=== PATIENT | female | born 1975 | race Caucasian/White ===

== ENCOUNTER → 2017-05-16 16:21 | Outpatient (CLI) | payer OTHER, SELFPAY ==
[2017-05-16 17:50] LABS: ALB/GLOB Ratio 1.2 RATIO (0.9-2.4); AST(SGOT) 11 U/L (15-37); Alanine Aminotransfer ALT/SGPT 25 U/L (13-56); Albumin, Serum 3.8 g/dL (3.2-5.0); Alkaline Phosphatase 54 U/L (45-117); Anion Gap 7 (5-15); BUN 13 mg/dL (7-18); BUN/Creat Ratio 18.7 RATIO (10-20); Calcium,Total 8.5 mg/dL (8.5-10.1); Chloride 104 mmol/L (98-107); EST Glomerular Filtration Rate 98 mL/min (>60); Est Glom Filt Rate - Afr Amer 118 mL/min (>60); Globulin 3.3 g/dL (2.2-4.2); Glucose 84 mg/dL (74-106); Potassium 3.8 mmol/L (3.5-5.1); Protein, Total 7.1 g/dL (6.4-8.2); Sodium Level 140 mmol/L (136-145)
== END ==
PROVIDERS: Family Provider Family Medicine; PCP Family Medicine; Visit Provider Family Medicine
DX: R32 Unspecified urinary incontinence (principal); R35.8 Other polyuria; R30.0 Dysuria
CPT/HCPCS: 36415; 80053; 87086; 87088

== ENCOUNTER → 2017-05-24 14:50 | Outpatient (CLI) | payer OTHER, SELFPAY ==
--- NOTE | 2017-05-24 14:52 | US_ITS ---
STUDY: ULTRASOUND OF THE FEMALE PELVIS REASON FOR EXAM: Female, 41 years old. Pelvic pain LMP: May 15, 2017 TECHNIQUE: Transverse and longitudinal imaging of the pelvis was obtained transvaginally using real-time ultrasound. COMPARISON: Pelvic ultrasound report dated October 20, 2008 FINDINGS: The uterus is retroverted and is in a midline position. The uterus measures 7.4 x 4.0 x 4.0 cm. There is minimal fluid in the cervical canal. The endometrium measures 7.0 mm in thickness, and is hyperechoic. There is no demonstrated endometrial mass. There is a hypoechoic mass in the fundus measuring 1.9 x 1.9 x 1.7 cm. I.U.D. - The patient does not have an I.U.D. The right ovary is visualized. The right ovary measures 3.2 x 1.8 x 2.0 cm. There are follicles in the right ovary without a dominant cyst. There is no visualized right adnexal mass or complex lesion. There is normal arterial and normal venous vascularity. The left ovary is visualized. The left ovary measures 3.3 x 1.8 x 1.5 cm. There are follicles in the left ovary without a dominant cyst. There is no visualized left adnexal mass or complex lesion. There is normal arterial and normal venous vascularity. There is no fluid in the cul-de-sac. No significant abnormalities are seen on limited visualization of the urinary bladder. US/Transvaginal Non- IMPRESSION: The uterus is retroverted. There is a small fibroid in the fundus measuring about 2 cm in size. The ovaries are normal in appearance with follicles. There is no free fluid. Electronically Signed: Celine Edge MD at 17:39 EST Tel Direct: [phone], Service support ,
--- NOTE | 2017-05-24 15:24 | RAD_ITS ---
STUDY: X-RAY - LUMBOSACRAL SPINE REASON FOR EXAM: Female, 41 years old. Back pain with radiculopathy TECHNIQUE: Six view(s) of the lumbosacral spine were obtained. COMPARISON: None FINDINGS: Normal lumbar lordosis. There is minimal levoscoliosis. There is slight anterior subluxation of L4 on L5 which does not significantly change with flexion and slightly improves with extension. There is very minimal spurring from L3 through L5. Vertebral body heights are maintained. There is no significant disc space narrowing. The sacrum and sacroiliac joints are unremarkable. Tubal ligation clips are present in the pelvis. RAD/L/S Spine Comp/w Bending Views IMPRESSION: There is trace spondylolisthesis of L4 on L5 which does not significantly change with flexion and slightly improves with extension. There are no significant disc abnormalities seen radiographically. Electronically Signed: Celine Edge MD at 17:49 EST Tel Direct: [phone], Service support ,
--- NOTE | 2017-05-24 15:24 | RAD_ITS ---
STUDY: X-RAY - PELVIS REASON FOR EXAM: Female, 41 years old. Low back pain and hip pain TECHNIQUE: One view of the pelvis was obtained. COMPARISON: None. FINDINGS: There is a non-specific bowel gas pattern. The soft tissues are unremarkable. Tubal ligation clips are present. The visualized iliac wings, sacroiliac joints and sacrum are unremarkable. No abnormalities are seen in the visualized superior and inferior pubic rami. Normal appearing pubic symphysis. The visualized ischial tuberosities are unremarkable. The proximal right femur shows no significant abnormalities. The right acetabulum shows no significant abnormalities. The right hip joint is normal in appearance. The proximal left femur shows no significant abnormalities. The left acetabulum shows no significant abnormalities. The left hip joint is normal in appearance. RAD/Pelvis 1 or 2 Views IMPRESSION: No significant abnormalities are seen radiographically in the pelvis. Electronically Signed: Celine Edge MD at 16:31 EST Tel Direct: [phone], Service support ,
== END ==
PROVIDERS: Family Provider Family Medicine; PCP Family Medicine; Visit Provider Family Medicine
DX: R10.2 Pelvic and perineal pain (principal); M54.5 Low back pain
CPT/HCPCS: 72114; 72170; 76830; 93976

== ENCOUNTER → 2018-06-15 10:05 | Outpatient (CLI) | payer OTHER, SELFPAY ==
[2016-05-03 12:15] VITALS: BMI 30.9
[2018-06-15 10:27] LABS: Absolute Lymphocyte Count 1.58 X10^3/ul (0.83-4.51); Absolute Neutrophil Count 2.3 X10^3/uL (2.0-7.7); Basophil# 0.02 X10^3/uL; Basophil% 0.5 % (0-1); Eosinophils% 2.3 % (0-5); Hematocrit 41.4 % (37-47); Hemoglobin 13.1 g/dl (12.0-15.0); Lymphocyte # 1.58 X10^3/ul (4.0); Lymphocyte % 37.1 % (19-41); Mean Corp Hgb Conc 31.6 g/gl (32-36); Mean Corpuscular Hgb 30.4 pg (27.0-32.0); Mean Corpuscular Volume 96.1 fL (81-99); Mean Platelet Vol. 10.9 fl (6.2-12.0); Neutrophil # 2.26 X10^3/uL (2.7-7.7); Neutrophil % 53.1 % (47-70); Platelet Count 238 K/mm3 (150-450); RBC Distribution Width SD 44.8 fl (35.1-43.9); Red Blood Count 4.31 M/mm3 (4.2-5.4); White Blood Count 4.3 K/mm3 (4.4-11.0)
[2018-06-15 10:28] LABS: POSITIVE COUNT NO; POSITIVE DIFFERENTIAL NO; POSITIVE MORPHOLOGY NO
[2018-06-15 10:46] LABS: Hemoglobin A1c 5.2 % (4.2-6.3)
[2018-06-15 10:56] LABS: Vitamin D,25 Hydroxy 20.2 ng/mL (29.95-100.01)
[2018-06-15 10:57] LABS: ALB/GLOB Ratio 1.2 RATIO (0.9-2.4); AST(SGOT) 12 U/L (15-37); Alanine Aminotransfer ALT/SGPT 15 U/L (13-56); Albumin, Serum 3.7 g/dL (3.2-5.0); Alkaline Phosphatase 55 U/L (45-117); Anion Gap 3 (5-15); BUN 15 mg/dL (7-18); BUN/Creat Ratio 20.9 RATIO (10-20); Calcium,Total 8.7 mg/dL (8.5-10.1); Chloride 108 mmol/L (98-107); Cholesterol 203 mg/dL (200); Creatinine, Serum 0.72 mg/dL (0.55-1.02); EST Glomerular Filtration Rate 94 mL/min (>60); Est Glom Filt Rate - Afr Amer 114 mL/min (>60); Globulin 3.2 g/dL (2.2-4.2); Glucose 92 mg/dL (74-106); High Density Lipoprotein 78 mg/dL; Potassium 4.2 mmol/L (3.5-5.1); Protein, Total 6.9 g/dL (6.4-8.2); Sodium Level 139 mmol/L (136-145); T4 Free Direct 0.92 ng/dL (0.76-1.46); Thyroid Stim Hormone (TSH) 1.28 uIU/mL (0.358-3.74); Triglycerides 49 mg/dL; Very Low Density Lipoprotein 10 mg/dL (5-40)
[2018-06-16 07:50] LABS: Free T3 2.4 pg/mL (2.18-3.98)
== END ==
PROVIDERS: Family Provider Family Medicine; PCP Family Medicine; Referring Provider Family Medicine; Visit Provider Family Medicine
DX: E55.9 Vitamin D deficiency, unspecified (principal); R53.83 Other fatigue; R73.01 Impaired fasting glucose; E78.5 Hyperlipidemia, unspecified; Z51.81 Encounter for therapeutic drug level monitoring
CPT/HCPCS: 36415; 80053; 80061; 82306; 83036; 84439; 84443; 84481; 85025

== ENCOUNTER → 2018-07-10 | Outpatient (CLI) | payer OTHER, SELFPAY ==
[2016-05-03 12:15] VITALS: BMI 30.9
[2018-07-15 12:10] LABS: HPV Reflexed? NOT INDICATED
== END | disposition home or self-care (01) ==
LOC: LABSPEC 16:38
PROVIDERS: Family Provider Family Medicine; PCP Family Medicine; Referring Provider Obstetrics & Gynecology; Visit Provider Obstetrics & Gynecology
DX: Z12.4 Encounter for screening for malignant neoplasm of cervix (principal)
CPT/HCPCS: 88175; G0145

== ENCOUNTER → 2018-07-25 | Outpatient (CLI) | payer OTHER, SELFPAY ==
[2016-05-03 12:15] VITALS: BMI 30.9
--- NOTE | 2018-07-25 12:36 | BI_ITS ---
MAMMOGRAPHY - BILATERAL SCREENING REASON FOR EXAM: Female, 43 years old. Routine annual screening examination. PERTINENT HISTORY: Non-contributory. TECHNIQUE: Digital bilateral breast leigh ann (3D mammographic acquisition) in the CC and MLO projections. 2-D mediolateral oblique (MLO) and craniocaudad (CC) views of both breasts were obtained. CAD: Full Field Digital Mammography with Computer Added Detection was performed. COMPARISON: Comparison is made with prior study dated October 17, 2016 and December 23, 2014. FINDINGS: Breast Composition: The breasts are heterogeneously dense, which may obscure small masses. There are no dominant masses or suspicious calcifications. Stable 7 mm well-defined nodular density in the upper outer aspect of the left breast. This most likely represents a small lymph node. No other significant abnormalities are identified. There has been no significant change since the prior study. BI/SCREENING MAMM (CAD), BILAT IMPRESSION: Stable bilateral screening mammogram. Yearly follow-up mammogram recommended. (A) ASSESSMENT CATEGORY: BIRADS Category 2: Benign. A letter regarding these results will be sent to the patient by the facility within 30 days. Approximately 10% of breast cancers are not detected by mammography. A normal mammogram should not delay biopsy of a clinically suspicious abnormality. [id number] Electronically Signed: Tray Mcconnell, at 14:10 EDT , Service support ,
== END | disposition home or self-care (01) ==
LOC: OPBI 12:36
PROVIDERS: Family Provider Family Medicine; PCP Family Medicine; Referring Provider Family Medicine; Visit Provider Family Medicine
DX: Z12.31 Encounter for screening mammogram for malignant neoplasm of breast (principal)
CPT/HCPCS: 77063; 77067

== ENCOUNTER → 2019-09-30 | Outpatient (CLI) | payer OTHER, SELFPAY ==
[2016-05-03 12:15] VITALS: BMI 30.9
[2019-09-30 17:17] LABS: Chlamydia Trachomatis by PCR Negative (Negative); Neisserai gonorrhoeae by PCR Negative (Negative); Probe Check PASS; Sample Adequacy Control PASS; Specimen Processing Control PASS
[2019-09-30 19:53] LABS: Probe Check PASS; Sample Adequacy Control PASS; Specimen Processing Control PASS; Trichomonas Vag DNA by PCR Negative (Negative)
== END | disposition home or self-care (01) ==
LOC: WOBLAB 13:34 → LABSPEC 13:35
PROVIDERS: PCP Family Medicine; Visit Provider Obstetrics & Gynecology
DX: Z11.3 Encounter for screening for infections with a predominantly sexual mode of transmission (principal)
CPT/HCPCS: 87491; 87591; 87661

== ENCOUNTER → 2021-10-04 | Outpatient (CLI) | payer OTHER, SELFPAY ==
--- NOTE | 2021-10-04 09:33 | RAD_ITS ---
STUDY: X-RAY - CERVICAL SPINE REASON FOR EXAM: Female, 46 years old. CERVICALGIA,NECK PAIN TECHNIQUE: 5 view(s) of the cervical spine were obtained. COMPARISON: None FINDINGS: Normal anterior atlantoaxial articulation. Normal odontoid process. There is straightening of the normal cervical lordosis. Normal vertebral bodies and endplates. Normal disc space heights. Normal visualized intervertebral neuroforamina. Minimal anterior listhesis of C4 on C5. The soft tissue structures are unremarkable. RAD/Cerv Spine 4 or 5 Views IMPRESSION: There is straightening of the normal cervical lordosis. Minimal anterior listhesis of C4 on C5. Electronically Signed: Tray Mcconnell MD at 10:05 EDT ,
[2021-10-04 12:16] LABS: Absolute Lymphocyte Count 1.87 X10^3/uL (0.83-4.51); Absolute Neutrophil Count 3.6 X10^3/uL (2.0-7.7); Basophil# 0.03 X10^3/uL; Basophil% 0.5 % (0-1); Eosinophil# 0.16 X10^3/uL; Eosinophils% 2.6 % (0-5); Hematocrit 39.3 % (37-47); Hemoglobin 12.3 g/dL (12.0-15.0); Lymphocyte # 1.87 X10^3/ul (0.83-4.51); Lymphocyte % 30.8 % (19-41); Mean Corp Hgb Conc 31.3 g/dL (32-36); Mean Corpuscular Hgb 29.5 pg (27.0-32.0); Mean Corpuscular Volume 94.2 fL (81-99); Mean Platelet Vol. 11.3 fl (6.2-12.0); Monocyte# 0.41 X10^3/uL; Monocyte% 6.8 % (0-10); NRBC Flagged by Analyzer 0 % (0-5); Neutrophil # 3.58 X10^3/uL (2.7-7.7); Platelet Count 327 K/mm3 (150-450); RBC Distribution Width CV 12.8 % (11.6-14.6); RBC Distribution Width SD 44.5 fl (35.1-43.9); Red Blood Count 4.17 M/mm3 (4.2-5.4); White Blood Count 6.1 K/mm3 (4.4-11.0)
[2021-10-04 13:09] LABS: ALB/GLOB Ratio 1.1 RATIO (0.9-2.4); AST(SGOT) 11 U/L (15-37); Alanine Aminotransfer ALT/SGPT 21 U/L (13-56); Albumin, Serum 3.6 g/dL (3.2-5.0); Alkaline Phosphatase 59 U/L (45-117); Anion Gap 6 (5-15); BUN 14 mg/dL (7-18); BUN/Creat Ratio 18.8 RATIO (10-20); Calcium,Total 8.9 mg/dL (8.5-10.1); Chloride 106 mmol/L (98-107); Cholesterol 225 mg/dL (200); Creatinine, Serum 0.74 mg/dL (0.55-1.02); EST Glomerular Filtration Rate 89 mL/min (>60); Est Glom Filt Rate - Afr Amer 108 mL/min (>60); Free T3 2.5 pg/mL (2.18-3.98); Globulin 3.2 g/dL (2.2-4.2); Glucose 96 mg/dL (74-106); High Density Lipoprotein 60 mg/dL; Potassium 4.1 mmol/L (3.5-5.1); Protein, Total 6.8 g/dL (6.4-8.2); Sodium Level 138 mmol/L (136-145); Thyroid Stim Hormone (TSH) 1.11 uIU/mL (0.358-3.74); Triglycerides 47 mg/dL; Very Low Density Lipoprotein 9 mg/dL (5-40)
== END | disposition home or self-care (01) ==
PROVIDERS: PCP Family Medicine; Referring Provider Family Medicine; Visit Provider Family Medicine
DX: E03.9 Hypothyroidism, unspecified (principal); E55.9 Vitamin D deficiency, unspecified; E78.5 Hyperlipidemia, unspecified; Z51.81 Encounter for therapeutic drug level monitoring; Z20.822 Contact with and (suspected) exposure to COVID-19; M54.2 Cervicalgia
CPT/HCPCS: 36415; 72050; 80053; 80061; 82306; 84439; 84443; 84481; 85025; 86376; 86769; 86800

== ENCOUNTER → 2022-02-27 | Outpatient (CLI) | payer OTHER, SELFPAY ==
--- NOTE | 2022-02-27 15:31 | BI_ITS ---
MAMMOGRAPHY - BILATERAL SCREENING REASON FOR EXAM: Female, 46 years old. Routine annual screening examination. PERTINENT HISTORY: Non-contributory. TECHNIQUE: Digital bilateral breast shari (3D mammographic acquisition) in the CC and MLO projections. 2-D mediolateral oblique (MLO) and craniocaudad (CC) views of both breasts were obtained. CAD: Full Field Digital Mammography with Computer Added Detection was performed. COMPARISON: Comparison is made with prior study dated 07/25/2018 and 04/19/2016. FINDINGS: Breast Composition: There are scattered areas of fibroglandular density. There are no dominant masses or suspicious calcifications. Stable 7 mm well-defined nodule with a central fatty hilum in the upper outer aspect of the left breast suggestive of a small lymph node. No other significant abnormalities are identified. There has been no significant change since the prior study. BI/SCRN MAMM (CAD)W/SHARI BILAT IMPRESSION: Stable bilateral screening mammogram. Yearly follow-up mammogram recommended. (A) ASSESSMENT CATEGORY: BIRADS Category 2: Benign. A letter regarding these results will be sent to the patient by the facility within 30 days. Approximately 10% of breast cancers are not detected by mammography. A normal mammogram should not delay biopsy of a clinically suspicious abnormality. [id number] Electronically Signed: Tray Mcconnell MD at 8:11 EST ,
== END | disposition home or self-care (01) ==
LOC: OPBI 15:30
PROVIDERS: PCP Family Medicine; Visit Provider Family Medicine
DX: Z12.31 Encounter for screening mammogram for malignant neoplasm of breast (principal); N63.21 Unspecified lump in the left breast, upper outer quadrant
CPT/HCPCS: 77063; 77067

== ENCOUNTER → 2022-05-25 | Outpatient (CLI) | payer OTHER, SELFPAY ==
[2022-05-25 17:50] LABS: Erythrocyte Sedimentation Rate 25 mm/hr (0-30)
[2022-05-25 17:52] LABS: Absolute Lymphocyte Count 2.31 X10^3/uL (0.83-4.51); Absolute Neutrophil Count 5.1 X10^3/uL (2.0-7.7); Basophil# 0.04 X10^3/uL; Basophil% 0.5 % (0-1); Eosinophil# 0.06 X10^3/uL; Eosinophils% 0.7 % (0-5); Hematocrit 39.1 % (37-47); Hemoglobin 12.5 g/dL (12.0-15.0); Lymphocyte # 2.31 X10^3/ul (0.83-4.51); Lymphocyte % 28.5 % (19-41); Mean Corpuscular Hgb 29.3 pg (27.0-32.0); Mean Corpuscular Volume 91.8 fL (81-99); Mean Platelet Vol. 11.3 fl (6.2-12.0); Monocyte# 0.55 X10^3/uL; Monocyte% 6.8 % (0-10); NRBC Flagged by Analyzer 0 % (0-5); Neutrophil # 5.12 X10^3/uL (2.7-7.7); Neutrophil % 63.3 % (47-70); Platelet Count 340 K/mm3 (150-450); RBC Distribution Width CV 13.1 % (11.6-14.6); Red Blood Count 4.26 M/mm3 (4.2-5.4); White Blood Count 8.1 K/mm3 (4.4-11.0)
[2022-05-25 18:04] LABS: Vitamin D,25 Hydroxy 62.4 ng/mL
[2022-05-25 18:38] LABS: ALB/GLOB Ratio 1.3 RATIO (0.9-2.4); AST(SGOT) 16 U/L (15-37); Alanine Aminotransfer ALT/SGPT 26 U/L (13-56); Albumin, Serum 4.2 g/dL (3.2-5.0); Alkaline Phosphatase 73 U/L (45-117); Anion Gap 8 (5-15); BUN 15 mg/dL (7-18); BUN/Creat Ratio 19.9 RATIO (10-20); CRP 7.07 mg/L (0.0-3.0); Calcium,Total 9.6 mg/dL (8.5-10.1); Chloride 105 mmol/L (98-107); Cholesterol 239 mg/dL (200); Creatinine, Serum 0.75 mg/dL (0.55-1.02); EST Glomerular Filtration Rate 87 mL/min (>60); Est Glom Filt Rate - Afr Amer 106 mL/min (>60); Free T3 2.5 pg/mL (2.18-3.98); Globulin 3.3 g/dL (2.2-4.2); Glucose 92 mg/dL (74-106); High Density Lipoprotein 59 mg/dL; Potassium 3.8 mmol/L (3.5-5.1); Protein, Total 7.5 g/dL (6.4-8.2); Rheumatoid Factor < 10.0 IU/mL (<15); Sodium Level 137 mmol/L (136-145); T4 Free Direct 1.12 ng/dL (0.76-1.46); Thyroid Stim Hormone (TSH) 1.29 uIU/mL (0.358-3.74); Triglycerides 58 mg/dL; Very Low Density Lipoprotein 12 mg/dL (5-40)
[2022-05-28 14:03] LABS: CCP IgG Antibodies 4 units (0-19)
[2022-05-29 18:47] LABS: ANTINUCLEAR ANTIBODIES DIRECT Negative (Negative)
== END | disposition home or self-care (01) ==
LOC: MTLAB 15:14
PROVIDERS: PCP Family Medicine; Referring Provider Family Medicine; Visit Provider Family Medicine
DX: E03.9 Hypothyroidism, unspecified (principal); R73.01 Impaired fasting glucose; E55.9 Vitamin D deficiency, unspecified; Z51.81 Encounter for therapeutic drug level monitoring; M25.50 Pain in unspecified joint; M79.10 Myalgia, unspecified site
CPT/HCPCS: 36415; 80053; 80061; 82306; 84439; 84443; 84481; 85025; 85652; 86038; 86140; 86200; 86225; 86235; 86431

== ENCOUNTER → 2022-05-26 | Outpatient (CLI) | payer OTHER, SELFPAY | END | disposition home or self-care (01) | LOC: LABSPEC 13:35 | PROVIDERS: PCP Family Medicine; Visit Provider Student in an Organized Health Care Education/Training Program | DX: N76.0 Acute vaginitis (principal); R35.0 Frequency of micturition | CPT/HCPCS: 87086 ==

== ENCOUNTER → 2022-06-14 | Outpatient (CLI) | payer OTHER, SELFPAY ==
[2022-06-14 16:56] LABS: Hematocrit 38.6 % (37-47); Hemoglobin 12.3 g/dL (12.0-15.0); Mean Corp Hgb Conc 31.9 g/dL (32-36); Mean Corpuscular Hgb 29.1 pg (27.0-32.0); Mean Corpuscular Volume 91.5 fL (81-99); Mean Platelet Vol. 10.8 fl (6.2-12.0); Platelet Count 327 K/mm3 (150-450); RBC Distribution Width CV 13.1 % (11.6-14.6); RBC Distribution Width SD 44.3 fl (35.1-43.9); Red Blood Count 4.22 M/mm3 (4.2-5.4); White Blood Count 7.7 K/mm3 (4.4-11.0)
[2022-06-14 18:22] LABS: ALB/GLOB Ratio 1.1 RATIO (0.9-2.4); AST(SGOT) 11 U/L (15-37); Alanine Aminotransfer ALT/SGPT 24 U/L (13-56); Albumin, Serum 3.8 g/dL (3.2-5.0); Alkaline Phosphatase 64 U/L (45-117); Anion Gap 7 (5-15); BUN 11 mg/dL (7-18); BUN/Creat Ratio 13.8 RATIO (10-20); Calcium,Total 9.1 mg/dL (8.5-10.1); Chloride 109 mmol/L (98-107); EST Glomerular Filtration Rate 82 mL/min (>60); Est Glom Filt Rate - Afr Amer 99 mL/min (>60); Globulin 3.4 g/dL (2.2-4.2); Glucose 125 mg/dL (74-106); Potassium 3.6 mmol/L (3.5-5.1); Protein, Total 7.2 g/dL (6.4-8.2); Sodium Level 141 mmol/L (136-145)
[2022-06-21 16:07] LABS: HPV APTIMA, High Risk Negative (Negative)
== END | disposition home or self-care (01) ==
LOC: WOBLAB 16:32
PROVIDERS: PCP Family Medicine; Visit Provider Student in an Organized Health Care Education/Training Program
DX: Z12.4 Encounter for screening for malignant neoplasm of cervix (principal); R14.0 Abdominal distension (gaseous)
CPT/HCPCS: 36415; 80053; 85027; 87624; 88175; G0145

== ENCOUNTER → 2022-06-20 | Outpatient (CLI) | payer OTHER, SELFPAY ==
--- NOTE | 2022-06-20 09:00 | RAD_ITS ---
STUDY: X-RAY - ABDOMEN/PELVIS REASON FOR EXAM: Female, 46 years old. Abd pain TECHNIQUE: Two AP supine views of the abdomen and pelvis. COMPARISON: May 24, 2017 pelvis x-ray FINDINGS: Normal visualized lung bases. There is mild to moderate stool in the colon. There is no demonstrated free abdominal air. The visualized liver, spleen and kidneys are grossly normal in size and morphology. Comparison study May 24, 2017 there are tubal ligation clips. The tubal ligation clip within the right side of the pelvis from prior, is now projected over the right iliac crest. The left side tubal ligation clip is now projected over the left psoas muscle proximally at the level L3-L4. Normal visualized osseous structures. RAD/Abdomen Single View IMPRESSION: Mild to moderate stool within the colon. There is a visualized low-lying appearance of the cecum. Interval migration of bilateral tubal ligation clips. Electronically Signed: Gifty Locke MD at 22:44 EDT ,
--- NOTE | 2022-06-20 11:18 | CT_ITS ---
STUDY: CT ABDOMEN AND PELVIS WITH CONTRAST REASON FOR EXAM: Female, 46 years old. PELVIC PAIN RADIATION DOSAGE (If Supplied By Facility): CTDIvol = ( 17.23 ) mGy, DLP = ( 1098.51 ) mGycm TECHNIQUE: Transaxial images were obtained from the dome of the diaphragm to the symphysis pubis without oral contrast. Oral and amp; IV Gastrografin and amp; 100mL Isovue-300 was administered. Sagittal and coronal images were reconstructed. Individualized dose optimization techniques were used for this CT. COMPARISON: Pelvis x-ray May 24, 2017 FINDINGS: There is minimal right side pleural thickening measuring approximately 0.6 x 0.6 cm. The visualized portions of the heart are within normal limits. There is a 3 mm low attenuating cystic structure in the right hepatic lobe too small to characterize. Otherwise the liver is homogeneous. Normal gallbladder and extrahepatic biliary system. Normal spleen. Normal pancreas. Normal bilateral adrenal glands. Normal right kidney. Normal left kidney. There is a small hiatal hernia. A normal contrasted appearance of the small bowel. There is a small visualized nonspecific filling defect within the third part of the duodenum with a fatty density which may represent a small fatty lipoma measuring 7.5 mm. There is a low-lying appearance of the cecum. The cecum is anterior to the uterus. The appendix is on the left of midline sign of the pelvis. The appendix is visualized and appears normal. There is trace calcification of the infrarenal aorta. Normal inferior vena cava. Normal retroperitoneum. Normal urinary bladder. There is a mildly lobulated appearance of the uterus with mild inhomogeneity. There is a posteriorly located lobulated mass measuring 1.8 x 1.8 cm. There is an anteriorly located mass measuring 1.4 cm. Incidental visualization interval migration of the tubal ligation clips. A tubal ligation clip was on the right is now in the fat anterior to the bowel in the right lower quadrant. The tubal ligation clip that was on the left is anterior to the bowel in the left lower quadrant. Normal abdominal wall. There are diffuse degenerative changes of the visualized lumbar spine. There is multilevel disc space narrowing spondylosis. At the level of L2-3 there is a left lateral mild disc bulge. There is facet arthropathy. At L3-L4 L4-L5 there is disc space narrowing and broad disc bulge minimal neural foramina narrowing no significant central stenosis. CT/Abdomen/Pelvis WITH Contrast IMPRESSION: Nonspecific benign-appearing small hepatic cysts. 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 Minimal pleural thickening in the right lower lobe could consider a follow-up CT scan of the chest without contrast in 6 months to ensure stability. No hydronephrosis. No appendicitis. Mild to moderate constipation. No appendicitis. Fibroid uterus. Could consider follow-up ultrasound when appropriate. Nonspecific migrated tubal ligation clips. Multilevel degenerative change in the thoracolumbar spine. Electronically Signed: Gifty Locke MD at 23:32 EDT ,
== END | disposition home or self-care (01) ==
PROVIDERS: PCP Family Medicine; Visit Provider Student in an Organized Health Care Education/Training Program
DX: R10.2 Pelvic and perineal pain (principal)
CPT/HCPCS: 74018; 74177; Q9967

== ENCOUNTER → 2022-06-26 | Outpatient (CLI) | payer OTHER, SELFPAY ==
--- NOTE | 2022-06-26 07:18 | US_ITS ---
STUDY: ABDOMINAL ULTRASOUND - RIGHT UPPER QUADRANT REASON FOR VISIT: Female, 46 years old RUQ Pain -- RUQ TECHNIQUE: Ultrasound evaluation of the right upper quadrant was performed with real-time and static esparza-scale imaging. TECHNICAL QUALITY: Adequate. COMPARISON: Comparison is made with prior CT scan of the abdomen and pelvis dated June 20, 2022. FINDINGS: Liver: The liver measures 15.9 cm. There is normal echogenicity of the liver. The bile ducts are within normal limits. There is hepatic color flow. The direction of portal flow is hepatopetal. There is no demonstrated mass lesion. Gallbladder: Normal distended gallbladder. The gallbladder wall measures 3.0 mm. There is a negative sonographic Siddiqui''s sign. There is no pericholecystic fluid. There are no gallstones. Common Bile Duct (C.B.D.): The common bile duct measures 4 mm. Pancreas: Normal size of the head, body and tail of the pancreas. There is normal echogenicity of the pancreas. There is no demonstrated pancreatic mass or cyst. Right Kidney: Normal size of the right kidney. The right kidney measures 10.7 cm x 5.1 cm x 4.5 cm. Normal renal cortex. The right cortex measures 1.4 cm. There is no demonstrated renal mass or cyst. There is no right hydronephrosis. US/Abdomen Limited IMPRESSION: Normal right upper quadrant ultrasound examination. Electronically Signed: Tray Mcconnell MD at 8:39 EDT ,
== END | disposition home or self-care (01) ==
LOC: US 07:14
PROVIDERS: PCP Family Medicine; Referring Provider Nurse Practitioner Adult Health; Visit Provider Nurse Practitioner Adult Health
DX: R10.11 Right upper quadrant pain (principal)
CPT/HCPCS: 76705

== ENCOUNTER 2022-06-28 05:43 | Day surgery (SDC) | payer OTHER, SELFPAY ==
--- NOTE | 2022-06-28 | ESO_PTH ---
PATIENT: SLIME GRIFFIN LOC: EN U#:[id number] AGE/SX: 46/F ROOM: RE06/28/[address]: Dr. Waldemar Villela DO : 1975 BED: DIS: 06/28/2022 SPEC #: [id number] RECD: 06/28/22 10:33 STATUS: ROB REAmanda #: [id number] JOSSELYN: 06/28/22 00:[address]: Waldemar Villela DEPT: SURGICAL PATHOLOGY RECD BY: Juan Pruitt ENTERED: 06/28/22 10:33 SP TYPE: PEARL MCLEAN DR: Dr. Sasha Jackson DO Tissues: A - Esophagus, NOS B - Duodenum, NOS Procedures: Special Stain Group II Surgery Specimen Level IV Alcian Blue/PAS (control) HEADER OPERATION: Colonoscopy, EGD (MAC), biopsy PRE-OP DIAGNOSIS: LLQ and RUQ abdominal pain TISSUE SUBMITTED: A ? Distal esophagus biopsy, B ? Duodenum biopsy MICROSCOPIC DIAGNOSIS A. Distal esophagus, biopsy: Gastroesophageal junctional mucosa with mild chronic inflammation. Focal changes of reflux. No evidence of goblet cell metaplasia. See comment. B. Duodenum, biopsy: No pathologic change. AM:earl 06/29/2022 COMMENT A. Alcian blue/PAS stain with matched control supports the above diagnosis. MICROSCOPIC DESCRIPTION Slides are reviewed. GROSS DESCRIPTION A - Received in fixative is one container labeled with the patient's name and designated distal esophagus. The specimen consists of multiple irregular fragments of light gray soft tissue that in aggregate measure 1.0 x 0.5 x 0.1 cm. The specimen is totally submitted in one cassette. B - Received in fixative is one container labeled with the patient's name and designated duodenum. The specimen consists of two irregular fragments of light gray soft tissue that in aggregate measure 0.6 x 0.5 x 0.1 cm. The specimen is totally submitted in one cassette. / AM:earl 06/28/2022 TC:3 CPT: 78435 x2, 47745
[2022-06-28 06:21] VITALS: BP 122/72; PULSE 80; RESP 16; TEMP 36.6; O2SAT 97; BMI 35.2
[2022-06-28] MEDS: Lactated Ringers 1,000 ML 15 ML IV (06:25)
--- NOTE | 2022-06-28 06:49 | HP.PCM_ITS ---
History and Physical Date of Admission: 06/28/22 46 F who presents to the office today to establish with GI for LLQ abdominal pain as well as newer RUQ abd pain. She is scheduled for CT today as ordered by her switch technician Dr Palma. She had presented to [facility] with pelvic pain and fullness, as well as urinary frequency/urgency and vaginal discharge. Had pelvic US at [facility] office on 06/14/22 which was unremarkable (2 small fibroids). Treated with flagyl for possible bacterial vaginal infection, the discharge and urinary complaints resolved. She continues to have fullness in pelvis, lower mid abdomen and LLQ, and a constant pain there, some pain radiates around left flank. May get a few seconds of relief of LLQ pain after BM. Had rectal pain yesterday. The pelvic/LLQ pain started in early April. Feels like there is something in the LLQ pain. RUQ pain started 06/14/22, worse with eating. Appetite is decreased. Some nausea. No vomiting. Has had indigestion and heartburn since 10/2021. Quit smoking but that didn't help the indigestion/heartburn. No change in the bowels--no diarrhea or constipation, no melena or hematochezia. No unintentional weight loss. No prior EGD or colonoscopy, would like to schedule her screening colonoscopy. 06/15/22 labs: cbc unremarkable, cmp unremarkable 05/25/22 labs: cbc unremarkable, cmp unremarkable, crp 7 H, esr 25 Hx kidney stones, melanoma, IBS, vit D deficiency, PVCs PSH , tubal ligation ROS Const Constitutional: No fatigue, fever(s), frequent falls, headache(s) or weight change ENT ENT: No headache(s) or difficulty swallowing Cardio Cardiology: No leg pain with exertion Gastro GI: Positive for abdominal pain, bloating, heartburn and nausea/dyspepsia; No change in bowel habits, constipation, diarrhea, difficulty swallowing, Vomiting blood/hematemesis, Blood in stool or vomiting Musc Musculoskeletal: Positive for joint pain and back pain; No abnormal gait, joint swelling, muscle cramps, muscle weakness, numbness, stiffness, tingling, Arthritis, sciatica, leg pain at night or leg pain with exertion Skin Skin: No dry skin, lesions, itchy eyes or rash Neuro Neurology: No abnormal gait, dizziness, frequent falls, headache(s), numbness, tingling, tremor(s), Increased tone in limbs, paralysis or seizures Psych Psychiatric: No anxiety, No depression, No paranoia, No Behavioral Problems, No Compulsive Behavior, No hyperactivity, No inattentiveness, No obsessions/compulsions, No Temper Tantrums and No suicidal ideation Endo Endocrine: No fatigue or weight change Aller/Imm Allergy/Immunologic: No itchy eyes Rogelio/Lymp Hematologic/Lymphatic: No easy bleeding or easy bruising Exam Const General: cooperative and uncomfortable (can't find a comfortable position) Nutritional Appearance: obese Orientation: alert, awake and oriented x3 HENMT Head: normal to inspection Eyes Sclera: sclerae normal Resp Effort & Inspection: normal respiratory effort GI Inspection: normal to inspection Palpation: soft, no hepatosplenomegaly, no masses and tender in the LLQ and in the RUQ General: bladder normal to palpation Bimanual Exam- Vagina & Uterus: bladder normal to palpation Skin General: no rashes or lesions noted and no jaundice Neuro Speech: speech normal Gait: normal gait Extrem General: normal to inspection Quality Reporting Tobacco Screening (CMS 138) Smoking Status: Former smoker Assessment and Plan Assessment and Plan (1) LLQ abdominal pain: ?Status:?Acute ?Plan: 46 yr old female with 6 weeks of LLQ pain and 1 week of RUQ pain. Will get KUB to eval for ureteral stone. She is scheduled for CT today as ordered by her switch technician. Nest step based on imaging results. Will schedule her for EGD to [facility] for Araujo's as well as colonoscopy. May need RUQ US. (2) RUQ abdominal pain: ?Status:?Acute\ I have examined the patient and the H&P has been reviewed. There are no clinical changes since date of exam.
[2022-06-28 07:30] VITALS: BP 104/64; BP 122/72; PULSE 84; RESP 16; TEMP 36.4; O2SAT 97
--- NOTE | 2022-06-28 07:32 | OP.EGD_ITS ---
Patient Name: Norma Arroyo Procedure Date: 06/28/2022 6:53 AM Date of : 1975 Age: 46 Procedure: Upper GI endoscopy Indications: Heartburn Providers: Waldemar Villela DO Referring MD: Waldemar Villela DO Medicines: Monitored Anesthesia Care Patient Profile: This is a 46 year old female. Refer to note in patient chart for documentation of history and physical. Patient has symptoms of acute abdominal cramping and acute right upper quadrant abdominal pain. Complications: No immediate complications. Procedure: Pre-Anesthesia Assessment: - Prior to the procedure, a History and Physical was performed, and patient medications and allergies were reviewed. The risks and benefits of the procedure and the sedation options and risks were discussed with the patient. All questions were answered and informed consent was obtained. Patient identification and proposed procedure were verified by the physician. Mental Status Examination: normal. Prophylactic Antibiotics: The patient does not require prophylactic antibiotics. Prior Anticoagulants: The patient has taken no previous anticoagulant or antiplatelet agents. ASA Grade Assessment: II - A patient with mild systemic disease. After reviewing the risks and benefits, the patient was deemed in satisfactory condition to undergo the procedure. The anesthesia plan was to use monitored anesthesia care (MAC). Immediately prior to administration of medications, the patient was re-assessed for adequacy to receive sedatives. The heart rate, respiratory rate, oxygen saturations, blood pressure, adequacy of pulmonary ventilation, and response to care were monitored throughout the procedure. The physical status of the patient was re-assessed after the procedure. After obtaining informed consent, the endoscope was passed under direct vision. Throughout the procedure, the patient's blood pressure, pulse, and oxygen saturations were monitored continuously. The colonoscope was introduced through the mouth, and advanced to the second part of duodenum. The upper GI endoscopy was accomplished without difficulty. The patient tolerated the procedure well. Scope In: 7:01:35 AM Scope Out: 7:07:28 AM Total Procedure Duration Time 0 hours 5 minutes 53 seconds Findings: LA Grade B (one or more mucosal breaks greater than 5 mm, not extending between the tops of two mucosal folds) esophagitis with no bleeding was found 35 to 37 cm from the incisors. Biopsies were taken with a cold forceps for histology. Verification of patient identification for the specimen was done. Estimated blood loss was minimal. The entire examined stomach was normal. The cardia and gastric fundus were normal on retroflexion. Patchy mildly erythematous mucosa without active bleeding and with no stigmata of bleeding was found in the duodenal bulb and in the first portion of the duodenum. Biopsies were taken with a cold forceps for histology. Verification of patient identification for the specimen was done. Estimated blood loss was minimal. Impression: - LA Grade B reflux esophagitis. Biopsied. - Normal stomach. - Erythematous duodenopathy. Biopsied. Recommendation: - Discharge patient to home. - Resume previous diet. - Continue present medications. - Await pathology results. Procedure Code(s): --- Professional --- 24112, Esophagogastroduodenoscopy, flexible, transoral; with biopsy, single or multiple CPT copyright 2017 [employer]. All rights reserved. The codes documented in this report are preliminary and upon health education aide review may be revised to meet current compliance requirements. Waldemar Villela DO 06/28/2022 7:31:40 AM This report has been signed electronically. Number of Addenda: 0 Note Initiated On: 06/28/2022 6:53 AM
--- NOTE | 2022-06-28 07:33 | OP.CCLET_ITS ---
06/28/2022 Sasha Jackson [address] [facility] [place] [address] Re : Upper GI endoscopy procedure for Norma Arroyo Dear Dr. Jackson This procedure was performed on Tuesday, June 28, 2022. My impressions and recommendations are as follows: Impressions : - LA Grade B reflux esophagitis. Biopsied. - Normal stomach. - Erythematous duodenopathy. Biopsied. Recommendations : - Discharge patient to home. - Resume previous diet. - Continue present medications. - Await pathology results. My findings are described in the full procedure note, which is enclosed. If I can be of further assistance, please feel free to contact me at . Sincerely, Waldemar Villela, 06/28/2022 7:31:40 AM This report has been signed electronically.
[2022-06-28 07:35] VITALS: BP 108/66; BP 122/72; PULSE 89; RESP 16; O2SAT 95
--- NOTE | 2022-06-28 07:36 | OP.COLON_ITS ---
Patient Name: Norma Arroyo Procedure Date: 06/28/2022 7:07 AM Date of : 1975 Age: 46 Procedure: Colonoscopy Indications: Screening for colorectal malignant neoplasm Providers: Waldemar Villela DO Referring MD: Waldemar Villela DO Medicines: Monitored Anesthesia Care Patient Profile: This is a 46 year old female. Refer to note in patient chart for documentation of history and physical. Patient has symptoms of acute abdominal cramping and acute right upper quadrant abdominal pain. Last Colonoscopy: none. The patient's first colonoscopy is today. Complications: No immediate complications. Procedure: Pre-Anesthesia Assessment: - Prior to the procedure, a History and Physical was performed, and patient medications and allergies were reviewed. The risks and benefits of the procedure and the sedation options and risks were discussed with the patient. All questions were answered and informed consent was obtained. Patient identification and proposed procedure were verified by the physician. Mental Status Examination: normal. Prophylactic Antibiotics: The patient does not require prophylactic antibiotics. Prior Anticoagulants: The patient has taken no previous anticoagulant or antiplatelet agents. ASA Grade Assessment: II - A patient with mild systemic disease. After reviewing the risks and benefits, the patient was deemed in satisfactory condition to undergo the procedure. The anesthesia plan was to use monitored anesthesia care (MAC). Immediately prior to administration of medications, the patient was re-assessed for adequacy to receive sedatives. The heart rate, respiratory rate, oxygen saturations, blood pressure, adequacy of pulmonary ventilation, and response to care were monitored throughout the procedure. The physical status of the patient was re-assessed after the procedure. After I obtained informed consent, the scope was passed under direct vision. Throughout the procedure, the patient's blood pressure, pulse, and oxygen saturations were monitored continuously. The colonoscope was introduced through the anus and advanced to the terminal ileum. The colonoscopy was performed without difficulty. The patient tolerated the procedure well. The quality of the bowel preparation was adequate. Scope In: 7:09:56 AM Scope Withdrawal Time 0 hours 9 minutes 30 seconds Scope Out: 7:24:22 AM Total Procedure Duration Time 0 hours 14 minutes 26 seconds Findings: The perianal and digital rectal examinations were normal. The colon (entire examined portion) appeared normal. The terminal ileum appeared normal. Impression: - The entire examined colon is normal. - The examined portion of the ileum was normal. - No specimens collected. Recommendation: - Discharge patient to home. - Resume previous diet. - Continue present medications. - Repeat colonoscopy in 10 years for screening purposes. Procedure Code(s): --- Professional --- G0121, Colorectal cancer screening; colonoscopy on individual not meeting criteria for high risk CPT copyright 2017 [employer]. All rights reserved. The codes documented in this report are preliminary and upon feed handler review may be revised to meet current compliance requirements. Waldemar Villela DO 06/28/2022 7:36:20 AM This report has been signed electronically. Number of Addenda: 0 Note Initiated On: 06/28/2022 7:07 AM
--- NOTE | 2022-06-28 07:37 | OP.CCLET_ITS ---
06/28/2022 Sasha Jackson [address] [place] [address] Re : Colonoscopy procedure for Norma Arroyo Dear Dr. Jackson This procedure was performed on Tuesday, June 28, 2022. My impressions and recommendations are as follows: Impressions : - The entire examined colon is normal. - The examined portion of the ileum was normal. - No specimens collected. Recommendations : - Discharge patient to home. - Resume previous diet. - Continue present medications. - Repeat colonoscopy in 10 years for screening purposes. My findings are described in the full procedure note, which is enclosed. If I can be of further assistance, please feel free to contact me at . Sincerely, Waldemar Villela, 06/28/2022 7:36:20 AM This report has been signed electronically.
[2022-06-28 07:40] VITALS: BP 110/64; BP 122/72; PULSE 82; RESP 16; O2SAT 96
[2022-06-28 07:47] VITALS: BP 106/65; BP 122/72; PULSE 79; RESP 16; TEMP 36.4; O2SAT 98
[2022-06-28 08:06] VITALS: BP 122/72
== END 2022-06-28 08:12 | disposition home or self-care (01) ==
LOC: EN 05:43 → AC 05:45
PROVIDERS: PCP Family Medicine; Referring Provider Family Medicine; Visit Provider Internal Medicine Gastroenterology
PROC: 0DJD8ZZ Inspection of Lower Intestinal Tract, Via Natural or Artificial Opening Endoscopic (ICD-10-PCS; CPT 45378; principal; 2022-06-28 06:55)
DX: Z12.11 Encounter for screening for malignant neoplasm of colon (principal); K21.00 Gastro-esophageal reflux disease with esophagitis, without bleeding; Z87.891 Personal history of nicotine dependence; Z87.19 Personal history of other diseases of the digestive system
CPT/HCPCS: 45378; 43239; 88305; 88313; J7120; J2405

== ENCOUNTER → 2022-07-03 | Outpatient (CLI) | payer OTHER, SELFPAY | END | disposition home or self-care (01) | LOC: LAB 15:33 | PROVIDERS: PCP Family Medicine; Referring Provider Nurse Practitioner Adult Health; Visit Provider Nurse Practitioner Adult Health | DX: R10.11 Right upper quadrant pain (principal) | CPT/HCPCS: 36415; 85379 ==

== ENCOUNTER → 2022-07-25 | Outpatient (CLI) | payer OTHER, SELFPAY ==
--- NOTE | 2022-07-25 10:13 | NM_ITS ---
CLINICAL: 47-year-old female with history of early satiety. SEMI-SOLID PHASE 99m Tc SULFUR COLLOID GASTRIC EMPTYING STUDY COMPARISON: Abdominal ultrasound report 06/26/2022, CT of the abdomen-pelvis report 06/20/2022 FINDINGS: The patient was administered 1.2 mCi of 99m Tc sulfur colloid mixed with oatmeal and consumed per os. Image acquisitions in the anterior-posterior projections were obtained for 60 minutes. There is prompt visualization of the stomach. There is no gastroesophageal reflux identified. The T ? linear fit was calculated to be 45.95 minutes, (Normal: 12-56 minutes). NM/Gastric Emptying Study IMPRESSION: 1. NORMAL 99m Tc sulfur colloid semi-solid phase (oatmeal) gastric emptying imaging examination. A. There is normal and preserved semi-solid phase gastric emptying compared to normal controls. (Ga et al, J Nucl Med Tech 38: 186, 2010). Electronically Signed: Chris Mei, at 22:10 EDT ,
== END | disposition home or self-care (01) ==
PROVIDERS: PCP Family Medicine; Referring Provider Nurse Practitioner Adult Health; Visit Provider Nurse Practitioner Adult Health
DX: R10.11 Right upper quadrant pain (principal); R68.81 Early satiety
CPT/HCPCS: 78264; A9541

== ENCOUNTER → 2022-08-04 | Outpatient (CLI) | payer OTHER, SELFPAY ==
--- NOTE | 2022-08-04 17:47 | CT_ITS ---
INDICATION: pleural thickening, everyday smoker EXAMINATION: CT CHEST WITHOUT CONTRAST - CT Chest W/O Contrast Injection TECHNIQUE: Helically acquired images were obtained of the chest. A radiation dose optimization technique was used for this scan. IV Contrast dosage and agent: None. RADIATION DOSAGE (If Supplied By Facility): CTDIvol = ( 13.29 ) mGy, DLP = ( 484.71 ) mGycm COMPARISON: FINDINGS: LUNGS, PLEURA AND LARGE AIRWAYS: No masses, consolidation, or edema. Left basilar atelectasis. No pleural effusion or thickening. No pneumothorax. THYROID: No thyroid lesions. HEART AND PERICARDIUM: Heart size is normal. No pericardial effusion. CORONARY ARTERIES: Coronary artery calcification VESSELS: Thoracic aorta is not dilated. MEDIASTINUM AND DARRIAN: No mediastinal or hilar adenopathy. Esophagus is unremarkable. No hiatal hernia. UPPER ABDOMEN: No acute pathology. BONES: Mild vertebral scoliosis. CT/Chest without Contrast IMPRESSION: Negative CT chest without contrast. Electronically Signed: Toney Monique DO at 21:01 EDT Reading Location ID and State: [facility] / [place] Tel [phone], Service support ,
== END | disposition home or self-care (01) ==
LOC: CT 17:45
PROVIDERS: PCP Family Medicine; Referring Provider Family Medicine; Visit Provider Family Medicine
DX: J92.9 Pleural plaque without asbestos (principal); F17.200 Nicotine dependence, unspecified, uncomplicated; R06.00 Dyspnea, unspecified
CPT/HCPCS: 71250

== ENCOUNTER 2023-04-04 15:30 | Outpatient (RCR) | payer OTHER, SELFPAY ==
--- NOTE | 2023-02-21 15:59 | HP.PTEVAL ---
Patient's Visit Information Visit Information Visit Information: SLIME GRIFFIN is a 47 year old F referred to Physical Therapy by Dr. Sasha Jackson DO with a diagnosis of cervical radiculopathy. Date of Evaluation: 02/21/23 Physical Therapist: Daniel Choi, DPT, OCS, CSCS Visit Plan Frequency: 3x /Week Duration: 4-6 Weeks Plan: 3x/week for 4-6 weeks for mariah retraction extension based ROM exercises adn manual traction PROM as needed strength neck and posture. L neck STM as needd adn mH Subjective Subjective: Chronic neck pain for 3-4 yrs . X ray shows some OA. October of this year it got worse for no reason. Pain is L sided neck base of skull and feels like a catch when moving. Has seen chiropractor and massage therapist without improvement. Has some L mid arm pain intermittent insidious. ifting hurts when she has that pain. Mikal is up to 7/10 and worse in am and then agian in evening. Hard to lfit head up off mattress at tiimes. Sleep is interrupted in that it is hard to get comfortable. 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 Does school job. Basic ADLs : Getting done but some movements can hurt like washing hair tilting head back. No regular exercises. Pain L neck pain: Pain Intensity (Out of 10): 5 Pain Intensity Range: 5 and 7 Objective Objective: Posture is forward head and 5/10 l neck at rest. UE AROM WNL and without pain reflexes 2/3 bi and tri Sensation UE WNL to gross light touch strength UE 4-/5 and no myotomal problems. cervical aROM ext 30 and deviates R with pain L. roation 25 L and 40 R SB 10 L and 24 R retraction limited L movements painful and hard to recover from. - c/s compression, hard to relax. repeated motion: 5/10 baseline flexion creates arm pain but no neck pain, Worse after retraction 12x, PDM and better ROM after 45 rotation and 50 extension. ret/ext : PDM better after wards. Balance/Special Test Scores Oswestry Neck Score: 18 Goals Goal 1:: Full aROM cervical spine without deviation or pain Goal Time Frame: 4-6 Weeks Goal 2:: Sleep without interruption at night Goal Time Frame: 4-6 Weeks Goal 3:: I appropr HEP to limit future problems Goal Time Frame: 4-6 Weeks Goal 4:: neck oswestry 5 or better Goal Time Frame: 4-6 Weeks Rehabilitation Potential Physical Therapy Diagnosis: limited cervical ROM and felxibility and positioning causing pain and poor function Rehabilitation Potential: Good Anticipated Interventions Patient/Client Instruction: Educate patient on: Condition and Plan of Care For the Purpose of:: To decrease pain, To increase ROM, To improve nutrient delivery to tissue, To improve muscle performance and motor function, To increase tolerance to activity/condition/position, To improve ability of physical actions for home/community/work/leisure and To improve gait and locomotor functions Therapeutic Exercise to Include: Strength training, Postural training, Flexibilty training, Passive ROM, Active ROM and Mariah Exercises For the Purpose of:: To decrease pain, To increase ROM, To improve nutrient delivery to tissue, To improve muscle performance and motor function, To increase tolerance to activity/condition/position and To improve ability of physical actions for home/community/work/leisure Manual Therapy Techniques to Include: Mobilization, Passive ROM and Soft tissue mobilization For the Purpose of:: To decrease pain, To increase ROM, To improve nutrient delivery to tissue, To improve muscle performance and motor function and To increase tolerance to activity/condition/position Thermo therapy (hot pack): Yes For the Purpose of:: To decrease pain and To improve nutrient delivery to tissue Text: Thank you for the opportunity to evaluate your patient. For Medicare and Medicare HMO plans, please review the plan of care and approve it. It will need to be FAXED BACK to us at [phone] for Medicare purposes. For Medicare only, by signing this I certify the plan of care. Please let me know if there are questions or concerns regarding this plan of care. Physician Signature: Date:
--- NOTE | 2023-04-04 15:55 | HP.PTDCSUM ---
Discharge Summary D/C summary: It has been my pleasure to treat SLIME GRIFFIN referred by Dr. Sasha Jackson DO, with the diagnosis of cervical radiculopathy for a total of 14 visit(s). Discharge Date: 04/04/23 Please see the following information for a summary of their discharge status. Subjective Subjective: I am not sleeping. tossed adn turned all night. No better with traction. Did not do any HEP. Still constant ache, with sharp pains with movements to 10/10 such as turning head in certain direction.L shoulder and arm still hurt. Back to doctor is next step adn likely MRI. Pain L neck pain: Pain Intensity (Out of 10): 5 L ELBOW: Pain Intensity (Out of 10): 3 Overall Improvement % Improvement: 0 Objective Objective/Function: 45 AROM B rotations but harder to L and slow to return to neutral. 50 extension with pain. UE AROM WFL and strength without myotomal abnormalities 4/5 in UE. Sensation UE WNL to gross light touch. No neural signs but pain is disc like in its presentation and instability. Goals Goal 1:: Full aROM cervical spine without deviation or pain Goal Progress: Not Progressing Goal 2:: Sleep without interruption at night Goal Progress: Not Progressing Goal 3:: I appropr HEP to limit future problems Goal Progress: Not Progressing Goal 4:: neck oswestry 5 or better Goal Progress: Not Progressing Plan Plan: d/c due to lack of progress, Recommend next medical step...MRI?. Pt to schedule back tiwth doctor on Sunday. Also recommended cervical soft collar to help relax and sleep. D/C Information Discharge Comments: Pt back to doctor for next medical step due to lack of improvement despite good effort. d/c sentence: If there are questions or concerns regarding this patient's physical therapy, please feel free to call me at [phone]. Thank you for the referral of this patient. Sincerely, Daniel Choi, DPT, OCS, CSCS Balance/Gait/Functional tests Balance/Special Test Scores Oswestry Neck Score: 18 Improvement % Improvement: 0
== END 2023-04-04 19:00 | disposition home or self-care (01) ==
LOC: PT 15:30
PROVIDERS: PCP Family Medicine; Referring Provider Family Medicine; Visit Provider Family Medicine
DX: M54.12 Radiculopathy, cervical region (principal)
CPT/HCPCS: 97012; 97110; 97140; 97161; 97164; 97530

== ENCOUNTER → 2023-04-19 | Outpatient (CLI) | payer OTHER, SELFPAY ==
--- NOTE | 2023-04-19 16:25 | BI_ITS ---
MAMMOGRAPHY - BILATERAL SCREENING REASON FOR EXAM: Female, 47 years old. Routine annual screening examination. PERTINENT HISTORY: Non-contributory. TECHNIQUE: Digital bilateral breast shari (3D mammographic acquisition) in the CC and MLO projections. 2-D mediolateral oblique (MLO) and craniocaudad (CC) views of both breasts were obtained. CAD: Full Field Digital Mammography with Computer Added Detection was performed. COMPARISON: Comparison is made with prior study dated November 28, 2021 and July 25, 2018. FINDINGS: Breast Composition: The breasts are heterogeneously dense, which may obscure small masses. There are no dominant masses or suspicious calcifications. Stable 7 mm well-defined nodule in the upper outer quadrant of the left breast suggestive of a small lymph node. No other significant abnormalities are identified. There has been no significant change since the prior study. BI/SCRN MAMM (CAD)W/SHARI BILAT IMPRESSION: Stable bilateral screening mammogram. Yearly follow-up mammogram recommended. (A) ASSESSMENT CATEGORY: BIRADS Category 2: Benign. A letter regarding these results will be sent to the patient by the facility within 30 days. Approximately 10% of breast cancers are not detected by mammography. A normal mammogram should not delay biopsy of a clinically suspicious abnormality. [id number] Electronically Signed: Tray Mcconnell MD at 9:47 EST ,
== END | disposition home or self-care (01) ==
LOC: OPBI 16:25
PROVIDERS: PCP Family Medicine; Referring Provider Advanced Practice Midwife; Visit Provider Advanced Practice Midwife
DX: Z12.31 Encounter for screening mammogram for malignant neoplasm of breast (principal)
CPT/HCPCS: 77063; 77067

== ENCOUNTER → 2023-04-26 | Outpatient (CLI) | payer OTHER, SELFPAY ==
--- NOTE | 2023-04-26 15:38 | MRI_ITS ---
STUDY: MRI CERVICAL SPINE WITHOUT CONTRAST REASON FOR EXAM: Female, 47 years old. RADICULOPATHY LT ARM TECHNIQUE: Standardized fat and water weighted pulse sequences were obtained in the sagittal and axial planes. COMPARISON: X-ray October 04, 2021 FINDINGS: Normal foramen magnum and brainstem-cervical cord junction. Normal craniovertebral junction. Normal anterior atlantoaxial articulation. Normal odontoid process. There is straightening of the normal cervical lordosis. Normal vertebral bodies and posterior osseous elements. C2-3: Normal endplates. Normal disc height, signal and morphology. Mild facet spurring. Normal central canal and intervertebral neural foramina. C3-4: Mild spurring to the left. No canal stenosis. Neural foramina are patent. C4-5: Normal endplates. Normal disc height, signal and morphology. Normal central canal and intervertebral neural foramina. C5-6: Disc bulge and mild spurring to the left. No canal stenosis. Neural foramina are patent. C6-7: Normal endplates. Normal disc height, signal and morphology. Normal central canal and intervertebral neural foramina. C7-T1: Normal endplates. Normal disc height, signal and morphology. Normal central canal and intervertebral neural foramina. Normal cervical cord. Normal visualized soft tissue structures. MRI/Spine Cervical (Routine) IMPRESSION: Mild degenerative change with spurring toward the left. No canal stenosis or foraminal narrowing. Electronically Signed: Clement Kim MD at 13:04 EST ,
--- OUTSIDE RECORDS SUMMARY | 2023-04-26 19:29 | XMS RPT_ITS | CCD ---
Author Name Unknown Address [address] [place] [address] Organization [facility] Results Test Name Value Interpretation Reference Range Facil ity Progress note 04-01-2021 Note Date & Type Note Facility 04-01-2021 Note HNO ID: [id number] Author: Derik Carballo APRN.[employer] Service: ? Author Type: Nurse Practitioner Type: Progress Notes Filed: 04/01/2021 8:36 AM Note Text: Subjective HPI Nontoxic-appearing female presents urgent care chiefly COVID-19 concerns. Duration of symptoms 1 day. Associated symptoms cough body aches chills sore throat low-grade fever headache and nasal congestion. Patient states daughter tested positive for COVID-19 6 days ago. She is not vaccinated. She denies history of COVID-19. Denies any significant pain. Did have a rapid home positive test. Denies any high fevers productive cough chest pain shortness of breath body aches chills nausea vomiting abdominal pain headaches dizziness or change in bowel or bladder habits. Past medical history prescription medication use allergies reviewed. .Patient presents with: Covid19 Concern: exposure, cough, MADS[place], ST, body aches, fatigue x1 day No past medical history on file. No past surgical history on file. ALLERGIES Patient has no known allergies. MEDICATIONS No prescriptions on file. No family history on file. Social History Tobacco Use - Smoking status: Never Smoker - Smokeless tobacco: Never Used Substance Use Topics - Alcohol use: Not on file - Drug use: Not on file BP 112/78 Pulse 95 Temp 36.3 ?C (97.3 ?F) Resp 16 Wt 89.5 kg (197 lb 6.4 oz) SpO2 98% Review of Systems Constitutional: Positive for chills, fever and malaise/fatigue. HENT: Positive for congestion and sore throat. Negative for ear discharge, ear pain and sinus pain. Eyes: Negative for blurred vision, pain, discharge and redness. Respiratory: Positive for cough. Negative for hemoptysis, sputum production, shortness of breath, wheezing and stridor. Cardiovascular: Negative for chest pain. Gastrointestinal: Negative for abdominal pain, diarrhea, nausea and vomiting. Musculoskeletal: Positive for myalgias. Skin: Negative for itching and rash. Neurological: Positive for headaches. Negative for dizziness. Objective Physical Exam Constitutional: General: She is not in acute distress. Appearance: She is not diaphoretic. HENT: Head: Normocephalic. Nose: Congestion present. Mouth/Throat: Mouth: Mucous membranes are moist. Pharynx: Oropharynx is clear. No oropharyngeal exudate or posterior oropharyngeal erythema. Eyes: Conjunctiva/sclera: Conjunctivae normal. Pupils: Pupils are equal, round, and reactive to light. Cardiovascular: Rate and Rhythm: Normal rate and regular rhythm. Heart sounds: Normal heart sounds. Pulmonary: Effort: Pulmonary effort is normal. No tachypnea, accessory muscle usage or respiratory distress. Breath sounds: Normal breath sounds. No stridor. Abdominal: Palpations: Abdomen is soft. Tenderness: There is no abdominal tenderness. Musculoskeletal: Cervical back: Normal range of motion and neck supple. No rigidity or tenderness. Lymphadenopathy: Cervical: No cervical adenopathy. Skin: General: Skin is warm and dry. Neurological: Mental Status: She is alert and oriented to person, place, and time. ASSESSMENT/PLAN: 1. Viral illness - ICD9: 079.99, ICD10: B34.9 - COVID WITH FLUA+B, ROUTINE COVID-19 test ordered results pending alternative diagnosis discussed home quarantine recommended. Patient was educated on supportive therapies. Patient will follow up with primary care provider as needed. Patient was instructed to immediately proceed to emergency room for any new, worsening, or symptoms lasting longer than anticipated. The patient's clinical presentation is otherwise unremarkable at this time. Based on exam and clinical finding, the patient is stable for discharge. Plan of care was discussed with patient. Patient verbalizes understanding and agrees to plan of care. This note was generated using Bee There software. It may contain errors in wording, punctuation, or spelling. Derik Carballo APRN.[facility] Summary Purpose Family History No Family History Records Found Advance Directives No Advanced Directives Records Found Additional Source Comments INFORMATION SOURCE (unrecogn ized section and content) FOR RECORDS PERTAINING TO PATIENTS WHO ARE OR HAVE BEEN ENROLLED IN A CHEMICAL DEPENDENCY/SUBSTANCEABUSE PROGRAM, SOME INFORMATION MAY BE OMITTED. This clinical summary was aggregated from multiple sources. Caution should be exercised in using it in the provision of clinical care. This summary normalizes information from multiple sources, and as a consequence, information in this document may materially change the coding, format and clinical context of patient data. In addition, data may be omitted in some cases. CLINICAL DECISIONS SHOULD BE BASED ON THE PRIMARY CLINICAL RECORDS. [facility] [facility]. provides no warranty or guarantee of the accuracy or completeness of information in this document.
== END | disposition home or self-care (01) ==
LOC: MRI 15:34
PROVIDERS: PCP Family Medicine; Referring Provider Family Medicine; Visit Provider Family Medicine
DX: M47.22 Other spondylosis with radiculopathy, cervical region (principal)
CPT/HCPCS: 72141

== ENCOUNTER → 2023-06-18 | Outpatient (CLI) | payer OTHER, SELFPAY ==
--- NOTE | 2023-06-18 10:39 | NEURO ---
NCS and/or EMG Patient Report Ordering Doctor: Sasha Jackson DATE OF SERVICE: 06/18/23 Clinical Summary: 47 year old female patient presenting with symptoms of left elbow pain, tingling in digits 2 and 3, and neck pain. This EMG/NCS was performed to evaluate for left cervical radiculopathy and carpal tunnel syndrome. Nerve Conduction Studies Summary: The left ulnar-D5 SNAP distal latency was prolonged. Otherwise, nerve conduction studies of the left upper extremity were within normal ranges. Needle Examination Summary: Needle examination of select muscles of the left upper extremity was normal. Impression: There is no electrodiagnostic evidence of a left cervical radiculopathy, carpal tunnel syndrome, or ulnar neuropathy. Multi Select Codes Neurology Neurology Interp Codes: 00886-04 Musc test done w/n test comp (interp) (1) and 81173-82 Nrv cndj test 7-8 studies (interp)
== END | disposition home or self-care (01) ==
PROVIDERS: PCP Family Medicine; Referring Provider Family Medicine; Visit Provider Family Medicine
DX: M47.22 Other spondylosis with radiculopathy, cervical region (principal); M79.602 Pain in left arm; R20.2 Paresthesia of skin
CPT/HCPCS: 95886; 95910

== ENCOUNTER → 2023-08-21 | Outpatient (CLI) | payer OTHER, SELFPAY ==
[2023-08-21 17:51] LABS: Absolute Lymphocyte Count 2.85 X10^3/uL (0.83-4.51); Absolute Neutrophil Count 5.1 X10^3/uL (2.0-7.7); Basophil# 0.06 X10^3/uL; Basophil% 0.7 % (0-1); Eosinophils% 2.3 % (0-5); Hematocrit 39.7 % (37-47); Hemoglobin 12.3 g/dL (12.0-15.0); Lymphocyte # 2.85 X10^3/ul (0.83-4.51); Lymphocyte % 32.7 % (19-41); Mean Corpuscular Hgb 28.3 pg (27.0-32.0); Mean Corpuscular Volume 91.5 fL (81-99); Mean Platelet Vol. 11.3 fl (6.2-12.0); Monocyte% 5.7 % (0-10); NRBC Flagged by Analyzer 0 % (0-5); Neutrophil # 5.08 X10^3/uL (2.7-7.7); Neutrophil % 58.3 % (47-70); Platelet Count 347 K/mm3 (150-450); RBC Distribution Width CV 13.7 % (11.6-14.6); RBC Distribution Width SD 46.5 fl (35.1-43.9); Red Blood Count 4.34 M/mm3 (4.2-5.4); White Blood Count 8.7 K/mm3 (4.4-11.0)
[2023-08-21 18:28] LABS: Vitamin D,25 Hydroxy 27.1 ng/mL
[2023-08-21 18:40] LABS: Hemoglobin A1c 5.5 % (3.8-5.6)
[2023-08-21 18:42] LABS: AST(SGOT) 17 U/L (15-37); Alanine Aminotransfer ALT/SGPT 29 U/L (13-56); Albumin, Serum 3.8 g/dL (3.2-5.0); Alkaline Phosphatase 76 U/L (45-117); Anion Gap 10 (5-15); BUN 20 mg/dL (7-18); BUN/Creat Ratio 25.2 RATIO (10-20); Calcium,Total 9.4 mg/dL (8.5-10.1); Chloride 104 mmol/L (98-107); Cholesterol 230 mg/dL (200); EST Glomerular Filtration Rate 82 mL/min (>60); Est Glom Filt Rate - Afr Amer 99 mL/min (>60); Globulin 3.8 g/dL (2.2-4.2); Glucose 100 mg/dL (74-106); High Density Lipoprotein 67 mg/dL; Magnesium 2.2 mg/dL (1.6-2.6); Potassium 3.9 mmol/L (3.5-5.1); Protein, Total 7.6 g/dL (6.4-8.2); Sodium Level 137 mmol/L (136-145); T4 Free Direct 0.95 ng/dL (0.76-1.46); Thyroid Stim Hormone (TSH) 1.27 uIU/mL (0.358-3.74); Triglycerides 89 mg/dL; Very Low Density Lipoprotein 18 mg/dL (5-40)
== END | disposition home or self-care (01) ==
LOC: BFHLAB 15:59
PROVIDERS: PCP Nurse Practitioner Family; Referring Provider Nurse Practitioner Family; Visit Provider Nurse Practitioner Family
DX: Z00.01 Encounter for general adult medical examination with abnormal findings (principal); E55.9 Vitamin D deficiency, unspecified; R73.01 Impaired fasting glucose; I10 Essential (primary) hypertension; E03.9 Hypothyroidism, unspecified; R00.2 Palpitations
CPT/HCPCS: 36415; 80053; 80061; 82306; 83036; 83735; 83880; 84439; 84443; 85025

== ENCOUNTER → 2024-02-08 | Outpatient (CLI) | payer OTHER, SELFPAY ==
--- NOTE | 2024-02-08 09:05 | RAD_ITS ---
INDICATION: DYSPNEA, WHEEZE ON R EXAMINATION/TECHNIQUE: X-RAY - XR Chest 2 Views COMPARISON: August 26, 2009 FINDINGS: LINES/DEVICES: None. LUNGS: No consolidation, edema or effusion. No pneumothorax. MEDIASTINUM AND CARDIOVASCULAR STRUCTURES: Cardiac silhouette not enlarged. Central airways and mediastinal contour are unremarkable. BONES AND SOFT TISSUES: Scoliosis. RAD/Chest PA and Lateral IMPRESSION: No radiographic evidence of acute cardiopulmonary disease. Electronically Signed: Toney Monique DO at 9:28 EST ,
[2024-02-08 09:15] LABS: Absolute Lymphocyte Count 1.62 X10^3/uL (0.83-4.51); Absolute Neutrophil Count 5.2 X10^3/uL (2.0-7.7); Basophil# 0.04 X10^3/uL; Basophil% 0.5 % (0-1); Eosinophils% 1.3 % (0-5); Hematocrit 38.6 % (37-47); Hemoglobin 11.9 g/dL (12.0-15.0); Lymphocyte # 1.62 X10^3/ul (0.83-4.51); Lymphocyte % 21.1 % (19-41); Mean Corp Hgb Conc 30.8 g/dL (32-36); Mean Corpuscular Hgb 28.4 pg (27.0-32.0); Mean Corpuscular Volume 92.1 fL (81-99); Mean Platelet Vol. 10.4 fl (6.2-12.0); Monocyte# 0.65 X10^3/uL; Monocyte% 8.5 % (0-10); NRBC Flagged by Analyzer 0 % (0-5); Neutrophil # 5.23 X10^3/uL (2.7-7.7); Neutrophil % 68.2 % (47-70); Platelet Count 326 K/mm3 (150-450); RBC Distribution Width CV 13.8 % (11.6-14.6); RBC Distribution Width SD 47.1 fl (35.1-43.9); Red Blood Count 4.19 M/mm3 (4.2-5.4); White Blood Count 7.7 K/mm3 (4.4-11.0)
[2024-02-08 09:26] LABS: D-Dimer Quantitative (DVT/PE) 0.34 FEU/ug/m (0.27-0.49)
== END | disposition home or self-care (01) ==
LOC: LAB 08:58
PROVIDERS: PCP Family Medicine; Referring Provider Family Medicine; Visit Provider Family Medicine
DX: R06.00 Dyspnea, unspecified (principal); J18.9 Pneumonia, unspecified organism
CPT/HCPCS: 36415; 71046; 85025; 85379

== ENCOUNTER → 2024-09-08 | Outpatient (CLI) | payer OTHER, SELFPAY ==
--- NOTE | 2024-09-08 09:40 | RAD_ITS ---
PROCEDURE: SHOULDER MIN 2 VIEWS 09/08/2024 REASON FOR EXAM: RT SHOULDER PAIN TECHNIQUE: SHOULDER MIN 2 VIEWS COMPARISON: None. FINDINGS: Four views of the right shoulder demonstrate no evidence of fracture or dislocation. There is mild arthritis of the acromioclavicular joint. The glenohumeral joint appears unremarkable. The periarticular soft tissues are normal. RAD/Shoulder min 2 Views IMPRESSION: Mild arthritis of the acromioclavicular joint. Reading Location: [id number]
--- OUTSIDE RECORDS SUMMARY | 2024-09-08 21:48 | XMS RPT_ITS | CCD ---
Author Organization [facility] Care Team Providers Care Instrument Operator Name Role Phone Dr. Sasha Jackson Primary Care Provider [phone] Renetta, Dr. Baez Referring Provider Sd MARTINEZ, HAKEEM Castro Attending Provider [phone] Friend, Dr. Medeiros Attending Provider [phone] Friend, Dr. Medeiros Other Provider Dr. Sasha Jackson Primary Care Provider Dr. Sasha Jackson Referring Provider VIKA Fine Attending Provider Dr. Sasha Jackson Primary Care Provider [phone] Dr. Sasha Jackson Referring Provider Dr. Sasha Jackson Other Provider Dr. Jeferson Ramos Attending Provider Sasha Jackson DO Primary Care Provider [phone] SASHA JACKSON A Primary Care Unavailable Miedel, Unique Referring Unavailable Miedel, Unique Attending Unavailable Malys, Sasha Primary Care Unavailable Danyn, Taylor Attending Unavailable Danny, Taylor Primary Care Unavailable Danny, Taylor Referring Unavailable Malys, Sasha Primary Care Unavailable Malys, Sasha Referring Unavailable Malys, Sasha Attending Unavailable Malys, Sasha Primary Care Unavailable Malys, Sasha Referring Unavailable Malys, Sasha Attending Unavailable Malys, Sasha Primary Care Unavailable Malys, Sasha Referring Unavailable Jeferson Ramos Attending Unavailable Malys, Sasha Consulting Unavailable Malys, Sasha Primary Care Unavailable Britney Fine Referring Unavailable Britney Fine Attending Unavailable Sasha Jackson Referring Unavailable Sasha Jackson Attending Unavailable Sasha Jackson Primary Care Unavailable Medications Current Medications Medication Drug Class(es) Dates Sig (Normalized) Sig (Original) albuterol 0.83 mg/ml inhalation solution (13 sources) beta2-Adrenergic Agonist Start: 02-23-2024 take 2.5 mg by inhalation every four hours as needed albuterol (PROVENTIL) 2.5 mg /3 mL (0.083 %) nebulizer solution Use 3 mL via nebulizer every 4 hours as needed for wheezing/shortnes s of breath. Use over 5-15minutes. 75 mL 02/23/2024 Active Start: 02-11-2024 take 2 puff(s) by mo uth every four hours for wheezing albuterol HFA (PROVENTIL HFA, VENTOLIN HFA) 90 mcg/actuation inhaler inhale 2 puffs by mouth and INTO THE LUNGS every 4 hours if needed for wheezing 02/11/2024 Active Start: 02-15-2018 End: 06-20-2022 albuterol sulfate concentrat e 2.5 mg/0.5 mL solution for nebulization Discontinued 2.5 MG INHALATION 3 to 4 times per day February 15, 2018 1:00am June 20, 2022 8:06am amoxicillin 500 mg oral capsule (12 sources) Penicillin-class Antibacterial Start: 02-19-2024 take 1 capsule by mouth three times daily amoxicillin (AMOXIL) 500 mg capsule Take 500 mg by mouth three times a day. 02/19/2024 Active Start: 05-03-2016 End: 02-15-2018 take 500 mg by mouth every eight hours Amoxicillin Discontinued 500 MG PO Q8H May 03, 2016 1:00am February 15, 2018 10:29am [place] (Nk) (1 source) Start: 06-23-2022 [place] (Nk) A ctive June 23, 2022 12:00am pantoprazole 20 mg delayed release oral tablet (6 sources) Proton Pump Inhibitor Start: 02-20-2024 take 1 tablet by mouth once pantoprazole DR (PROTONIX) 20 mg tablet Take 1 tablet by mouth every afternoon. 02/20/2024 Active Start: 07-03-2022 take 40 mg by mouth once daily Pantoprazole Active 40 MG PO DAILY July 03, 2022 12:00am predniSONE 10 mg oral tablet (1 source) Start: 02-23-2024 End: 03-03-2024 predniSONE (DELTASONE) 10 mg tablet Take 4 tabs daily for 3 days, then 2 tabs daily for 3 days, then 1 tab daily for 3 days with food. 21 tablet 02/23/2024 03/03/2024 Active Completed/Discontinued Medications Medication Drug Class(es) Dates Sig (Normalized) Sig (Original) acetaminophen 325 mg / oxyCODONE hydrochloride 5 mg oral tablet (11 sources) Opioid Agonist Start: 05-03-2016 End: 02-15-2018 take 1 tablet by mouth every four hours as needed Oxycodone-Acetamin ophen Discontinued 1 - 2 TABLET PO EVERY 4 HOURS NEEDED May 03, 2016 1:00am February 15, 2018 10:30am albuterol 0.833 mg/ml / ipratropium bromide 0.167 mg/ml inhalation solution (2 sources) Anticholinergic, beta2-Adrenergic Agonist Start: 02-23-2024 End: 02-23-2024 ipratropium-albute rol 3 mL nebulizer solution (DUONEB) Start: 02-23-2024 End: 02-23-2024 take 1 dose by inhalation once 3 mL, INHALATION, ONCE, 1 dose, On 02/23/24 at 1400, PROTECT FROM LIGHT. The unit-dose vial should remain stored in the protective foil pouch until time of use. amoxicillin 875 mg / clavulanate 125 mg oral tablet (11 sources) Penicillin-class Antibacterial Start: 02-15-2018 End: 02-25-2018 take 1 tablet by mouth every twelve hours Amoxicillin-Pot Clavulanate (Augmentin) 875-125 mg tablet Discontinued 1 TABLET PO Q12H 12 01February 15, 2018 1:00am February 25, 2018 1:11am benzonatate 100 mg oral capsule (11 sources) Non-narcotic Antitussive Start: 02-15-2018 End: 06-20-2022 take 200 mg by mouth three times daily Benzonatate Discontinued 200 MG PO THREE TIMES A DAY February 15, 2018 1:00am June 20, 2022 8:06am codeine phosphate 1.26 mg/ml / guaiFENesin 20 mg/ml oral solution (11 sources) Opioid Agonist Start: 02-15-2018 End: 06-20-2022 take 1 mL by mouth every six hours codeine 6.3 mg-guaifenesin 100 mg/5 mL oral liquid Discontinued 8 ML PO EVERY 6 HOURS February 15, 2018 1:00am June 20, 2022 8:06am ibuprofen 600 mg oral tablet (11 sources) Nonsteroidal Anti-inflammatory Drug Start: 04-20-2016 End: 06-20-2022 Ibuprofen Discontinued 600 MG PO NEEDED April 20, 2016 1:00am June 20, 2022 8:06am methylPREDNISolone 4 mg oral tablet (11 sources) Corticosteroid Start: 02-15-2018 End: 02-20-2018 take 1 tablet by mouth once Methylprednisolone (Medrol (Sahil)) 4 mg tablets,dose pack Discontinued 4 MG PO per package directions 13 08February 15, 2018 1:00am February 20, 2018 1:08am Multivitamin With Folic Acid (11 sources) Start: 04-20-2016 End: 02-15-2018 take 1 tablet by mouth once daily Multivitamin With Folic Acid Discontinued 1 TABLET PO DAILY April 20, 2016 12:00am February 15, 2018 9:29am Start: 04-20-2016 End: 02-15-2018 take 1 tablet by mouth once daily Multivitamin With Folic Acid Discontinued 1 TABLET PO DAILY April 20, 2016 1:00am February 15, 2018 10:29am Problems Active Problems Problem Classification Problem Date Documented Da te Episodic/Chronic Abdominal pain (20 sources) Right upper quadrant pain; Translations: [Right upper quadrant pain] 06-20-2022 Episodic Acute bronchitis (11 sources) Acute bronchitis; Translations: [Acute bronchitis, unspecified] 02-15-2018 Episodic Administrative/social admission (8 sources) Patient encounter status; Translations: [Persons encountering health services in other specified circumstances] 02-19-2023 Episodic Cardiac dysrhythmias (7 sources) Multiple premature ventricular complexes; Translations: [Ventricular premature depolarization] 06-20-2022 Chronic Genitourinary symptoms and ill-defined conditions (5 sources) Urinary incontinence; Translations: [Unspecified urinary incontinence] 02-19-2023 Chronic Nutritional deficiencies (7 sources) Vitamin D deficiency; Translations: [Vitamin D deficiency, unspecified] 06-20-2022 Chronic Other lower respiratory disease (1 source) Wheezing; Translations: [Wheezing] 02-23-2024 Episodic Other lower respiratory disease (1 source) Dyspnea, unspecified; Translations: [Dyspnea, unspecified] Onset: 03-04-2024 Episodic Residual codes; unclassified (5 sources) Early satiety; Translations: [Early satiety] 07-03-2022 Episodic Spondylosis; intervertebral disc disorders; other back problems (2 sources) Other spondylosis with radiculopathy, cervical region; Translations: [Other spondylosis with radiculopathy, cervical region] Onset: 06-25-2023 Chronic Past or Other Problems Problem Classification Problem Date Documented Da te Episodic/Chronic Other connective tissue disease (1 source) Pain in unspecified limb; Translations: [Pain in unspecified limb] Onset: 06-25-2023 Episodic Other nervous system disorders (1 source) Paresthesia of skin; Translations: [Paresthesia of skin] Onset: 06-25-2023 Episodic Other screening for suspected conditions (not mental disorders or infectious disease) (1 source) Encounter for screening mammogram for malignant neoplasm of breast; Translations: [Encounter for screening mammogram for malignant neoplasm of breast] Onset: 04-24-2023 Episodic Results Test Name Value Interpretation Reference Range Facility [facility] 02-23-2024 CNOV Office Visit (UCTR ) NORMA GRIFFIN ([id number]) 1975 F T Date Time Provider Department 02/23/24 1:30 PM LORENA ALVARADO [facility] During your visit today, we recorded the following information about you: Temperature Pulse Respiration Blood pressure 98.4 degrees 94/minute 19/minute 144/92 Weight 105.4 kg Lorena Alvarado PA-C 02/23/2024 2:17 PM Signed This note was created using NoteWriter. Subjective Norma Griffin is a 48 year old female. HPI Patient presents with wheezing, shortness of breath, cough over the past 3 weeks. She was seen initially after 3 days of symptoms and had a negative chest x-ray. She was still given azithromycin as well as a prednisone burst. She felt better on the prednisone but since being off of it wheezing has returned. She denies any body aches or chills. No fever. She denies history of asthma or COPD. Not a smoker. She states she has never really had wheezing before. Review of Systems Constitutional: Negative. HENT: Negative. Respiratory: Positive for cough, chest tightness, shortness of breath and wheezing. Cardiovascular: Negative. Gastrointestinal: Negative. Genitourinary: Negative. Musculoskeletal: Negative. All other systems reviewed and are negative. No past medical history on file. Current Outpatient Medications Medication Sig Dispense Refill amoxicillin (AMOXIL) 500 mg capsule Take 500 mg by mouth three times a day. pantoprazole DR (PROTONIX) 20 mg tablet Take 1 tablet by mouth every afternoon. albuterol HFA (PROVENTIL HFA, VENTOLIN HFA) 90 mcg/actuation inhaler inhale 2 puffs by mouth and INTO THE LUNGS every 4 hours if needed for wheezing predniSONE (DELTASONE) 10 mg tablet Take 4 tabs daily for 3 days, then 2 tabs daily for 3 days, then 1 tab daily for 3 days with food. 21 tablet 0 albuterol (PROVENTIL) 2.5 mg /3 mL (0.083 %) nebulizer solution Use 3 mL via nebulizer every 4 hours as needed for wheezing/shortness of breath. Use over 5-15minutes. 75 mL 0 Current Facility-Administered Medications Medication Dose Route Frequency Provider Last Rate Last Admin ipratropium-albuterol 3 mL nebulizer solution (DUONEB) 3 mL INHALATION ONCE Lorena Alvarado PA-C No past surgical history on file. No family history on file. Social History Tobacco Use Smoking status: Never Smokeless tobacco: Never Objective BP 144/92 Pulse 94 Temp 36.9 ?C (98.4 ?F) Resp 19 Wt 105.4 kg (232 lb 5.8 oz) SpO2 100% Physical Exam Vitals reviewed. Constitutional: Appearance: Normal appearance. HENT: Head: Normocephalic and atraumatic. Right Ear: Tympanic membrane, ear canal and external ear normal. Left Ear: Tympanic membrane, ear canal and external ear normal. Nose: Nose normal. Mouth/Throat: Mouth: Mucous membranes are moist. Cardiovascular: Rate and Rhythm: Normal rate and regular rhythm. Heart sounds: Normal heart sounds. Pulmonary: Effort: Pulmonary effort is normal. Breath sounds: Wheezing present. Neurological: Mental Status: She is alert. Assessment and Plan ASSESSMENT/PLAN: 1. Wheezing - ICD9: 786.07, ICD10: R06.2 Patient has been on azithromycin at the beginning of illness as well as currently on amoxicillin for dental infection in the past 3 weeks. I feel that this is likely a viral bronchitis. X-ray close for the weekend, she will return Sunday for x-ray. Duoneb tx here, patient improved.I will treat with prednisone taper and prescription for albuterol Nebules for her nebulizer she has at home. Red flags for ER care discussed. Patient agreeable. - IPRATROPIUM 0.5 MG-ALBUTEROL 3 MG (2.5 MG BASE)/3 ML NEBULIZATION SOLN - XR CHEST 2V FRONTAL/LAT ANU [place]-C Allergies As of Date: 02/23/2024 (No Known Allergies) Date Reviewed: 02/23/2024 Reviewed by: Betsy Montiel MA - Fully Assessed Reason for Visit: Cough [28] Cmt: Wheezing, sob x 3 weeks Primary Visit Diagnosis:Wheezing [R06.2] Order(s):[] ipratropium-albuterol 3 mL nebulizer solution (DUONEB)Disp: Rfl: XR CHEST 2V FRONTAL/LAT [[id number]] Order #: [id number] FUTURE predniSONE (DELTASONE) 10 mg tabletTake 4 tabs daily for 3 days, then 2 tabs daily for 3 days, then 1 tab daily for 3 days with food.Disp: 21 tabletRfl: 0 albuterol (PROVENTIL) 2.5 mg /3 mL (0.083 %) nebulizer solutionUse 3 mL via nebulizer every 4 hours as needed for wheezing/shortness of breath. Use over 5-15minutes.Disp: 75 mLRfl: 0 Prescriptions as of 02/23/2024 - amoxicillin (AMOXIL) 500 mg capsule Take 500 mg by mouth three times a day. - pantoprazole DR (PROTONIX) 20 mg tablet Take 1 tablet by mouth every afternoon. - albuterol HFA (PROVENTIL HFA, VENTOLIN HFA) 90 mcg/actuation inhaler inhale 2 puffs by mouth and INTO THE LUNGS every 4 hours if needed for wheezing - predniSONE (DELTASONE) 10 mg tablet Take 4 tabs daily for 3 days, then 2 tabs daily fo (more content not included)... Normal [facility] CBC W/Diff, Automatedon 01-24 Absolute Lymph 1.62 X10 3/uL Normal 0.83-4.51 [facility] Comment on above: Performed By: #### L 100.0100, L300.8000 ####[facility] [address] [place], [address] Absolute Neut 5.2 X10 3/uL Normal 2.0-7.7 [facility] Comment on above: Performed By: #### L 100.0100, L300.8000 ####[facility] [address] [place], [address] Basophils/100 WBC (Bld) 0.5 % Normal 0-[address] [facility] Comment on above: Performed By: #### L 100.0100, L300.8000 ####[facility] [address] [place], [address] Eosinophils/100 WBC (Bld) 1.3 % Normal 0-5 [facility] Comment on above: Performed By: #### L 100.0100, L300.8000 ####[facility] [address] [place], [address] Erythrocyte distribution width (RBC) [Ratio] 13.8 % Normal 11.6-14.6 [facility] Comment on above: Performed By: #### L 100.0100, L300.8000 ####[facility] [address] [place], [address] Hematocrit (Bld) [Volume fraction] 38.6 % Normal 37-47 [facility] Comment on above: Performed By: #### L 100.0100, L300.8000 ####[facility] [address] [place], [address] Hemoglobin (Bld) [Mass/Vol] 11.9 g/dL Low 12.0-15.0 [facility] Comment on above: Performed By: #### L 100.0100, L300.8000 ####[facility] [address] [place], [address] IG% 0.400 Normal 0.0-0.9 [facility] Comment on above: Result Comment: IG% - Immature Granulocytes (promyelocytes, myelocytes and metamyelocytes) > 1% indicates that a LEFT SHIFT is Present. Performed By: #### L 100.0100, L300.8000 ####[facility] [address] [place], [address] Lymphocytes/100 WBC (Bld) 21.1 % Normal 19-41 [facility] Comment on above: Performed By: #### L 100.0100, L300.8000 ####[facility] [address] [place], [address] MCH (RBC) [Entitic mass] 28.4 pg Normal 27.0-32.0 [facility] Comment on above: Performed By: #### L 100.0100, L300.8000 ####[facility] [address] [place], [address] MCHC (RBC) [Mass/Vol] 30.8 g/dL Low 32-36 [facility] Comment on above: Performed By: #### L 100.0100, L300.8000 ####[facility] [address] [place], [address] MCV (RBC) [Entitic vol] 92.1 fL Normal 81-[address] [facility] Comment on above: Performed By: #### L 100.0100, L300.8000 ####[facility] [address] [place], [address] Monocytes/100 WBC (Bld) 8.5 % Normal 0-[address] [facility] Comment on above: Performed By: #### L 100.0100, L300.8000 ####[facility] [address] [place], [address] Neutrophils/100 WBC (Bld) 68.2 % Normal 47-70 [facility] Comment on above: Performed By: #### L 100.0100, L300.8000 ####[facility] [address] [place], [address] Nucleated RBC (Bld) [#/Vol] 0 10*3/uL Normal 0-5 [facility] Comment on above: Performed By: #### L 100.0100, L300.8000 ####[facility] [address] [place], [address] Platelet mean volume (Bld) [Entitic vol] 10.4 fL Normal 6.2-12.0 [facility] Comment on above: Performed By: #### L 100.0100, L300.8000 ####[facility] [address] [place], [address] Platelets (Bld) [#/Vol] 326 10*3/uL Normal 150-450 [facility] Comment on above: Performed By: #### L 100.0100, L300.8000 ####[facility] [address] [place], [address] RBC (Bld) [#/Vol] 4.19 10*6/uL Low 4.2-5.4 [facility] Comment on above: Performed By: #### L 100.0100, L300.8000 ####[facility] [address], [address] RDW SD 47.1 fl High 35.1-43.9 [facility] Comment on above: Performed By: #### L 100.0100, L300.8000 ####[facility] [address] [place], [address] WBC (Bld) [#/Vol] 7.7 10*3/uL Normal 4.4-11.0 [facility] Comment on above: Performed By: #### L 100.0100, L300.8000 ####[facility] [address] [place], [address] Chest PA and Lateralon 02-07 Chest PA and Lateral [facility] [address] [place] [address] Chest PA and Lateral MR#: [id number] Acct: [id number] Name: NORMA GRIFFIN Rep #: [id number] : 1975 F 48 From: Toney Monique DO PCP: Dr. Sasha Jackson DO Status: [facility] Study: Chest PA and Lateral Date of Exam: 02/08/24 Exam# [id number] Ordering Dr: Unique Hayes MD [id number] INDICATION: DYSPNEA, WHEEZE ON R EXAMINATION/TECHNIQUE : X-RAY - XR Chest 2 Views COMPARISON: August 26, 2009 __ FINDINGS: LINES/DEVICES: None. LUNGS: No consolidation, edema or effusion. No pneumothorax. MEDIASTINUM AND CARDIOVASCULAR STRUCTURES: Cardiac silhouette not enlarged. Central airways and mediastinal contour are unremarkable. BONES AND SOFT TISSUES: Scoliosis. RAD/Chest PA and Lateral IMPRESSION: No radiographic evidence of acute cardiopulmonary disease. Electronically Signed: Toney Monique DO at 9:28 EST , CC: Dr. Unique Hayes MD; Dr. Sasha Jackson DO Customer Service Correspondence Clerk: Signed Normal [facility] D-Dimer Quantitative (DVT/PE )on 02-08-2024 D-DIMER QUANT 0.34 FEU/ug/m Normal 0.27-0.49 [facility] Comment on above: Result Comment: NORM AL D-Dimer level (<0.50) indicates no DVT or PE. Performed By: #### L 100.0100, L300.8000 ####[facility] [address] [place], [address] BNP,B-Type NATRIURETIC PEPTI Elliott 08-21-2023 Natriuretic peptide B (Bld) [Mass/Vol] 11.0 pg/mL Normal 0-100 [facility] Comment on above: Performed By: #### L 501.9520, L506.0400, L500.4100, L501.9985, L503.6620, L501.5200, L100.0100, L506.1000, L500.4050 #### [facility] [address] [place], [address] CBC W/Diff, Automatedon 07-25 Absolute Lymph 2.85 X10 3/uL Normal 0.83-4.51 [facility] Comment on above: Performed By: #### L 501.9520, L506.0400, L500.4100, L501.9985, L503.6620, L501.5200, L100.0100, L506.1000, L500.4050 #### [facility] [address] [place], [address] Absolute Neut 5.1 X10 3/uL Normal 2.0-7.7 [facility] Comment on above: Performed By: #### L 501.9520, L506.0400, L500.4100, L501.9985, L503.6620, L501.5200, L100.0100, L506.1000, L500.4050 #### [facility] [address] [place], [address] Basophils/100 WBC (Bld) 0.7 % Normal 0-[address] [facility] Comment on above: Performed By: #### L 501.9520, L506.0400, L500.4100, L501.9985, L503.6620, L501.5200, L100.0100, L506.1000, L500.4050 #### [facility] [address] [place], [address] Eosinophils/100 WBC (Bld) 2.3 % Normal 0-5 [facility] Comment on above: Performed By: #### L 501.9520, L506.0400, L500.4100, L501.9985, L503.6620, L501.5200, L100.0100, L506.1000, L500.4050 #### [facility] [address] [place], [address] Erythrocyte distribution width (RBC) [Ratio] 13.7 % Normal 11.6-14.6 [facility] Comment on above: Performed By: #### L 501.9520, L506.0400, L500.4100, L501.9985, L503.6620, L501.5200, L100.0100, L506.1000, L500.4050 #### [facility] [address] [place], [address] Hematocrit (Bld) [Volume fraction] 39.7 % Normal 37-47 [facility] Comment on above: Performed By: #### L 501.9520, L506.0400, L500.4100, L501.9985, L503.6620, L501.5200, L100.0100, L506.1000, L500.4050 #### [facility] [address] [place], [address] Hemoglobin (Bld) [Mass/Vol] 12.3 g/dL Normal 12.0-15.0 [facility] Comment on above: Performed By: #### L 501.9520, L506.0400, L500.4100, L501.9985, L503.6620, L501.5200, L100.0100, L506.1000, L500.4050 #### [facility] [address] [place], [address] IG% 0.300 Normal 0.0-0.9 [facility] Comment on above: Result Comment: IG% - Immature Granulocytes (promyelocytes, myelocytes and metamyelocytes) > 1% indicates that a LEFT SHIFT is Present. Performed By: #### L 501.9520, L506.0400, L500.4100, L501.9985, L503.6620, L501.5200, L100.0100, L506.1000, L500.4050 #### [facility] [address] [place], [address] Lymphocytes/100 WBC (Bld) 32.7 % Normal 19-41 [facility] Comment on above: Performed By: #### L 501.9520, L506.0400, L500.4100, L501.9985, L503.6620, L501.5200, L100.0100, L506.1000, L500.4050 #### [facility] [address] [place], [address] MCH (RBC) [Entitic mass] 28.3 pg Normal 27.0-32.0 [facility] Comment on above: Performed By: #### L 501.9520, L506.0400, L500.4100, L501.9985, L503.6620, L501.5200, L100.0100, L506.1000, L500.4050 #### [facility] [address] [place], [address] MCHC (RBC) [Mass/Vol] 31.0 g/dL Low 32-36 [facility] Comment on above: Performed By: #### L 501.9520, L506.0400, L500.4100, L501.9985, L503.6620, L501.5200, L100.0100, L506.1000, L500.4050 #### [facility] [address] [place], [address] MCV (RBC) [Entitic vol] 91.5 fL Normal 81-[address] [facility] Comment on above: Performed By: #### L 501.9520, L506.0400, L500.4100, L501.9985, L503.6620, L501.5200, L100.0100, L506.1000, L500.4050 #### [facility] [address] [place], [address] Monocytes/100 WBC (Bld) 5.7 % Normal 0-10 [facility] Comment on above: Performed By: #### L 501.9520, L506.0400, L500.4100, L501.9985, L503.6620, L501.5200, L100.0100, L506.1000, L500.4050 #### [facility] [address] [facility] [place], [address] Neutrophils/100 WBC (Bld) 58.3 % Normal 47-70 [facility] Comment on above: Performed By: #### L 501.9520, L506.0400, L500.4100, L501.9985, L503.6620, L501.5200, L100.0100, L506.1000, L500.4050 #### [facility] [address] [place], [address] Nucleated RBC (Bld) [#/Vol] 0 10*3/uL Normal 0-5 [facility] Comment on above: Performed By: #### L 501.9520, L506.0400, L500.4100, L501.9985, L503.6620, L501.5200, L100.0100, L506.1000, L500.4050 #### [facility] [address] [place], [address] ( Platelet mean volume (Bld) [Entitic vol] 11.3 fL Normal 6.2-12.0 [facility] Comment on above: Performed By: #### L 501.9520, L506.0400, L500.4100, L501.9985, L503.6620, L501.5200, L100.0100, L506.1000, L500.4050 #### [facility] [address] [place], [address] (110) Platelets (Bld) [#/Vol] 347 10*3/uL Normal 150-450 [facility] Comment on above: Performed By: #### L 501.9520, L506.0400, L500.4100, L501.9985, L503.6620, L501.5200, L100.0100, L506.1000, L500.4050 #### [facility] [address] [place], [address] (944) RBC (Bld) [#/Vol] 4.34 10*6/uL Normal 4.2-5.4 [facility] Comment on above: Performed By: #### L 501.9520, L506.0400, L500.4100, L501.9985, L503.6620, L501.5200, L100.0100, L506.1000, L500.4050 #### [facility] [address] [place], [address] RDW SD 46.5 fl High 35.1-43.9 [facility] [facility] Comment on above: Performed By: #### L 501.9520, L506.0400, L500.4100, L501.9985, L503.6620, L501.5200, L100.0100, L506.1000, L500.4050 #### [facility] [address] [place], [address] WBC (Bld) [#/Vol] 8.7 10*3/uL Normal 4.4-11.0 [facility] Comment on above: Performed By: #### L 501.9520, L506.0400, L500.4100, L501.9985, L503.6620, L501.5200, L100.0100, L506.1000, L500.4050 #### [facility] [address] [place], [place], [id number] Comprehensive Metabolic Prof [facility] 08-21-2023 Albumin [Mass/Vol] 3.8 g/dL Normal 3.2-5.0 [facility] Comment on above: Performed By: #### L 501.9520, L506.0400, L500.4100, L501.9985, L503.6620, L501.5200, L100.0100, L506.1000, L500.4050 #### [facility] [address] [place], [place], [address] Albumin/Globulin [Mass ratio] 1.0 {ratio} Normal 0.9-2.4 [facility] Comment on above: Performed By: #### L 501.9520, L506.0400, L500.4100, L501.9985, L503.6620, L501.5200, L100.0100, L506.1000, L500.4050 #### [facility] [address] [place], [place], [id number] ALK P 76 U/L Normal 45-117 [facility] Comment on above: Performed By: #### L 501.9520, L506.0400, L500.4100, L501.9985, L503.6620, L501.5200, L100.0100, L506.1000, L500.4050 #### [facility] [address] [place], [address] ALT [Catalytic activity/Vol] 29 U/L Normal 13-56 [facility] Comment on above: Performed By: #### L 501.9520, L506.0400, L500.4100, L501.9985, L503.6620, L501.5200, L100.0100, L506.1000, L500.4050 #### [facility] [address] [place], [address] AST [Catalytic activity/Vol] 17 U/L Normal 15-37 [facility] Comment on above: Performed By: #### L 501.9520, L506.0400, L500.4100, L501.9985, L503.6620, L501.5200, L100.0100, L506.1000, L500.4050 #### [facility] [address] [place], [address] Bilirubin [Mass/Vol] 0.20 mg/dL Normal 0.20-1.00 [facility] Comment on above: Result Comment: For patients on eltrombopag therapy, use of Dimension Golden TBIL is not recommended. Performed By: #### L 501.9520, L506.0400, L500.4100, L501.9985, L503.6620, L501.5200, L100.0100, L506.1000, L500.4050 #### [facility] [address] [place], [address] BUN/CRE 25.2 RATIO High 10-20 [facility] Comment on above: Performed By: #### L 501.9520, L506.0400, L500.4100, L501.9985, L503.6620, L501.5200, L100.0100, L506.1000, L500.4050 #### [facility] [address] [place], [address] CA,Total 9.4 mg/dL Normal 8.5-10.1 [facility] Comment on above: Performed By: #### L 501.9520, L506.0400, L500.4100, L501.9985, L503.6620, L501.5200, L100.0100, L506.1000, L500.4050 #### [facility] [address] [place], [address] Chloride [Moles/Vol] 104 mmol/L Normal 98-107 [facility] Comment on above: Performed By: #### L 501.9520, L506.0400, L500.4100, L501.9985, L503.6620, L501.5200, L100.0100, L506.1000, L500.4050 #### [facility] [address] [place], [address] CO2 [Moles/Vol] 23.0 mmol/L Normal 21.0-32.0 [facility] Comment on above: Performed By: #### L 501.9520, L506.0400, L500.4100, L501.9985, L503.6620, L501.5200, L100.0100, L506.1000, L500.4050 #### [facility] [address] [place], [address] Creatinine [Mass/Vol] 0.80 mg/dL Normal 0.55-1.02 [facility] Comment on above: Result Comment: The validity of the calculated GFR GFRAA in patients over 70 years has not been determined. Clinical correlation is essential. Performed By: #### L 501.9520, L506.0400, L500.4100, L501.9985, L503.6620, L501.5200, L100.0100, L506.1000, L500.4050 #### [facility] [address] [place], [address] EST GFR - AA 99 mL/min Normal >60 [facility] Comment on above: Result Comment: Afri can [place] GFR Calc Performed By: #### L 501.9520, L506.0400, L500.4100, L501.9985, L503.6620, L501.5200, L100.0100, L506.1000, L500.4050 #### [facility] [address] [place], [address] (081) GAP 10 Normal 5-15 [facility] Comment on above: Performed By: #### L 501.9520, L506.0400, L500.4100, L501.9985, L503.6620, L501.5200, L100.0100, L506.1000, L500.4050 #### [facility] [address] [place], [address] GFR/1.73 sq M.predicted among non-blacks MDRD (S/P/Bld) [Vol rate/Area] 82 mL/min/{1.73_m2} Normal >60 [facility] Comment on above: Result Comment: Non- GFR Calc Performed By: #### L 501.9520, L506.0400, L500.4100, L501.9985, L503.6620, L501.5200, L100.0100, L506.1000, L500.4050 #### [facility] [address] [place], [address] Globulin (S) [Mass/Vol] 3.8 g/dL Normal 2.2-4.[address] [facility] Comment on above: Performed By: #### L 501.9520, L506.0400, L500.4100, L501.9985, L503.6620, L501.5200, L100.0100, L506.1000, L500.4050 #### [facility] [address] [place], [address] Glucose [Mass/Vol] 100 mg/dL Normal 74-106 [facility] Comment on above: Result Comment: Fast ing Glucose result from 100 to 125 mg/dL suggests IMPAIRED HOMEOSTASIS per A.D.A. criteria. Performed By: #### L 501.9520, L506.0400, L500.4100, L501.9985, L503.6620, L501.5200, L100.0100, L506.1000, L500.4050 #### [facility] [address] [place], [address] Potassium [Moles/Vol] 3.9 mmol/L Normal 3.5-5.1 [facility] Comment on above: Performed By: #### L 501.9520, L506.0400, L500.4100, L501.9985, L503.6620, L501.5200, L100.0100, L506.1000, L500.4050 #### [facility] [address] [place], [address] Sodium [Moles/Vol] 137 mmol/L Normal 136-145 [facility] Comment on above: Performed By: #### L 501.9520, L506.0400, L500.4100, L501.9985, L503.6620, L501.5200, L100.0100, L506.1000, L500.4050 #### [facility] [address] [place], [address] T PROT 7.6 g/dL Normal 6.4-8.2 [facility] Comment on above: Performed By: #### L 501.9520, L506.0400, L500.4100, L501.9985, L503.6620, L501.5200, L100.0100, L506.1000, L500.4050 #### [facility] [address] [place], [address] Urea nitrogen [Mass/Vol] 20 mg/dL High 7-18 [facility] Comment on above: Performed By: #### L 501.9520, L506.0400, L500.4100, L501.9985, L503.6620, L501.5200, L100.0100, L506.1000, L500.4050 #### [facility] [address] [place], [address] Hemoglobin A1con 08-21-2023 HbA1c (Bld) [Mass fraction] 5.5 % Normal 3.8-5.6 [facility] Comment on above: Result Comment: Norm al < 5.7 % Prediabetic 5.7 - 6.4 % Diabetic >or= 6.5 % Please note range changes. Performed By: #### L 501.9520, L506.0400, L500.4100, L501.9985, L503.6620, L501.5200, L100.0100, L506.1000, L500.4050 #### [facility] [address] [place], [address] Lipid Profileon 08-21-2023 Cholesterol [Mass/Vol] 230 mg/dL High 200 [facility] Comment on above: Result Comment: <200 mg/dL Desirable 200-240 mg/dL Borderline >240 mg/dL High Risk Performed By: #### L 501.9520, L506.0400, L500.4100, L501.9985, L503.6620, L501.5200, L100.0100, L506.1000, L500.4050 #### [facility] [address] [place], [address] Cholesterol in HDL [Mass/Vol] 67 mg/dL Normal [facility] Comment on above: Result Comment: The drugs N-Acetylcysteine and Metamizole may falsely depress this assay. Reference Range HDL <40 mg/dL Low HDL Cholesterol HDL >or= 60 mg/dL High HDL Cholesterol Performed By: #### L 501.9520, L506.0400, L500.4100, L501.9985, L503.6620, L501.5200, L100.0100, L506.1000, L500.4050 #### [facility] [address] [place], [address] Cholesterol in LDL [Mass/Vol] 145 mg/dL High 0-130 [facility] Comment on above: Performed By: #### L 501.9520, L506.0400, L500.4100, L501.9985, L503.6620, L501.5200, L100.0100, L506.1000, L500.4050 #### [facility] [address] [place], [address] Cholesterol in VLDL [Mass/Vol] 18 mg/dL Normal 5-40 [facility] Comment on above: Performed By: #### L 501.9520, L506.0400, L500.4100, L501.9985, L503.6620, L501.5200, L100.0100, L506.1000, L500.4050 #### [facility] [address] [place], [address] Triglyceride [Mass/Vol] 89 mg/dL Normal [facility] Comment on above: Result Comment: The drugs N-Acetylcysteine and Metamizole may falsely depress this assay. Serum Triglycerides Reference Interval Normal <150 mg/dL Borderline high 150 - 199 mg/dL High 200 - 499 mg/dL Very High > or = 500 mg/dL Performed By: #### L 501.9520, L506.0400, L500.4100, L501.9985, L503.6620, L501.5200, L100.0100, L506.1000, L500.4050 #### [facility] [address] [place], [address] Magnesiumon 08-21-2023 Magnesium [Mass/Vol] 2.2 mg/dL Normal 1.6-2.6 [facility] Comment on above: Performed By: #### L 501.9520, L506.0400, L500.4100, L501.9985, L503.6620, L501.5200, L100.0100, L506.1000, L500.4050 #### [facility] [address] [place], [address] T4 Free Directon 08-21-2023 T4 FREE DIRECT 0.95 ng/dL Normal 0.76-1.46 [facility] Comment on above: Performed By: #### L 501.9520, L506.0400, L500.4100, L501.9985, L503.6620, L501.5200, L100.0100, L506.1000, L500.4050 ####[facility] [address] [place], [place], [address] Thyroid Stim Hormone (TSH)on 08-21-2023 TSH 1.27 uIU/mL Normal 0.358-3.74 [facility] Comment on above: Performed By: #### L 501.9520, L506.0400, L500.4100, L501.9985, L503.6620, L501.5200, L100.0100, L506.1000, L500.4050 #### [facility] [address] [place], [place], [address] Vitamin D,25 Hydroxyon 08-20 Vitamin D 25-OH 27.1 ng/mL Normal [facility] Comment on above: Result Comment: Alice min D 25(OH) Status Range Deficiency <20 ng/mL (50nmol/L) Insufficiency 20 - 30 ng/mL (50 - 75 nmol/L) Sufficiency 30 - 100 ng/mL (75 - 250 nmol/L) Toxicity >100 ng/mL (>250 nmol/L) Performed By: #### L 501.9520, L506.0400, L500.4100, L501.9985, L503.6620, L501.5200, L100.0100, L506.1000, L500.4050 #### [facility] [address] [place], [address] NCS and/or EMG Patienton NCS and/or EMG Patient [facility] Pulmonary Services/Neurology [address] [place] [address] MR#: [id number] Acct: [id number] Name: NORMA GRIFFIN Rep #: [id number] : 1975 47 From: Jeferson Ramos MD Referring Dr: Sasha Jackson DO Status: REG CLI Location: PSN Date: 06/18/23 Sex: F C NCS and/or EMG Patient Report Ordering Doctor: Sasha Jackson DATE OF SERVICE: 06/18/23 Clinical Summary: 47 year old female patient presenting with symptoms of left elbow pain, tingling in digits 2 and 3, and neck pain. This EMG/NCS was performed to evaluate for left cervical radiculopathy and carpal tu nnel syndrome. Nerve Conduction Studies Summary: The left ulnar-D5 SNAP distal latency was prolonged. Otherwise, nerve conduction studies of the left upper extremity were within normal ranges. Needle Examination Summary: Needle examination of select muscles of the left upper extremity was normal. Impression: There is no electrodiagnostic evidence of a left cervical radiculopathy, carpal tunnel syndrome, or ulnar neuropathy. Multi Select Codes Neurology Neurology Interp Codes: 45158-61 Musc test done w/n test comp (interp) (1) and 42740-68 Nrv cndj test 7-8 studies (interp) 06/18/23 1343 Date Jeferson Ramos MD CC: Dr. Jeferson Ramos MD; Dr. Sasha Jackson DO Date Dictated: 06/18/23 1039 Date Transcribed: 06/18/231038 Customer Service Correspondence Clerk: Signed Normal [facility] Spine Cervical (Routine)on 0 04-26-2023 Spine Cervical (Routine) [facility] Imaging Services [address] [place] [address] Spine Cervical (Routine) MR#: [id number] Acct: [id number] Name: NORMA GRIFFIN Rep #: [id number] : 1975 F 47 From: Clement Kim MD PCP: Dr. Sasha Jackson DO Status: REG CLI Study: Spine Cervical (Routine) Date of Exam: Exam# [id number] Ordering Dr: Sasha Jackson DO [id number] STUDY: MRI CERVICAL SPINE WITHOUT CONTRAST REASON FOR EXAM: Female, 47 years old. RADICULOPATHY LT ARM TECHNIQUE: Standardized fat and water weighted pulse sequences were obtained in the sagittal and axial planes. COMPARISON: X-ray October 04, 2021 FINDINGS: Normal foramen magnum and brainstem-cervical cord junction. Normal craniovertebral junction. Normal anterior atlantoaxial articulation. Normal odontoid process. There is straightening of the normal cervical lordosis. Normal vertebral bodies and posterior osseous elements. C2-3: Normal endplates. Normal disc height, signal and morphology. Mild facet spurring. Normal central canal and intervertebral neural foramina. C3-4: Mild spurring to the left. No canal stenosis. Neural foramina are patent. C4-5: Normal endplates. Normal disc height, signal and morphology. Normal central canal and intervertebral neural foramina. C5-6: Disc bulge and mild spurring to the left. No canal stenosis. Neural foramina are patent. C6-7: Normal endplates. Normal disc height, signal and morphology. Normal central canal and intervertebral neural foramina. C7-T1: Normal endplates. Normal disc height, signal and morphology. Normal central canal and intervertebral neural foramina. Normal cervical cord. Normal visualized soft tissue structures. MRI/Spine Cervical (Routine) IMPRESSION: Mild degenerative change with spurring toward the left. No canal stenosis or foraminal narrowing. Electronically Signed: Clement Kim MD at 13:04 EST , CC: Dr. Sasha Jackson DO Customer Service Correspondence Clerk: Signed Normal [facility] SCRN MAMM (CAD)W/SHARI BILATo n 04-19-2023 SCRN MAMM (CAD)W/SHARI BILAT [facility] Imaging Services [address] [place] [address] SCRN MAMM (CAD)W/SHARI BILAT MR#: [id number] Acct: [id number] Name: NORMA GRIFFIN Rep #: [id number] : 1975 F 47 From: Tray osuna MD PCP: Dr. Sasha Jackson DO Status: REG CLI Study: SCRN MAMM (CAD)W/SHARI BILAT Date of Exam: 03/27 08/16 Exam# [id number] Ordering Dr: Britney Fine [facility] [id number] MAMMOGRAPHY - BILATERAL SCREENING REASON FOR EXAM: Female, 47 years old. Routine annual screening examination. PERTINENT HISTORY: Non-contributory. TECHNIQUE: Digital bilateral breast shari (3D mammographic acquisition) in the CC and MLO projections. 2-D mediolateral oblique (MLO) and craniocaudad (CC) views of both breasts were obtained. CAD: Full Field Digital Mammography with Computer Added Detection was performed. COMPARISON: Comparison is made with prior study dated November 28, 2021 and July 25, 2018. FINDINGS: Breast Composition: The breasts are heterogeneously dense, which may obscure small masses. There are no dominant masses or suspicious calcifications. Stable 7 mm well-defined nodule in the upper outer quadrant of the left breast suggestive of a small lymph node. No other significant abnormalities are identified. There has been no significant change since the prior study. BI/SCRN MAMM (CAD)W/SHARI BILAT IMPRESSION: Stable bilateral screening mammogram. Yearly follow-up mammogram recommended. (A) ASSESSMENT CATEGORY: BIRADS Category 2: Benign. A letter regarding these results will be sent to the patient by the facility within 30 days. Approximately 10% of breast cancers are not detected by mammography. A normal mammogram should not delay biopsy of a clinically suspicious abnormality. [id number] Electronically Signed: Tray Mcconnell MD at 9:47 EST , CC: VIKA Fine; Dr. Sasha Jackson DO Customer Service Correspondence Clerk: Signed Normal [facility] PT D/C Summary (1)on 024 PT D/C Summary (1) [facility] [place] [address] [facility] [address] [place] [address] / REHABILITATION SERVICES DISCHARGE SUMMARY MR#: [id number] Acct: [id number] Name: NORMA GRIFFIN Rep #: [id number] : 1975 47 From: Daniel Choi DPT, OCS, CSCS Referring Dr.: Dr. Sasha Jackson DO Status: REG R CR Insurance: [facility] SELF PAY INSURANCE Discharge Summary D/C summary: It has been my pleasure to treat NORMA GRIFFIN referred by Dr. Sasha Jackson DO, with the diagnosis of cervical radiculopathy for a total of 14 visit(s). Discharge Date: 04/04/23 Please see the following information for a summary of their discharge status. Subjective Subjective: I am not sleeping. tossed adn turned all night. No better with traction. Did not do any HEP. Still constant ache, with sharp pains with movements to 10/10 such as turning head in certain direction.L shoulder and arm still hurt. Back to doctor is next step adn likely MRI. Pain L neck pain: Pain Intensity (Out of 10): 5 L ELBOW: Pain Intensity (Out of 10): 3 Overall Improvement % Improvement: 0 Objective Objective/Function: 45 AROM B rotations but harder to L and slow to return to neutral. 50 extension with pain. UE AROM WFL and strength without myotomal abnormalities 4/5 in UE. Sensation UE WNL to gross light touch. No neural signs but pain is disc like in its presentation and instability. Goals Goal 1:: Full aROM cervical spine without deviation or pain Goal Progress: Not Progressing Goal 2:: Sleep without interruption at night Goal Progress: Not Progressing Goal 3:: I appropr HEP to limit future problems Goal Progress: Not Progressing Goal 4:: neck oswestry 5 or better Goal Progress: Not Progressing Plan Plan: d/c due to lack of progress, Recommend next medical step...MRI?. Pt to schedule back tiwth doctor on Sunday. Also recommended cervical soft collar to help relax and sleep. D/C Information Discharge Comments: Pt back to doctor for next medical step due to lack of improvement despite good effort. d/c sentence: If there are questions or concerns regarding this patient's physical therapy, please feel free to call me at [phone]. Thank you for the referral of this patient. Sincerely, Daniel Choi, DPT, OCS, CSCS Balance/Gait/Function al tests Balance/Special Test Scores Oswestry Neck Score: 18 Improvement % Improvement: 0 04/04/23 1555 CC: Dr. Sasha Jackson DO EBG Signed Normal [facility] No Panel InformationOrdered By: Bouchra Beaver on 07-03-2022 D-Dimer Quantitative (PE/DVT) 0.40 FEU/ug/m 0.27-0.49 [facility] Comment on above: NORMAL D-Dimer level (<0.50) indicates no DVT or PE. Basophil percentageOrdered B y: Dr. Palma on 06-14-2022 Bilirubin [Mass/Vol] 0.20 mg/dL 0.20-1.00 [facility] Comment on above: For patients on eltr ombopag therapy, use of Dimension Golden TBIL is not recommended. Chloride [Moles/Vol] 109 mmol/L 98-107 [facility] Glucose [Mass/Vol] 125 mg/dL 74-106 [facility] Comment on above: Fasting Glucose resu lt from 100 to 125 mg/dL suggests IMPAIRED HOMEOSTASIS per A.D.A. criteria. Potassium [Moles/Vol] 3.6 mmol/L 3.5-5.1 [facility] Protein [Mass/Vol] 7.2 g/dL 6.4-8.2 [facility] Sodium [Moles/Vol] 141 mmol/L 136-145 [facility] WBC (Bld) [#/Vol] 7.7 10*3/uL 4.4-11.0 [facility] Blood erythrocytes count (nu mber/volume)Ordered By: Dr. Palma on 06-14-2022 RBC (Bld) [#/Vol] 4.22 10*6/uL 4.2-5.4 [facility] Blood hemoglobin measurement (mass/volume)Ordered By: Dr. Palma on 06-14-2022 Hemoglobin (Bld) [Mass/Vol] 12.3 g/dL 12.0-15.0 [facility] Blood platelet mean volumeOr dered By: Dr. Palma on 06-14-2022 Platelet mean volume (Bld) [Entitic vol] 10.8 fL 6.2-12.0 [facility] Cervical or vagninal specime n microscopic examination by cytology stain (reported asOrdered By: Dr. Palma on 06-14-2022 Cytology report Cyto stain Doc (Cvx/Vag) Comment . [facility] Comment on above: The Pap smear is a s creening test designed to aid in thedetection of premalignant and malignant conditions of theuterine cervix. It is not a diagnostic procedure andshould not be used as the sole means of detecting cervicalcancer. Both false-positive and false-negative reports dooccur. Detection in cervical specim en of any of human papilloma virus (HPV) 16, 18, 31, 33,Ordered By: Dr. Palma on 06-14-2022 HPV 16+18+31+33+35+39+45+51 +52+56+58+59+66+68 DNA Probe+sig amp Ql (Cvx) Negative Negative [facility] Comment on above: This nucleic acid am plification test detects fourteen high-risk HPV types (16,18,31,33,35,39,45,51,52,56,58,59,66,68)without differentiation. Determination of erythrocyte mean corpuscular volume (MCV)Ordered By: Dr. Palma on 06-14-2022 MCV (RBC) [Entitic vol] 91.5 fL 81-[address] [facility] Hematocrit Auto (Bld) [Volum e fraction]Ordered By: Dr. Palma on 06-14-2022 Hematocrit (Bld) [Volume fraction] 38.6 % 37-47 [facility] - Chemistry and C hemistry - challengeOrdered By: Dr. Palma on 06-14-2022 ALP [Catalytic activity/Vol] 64 U/L 45-117 [facility] ALT [Catalytic activity/Vol] 24 U/L 13-56 [facility] CO2 [Moles/Vol] 25.0 mmol/L 21.0-32.0 [facility] Globulin (S) [Mass/Vol] 3.4 g/dL 2.2-4.[address] [facility] Urea nitrogen/Creatinine [Mass ratio] 13.8 mg/mg 10-20 [facility] - CytologyOrdered By: Dr. Palma on 06-14-2022 Eligibility Worker Cyto stain Nom (Cvx/Vag) [ID] Comment . [facility] Comment on above: Deja Veronica totechnologist (ASCP) Laboratory - Hematology and Cell countsOrdered By: Dr. Palma on 06-14-2022 Erythrocyte distribution width (RBC) [Entitic vol] 44.3 fL 35.1-43.9 [facility] Erythrocyte distribution width (RBC) [Ratio] 13.1 % 11.6-14.6 [facility] MCH (RBC) [Entitic mass] 29.1 pg 27.0-32.0 [facility] - Miscellaneous t estsOrdered By: Dr. Palma on 06-14-2022 Service comment (Unsp spec) [Interp] Comment . [facility] Comment on above: This liquid based Th inPrep(R) pap test was screened withthe use of an image guided system. Service comment (Unsp spec) [Interp] . . [facility] Liquid-based cerv Pap + CT/G C by LEAH w reflex to high-risk HPV for ASCUSOrdered By: Dr. Palma on 06-14-2022 Cytology report Cyto stain.thin prep Doc (Cvx/Vag) Comment . [facility] Comment on above: Criteria not met, HP V Genotype not performed.Performed at: [facility] - [facility] [id number] Director: Chika Fagan MD, Phone: [phone] at: =G - [facility] [address] [id number] Director: Chika Fagan MD, Phone: [phone] MCHC Auto (RBC) [Mass/Vol]Or dered By: Dr. Palma on 06-14-2022 MCHC (RBC) [Mass/Vol] 31.9 g/dL 32-36 [facility] No Panel InformationOrdered By: Dr. Palma on 06-14-2022 Estimated GFR (MDRD) Amer 99 mL/min >60 [facility] Comment on above: GFR Calc Estimated GFR (MDRD) Non-Af Amer 82 mL/min >60 [facility] Comment on above: Non- GFR Calc Pathology report final diagnosis Narrative Comment . [facility] Comment on above: NEGATIVE FOR INTRAEP ITHELIAL LESION OR MALIGNANCY. Platelets bldOrdered By: Dr. Palma on 06-14-2022 Platelets (Bld) [#/Vol] 327 10*3/uL 150-450 [facility] Serum or plasma albumin david urement (mass/volume)Ordered By: Dr. Palma on 06-14-2022 Albumin [Mass/Vol] 3.8 g/dL 3.2-5.0 [facility] Serum or plasma albumin/glob ulin mass ratioOrdered By: Dr. Palma on 06-14-2022 Albumin/Globulin [Mass ratio] 1.1 {ratio} 0.9-2.4 [facility] Serum or plasma calcium david urement (mass/volume)Ordered By: Dr. Palma on 06-14-2022 Calcium [Mass/Vol] 9.1 mg/dL 8.5-10.1 [facility] Serum or plasma creatinine m easurement (mass/volume)Ordered By: Dr. Palma on 06-14-2022 Creatinine [Mass/Vol] 0.80 mg/dL 0.55-1.02 [facility] Comment on above: The validity of the calculated GFR & GFRAA in patients over 70 years has not been determined. Clinical correlation is essential. Serum or plasma urea nitroge n measurement (mass/volume)Ordered By: Dr. Palma on 06-14-2022 Urea nitrogen [Mass/Vol] 11 mg/dL 7-18 [facility] Thin prep Papanicolaou smear with manual screeningOrdered By: Dr. Palma on 06-14-2022 Thin prep Papanicolaou smear with manual screening 11 U/L 15-37 [facility] Thin prep Papanicolaou smear with manual screening 7 5-15 [facility] Culture, urineOrdered By: Dr Nereida Palma on 05-28-2022 Bacteria identified Cx Nom (U) Culture exhibits no growth. [facility] Absolute lymphocyte countOrd ered By: Dr. Jackson on 05-25-2022 Lymphocytes Auto (Unsp spec) [#/Vol] 2.31 10*3/uL 0.83-4.51 [facility] Basophil percentageOrdered B y: Dr. Jackson on 05-25-2022 Basophil percentage Not Reportable [facility] Basophils/100 WBC (Bld) 0.5 % 0-1 [facility] Bilirubin [Mass/Vol] 0.50 mg/dL 0.20-1.00 [facility] Comment on above: For patients on eltr ombopag therapy, use of Dimension Golden TBIL is not recommended. Chloride [Moles/Vol] 105 mmol/L 98-107 [facility] Cholesterol [Mass/Vol] 239 mg/dL <200 [facility] Comment on above: <200 mg/dL Desirable 200-240 mg/dL Borderline >240 mg/dL High Risk Eosinophils/100 WBC (Bld) 0.7 % 0-5 [facility] Glucose [Mass/Vol] 92 mg/dL 74-106 [facility] Neutrophils (Bld) [#/Vol] 5.1 10*3/uL 2.0-7.7 [facility] Neutrophils/100 WBC (Bld) 63.3 % 47-70 [facility] Potassium [Moles/Vol] 3.8 mmol/L 3.5-5.1 [facility] Protein [Mass/Vol] 7.5 g/dL 6.4-8.2 [facility] Sodium [Moles/Vol] 137 mmol/L 136-145 [facility] Triglyceride [Mass/Vol] 58 mg/dL <[address] [facility] [address] [facility] Comment on above: The drugs N-Acetylcy steine and Metamizole may falsely depress this assay.Serum Triglycerides Reference Interval Normal <150 mg/dL Borderline high 150 - 199 mg/dL High 200 - 499 mg/dL Very High > or = 500 mg/dL WBC (Bld) [#/Vol] 8.1 10*3/uL 4.4-11.0 [facility] Blood erythrocytes count (nu mber/volume)Ordered By: Dr. Jackson on 05-25-2022 RBC (Bld) [#/Vol] 4.26 10*6/uL 4.2-5.4 [facility] Blood hemoglobin measurement (mass/volume)Ordered By: Dr. Jackson on 05-25-2022 Hemoglobin (Bld) [Mass/Vol] 12.5 g/dL 12.0-15.0 [facility] Blood lymphocytes/100 leukoc ytesOrdered By: Dr. Jackson on 05-25-2022 Lymphocytes/100 WBC (Bld) 28.5 % 19-41 [facility] Blood monocytes/100 leukocyt esOrdered By: Dr. Jackson on 05-25-2022 Monocytes/100 WBC (Bld) 6.8 % 0-10 [facility] Blood platelet mean volumeOr dered By: Dr. Jackson on 05-25-2022 Platelet mean volume (Bld) [Entitic vol] 11.3 fL 6.2-12.0 [facility] Determination of erythrocyte mean corpuscular volume (MCV)Ordered By: Dr. Jackson on 05-25-2022 MCV (RBC) [Entitic vol] 91.8 fL 81-[address] [facility] Erythrocyte sedimentation ra teOrdered By: Dr. Jackson on 05-25-2022 ESR (Bld) [Velocity] 25 mm/h 0-30 [facility] Hematocrit Auto (Bld) [Volum e fraction]Ordered By: Dr. Jackson on 05-25-2022 Hematocrit (Bld) [Volume fraction] 39.1 % 37-47 [facility] Laboratory - Chemistry and C hemistry - challengeOrdered By: Dr. Jackson on 05-25-2022 ALP [Catalytic activity/Vol] 73 U/L 45-117 [facility] ALT [Catalytic activity/Vol] 26 U/L 13-56 [facility] CO2 [Moles/Vol] 24.0 mmol/L 21.0-32.0 [facility] Free T4 [Mass/Vol] 1.12 ng/dL 0.76-1.46 [facility] Globulin (S) [Mass/Vol] 3.3 g/dL 2.2-4.[address] [facility] Urea nitrogen/Creatinine [Mass ratio] 19.9 mg/mg 10-20 [facility] Laboratory - Hematology and Cell countsOrdered By: Dr. Jackson on 05-25-2022 Erythrocyte distribution width (RBC) [Entitic vol] 44.0 fL 35.1-43.9 [facility] Erythrocyte distribution width (RBC) [Ratio] 13.1 % 11.6-14.6 [facility] Immature granulocytes/100 WBC (Bld) 0.200 % 0.0-0.9 [facility] Comment on above: IG% - Immature Granu locytes (promyelocytes, myelocytes and metamyelocytes) > 1% indicates that a LEFT SHIFT is Present. MCH (RBC) [Entitic mass] 29.3 pg 27.0-32.0 [facility] Nucleated RBC/100 WBC (Bld) [Ratio] 0 % 0-5 [facility] MCHC Auto (RBC) [Mass/Vol]Or dered By: Dr. Jackson on 05-25-2022 MCHC (RBC) [Mass/Vol] 32.0 g/dL 32-36 [facility] No Panel InformationOrdered By: Dr. Jackson on 05-25-2022 Anti-Nuclear Antibody Screen Negative Negative [facility] Comment on above: Performed at: [address] [id number] Director: Leonard Goncalves PhD, Phone: [phone] [employer] Antibody Not Reportable [facility] Estimated GFR (MDRD) Amer 106 mL/min >60 [facility] Comment on above: GFR Calc Estimated GFR (MDRD) Non-Af Amer 87 mL/min >60 [facility] Comment on above: Non- GFR Calc Free Triiodothyronine (T3) pg/dL 2.5 pg/mL 2.18-3.98 [facility] FIELD REPRESENTATIVE Antibody Not Reportable [facility] Thyroid Stimulating Hormone (TSH) 1.29 uIU/mL 0.358-3.74 [facility] Vitamin D 25-Hydroxy 62.4 ng/mL [facility] Comment on above: Vitamin D 25(OH) Sta tus Range Deficiency <20 ng/mL (50nmol/L) Insufficiency 20 - 30 ng/mL (50 - 75 nmol/L) Sufficiency 30 - 100 ng/mL (75 - 250 nmol/L) Toxicity >100 ng/mL (>250 nmol/L) Platelets bldOrdered By: Dr. Jackson on 05-25-2022 Platelets (Bld) [#/Vol] 340 10*3/uL 150-450 [facility] Serum DNA double strand anti body assay (units/volume)Ordered By: Dr. Jackson on 05-25-2022 DNA double strand Ab Qn (S) Not Reportable [facility] Serum Mayela-1 antibody assay (u nits/volume)Ordered By: Dr. Jackson on 05-25-2022 Mayela-1 extractable nuclear Ab Qn (S) Not Reportable [facility] Serum Scl-70 extractable nuc lear antibody assay (units/volume)Ordered By: Dr. Jackson on 05-25-2022 SCL-70 extractable nuclear Ab Qn (S) Not Reportable [facility] Serum Fung extractable nucl ear antibody detectionOrdered By: Dr. Jackson on 05-25-2022 Fung extractable nuclear Ab Ql (S) Not Reportable [facility] Serum cyclic citrullinated p eptide IgG antibody assay (units/volume)Ordered By: Dr. Jackson on 05-25-2022 Cyclic citrullinated peptide IgG Qn 4 units 0-19 [facility] Comment on above: Negative <20 Weak po sitive 20 - 39 Moderate positive 40 - 59 Strong positive >59Performed at: [facility] [id number] [place], [place] [id number] Director: Leonard Goncalves PhD, Phone: [phone] Serum or plasma C reactive p rotein measurement (mass/volume)Ordered By: Dr. Jackson on 05-25-2022 CRP [Mass/Vol] 7.07 mg/L 0.0-3.0 [facility] Comment on above: C-Reactive Protein ( CRP) provides useful information for thediagnosis, therapy and monitoring of inflammatory processesand associated diseases. For the evaluation of Relative Riskfor Cardiovascular Disease, a High Sensitivity CRP (HSCRP)should be ordered. Serum or plasma albumin david urement (mass/volume)Ordered By: Dr. Jackson on 05-25-2022 Albumin [Mass/Vol] 4.2 g/dL 3.2-5.0 [facility] Serum or plasma albumin/glob ulin mass ratioOrdered By: Dr. Jackson on 05-25-2022 Albumin/Globulin [Mass ratio] 1.3 {ratio} 0.9-2.4 [facility] Serum or plasma calcium david urement (mass/volume)Ordered By: Dr. Jackson on 05-25-2022 Calcium [Mass/Vol] 9.6 mg/dL 8.5-10.1 [facility] Serum or plasma cholesterol in HDL measurement (mass/volume)Ordered By: Dr. Jackson on 05-25-2022 Cholesterol in HDL [Mass/Vol] 59 mg/dL >40 [facility] Comment on above: The drugs N-Acetylcy steine and Metamizole may falsely depress this assay. Reference Range HDL <40 mg/dL Low HDL Cholesterol HDL >or= 60 mg/dL High HDL Cholesterol Serum or plasma cholesterol in VLDL measurement (mass/volume)Ordered By: Dr. Jackson on 05-25-2022 Cholesterol in VLDL [Mass/Vol] 12 mg/dL 5-40 [facility] Serum or plasma creatinine m easurement (mass/volume)Ordered By: Dr. Jackson on 05-25-2022 Creatinine [Mass/Vol] 0.75 mg/dL 0.55-1.02 [facility] Comment on above: The validity of the calculated GFR & GFRAA in patients over 70 years has not been determined. Clinical correlation is essential. Serum or plasma low density lipoprotein (LDL) cholesterol measurement (mass/volume)Ordered By: Dr. Jackson on 05-25-2022 Cholesterol in LDL [Mass/Vol] 168 mg/dL 0-130 [facility] Serum or plasma urea nitroge n measurement (mass/volume)Ordered By: Dr. Jackson on 05-25-2022 Urea nitrogen [Mass/Vol] 15 mg/dL 7-18 [facility] Serum rheumatoid factor dete ctionOrdered By: Dr. Jackson on 05-25-2022 Rheumatoid factor Ql (S) < 10.0 IU/mL <15 [facility] Thin prep Papanicolaou smear with manual screeningOrdered By: Dr. Jackson on 05-25-2022 Thin prep Papanicolaou smear with manual screening 16 U/L 15-37 [facility] Thin prep Papanicolaou smear with manual screening 8 5-15 [facility] Absolute lymphocyte counton 10-04-2021 Lymphocytes Auto (Unsp spec) [#/Vol] 1.87 10*3/uL 0.83-4.51 [facility] Work Phone: Basophil percentageon 2021 Basophils/100 WBC (Bld) 0.5 % 0-1 [facility] Work Phone: Bilirubin [Mass/Vol] 0.50 mg/dL 0.20-1.00 [facility] Work Phone: Comment on above: For patients on eltr ombopag therapy, use of Dimension Golden TBIL is not recommended. Chloride [Moles/Vol] 106 mmol/L 98-107 [facility] Work Phone: Cholesterol [Mass/Vol] 225 mg/dL <200 [facility] Work Phone: Comment on above: <200 mg/dL Desirable 200-240 mg/dL Borderline >240 mg/dL High Risk Eosinophils/100 WBC (Bld) 2.6 % 0-5 [facility] Work Phone: Glucose [Mass/Vol] 96 mg/dL 74-106 [facility] Work Phone: Neutrophils (Bld) [#/Vol] 3.6 10*3/uL 2.0-7.7 [facility] Work Phone: Neutrophils/100 WBC (Bld) 59.0 % 47-70 [facility] Work Phone: Potassium [Moles/Vol] 4.1 mmol/L 3.5-5.1 [facility] Work Phone: Protein [Mass/Vol] 6.8 g/dL 6.4-8.2 [facility] Work Phone: Sodium [Moles/Vol] 138 mmol/L 136-145 [facility] Work Phone: Triglyceride [Mass/Vol] 47 mg/dL <[address] [facility] Work Phone: Comment on above: The drugs N-Acetylcy steine and Metamizole may falsely depress this assay.Serum Triglycerides Reference Interval Normal <150 mg/dL Borderline high 150 - 199 mg/dL High 200 - 499 mg/dL Very High > or = 500 mg/dL WBC (Bld) [#/Vol] 6.1 10*3/uL 4.4-11.0 [facility] Work Phone: Blood erythrocytes count (nu mber/volume)on 10-04-2021 RBC (Bld) [#/Vol] 4.17 10*6/uL 4.2-5.4 [facility] Work Phone: Blood hemoglobin measurement (mass/volume)on 10-04-2021 Hemoglobin (Bld) [Mass/Vol] 12.3 g/dL 12.0-15.0 [facility] Work Phone: Blood lymphocytes/100 leukoc yteson 10-04-2021 Lymphocytes/100 WBC (Bld) 30.8 % 19-41 [facility] Work Phone: Blood monocytes/100 leukocyt eson 10-04-2021 Monocytes/100 WBC (Bld) 6.8 % 0-[address] [facility] Work Phone: Blood platelet mean volumeon 10-04-2021 Platelet mean volume (Bld) [Entitic vol] 11.3 fL 6.2-12.0 [facility] Work Phone: Determination of erythrocyte mean corpuscular volume (MCV)on 10-04-2021 MCV (RBC) [Entitic vol] 94.2 fL 81-[address] [facility] Work Phone: Hematocrit Auto (Bld) [Volum e fraction]on 10-04-2021 Hematocrit (Bld) [Volume fraction] 39.3 % 37-47 [facility] Work Phone: Laboratory - Chemistry and C hemistry - challengeon 10-04-2021 ALP [Catalytic activity/Vol] 59 U/L 45-117 [facility] Work Phone: ALT [Catalytic activity/Vol] 21 U/L 13-56 [facility] Work Phone: CO2 [Moles/Vol] 26.0 mmol/L 21.0-32.0 [facility] Work Phone: Free T4 [Mass/Vol] 1.00 ng/dL 0.76-1.46 [facility] Work Phone: Globulin (S) [Mass/Vol] 3.2 g/dL 2.2-4.[address] [facility] Work Phone: Urea nitrogen/Creatinine [Mass ratio] 18.8 mg/mg 10-20 [facility] Work Phone: Laboratory - Hematology and Cell countson 10-04-2021 Erythrocyte distribution width (RBC) [Entitic vol] 44.5 fL 35.1-43.9 [facility] Work Phone: Erythrocyte distribution width (RBC) [Ratio] 12.8 % 11.6-14.6 [facility] Work Phone: Immature granulocytes/100 WBC (Bld) 0.300 % 0.0-0.9 [facility] Work Phone: Comment on above: IG% - Immature Granu locytes (promyelocytes, myelocytes and metamyelocytes) > 1% indicates that a LEFT SHIFT is Present. MCH (RBC) [Entitic mass] 29.5 pg 27.0-32.0 [facility] Work Phone: Nucleated RBC/100 WBC (Bld) [Ratio] 0 % 0-5 [facility] Work Phone: MCHC Auto (RBC) [Mass/Vol]on 10-04-2021 MCHC (RBC) [Mass/Vol] 31.3 g/dL 32-36 [facility] Work Phone: No Panel Informationon 10-04 Estimated GFR (MDRD) Amer 108 mL/min >60 [facility] Work Phone: Comment on above: GFR Calc Estimated GFR (MDRD) Non-Af Amer 89 mL/min >60 [facility] Work Phone: Comment on above: Non- GFR Calc Free Triiodothyronine (T3) pg/dL 2.5 pg/mL 2.18-3.98 [facility] Work Phone: Thyroid Stimulating Hormone (TSH) 1.11 uIU/mL 0.358-3.74 [facility] Work Phone: Vitamin D 25-Hydroxy 29.0 ng/mL [facility] Work Phone: Comment on above: Vitamin D 25(OH) Sta tus Range Deficiency <20 ng/mL (50nmol/L) Insufficiency 20 - 30 ng/mL (50 - 75 nmol/L) Sufficiency 30 - 100 ng/mL (75 - 250 nmol/L) Toxicity >100 ng/mL (>250 nmol/L) Platelets bldon 10-04-2021 Platelets (Bld) [#/Vol] 327 10*3/uL 150-450 [facility] Work Phone: Serum or plasma albumin david urement (mass/volume)on 10-04-2021 Albumin [Mass/Vol] 3.6 g/dL 3.2-5.0 [facility] Work Phone: Serum or plasma albumin/glob ulin mass ratioon 10-04-2021 Albumin/Globulin [Mass ratio] 1.1 {ratio} 0.9-2.4 [facility] Work Phone: Serum or plasma calcium david urement (mass/volume)on 10-04-2021 Calcium [Mass/Vol] 8.9 mg/dL 8.5-10.1 [facility] Work Phone: Serum or plasma cholesterol in HDL measurement (mass/volume)on 10-04-2021 Cholesterol in HDL [Mass/Vol] 60 mg/dL >40 [facility] Work Phone: Comment on above: The drugs N-Acetylcy steine and Metamizole may falsely depress this assay. Reference Range HDL <40 mg/dL Low HDL Cholesterol HDL >or= 60 mg/dL High HDL Cholesterol Serum or plasma cholesterol in VLDL measurement (mass/volume)on 10-04-2021 Cholesterol in VLDL [Mass/Vol] 9 mg/dL 5-40 [facility] Work Phone: Serum or plasma creatinine m easurement (mass/volume)on 10-04-2021 Creatinine [Mass/Vol] 0.74 mg/dL 0.55-1.02 [facility] Work Phone: Comment on above: The validity of the calculated GFR & GFRAA in patients over 70 years has not been determined. Clinical correlation is essential. Serum or plasma low density lipoprotein (LDL) cholesterol measurement (mass/volume)on 10-04-2021 Cholesterol in LDL [Mass/Vol] 156 mg/dL 0-130 [facility] Work Phone: Serum or plasma urea nitroge n measurement (mass/volume)on 10-04-2021 Urea nitrogen [Mass/Vol] 14 mg/dL 7-18 [facility] Work Phone: Thin prep Papanicolaou smear with manual screeningon 10-04-2021 Thin prep Papanicolaou smear with manual screening 11 U/L 15-37 [facility] Work Phone: Thin prep Papanicolaou smear with manual screening 6 5-15 [facility] Work Phone: Vital Signs Date Time Vital Sign Value Performing Clinician Divya ohlbrook 02-23-2024 13:29-0500 Body temperature 98.4 [degF] Lorena Athy PA-C Work Phone: [facility] 02-23-2024 13:29-0500 Body weight 105.4 kg Lorena Athy PA-C Work Phone: [facility] 02-23-2024 13:29-0500 Diastolic blood pressure 92 mm[Hg] Lorena Athy PA-C Work Phone: [facility] 02-23-2024 13:29-0500 Heart rate 94 /min Lorena Athy PA-C Work Phone: [facility] 02-23-2024 13:29-0500 Respiratory rate 19 /min Lorena Athy PA-C Work Phone: [facility] 02-23-2024 13:29-0500 SaO2% (BldA) [Mass fraction] 100 % Lorena Athy PA-C Work Phone: [facility] 02-23-2024 13:29-0500 Systolic blood pressure 144 mm[Hg] Lorena Athy PA-C Work Phone: [facility] 02-19-2023 10:15-0500 Body height 165.[address] Sasha Jackson Work Phone: [facility] 02-19-2023 10:15-0500 Body mass index (BMI) [Ratio] 35.9 kg/m2 Dr. Sasha Jackson Work Phone: [facility] 02-19-2023 10:15-0500 Body weight 98.[address] Sasha Jackson Work Phone: [facility] 02-19-2023 10:15-0500 Diastolic blood pressure 79 mm[Hg] Dr. Sasha Jackson Work Phone: [facility] 02-19-2023 10:15-0500 Systolic blood pressure 125 mm[Hg] Dr. Sasha Jackson Work Phone: [facility] 06-28-2022 07:47-0400 Body temperature 97.6 [degF] Dr. Sasha Jackson Work Phone: [facility] 06-28-2022 07:47-0400 Diastolic blood pressure 65 mm[Hg] Dr. Sasha Jackson Work Phone: [facility] 06-28-2022 07:47-0400 Heart rate 79 /min Dr. Sasha Jackson Work Phone: [facility] 06-28-2022 07:47-0400 Respiratory rate 16 /min Dr. Sasha Jackson Work Phone: [facility] 06-28-2022 07:47-0400 SaO2% (BldA) [Mass fraction] 98 % Dr. Sasha Jackson Work Phone: [facility] 06-28-2022 07:47-0400 Systolic blood pressure 106 mm[Hg] Dr. Sasha Jackson Work Phone: [facility] 06-28-2022 06:21-0400 Body height 165.[address] Sasha Jackson Work Phone: [facility] 06-28-2022 06:21-0400 Body mass index (BMI) [Ratio] 35.2 kg/m2 Dr. Sasha Jackson Work Phone: [facility] 06-28-2022 06:21-0400 Body weight [address] Sasha Jackson Work Phone: [facility] 06-20-2022 08:01-0400 Body height 167.[address] Sasha Jackson Work Phone: [facility] 06-20-2022 08:01-0400 Body mass index (BMI) [Ratio] 35.2 kg/m2 Dr. Sasha Jackson Work Phone: [facility] 06-20-2022 08:01-0400 Body temperature 98.2 [degF] Dr. Sasha Jackson Work Phone: [facility] 06-20-2022 08:01-0400 Body weight 98.[address] Sasha Jackson Work Phone: [facility] 06-20-2022 08:01-0400 Diastolic blood pressure 70 mm[Hg] Dr. Sasha Jackson Work Phone: [facility] 06-20-2022 08:01-0400 Heart rate 90 /min Dr. Sasha Jackson Work Phone: [facility] 06-20-2022 08:01-0400 Respiratory rate 14 /min Dr. Sasha Jackson Work Phone: [facility] 06-20-2022 08:01-0400 SaO2% (BldA) [Mass fraction] 96 % Dr. Sasha Jackson Work Phone: [facility] 06-20-2022 08:01-0400 Systolic blood pressure 115 mm[Hg] Dr. Sasha Jackson Work Phone: [facility] Encounters Encounter Date Encounter Type Care Provider Facility Start: 02-23-2024 End: 02-23-2024 ambulatory SASHA JACKSON Facility:[facility] Start: 02-23-2024 End: 02-23-2024 Patient encounter procedure Lorena Alvarado PA-C Work Phone: [facility] Comment on above: Wheezing (Primary Dx ) Start: 02-08-2024 End: 02-08-2024 ambulatory Unique Hayes Facility:[facility] Start: 08-27-2023 Encounter for genera l adult medical examination with abnormal findings Taylor Delgado [facility] Start: 08-21-2023 End: 08-21-2023 ambulatory Taylor Delgado Facility:[facility] Start: 06-18-2023 Non-patient / Non-visit Dr. Sasha Jackson Work Phone: [facility] Start: 06-18-2023 End: 06-18-[address] Sasha Jackson Work Phone: [facility] Work Phone: Start: 06-18-2023 End: 06-18-[address] Sasha Jackson Work Phone: [facility] Services/Neurology Work Phone: Start: 06-18-2023 End: 06-18-2023 ambulatory Sasha Jackson Facility:[facility] Start: 04-26-2023 End: 04-26-[address] Sasha Jackson Work Phone: [facility] Work Phone: Start: 04-26-2023 End: 04-26-[address] Sasha Jackson Work Phone: [facility] - [facility] Work Phone: Start: 04-26-2023 End: 04-26-2023 ambulatory Sasha Jackson Facility:[facility] Start: 04-19-2023 End: 04-19-[address] Sasha Jackson Work Phone: [facility]Out[facility] Work Phone: Start: 04-19-2023 End: 04-19-2023 ambulatory Sasha Jackson Facility:[facility] Start: 04-04-2023 End: 04-04-[address] Sasah Jackson Work Phone: [facility] Work Phone: Start: 04-04-2023 End: 04-04-[address] Sasha Jackson Work Phone: [facility]-Physical Therapy Work Phone: Start: 02-19-2023 End: 02-19-[address] Sasha Jackson Work Phone: [facility] Work Phone: Start: 07-25-2022 End: 07-25-[address] Sasha Jackson Work Phone: [facility] Work Phone: Start: 07-25-2022 End: 07-25-[address] Sasha Jackson Work Phone: [facility]-Nuclear Medicine, [facility] Start: 07-03-2022 End: 07-03-[address] Sasha Jackson Work Phone: [facility] Work Phone: Start: 07-03-2022 End: 07-03-[address] Sasha Jackson Work Phone: [facility]Laboratory Start: 06-28-2022 Non-patient / Non-visit Dr. Sasha Jackson Work Phone: [facility] Start: 06-28-2022 End: 06-28-2022 Admission to same day surgery center Dr. Sasha Jackson Work Phone: [facility]-Endoscopy Start: 06-28-2022 End: 06-28-[address] Sasha Jackson Work Phone: [facility] Work Phone: Start: 06-26-2022 End: 06-26-[address] Sasha Jackson Work Phone: [facility]-Ultrasound, [facility] Start: 06-20-2022 End: 06-20-[address] Sasha Jackson Work Phone: [facility]-Cat Scan, [facility] Start: 06-20-2022 End: 06-20-[address] Sasha Jackson Work Phone: [facility] Gastro[facility] Start: 06-14-2022 End: 06-14-[address] Sasha Jackson Work Phone: [facility] Work Phone: Start: 06-14-2022 End: 06-14-[address] [facility] [place] [facility] Start: 05-26-2022 End: 05-26-2022 ambulatory [facility] Work Phone: Start: 05-26-2022 End: 05-26-2022 [facility] Start: 05-25-2022 End: 05-25-2022 ambulatory [facility] Work Phone: Start: 05-25-2022 End: 05-25-2022 Patient encounter procedure [facility] Start: 02-27-2022 End: 02-27-2022 ambulatory [facility] Work Phone: Start: 02-27-2022 End: 02-27-2022 Patient encounter procedure [facility] Start: 10-04-2021 End: 10-04-2021 Patient encounter procedure [facility] Procedures Date Procedure Procedure Detail Performing Clinician Start: 04-26-2023 MRI of cervical spine Gabriela Jackson Work Phone: Start: 04-19-2023 Screening mammography Gabriela Jackson Work Phone: Start: 07-25-2022 Radionuclide gastric emptying study Dr. Sasha Jackson Work Phone: Start: 06-28-[address] Sasha cabrera Work Phone: Start: 06-26-[address] Sasha Jackson Work Phone: Start: 06-20-2022 Computed tomography of abdomen and pelvis with contrast Dr. Sasha Jackson Work Phone: Start: 06-20-2022 Diagnostic radiograp hy of abdomen Dr. Sasha Jackson Work Phone: Start: 02-27-2022 Screening mammography Start: 10-04-2021 X-ray of cervical spine Urine culture Plan of Treatment Date Care Activity Detail Author Start: 11-25-2023 Covid-19 Vaccine () Covid-19 Vaccine () [facility] Start: 11-25-2023 Influenza vaccination Influenz a Vaccine (#1) [facility] Start: 06-28-2022 Colonoscopy flx dx w /collj spec when pfrmd DIAGNOSTIC COLONOSCOPY [facility] Start: 06-28-2022 Egd transoral biopsy single/multiple EGD BIOPSY SINGLE/MULTIPLE [facility] Start: 06-28-2022 Patient discharge [facility] Start: 06-20-2022 Computed tomography of abdomen and pelvis with contrast Abdomen/Pelvis WITH Contrast [facility] Start: 06-20-2022 CT Abdomen and Pelvi s W contrast IV [facility] Start: 06-20-2022 Diagnostic radiograp hy of abdomen Abdomen Single View [facility] Start: 06-20-2022 XR Abdomen Single view [facility] Start: 10-04-2021 [facility] Work Phone: Start: 07-16-2019 Diabetes Screening Diabetes Screenin g [facility] Start: 07-16-2019 Lipid panel Lipid Screening [facility] Start: 07-16-2019 Screening for malign ant neoplasm of colon [facility] Start: 2014 Screening for malign ant neoplasm of breast Mammogram Screening [facility] Start: 07-16-1995 Screening for malign ant neoplasm of cervix Cervical Cancer Screening [facility] Start: 1993 Hepatitis B Vaccine (1 of 3 - 19+ 3-dose series) Hepatitis B Vaccine (1 of 3 - 19+ 3-dose series) [facility] Start: 1993 Urine microalbumin profile DTa P,Tdap,Td Vaccine (1 - Tdap) [facility] Start: 1992 Anxiety Screening Anxiety Screening [facility] Start: 1992 Depression Screening Depression Scre cindy [facility] Start: 1992 Hepatitis C screening Hepatitis C Sc mike [facility] Start: 1992 HIV screening HIV Screening [facility] Colonoscopy [facility] MG Breast - bilatera l Screening [facility] Path report.final Dx Spec [facility] Patient referral [facility] Work Phone: Thyroglobulin antibo dy measurement [facility] Work Phone: Thyroperoxidase Ab [Units/volume] in Serum or Plasma [facility] Work Phone: End: 03-24-2025 XR Chest PA and Lateral XR CHEST 2V FRONTAL/LAT Radiology STAT Wheezing 1 Occurrences starting 02/23/2024 until 03/24/2025 [facility] Work Phone: Comment on above: 1 Occurrences starti ng 02/23/2024 until 03/24/2025 [facility] Payers Date Payer Category Payer Self-pay [id number] 2015 Unknown MMO [employer] PPO [id number] 2015-Present [phone] [address] [place] [address] PPO [id number] 2015 Unknown [id number] Unknown [id number] Unknown [id number] Unknown [id number] Unknown [id number] Unknown [id number] Unknown [id number] Unknown [id number] Unknown [id number] Social History Date Type Detail Facility Start: 02-15-2018 End: 02-19-2023 Tobacco smoking status MTIS Unknown if ever smoked [facility] Start: 1975 Sex Assigned At Female [facility] Start: 02-23-2024 Tobacco smoking status MTIS Never smoked tobacco [facility] Start: 02-23-2024 Tobacco use and exposure Smokeless tobacco non-user [facility] Start: 05-13-2020 End: 02-23-2024 History of Social function [facility] Start: 05-13-2020 End: 02-23-2024 Tobacco use panel [facility] National Score (1-100), lower number is lower risk Not on file [facility] Start: 1975 Sex assigned at Not on file [facility] NEGATED: Highlighted row [facility] Goals Date Patient Goal Desired Activity /State Mental Status Date Assessment Result Facility 06-28-2022 Cognitive function Voice/Name [facility] Work Phone: Clinical Notes 06-14-2022 to 02-23-2024 Lorena Alvarado PA-C - 02/23/2024 2:15 PM EST Note Date & Type Note Facility 02-23-2024 Note HNO ID: [id number] Author: LORENA ALVARADO PA-C Service: ? Author Type: Physician Professor Of Biblical Studies Type: Progress Notes Filed: 02/23/2024 14:17 Note Text: This note was created using NoteWriter. Subjective Norma Griffin is a 48 year old female. HPI Patient presents with wheezing, shortness of breath, cough over the past 3 weeks. She was seen initially after 3 days of symptoms and had a negative chest x-ray. She was still given azithromycin as well as a prednisone burst. She felt better on the prednisone but since being off of it wheezing has returned. She denies any body aches or chills. No fever. She denies history of asthma or COPD. Not a smoker. She states she has never really had wheezing before. Review of Systems Constitutional: Negative. HENT: Negative. Respiratory: Positive for cough, chest tightness, shortness of breath and wheezing. Cardiovascular: Negative. Gastrointestinal: Negative. Genitourinary: Negative. Musculoskeletal: Negative. All other systems reviewed and are negative. No past medical history on file. Current Outpatient Medications Medication Sig Dispense Refill amoxicillin (AMOXIL) 500 mg capsule Take 500 mg by mouth three times a day. pantoprazole DR (PROTONIX) 20 mg tablet Take 1 tablet by mouth every afternoon. albuterol HFA (PROVENTIL HFA, VENTOLIN HFA) 90 mcg/actuation inhaler inhale 2 puffs by mouth and INTO THE LUNGS every 4 hours if needed for wheezing predniSONE (DELTASONE) 10 mg tablet Take 4 tabs daily for 3 days, then 2 tabs daily for 3 days, then 1 tab daily for 3 days with food. 21 tablet 0 albuterol (PROVENTIL) 2.5 mg /3 mL (0.083 %) nebulizer solution Use 3 mL via nebulizer every 4 hours as needed for wheezing/shortness of breath. Use over 5-15minutes. 75 mL 0 Current Facility-Administered Medications Medication Dose Route Frequency Provider Last Rate Last Admin ipratropium-albuterol 3 mL nebulizer solution (DUONEB) 3 mL INHALATION ONCE Lorena Alvarado, NICOL No past surgical history on file. No family history on file. Social History Tobacco Use Smoking status: Never Smokeless tobacco: Never Objective BP 144/92 Pulse 94 Temp 36.9 ?C (98.4 ?F) Resp 19 Wt 105.4 kg (232 lb 5.8 oz) SpO2 100% Physical Exam Vitals reviewed. Constitutional: Appearance: Normal appearance. HENT: Head: Normocephalic and atraumatic. Right Ear: Tympanic membrane, ear canal and external ear normal. Left Ear: Tympanic membrane, ear canal and external ear normal. Nose: Nose normal. Mouth/Throat: Mouth: Mucous membranes are moist. Cardiovascular: Rate and Rhythm: Normal rate and regular rhythm. Heart sounds: Normal heart sounds. Pulmonary: Effort: Pulmonary effort is normal. Breath sounds: Wheezing present. Neurological: Mental Status: She is alert. Assessment and Plan ASSESSMENT/PLAN: 1. Wheezing - ICD9: 786.07, ICD10: R06.2 Patient has been on azithromycin at the beginning of illness as well as currently on amoxicillin for dental infection in the past 3 weeks. I feel that this is likely a viral bronchitis. X-ray close for the , she will return Sunday for x-ray. Bebeto tx here, patient improved.I will treat with prednisone taper and prescription for albuterol Nebules for her nebulizer she has at home. Red flags for ER care discussed. Patient agreeable. - IPRATROPIUM 0.5 MG-ALBUTEROL 3 MG (2.5 MG BASE)/3 ML NEBULIZATION SOLN - XR CHEST 2V FRONTAL/LAT Lorena Alvarado PA-C [facility] 02-23-2024 History of Present illness Narrative This note was created using StrongSteam. Subjective Norma Griffin is a 48 year old female. HPI Patient presents with wheezing, shortness of breath, cough over the past 3 weeks. She was seen initially after 3 days of symptoms and had a negative chest x-ray. She was still given azithromycin as well as a prednisone burst. She felt better on the prednisone but since being off of it wheezing has returned. She denies any body aches or chills. No fever. She denies history of asthma or COPD. Not a smoker. She states she has never really had wheezing before. Review of Systems Constitutional: Negative. HENT: Negative. Respiratory: Positive for cough, chest tightness, shortness of breath and wheezing. Cardiovascular: Negative. Gastrointestinal: Negative. Genitourinary: Negative. Musculoskeletal: Negative. All other systems reviewed and are negative. No past medical history on file. Current Outpatient Medications Medication Sig Dispense Refill amoxicillin (AMOXIL) 500 mg capsule Take 500 mg by mouth three times a day. pantoprazole DR (PROTONIX) 20 mg tablet Take 1 tablet by mouth every afternoon. albuterol HFA (PROVENTIL HFA, VENTOLIN HFA) 90 mcg/actuation inhaler inhale 2 puffs by mouth and INTO THE LUNGS every 4 hours if needed for wheezing predniSONE (DELTASONE) 10 mg tablet Take 4 tabs daily for 3 days, then 2 tabs daily for 3 days, then 1 tab daily for 3 days with food. 21 tablet 0 albuterol (PROVENTIL) 2.5 mg /3 mL (0.083 %) nebulizer solution Use 3 mL via nebulizer every 4 hours as needed for wheezing/shortness of breath. Use over 5-15minutes. 75 mL 0 Current Facility-Administered Medications Medication Dose Route Frequency Provider Last Rate Last Admin ipratropium-albuterol 3 mL nebulizer solution (DUONEB) 3 mL INHALATION ONCE Lorena Alvarado, PAYuriC No past surgical history on file. No family history on file. Social History Tobacco Use Smoking status: Never Smokeless tobacco: Never Objective BP 144/92 Pulse 94 Temp 36.9 C (98.4 F) Resp 19 Wt 105.4 kg (232 lb 5.8 oz) SpO2 100% Physical Exam Vitals reviewed. Constitutional: Appearance: Normal appearance. HENT: Head: Normocephalic and atraumatic. Right Ear: Tympanic membrane, ear canal and external ear normal. Left Ear: Tympanic membrane, ear canal and external ear normal. Nose: Nose normal. Mouth/Throat: Mouth: Mucous membranes are moist. Cardiovascular: Rate and Rhythm: Normal rate and regular rhythm. Heart sounds: Normal heart sounds. Pulmonary: Effort: Pulmonary effort is normal. Breath sounds: Wheezing present. Neurological: Mental Status: She is alert. Assessment and Plan ASSESSMENT/PLAN: 1. Wheezing - ICD9: 786.07, ICD10: R06.2 Patient has been on azithromycin at the beginning of illness as well as currently on amoxicillin for dental infection in the past 3 weeks. I feel that this is likely a viral bronchitis. X-ray close for the weekend, she will return Sunday for x-ray. Bebeto tx here, patient improved.I will treat with prednisone taper and prescription for albuterol Nebules for her nebulizer she has at home. Red flags for ER care discussed. Patient agreeable. - IPRATROPIUM 0.5 MG-ALBUTEROL 3 MG (2.5 MG BASE)/3 ML NEBULIZATION SOLN - XR CHEST 2V FRONTAL/LAT Lorena Alvarado PA-C documented in this encounter [facility] 06-18-2023 Procedure note [facility] 04-04-2023 Discharge summary Note Date/Time April 04, 2023 3:55pm [facility] [address] [place] [address] / REHABILITATION SERVICES DISCHARGE SUMMARY MR#: [id number] Acct: [id number] Name: NORMA GRIFFIN Rep #: [id number] : 1975 47 From: Daniel Choi DPT, OCS, CSCS Referring Dr.: Dr. Ssaha Jackson DO Status: REG RCR Insurance: [facility] SELF PAY INSURANCE Discharge Summary D/C summary: It has been my pleasure to treat NORMA GRIFFIN referred by Dr. Sasha Jackson DO, with the diagnosis of cervical radiculopathy for a total of 14 visit(s). Discharge Date: 04/04/23 Please see the following information for a summary of their discharge status. Subjective Subjective: I am not sleeping. tossed adn turned all night. No better with traction. Did not do any HEP. Still constant ache, with sharp pains with movements to 10/10 such as turning head in certain direction.L shoulder and arm still hurt. Back to doctor is next step adn likely MRI. Pain L neck pain: Pain Intensity (Out of 10): 5 L ELBOW: Pain Intensity (Out of 10): 3 Overall Improvement % Improvement: 0 Objective Objective/Function: 45 AROM B rotations but harder to L and slow to return to neutral. 50 extension with pain. UE AROM WFL and strength without myotomal abnormalities 4/5 in UE. Sensation UE WNL to gross light touch. No neural signs but pain is disc like in its presentation and instability. Goals Goal 1:: Full aROM cervical spine without deviation or pain Goal Progress: Not Progressing Goal 2:: Sleep without interruption at night Goal Progress: Not Progressing Goal 3:: I appropr HEP to limit future problems Goal Progress: Not Progressing Goal 4:: neck oswestry 5 or better Goal Progress: Not Progressing Plan Plan: d/c due to lack of progress, Recommend next medical step...MRI?. Pt to schedule back tiwth doctor on Sunday. Also recommended cervical soft collar to help relax and sleep. D/C Information Discharge Comments: Pt back to doctor for next medical step due to lack of improvement despite good effort. d/c sentence: If there are questions or concerns regarding this patient's physical therapy, please feel free to call me at [phone]. Thank you for the referral of thispatient. Sincerely, Daniel Choi, DPT, OCS, CSCS Balance/Gait/Functional tests Balance/Special Test Scores Oswestry Neck Score: 18 Improvement % Improvement: 0 <Electronically signed by Daniel Choi DPT, OCS, CSCS> 04/04/23 1555 CC: Dr. Sasha Jackson, DO ~ EBG Signed [facility] Work Phone: [phone] Procedure [facility] 06-28-2022 Procedure [facility]04-05-2023 Procedure note [facility]04-05-2023 Procedure [facility] 06-14-2022 NotePap Smear Specimen AdequacyMarch 2022 4:06pmComment. Satisfactory for evaluation. Endocervical and/or squamous metaplasticcells (endocervical component)are present.[facility] INTER[facility]ACED A#[id number] HospitalComment on above:Satisfactory for evaluation. Endocervical and/or squamous metaplasticcells (endocervical component)are present.06-14-2022 NotePap Smear Specimen AdequacyMarch 2022 4:06pmComment.Satisfactory for evaluation. Endocervical and/or squamous metaplasticcells (endocervical component)are present.[facility] A#[id number] Hospital Comment on above:Satisfactory for evaluation. Endocervical and/or squamous metaplasticcells (endocervical component)are present.06-14-2022 NotePap Smear Specimen AdequacyMarch 2022 4:06pmComment.Satisfactory for evaluation. Endocervical and/or squamous metaplasticcells (endocervical component)are present.[facility] INTERFACED A#[id number] Street HospitalComment on above: Satisfactory for evaluation. Endocervical and/or squamous metaplasticcells (endocervical component)are present.Evaluation noteNo assessment information availableWWilson Street Hospital Work Phone: Evaluation note* Diagnosis Onset Date Resolution Status LLQ abdominal pain acute RUQ abdominal pain acute [facility] Work Phone: Evaluation note* Diagnosis Onset Date Resolution Status Encounter to establish care acute Urinary incontinence in female acute [facility] Work Phone: Evaluation note* Diagnosis Wheezing- Primary documented [facility] this [facility] Author Waldemar Villela [facility] June 28, 2022 6:50am Note Date/Time June 28, 2022 6:50 am [facility] Medical Records Department [address] [place] [address] History & Physical Exam 06/28/22 0649 MR#: [id number] Acct: [id number] Name: NORMA GRIFFIN Rep #:[id number] : 1975 46 From: Waldemar Villela DO PCP: Dr. Sasha Jackson DO Status[facility] Location: [place] [address] History and Physical Date of Admission: 06/28/22 46 F who presents to the office today to establish with GI for LLQ abdominal pain as well as newer RUQ abd pain. She is scheduled for CT today as ordered by her environment friendly landscape designer Dr Palma. She had presented to [facility] with pelvic pain and fullness, as well as urinary frequency/urgency and vaginal discharge. Had pelvicUS at [facility] office on 06/14/22 which was unremarkable (2 small fibroids). Treated with flagyl for possible bacterial vaginal infection, the discharge and urinary complaints resolved. She continues to have fullness in pelvis, lower mid abdomenand LLQ, and a constant pain there, some pain radiates around left flank. May get a few seconds of relief of LLQ pain after BM. Had rectal pain yesterday. Thepelvic/LLQ pain started in early April. Feels like there is something in the LLQ pain. RUQ pain started 06/14/22, worse with eating. Appetite is decreased. Some nausea. No vomiting. Has had indigestion and heartburn since 10/2021. Quit smoking but that didn't help the indigestion/heartburn. No change in the bowels--no diarrhea or constipation, no melena or hematochezia. No unintentionalweight loss. No prior EGD or colonoscopy, would like to schedule her screening colonoscopy. 06/15/22 labs: cbc unremarkable, cmp unremarkable 05/25/22 labs: cbc unremarkable, cmp unremarkable, crp 7 H, esr 25 Hx kidney stones, melanoma, IBS, vit D deficiency, PVCs PSH , tubal ligation ROS Const Constitutional: No fatigue, fever(s), frequent falls, headache(s) or weight change ENT ENT: No headache(s) or difficulty swallowing Cardio Cardiology: No leg pain with exertion Gastro GI: Positive for abdominal pain, bloating, heartburn and nausea/dyspepsia; No change in bowel habits, constipation, diarrhea, difficulty swallowing, Vomiting blood/hematemesis, Blood in stool or vomiting Musc Musculoskeletal: Positive for joint pain and back pain; No abnormal gait, joint swelling, muscle cramps, muscle weakness, numbness, stiffness, tingling, Arthritis, sciatica, leg pain at night or leg pain with exertion Skin Skin: No dry skin, lesions, itchy eyes or rash Neuro Neurology: No abnormal gait, dizziness, frequent falls, headache(s), numbness, tingling, tremor(s), Increased tone in limbs, paralysis or seizures Psych Psychiatric: No anxiety, No depression, No paranoia, No Behavioral Problems, No Compulsive Behavior, No hyperactivity, No inattentiveness, No obsessions/compulsions, No Temper Tantrums and No suicidal ideation Endo Endocrine: No fatigue or weight change Aller/Imm Allergy/Immunologic: No itchy eyes Rogelio/Lymp Hematologic/Lymphatic: No easy bleeding or easy bruising Exam Const General: cooperative and uncomfortable (can't find a comfortable position) Nutritional Appearance: obese Orientation: alert, awake and oriented x3 HENMT Head: normal to inspection Eyes Sclera: sclerae normal Resp Effort & Inspection: normal respiratory effort GI Inspection: normal to inspection Palpation: soft, no hepatosplenomegaly, no masses and tender in the LLQ and in the RUQ General: bladder normal to palpation Bimanual Exam- Vagina & Uterus: bladder normal to palpation Skin General: no rashes or lesions noted and no jaundice Neuro Speech: speech normal Gait: normal gait Extrem General: normal to inspection Quality Reporting Tobacco Screening ([facility] 138) Smoking Status: Former smoker Assessment and Plan Assessment and Plan (1) LLQ abdominal pain: ?Status:?Acute ?Plan: 46 yr old female with 6 weeks of LLQ pain and 1 week of RUQ pain. Will get KUB to eval for ureteral stone. She is scheduled for CT today as ordered by her environment friendly landscape designer. Nest step based on imaging results. Will schedule her for EGD to eval for Araujo's as well as colonoscopy. May need RUQ US. (2) RUQ abdominal pain: ?Status:?Acute\ I have examined the patient and the H&P has been reviewed. There are no clinicalchanges since date of exam. 06/28/22 0650 <Electronically signed by Waldemar Villela DO> Cosigner Signature (if applicable): CC: Dr. Sasha Jackson DO; Waldemar Villela DO~ Signed [facility] Work Phone: Chief Complaint and Reason for Visit Chief Complaint NECK PAIN Chief Complaint SCREENING Chief Complaint SCREENING Consult PELVIC PAIN Reason for Visit LLQ abdominal pain RUQ abdominal pain Chief Complaint Consult PELVIC PAIN RUQ PAIN Reason for Visit LLQ abdominal pain RUQ abdominal pain Chief Complaint Consult PELVIC PAIN RUQ PAIN EORDER Reason for Visit LLQ abdominal pain RUQ abdominal pain Chief Complaint Consult PELVIC PAIN RUQ PAIN EORDER RIGHT UPPER QUADRANT PAIN Reason for Visit LLQ abdominal pain RUQ abdominal pain Chief Complaint Establish care, disc uss BV concerns, [facility] pt CERVICAL RADICULOPATHY/RX HERE Reason for Visit Encounter to [facility] Urinary incontinence in female Chief Complaint Establish care, disc uss BV concerns, [facility] pt CERVICAL RADICULOPATHY/RX HERE SCREENING CERVICALGIA, RADICULOPATHY LT ARM Reason for Visit Encounter to [facility] Urinary incontinence in female Chief Complaint CERVICAL RADICULOPAT HY/RX HERE SCREENING CERVICALGIA, RADICULOPATHY LT ARM LEFT ARM PAIN LEFT ARM PAIN Family History No Family History Records Found Relationship Condition Age at Onset Recorded Date/T drew Not Specified Diabetes mellitus Unknown Cardiac disease Unknown Disorder of thyroid Unknown Relationship Condition Age at Onset Recorded Date/T drew father Myocardial infarction 51 Hypertension Unknown Cardiac disease Unknown Hyperlipidemia Unknown Alcoholism in family member Unknown mother Hypertension Unknown Disorder of thyroid Unknown Diabetes mellitus Unknown Advance Directives No Advanced Directives Records Found Advance Directive Response Recorded Date/ Time Advance Directives No April 20, 2016 4:14pm Living Will No April 20 4:14pm Power of [place] Hat Blocker No April 20, 2016 4:14pm Advance Directive Response Recorded Date/ Time Advance Directives No April 20, 2016 3:14pm Living Will No April 20 3:14pm Power of [place] Blocker No April 20, 2016 3:14pm Advance Directive Response Recorded Date/ Time Advance Directives No April 20, 2016 4:14pm Living Will No June 23, 2022 11:34am Power of [place] [employer] Blocker No June 23 11:34am Advance Directive Response Recorded Date/ Time Advance Directives No April 20, 2016 3:14pm Living Will No June 23, 2022 10:34am Power of [place] Blocker No June 23 10:34am Summary Purpose Additional Source Comments Goals (unrecognized section and content) Goals may be documented in a n alternate sectionGoals may be documented in an alternate sectionGoals may be documented in an alternate sectionGoals may be documented in an alternate sectionGoals may be documented in an alternate sectionGoals may be documented in an alternate sectionGoals may be documented in an alternate sectionGoals may be documented in an alternate section Care Teams (unrecognized sec tion and content) Team Status: Active Member Role Status Dates Dr. Sasha Jackson DO Family Provider Active Dr. Sasha Jackson DO Primary Care Provider Active Team Status: Inactive Member Role Status Dates Dr. Sasha Jackson DO Primary Care Provider, Attending Zoe morrison Active Team Status: Inactive Member Role Status Dates Dr. Sasha Jackson DO Primary Care Provide r, Attending Provider, Referring Provider Active Team Status: Active Member Role Status Dates Dr. Sasha Jackson DO Primary Care Provider Active Dr. Mayra Palma , DO Attending Provider Active Team Status: Inactive Member Role Status Dates Dr. Sasha Jackson DO Primary Care Provider Active Dr. Mayra Palma , DO Attending Provider Active Team Status: Inactive Member Role Status Dates Dr. Sasha Jackson DO Primary Care Provider, Referring P rovider Active Bouchra Beaver TURF MANAGER, TURF MANAGER-C Attending Provider Active Team Status: Active Member Role Status Dates Dr. Sasha Jackson DO Primary Care Provider, Referring P rovider Active Dr. Waldemar Villela , DO Attending Provider, Other Prov ider Active Team Status: Inactive Member Role Status Dates Dr. Sasha Jackson DO Primary Care Provider, Referring P rovider Active Dr. Waldemar Villela , DO Attending Provider Active Team Status: Active Member Role Status Dates Dr. Sasha Jackson DO Primary Care Provider Active Bouchra Beaver TURF MANAGER, TURF MANAGER-C Attending Provider, Referrin g Provider Active Team Status: Inactive Member Role Status Dates Dr. Sasha Jackson DO Primary Care Provider Active Bouchra Beaver TURF MANAGER, TURF MANAGER-C Attending Provider, Referrin g Provider Active Team Status: Inactive Member Role Status Dates Dr. Sasha Jackson DO Primary Care Provider, Referring P rovider Active Britney Fine CNM Attending Provider Active Team Status: Inactive Member Role Status Dates Dr. Sasha Jackson DO Primary Care Provider Active Britney Fine CNM Attending Provider, Referring Pro vider Active Team Status: Active Member Role Status Dates Dr. Sasha Jackson DO Primary Care Provide r, Referring Provider, Other Provider Active Dr. Jeferson Ramos MD Attending Provider Active Instrument Operator Relationship Specialty Start Date End Date Sasha Jackson DO [address] [place] [address] PCP - General Family Medicine 02/23/24 Source Comments (unrecognize d section and content) In the event this informatio n is protected by the Federal Confidentiality of Alcohol and Drug Abuse Patient Records regulations: The Federal rules restrict any use of the information to criminally investigate or prosecute any alcohol or drug abuse patient.[facility] Reason for Visit (unrecogniz ed section and content) Reason Comments Cough Wheezing, sob x 3 we eks INFORMATION SOURCE (unrecogn ized section and content) DATE CREATED AUTHOR 02/24/2024 [facility] DATE CREATED AUTHOR AUTHOR'S DAVID CHAMBERLAIN 03/08/[address] [facility] FOR RECORDS PERTAINING TO PATIENTS WHO ARE [...] BE BASED ON THE PRIMARY CLINICAL RECORDS. [employer] provides no warranty or guarantee of the accuracy or completeness of information in this document.
== END | disposition home or self-care (01) ==
LOC: RAD 09:35
PROVIDERS: PCP Family Medicine; Referring Provider Anesthesiology; Visit Provider Anesthesiology
DX: M25.511 Pain in right shoulder (principal)
CPT/HCPCS: 73030

== ENCOUNTER 2024-10-02 10:00 | Outpatient (RCR) | payer OTHER, SELFPAY ==
--- NOTE | 2024-09-10 09:54 | HP.PTEVAL_ITS ---
Patient's Visit Information Visit Information Visit Information: SLIME GRIFFIN is a 49 year old F referred to Physical Therapy by Dr. Dannie Storm MD with a diagnosis of R shoulder pain. Date of Evaluation: 09/10/24 Physical Therapist: Tate Zhang, PT, ATC Visit Plan Frequency: 2x /Week Duration: 4-6 Weeks Plan: R shoulder rotator strengthening, scap stab ex's, UBE, Overhead pulleys, and HEP Subjective Subjective: Pt reports she has had R shoulder pain for 6-8 months. Pt reports her pain had an insidious onset in nature. Pt reports she has had pain in her shoulder secondary to frozen shoulder in the past, but cant remember which shoulder it was. Pt reports her pain is located on the posterior aspect. Pt denies any tingling or numbness in R shoulder Pt is R hand dominant. Pt reports overhead reaching and reaching behind her back increases her pain. Pt reports she has had x-rays a day ago but has not received any results. 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 Pt reports she is able to perform most of her IADL's and ADL's, but has to adapt secondary to not being able to reach overhead. Pt reports sleep difficulty at this time secondary to pain. 2/10 pain while sitting at rest, 10/10 pain when at worst. Pain R shoulder: Pain Intensity (Out of 10): 2 Pain Intensity Range: 10 Objective Objective: Neuro: B LE sensation is WNL to light touch. Palpation: Pt is very sore along the distribution of the supraspinatus. No obvious deformity. No crepitus with AROM ROM: L shoulder flex= 170, abd= 175, ER= 60, IR= WNL; R shoulder flex= 110, abd= 100, ER= 30, IR= moderately limited to the belt line MMT: L shoulder flex= 22, abd= 30, ER= 21, IR= 25 #F; R shoulder flex= 7, abd= 10, ER= 22, IR= 19 #F Special tests: Pos HK, Balance/Special Test Scores Quick DASH Score: 34.0900 Goals Goal 1:: Decrease R shoulder pain x 50% to aid with sleep Goal Time Frame: 4-6 Weeks Goal 2:: Increase R shoulder flex and abd ROM x 30 degrees to aid with overhead lifting Goal Time Frame: 4-6 Weeks Goal 3:: Increase R shoulder strength x 5 #F to aid with IADL's Goal Time Frame: 4-6 Weeks Goal 4:: I with HEP Goal Time Frame: 4-6 Weeks Rehabilitation Potential Physical Therapy Diagnosis: Pt has R shoulder pain, weakness, and limited ROM secondary to R shoulder impingement Rehabilitation Potential: Good Anticipated Interventions Patient/Client Instruction: Educate patient on: Condition and Plan of Care For the Purpose of:: To improve self management Therapeutic Exercise to Include: Strength training, Endurance training, Flexibilty training, Active ROM and Scapular Strength/Stabilization For the Purpose of:: To decrease pain, To increase ROM and To improve muscle performance and motor function Cryotherapy (ice pack, ice massage): Yes For the Purpose of:: To decrease pain Text: Thank you for the opportunity to evaluate your patient. For Medicare and Medicare HMO plans, please review the plan of care and approve it. It will need to be FAXED BACK to us at [phone] for Medicare purposes. For Medicare only, by signing this I certify the plan of care. Please let me know if there are questions or concerns regarding this plan of care. Physician Signature: Date:
--- NOTE | 2024-10-02 10:32 | HP.PTDCSUM ---
Discharge Summary D/C summary: It has been my pleasure to treat SLIME GRIFFIN referred by Dr. Dannie Storm MD, with the diagnosis of R shoulder pain for a total of 8 visit(s). Discharge Date: Please see the following information for a summary of their discharge status. Subjective Subjective: No pain at rest. Pain R shoulder: Pain Intensity (Out of 10): 0 Overall Improvement % Improvement: 80 Objective Objective/Function: R shoulder pain ranges from 0-8/10 R shoulder ROM: flex= 145, abd= 125 degrees R shoulder MMT: flex= 17, abd= 27, IR= 21, ER= 23 Pt is I with HEP Goals Goal 1:: Decrease R shoulder pain x 50% to aid with sleep Goal Progress: Goal Met Goal 2:: Increase R shoulder flex and abd ROM x 30 degrees to aid with overhead lifting Goal Progress: Progressing Goal 3:: Increase R shoulder strength x 5 #F to aid with IADL's Goal Progress: Progressing Goal 4:: I with HEP Goal Progress: Goal Met Plan Plan: Discharge to HEP D/C Information d/c sentence: If there are questions or concerns regarding this patient's physical therapy, please feel free to call me at [phone]. Thank you for the referral of this patient. Sincerely, Tate Zhang, PT, ATC Balance/Gait/Functional tests Balance/Special Test Scores Quick DASH Score: 15.9075 Improvement % Improvement: 80
== END 2024-10-02 10:55 | disposition home or self-care (01) ==
LOC: PT 10:00
PROVIDERS: PCP Family Medicine; Referring Provider Anesthesiology; Visit Provider Anesthesiology
DX: M25.519 Pain in unspecified shoulder (principal)
CPT/HCPCS: 97110; 97161; 97530

== ENCOUNTER → 2024-10-21 | Outpatient (CLI) | payer OTHER, SELFPAY ==
[2024-10-21 09:48] LABS: Hematocrit 40.6 % (37-47); Hemoglobin 13.0 g/dL (12.0-15.0); Immature Granulocytes Count 0.020 X10^3/uL (0.0-0.0); Mean Corp Hgb Conc 32.0 g/dL (32-36); Mean Corpuscular Volume 89.6 fL (81-99); Mean Platelet Vol. 11.2 fl (6.2-12.0); NRBC Flagged by Analyzer 0 % (0-5); Platelet Count 289 K/mm3 (150-450); RBC Distribution Width CV 14.1 % (11.6-14.6); RBC Distribution Width SD 46.0 fl (35.1-43.9); Red Blood Count 4.53 M/mm3 (4.2-5.4); White Blood Count 6.5 K/mm3 (4.4-11.0)
[2024-10-21 10:51] LABS: AST(SGOT) 14 U/L (<=31); Alanine Aminotransfer ALT/SGPT 16 U/L (<=34); Albumin, Serum 4.1 g/dL (3.5-5.0); Alkaline Phosphatase 73 U/L (35-104); Anion Gap 11 (5-15); BUN 17 mg/dL (4-19); BUN/Creat Ratio 21.1 RATIO (10-20); Calcium,Total 9.2 mg/dL (7.6-11.0); Carbon Dioxide 23.5 mmol/L (21.0-32.0); Chloride 104 mmol/L (98-108); Cholesterol 210 mg/dL (<=200); Globulin 2.5 g/dL (2.2-4.2); Glucose 105 mg/dL (70-99); Low Density Lipoprotein Calc. 135 mg/dL; Potassium 4.3 mmol/L (3.3-5.1); Triglycerides 38 mg/dL; Very Low Density Lipoprotein 8 mg/dL (5-40); cholesterol:hdl ratio screen 3.13
[2024-10-21 10:52] LABS: Follicle Stimulating Hormone 7.4 mIU/mL; Vitamin B12 572 pg/mL (180-914); Vitamin D,25 Hydroxy 29.3 ng/mL (30-100)
== END | disposition home or self-care (01) ==
LOC: LAB 09:04
PROVIDERS: PCP Family Medicine; Referring Provider Nurse Practitioner Family; Visit Provider Nurse Practitioner Family
DX: Z13.29 Encounter for screening for other suspected endocrine disorder (principal); R53.83 Other fatigue; Z13.220 Encounter for screening for lipoid disorders; R73.09 Other abnormal glucose
CPT/HCPCS: 36415; 80053; 80061; 82306; 82607; 82670; 83001; 83036; 84402; 84403; 84439; 84443; 85025

== ENCOUNTER → 2024-11-04 | Outpatient (CLI) | payer OTHER, SELFPAY ==
--- NOTE | 2024-11-04 15:45 | BI_ITS ---
EXAM: SCRN MAMM (CAD)W/SHARI BILAT DATE: 11/04/2024 CLINICAL HISTORY: F, Age 49 y/o , SCREEN FOR BREAST CANCER TECHNIQUE: SCRN MAMM (CAD)W/SHARI BILAT COMPARISON: Prior exam(s) were compared FINDINGS: TISSUE DENSITY: The breasts are heterogeneously dense, which may obscure small masses. Bilateral Breast Mammographic Findings: No suspicious masses, calcifications or other abnormalities are identified. BI/SCRN MAMM (CAD)W/SHARI BILAT IMPRESSION: No mammographic evidence of malignancy in either breast OVERALL FINAL ASSESSMENT BI-RADS 1: NEGATIVE. RECOMMENDATION: Routine annual follow-up in 1 Year A letter with findings and recommendations will be mailed to the patient. Reading Location: [id number]
== END | disposition home or self-care (01) ==
LOC: OPBI 15:30
PROVIDERS: PCP Family Medicine; Referring Provider Nurse Practitioner Family; Visit Provider Nurse Practitioner Family
DX: Z12.31 Encounter for screening mammogram for malignant neoplasm of breast (principal)
CPT/HCPCS: 77063; 77067

== ENCOUNTER → 2024-12-01 | Outpatient (CLI) | payer OTHER, SELFPAY ==
--- NOTE | 2024-12-01 06:53 | MRI_ITS ---
PROCEDURE: UPPER EXT JOINT ONLY(ROUTINE) 12/01/2024 REASON FOR EXAM: RT SHOULDER PAIN TECHNIQUE: Procedure Code: [id number] Modality: MR Procedure: UPPER EXT JOINT ONLY(ROUTINE) Multiplanar and multisequence images were obtained without IV contrast administration. COMPARISON: COMPARISON: None FINDINGS: The bone marrow signal is unremarkable. There is no contusion or bone marrow replacing process. No acute fracture seen. The supraspinatus is within normal limits. Minimal tendinosis seen at the insertion of the infraspinatus tendons. Normal subscapularis. Biceps tendon is within the bicipital groove. The biceps labral complex has a normal appearance. There is no labral tear. Minimal loss of cartilage seen in the glenohumeral joint. No loose body. No effusion. Mild AC joint arthropathy. No significant mass effect on the myotendinous junction. Minimal amount of fluid in the subacromial subdeltoid bursa noted. The adjacent musculature and soft tissues of the shoulder are otherwise normal. MRI/Upper Ext Joint Only(Routine) IMPRESSION: Mild tendinosis of the infraspinatus tendon. No rotator cuff tear. No labral tear. Mild degenerative changes of the acromioclavicular and glenohumeral joint. Reading Location: [id number]
--- OUTSIDE RECORDS SUMMARY | 2024-12-01 07:21 | XMS RPT_ITS | CCD ---
Author Organization [facility] CliniSynm Care Team Providers Care Data Warehouse Analyst Name Role Phone Dr. Sasha Jackson Primary Care Provider Dr. Sasha Jackson Referring Provider [phone] [address] MARTINEZ, LAND APPRAISER-C Bouchra Castro Attending Provider Friend, Dr. Medeiros Attending Provider [phone] Friend, Dr. Medeiros Other Provider [phone] Dr. Sasha Jackson Primary Care Provider Dr. Sasha Jackosn Referring Provider VIKA Fine Attending Provider [phone] Sasha Jackson Primary Care Provider Dr. Sasha Jackson Referring Provider Dr. Sasha Jackson Other Provider Dr. Jeferson Ramos Attending Provider [phone] Sasha Jackson DO Primary Care Provider SASHA JACKSON Primary Care Unavailable Dr. Sasha Jackson DO Primary Care Provider Dr. Dannie Storm MD Attending Provider Dr. Dannie Storm MD Referring Provider Dr. Sasha Jackson DO Referring Provider Kayla MARTINEZ-Crissy Adams Attending Provider Kayla MARTINEZ-CCrissy Referring Provider Unique Hayes Attending Unavailable Unique Hayes Referring Unavailable Malys, Sasha Primary Care Unavailable Crissy Garza Attending Unavailable Crissy Garza Referring Unavailable Malys, Sasha Primary Care Unavailable Malys, Sasha Primary Care Unavailable Agustina Storms Attending Unavailable Emeterio, Dannie Referring Unavailable Crissy Garza Attending Unavailable Crissy Garza Referring Unavailable Malys, Sasha Primary Care Unavailable Malys, Sasha Referring Unavailable Crissy Garza Attending Unavailable Malys, Sasha Primary Care Unavailable Malys, Sasha Primary Care Unavailable Jf Stormolas Attending Unavailable Prayson, Dannie Referring Unavailable Malys, Sasha Primary Care Unavailable Prayson Dannie Attending Unavailable Prayson Dannie Referring Unavailable Medications Current Medications Medication Drug Class(es) Dates Sig (Normalized) Sig (Original) albuterol 0.83 mg/ml inhalation solution (18 sources) beta2-Adrenergic Agonist Start: 02-23-2024 take 2.5 [...] wheezing 02/11/2024 Active Start: 02-15-2018 End: 06-20-2022 take 2.5 mg by inhalation three to four times daily as needed Albuterol Sulfate 2.5 mg/0.5 mL solution for nebulization Discontinued 2.5 mg INHALATION 3 to 4 times per day as needed February 15, 2018 1:00am June 20, 2022 8:06am amoxicillin 500 mg oral capsule (17 sources) Penicillin-class Antibacterial Start: 02-19-2024 take 1 capsule by mouth three times daily amoxicillin (AMOXIL) 500 mg capsule Take 500 mg by mouth three times a day. 02/19/2024 Active Start: 05-03-2016 End: 02-15-2018 take 1 capsule by mouth every eight hours Amoxicillin 500 MG capsule Discontinued 500 mg PO Q8H May 03, 2016 1:00am February 15, 2018 10:29am calcium citrate 1040 mg oral tablet (3 sources) Start: 10-15-2024 take 1 tablet by mouth once daily Calcium Citrate 250 mg calcium tablet Active 250 mg PO daily October 15, 2024 12:00am cholecalciferol 0.025 mg oral capsule (3 sources) Vitamin D Start: 10-15-2024 take 1 capsule by mouth once daily Cholecalciferol (Vitamin D3) 25 mcg (1,000 unit) capsule Active 25 ug PO daily October 15, 2024 12:00am Creatine Monohydrate 5,000 mg powder in packet (3 sources) Start: 10-15-2024 Creatine Monohydrate 5,000 mg powder in packet Active mg PO October 15, 2024 12:00am Mag Trisilicate-Alum Hydroxide 20-80 mg tablet,chewable (3 sources) Start: 10-15-2024 Mag Trisilicate-Alum Hydroxide 20-80 mg tablet,chewable Active {tbl} PO October 15, 2024 12:00am [place] (Nk) (1 source) Start: 06-23-2022 [place] (Nk) Active June 23, 2022 12:00am pantoprazole 20 mg delayed release oral tablet (11 sources) Proton Pump Inhibitor Start: 02-20-2024 take 1 tablet by mouth once pantoprazole DR (PROTONIX) 20 mg tablet Take 1 tablet by mouth every afternoon. 02/20/2024 Active Start: 07-03-2022 End: 10-15-2024 take 1 tablet by mouth once daily Pantoprazole 40 mg tablet,delayed release (DR/EC) Discontinued 40 mg PO DAILY 30 2 July 03, 2022 12:00am October 15, 2024 3:32pm predniSONE 10 mg oral tablet (1 source) Start: 02-23-2024 End: 03-03-2024 predniSONE (DELTASONE) 10 mg tablet Take 4 tabs daily for 3 days, then 2 tabs daily for 3 days, then 1 tab daily for 3 days with food. 21 tablet 02/23/2024 03/03/2024 Active Turmeric extract (3 sources) Start: 10-15-2024 Turmeric 400 m g capsule Active mg PO October 15, 2024 12:00am Vitamin B Complex tablet (3 sources) Start: 10-15-2024 Vitamin B Comp irineo tablet Active 1 {tbl} PO daily October 15, 2024 12:00am Completed/Discontinued Medications Medication Drug Class(es) Dates Sig (Normalized) Sig (Original) acetaminophen 325 mg / oxyCODONE hydrochloride 5 mg oral tablet (16 sources) Opioid Agonist Start: 05-03-2016 End: 02-15-2018 Oxycodone-Acetamino phen 1 TABLET tablet Discontinued 1 - 2 {tbl} PO EVERY 4 HOURS NEEDED as needed for Pain May 03, 2016 1:00am February 15, 2018 10:30am Start: 05-03-2016 End: 02-15-2018 take 1 tablet by mouth every four hours as needed Oxycodone-Acetaminophen Discontinued 1 - 2 TABLET PO EVERY 4 HOURS NEEDED May 03, 2016 1:00am February 15, 2018 10:30am albuterol 0.833 mg/ml / ipratropium bromide 0.167 mg/ml inhalation solution (2 sources) Anticholinergic, beta2-Adrenergic Agonist Start: 02-23-2024 End: 02-23-2024 ipratropium-albuterol 3 mL nebulizer solution (DUONEB) Start: 02-23-2024 End: 02-23-2024 take 1 dose by inhalation once 3 mL, INHALATION, ONCE, 1 dose, On 02/23/24 at 1400, PROTECT FROM LIGHT. The unit-dose vial should remain stored in the protective foil pouch until time of use. amoxicillin 875 mg / clavulanate 125 mg oral tablet (16 sources) Penicillin-class Antibacterial Start: 02-15-2018 End: 02-25-2018 Amoxicillin-Pot Clavulanate (Augmentin) 875-125 mg tablet Discontinued 1 {tbl} PO Q12H 10 0 February 15, 2018 1:00am February 24, 2018 1:00am February 25, 2018 1:11am Acute sinusitis, unspecified benzonatate 100 mg oral capsule (16 sources) Non-narcotic Antitussive Start: 02-15-2018 End: 06-20-2022 take 2 capsules by mouth three times daily as needed for cough Benzonatate 100 mg capsule Discontinued 200 mg PO THREE TIMES A DAY as needed for cough 30 0 February 15, 2018 1:00am June 20, 2022 8:06am Start: 02-15-2018 End: 06-20-2022 take 200 mg by mouth three times daily Benzonatate Discontinued 200 MG PO THREE TIMES A DAY 30 February 15, 2018 1:00am June 20, 2022 8:06am codeine phosphate 1.26 mg/ml / guaiFENesin 20 mg/ml oral solution (16 sources) Opioid Agonist Start: 02-15-2018 End: 06-20-2022 take 1 mL by mouth every six hours as needed Codeine-Guaifenesin 6.3-100 mg/5 mL liquid Discontinued 8 mL PO EVERY 6 HOURS as needed February 15, 2018 1:00am June 20, 2022 8:06am Start: 02-15-2018 End: 06-20-2022 take 1 mL by mouth every six hours codeine 6.3 mg-guaifenesin 100 mg/5 mL oral liquid Discontinued 8 ML PO EVERY 6 HOURS February 15, 2018 1:00am June 20, 2022 8:06am ibuprofen 600 mg oral tablet (16 sources) Nonsteroidal Anti-inflammatory Drug Start: 04-20-2016 End: 06-20-2022 Ibuprofen 600 MG tablet Discontinued 600 mg PO NEEDED as needed for Pain April 20, 2016 1:00am June 20, 2022 8:06am methylPREDNISolone 4 mg oral tablet (16 sources) Corticosteroid Start: 02-15-2018 End: 02-20-2018 take 1 tablet by mouth once Methylprednisolone (Medrol (Sahil)) 4 mg tablets,dose pack Discontinued 4 mg PO per package directions 21 5 0 February 15, 2018 1:00am February 19, 2018 1:00am February 20, 2018 1:08am Multivitamin [...] 20, 2016 1:00am February 15, 2018 10:29am Multivitamin With Folic Acid 1 TABLET tablet (5 sources) Start: 04-20-2016 End: 02-15-2018 take 1 tablet by mouth once daily Multivitamin With Folic Acid 1 TABLET tablet Discontinued 1 {tbl} PO DAILY April 20, 2016 1:00am February 15, 2018 10:29am Problems Active Problems Problem Classification Problem Date Documented Da te Episodic/Chronic Abdominal pain (20 sources) Right upper quadrant pain; Translations: [Right upper quadrant pain] 06-20-2022 Episodic Acute bronchitis (16 sources) Acute bronchitis; Translations: [Acute bronchitis, unspecified] 02-15-2018 Episodic Administrative/social admission (18 sources) Patient encounter status; Translations: [Persons encountering health services in other specified circumstances] 02-19-2023 Episodic Cardiac dysrhythmias (12 sources) Multiple premature ventricular complexes; Translations: [Ventricular premature depolarization] 06-20-2022 Chronic Genitourinary symptoms and ill-defined conditions (14 sources) Urinary incontinence; Translations: [Unspecified urinary incontinence] 02-19-2023 Chronic Menopausal disorders (4 sources) Menopausal syndrome; Translations: [Menopausal and female climacteric states] 10-15-2024 Chronic Nutritional deficiencies (12 sources) Vitamin D deficiency; Translations: [Vitamin D deficiency, unspecified] 06-20-2022 Chronic Other circulatory disease (4 sources) Elevated blood-pressure reading without diagnosis of hypertension; Translations: [Elevated blood-pressure reading, without diagnosis of hypertension] 10-15-2024 Episodic Other lower respiratory disease (1 source) Wheezing; Translations: [Wheezing] 02-23-2024 Episodic Other non-traumatic joint disorders (1 source) Pain in right shoulder; Translations: [Pain in right shoulder] Onset: 09-11-2024 Episodic Other screening for suspected conditions (not mental disorders or infectious disease) (2 sources) Encounter for screening mammogram for malignant neoplasm of breast; Translations: [Encounter for screening for other suspected endocrine disorder] Onset: 11-07-2024 Episodic Residual codes; unclassified (10 sources) Early satiety; Translations: [Early satiety] 07-03-2022 Episodic Unclassified (4 sources) R32 - Unspecified urinary incontinence Past or Other Problems Problem Classification Problem Date Documented Da te Episodic/Chronic Other lower respiratory disease (1 source) Dyspnea, unspecified; Translations: [Dyspnea, unspecified] Onset: 03-04-2024 Episodic Results Test Name Value Interpretation Reference Range Facility Breast imaging reportOrdered By: Cassidy Monreal on 11-04-2024 Study report [facility] Imaging Services [address] [place] [address] SCRN MAMM (CAD)W/SHARI BILAT MR#: [id number] Acct: [id number] Name: NORMA GRIFFIN Rep #: [id number] : 1975 F 49 From: Dain Correa MD PCP: Dr. Sasha Jackson DO Status: REG CLI Study:SCRN MAMM (CAD)W/SHARI BILAT Date of Exa m: 11/04/24 Exam# [id number] Ordering Dr: Crissy Garza LAND APPRAISER-C EXAM: SCRN MAMM (CAD)W/SHARI BILAT DATE: 11/04/2024 CLINICAL HISTORY: F, Age 49 y/o , SCREEN FOR BREAST CANCER TECHNIQUE: SCRN MAMM (CAD)W/SHARI BILAT COMPARISON: Prior exam(s) were compared FINDINGS: TISSUE DENSITY: The breasts are heterogeneously dense, which may obscure small masses. Bilateral Breast Mammographic Findings: No suspicious masses, calcifications or other abnormalities are identified. BI/SCRN MAMM (CAD)W/SHARI BILAT IMPRESSION: No mammographic evidence of malignancy in either breast OVERALL FINAL ASSESSMENT BI-RADS 1: NEGATIVE. RECOMMENDATION: Routine annual follow-up in 1 Year A letter with findings and recommendations will be mailed to the patient. Reading Location: [id number] CC: HAKEEM Garza; Dr. Sasha Jackson DO ~ Pipeline Maintenance Supervisor: Signed [facility] SCRN MAMM (CAD)W/SHARI BILATo n 11-04-2024 SCRN MAMM (CAD)W/SHARI BILAT [facility] Imaging Services [address] [place] [id number] SCRN MAMM (CAD)W/SHARI BILAT MR#: [id number] Acct: [id number] Name: NORMA GRIFFIN Rep #: [id number] : 1975 F 49 From: Cassidy Mckeon i, MD PCP: Dr. Sasha Jackson DO Status: REG CLI Study: SCRN MAMM (CAD)W/SHARI BILAT Date of Exam: 10/24 05/20 Exam# [id number] Ordering Dr: Crissy Garza LAND APPRAISER-C EXAM: SCRN MAMM (CAD)W/SHARI BILAT DATE: 11/04/2024 CLINICAL HISTORY: F, Age 49 y/o , SCREEN FOR BREAST CANCER TECHNIQUE: SCRN MAMM (CAD)W/SHARI BILAT COMPARISON: Prior exam(s) were compared FINDINGS: TISSUE DENSITY: The breasts are heterogeneously dense, which may obscure small masses. Bilateral Breast Mammographic Findings: No suspicious masses, calcifications or other abnormalities are identified. BI/SCRN MAMM (CAD)W/SHARI BILAT IMPRESSION: No mammographic evidence of malignancy in either breast OVERALL FINAL ASSESSMENT BI-RADS 1: NEGATIVE. RECOMMENDATION: Routine annual follow-up in 1 Year A letter with findings and recommendations will be mailed to the patient. Reading Location: [id number] CC: HAKEEM Garza; Dr. Sasha Jackson DO Pipeline Maintenance Supervisor: Signed Normal [facility] Testosterone Freeon 10-25-19 25 TESTOSTER FREE 0.3 pg/mL Normal 0.0-4.2 [facility] Comment on above: Result Comment: Perf ormed at: - [facility] [id number] [employer] Handler: Anjel Aguayo MD, Phone: [phone] Performed By: #### L 501.9520, L509.3001, L100.0100, L500.4050, L503.0106, L506.1001, L506.0400, L3100.5125, L3300.1750, L500.4100, L3400.4800 ####[facility] [address] [place], [place], [id number] Hemoglobin A1con 10-23-2024 HbA1c (Bld) [Mass fraction] 5.8 % High <=5.6 [facility] Comment on above: Order Comment: Comme nts: Please add to labs recently drawn Result Comment: Norm al < 5.7 % Prediabetic 5.7 - 6.4 % Diabetic >or= 6.5 % Please note range changes. Performed By: #### L 501.9923 #### [facility] [place], [address] Absolute lymphocyte countOrd ered By: Crissy Garza on 10-21-2024 Lymphocytes Auto (Unsp spec) [#/Vol] 1.93 10*3/uL 0.83-4.51 [facility] Absolute neutrophil countOrd ered By: Crissy Garza on 10-21-2024 Neutrophils (Bld) [#/Vol] 4.0 10*3/uL 2.0-7.7 [facility] Anion gap in Serum or Plasma Ordered By: Crissy Garza on 10-21-2024 Anion gap [Moles/Vol] 11 mmol/L 5-15 [facility] Automated lymphocyte count a s percentage of total leukocytesOrdered By: Crissy Garza on 10-21-2024 Lymphocytes/100 WBC Auto (Unsp spec) 29.5 % -41 [facility] BUN/creatinine ratioOrdered By: Crissy Garza on 10-21-2024 Urea nitrogen/Creatinine [Mass ratio] 21.1 mg/mg High 10-20 [facility] Basophil percentageOrdered B y: Crissy Garza on 10-21-2024 Basophils/100 WBC (Bld) 0.3 % 0-1 [facility] Bilirubin, totalOrdered By: Crissy Garza on 10-21-2024 Bilirubin [Mass/Vol] 0.42 mg/dL 0.00-1.30 [facility] CBC W/Diff, Automatedon 09-24 Absolute Lymph 1.93 X10 3/uL Normal 0.83-4.51 [facility] Comment on above: Performed By: #### L 501.9520, L509.3001, L100.0100, L500.4050, L503.0106, L506.1001, L506.0400, L3100.5125, L3300.1750, L500.4100, L3400.4800 #### [facility] [address] [place], [address] Absolute Neut 4.0 X10 3/uL Normal 2.0-7.7 [facility] Comment on above: Performed By: #### L 501.9520, L509.3001, L100.0100, L500.4050, L503.0106, L506.1001, L506.0400, L3100.5125, L3300.1750, L500.4100, L3400.4800 #### [facility] [address] [place], [place], [id number] (258 Basophils/100 WBC (Bld) 0.3 % Normal 0-1 [facility] Comment on above: Performed By: #### L 501.9520, L509.3001, L100.0100, L500.4050, L503.0106, L506.1001, L506.0400, L3100.5125, L3300.1750, L500.4100, L3400.4800 #### [facility] [address] [place], [address] Eosinophils/100 WBC (Bld) 0.9 % Normal 0-5 [facility] Comment on above: Performed By: #### L 501.9520, L509.3001, L100.0100, L500.4050, L503.0106, L506.1001, L506.0400, L3100.5125, L3300.1750, L500.4100, L3400.4800 #### [facility] [address] [place], [address] Erythrocyte distribution width (RBC) [Ratio] 14.1 % Normal 11.6-14.6 [facility] Comment on above: Performed By: #### L 501.9520, L509.3001, L100.0100, L500.4050, L503.0106, L506.1001, L506.0400, L3100.5125, L3300.1750, L500.4100, L3400.4800 #### [facility] [address] [place], [address] Hematocrit (Bld) [Volume fraction] 40.6 % Normal 37-47 [facility] Comment on above: Performed By: #### L 501.9520, L509.3001, L100.0100, L500.4050, L503.0106, L506.1001, L506.0400, L3100.5125, L3300.1750, L500.4100, L3400.4800 #### [facility] [address] [place], [address] Hemoglobin (Bld) [Mass/Vol] 13.0 g/dL Normal 12.0-15.0 [facility] Comment on above: Performed By: #### L 501.9520, L509.3001, L100.0100, L500.4050, L503.0106, L506.1001, L506.0400, L3100.5125, L3300.1750, L500.4100, L3400.4800 #### [facility] [address] [place], [address] IG% 0.300 Normal 0.0-0.9 [facility] Comment on above: Result Comment: IG% - Immature Granulocytes (promyelocytes, myelocytes and metamyelocytes) > 1% indicates that a LEFT SHIFT is Present. Performed By: #### L 501.9520, L509.3001, L100.0100, L500.4050, L503.0106, L506.1001, L506.0400, L3100.5125, L3300.1750, L500.4100, L3400.4800 #### [facility] [address] [place], [address] Lymphocytes/100 WBC (Bld) 29.5 % Normal 19-41 [facility] Comment on above: Performed By: #### L 501.9520, L509.3001, L100.0100, L500.4050, L503.0106, L506.1001, L506.0400, L3100.5125, L3300.1750, L500.4100, L3400.4800 #### [facility] [address] [place], [address] MCH (RBC) [Entitic mass] 28.7 pg Normal 27.0-32.0 [facility] Comment on above: Performed By: #### L 501.9520, L509.3001, L100.0100, L500.4050, L503.0106, L506.1001, L506.0400, L3100.5125, L3300.1750, L500.4100, L3400.4800 #### [facility] [address] [place], [place], [id number] (073) MCHC (RBC) [Mass/Vol] 32.0 g/dL Normal 32-36 [facility] Comment on above: Performed By: #### L 501.9520, L509.3001, L100.0100, L500.4050, L503.0106, L506.1001, L506.0400, L3100.5125, L3300.1750, L500.4100, L3400.4800 #### [facility] [address] [place], [place], [id number] (438) MCV (RBC) [Entitic vol] 89.6 fL Normal 81-99 [facility] Comment on above: Performed By: #### L 501.9520, L509.3001, L100.0100, L500.4050, L503.0106, L506.1001, L506.0400, L3100.5125, L3300.1750, L500.4100, L3400.4800 #### [facility] [address] [place], [address] Monocytes/100 WBC (Bld) 7.2 % Normal 0-10 [facility] Comment on above: Performed By: #### L 501.9520, L509.3001, L100.0100, L500.4050, L503.0106, L506.1001, L506.0400, L3100.5125, L3300.1750, L500.4100, L3400.4800 #### [facility] [address] [place], [address] Neutrophils/100 WBC (Bld) 61.8 % Normal 47-70 [facility] Comment on above: Performed By: #### L 501.9520, L509.3001, L100.0100, L500.4050, L503.0106, L506.1001, L506.0400, L3100.5125, L3300.1750, L500.4100, L3400.4800 #### [facility] [address] [place], [address] Nucleated RBC (Bld) [#/Vol] 0 10*3/uL Normal 0-5 [facility] Comment on above: Performed By: #### L 501.9520, L509.3001, L100.0100, L500.4050, L503.0106, L506.1001, L506.0400, L3100.5125, L3300.1750, L500.4100, L3400.4800 #### [facility] [address] [place], [address] Platelet mean volume (Bld) [Entitic vol] 11.2 fL Normal 6.2-12.0 [facility] Comment on above: Performed By: #### L 501.9520, L509.3001, L100.0100, L500.4050, L503.0106, L506.1001, L506.0400, L3100.5125, L3300.1750, L500.4100, L3400.4800 #### [facility] [address] [place], [address] Platelets (Bld) [#/Vol] 289 10*3/uL Normal 150-450 [facility] Comment on above: Performed By: #### L 501.9520, L509.3001, L100.0100, L500.4050, L503.0106, L506.1001, L506.0400, L3100.5125, L3300.1750, L500.4100, L3400.4800 #### [facility] [address] [place], [address] RBC (Bld) [#/Vol] 4.53 10*6/uL Normal 4.2-5.4 [facility] Comment on above: Performed By: #### L 501.9520, L509.3001, L100.0100, L500.4050, L503.0106, L506.1001, L506.0400, L3100.5125, L3300.1750, L500.4100, L3400.4800 #### [facility] [address] [place], [address] RDW SD 46.0 fl High 35.1-43.9 [facility] Comment on above: Performed By: #### L 501.9520, L509.3001, L100.0100, L500.4050, L503.0106, L506.1001, L506.0400, L3100.5125, L3300.1750, L500.4100, L3400.4800 #### [facility] [address] [place], [address] WBC (Bld) [#/Vol] 6.5 10*3/uL Normal 4.4-11.0 [facility] Comment on above: Performed By: #### L 501.9520, L509.3001, L100.0100, L500.4050, L503.0106, L506.1001, L506.0400, L3100.5125, L3300.1750, L500.4100, L3400.4800 #### [facility] [address] [place], [place], [id number] Calculated very low density lipoprotein (VLDL) cholesterol measurementOrdered By: Crissy Garza on 10-21-2024 Calculated very low density lipoprotein (VLDL) cholesterol measurement 8 mg/dL 5-40 [facility] Carbon dioxide, total [Moles /volume] in Central venous bloodOrdered By: Crissy Garza on 10-21-2024 CO2 [Moles/Vol] 23.5 mmol/L 21.0-32.0 [facility] Chloride assayOrdered By: Kayley Garza on 10-21-2024 Chloride [Moles/Vol] 104 mmol/L 98-108 [facility] Comprehensive Metabolic Prof ilon 10-21-2024 Albumin [Mass/Vol] 4.1 g/dL Normal 3.5-5.0 [facility] Comment on above: Performed By: #### L 501.9520, L509.3001, L100.0100, L500.4050, L503.0106, L506.1001, L506.0400, L3100.5125, L3300.1750, L500.4100, L3400.4800 #### [facility] [address] [place], [address] Albumin/Globulin [Mass ratio] 1.6 {ratio} Normal 0.9-2.4 [facility] Comment on above: Performed By: #### L 501.9520, L509.3001, L100.0100, L500.4050, L503.0106, L506.1001, L506.0400, L3100.5125, L3300.1750, L500.4100, L3400.4800 #### [facility] [address] [place], [place], [id number] ALK PHOS 73 U/L Normal 35-104 [facility] Comment on above: Performed By: #### L 501.9520, L509.3001, L100.0100, L500.4050, L503.0106, L506.1001, L506.0400, L3100.5125, L3300.1750, L500.4100, L3400.4800 #### [facility] [address] [place], [place], [id number] ALT [Catalytic activity/Vol] 16 U/L Normal <=34 [facility] Comment on above: Performed By: #### L 501.9520, L509.3001, L100.0100, L500.4050, L503.0106, L506.1001, L506.0400, L3100.5125, L3300.1750, L500.4100, L3400.4800 #### [facility] [address] [place], [address] AST [Catalytic activity/Vol] 14 U/L Normal <=31 [facility] Comment on above: Performed By: #### L 501.9520, L509.3001, L100.0100, L500.4050, L503.0106, L506.1001, L506.0400, L3100.5125, L3300.1750, L500.4100, L3400.4800 #### [facility] [address] [place], [address] Bilirubin [Mass/Vol] 0.42 mg/dL Normal 0.00-1.30 [facility] Comment on above: Performed By: #### L 501.9520, L509.3001, L100.0100, L500.4050, L503.0106, L506.1001, L506.0400, L3100.5125, L3300.1750, L500.4100, L3400.4800 #### [facility] [address] [place], [address] BUN/CRE 21.1 RATIO High 10-20 [facility] Comment on above: Performed By: #### L 501.9520, L509.3001, L100.0100, L500.4050, L503.0106, L506.1001, L506.0400, L3100.5125, L3300.1750, L500.4100, L3400.4800 #### [facility] [address] [place], [address] Calcium [Mass/Vol] 9.2 mg/dL Normal 7.6-11.0 [facility] Comment on above: Performed By: #### L 501.9520, L509.3001, L100.0100, L500.4050, L503.0106, L506.1001, L506.0400, L3100.5125, L3300.1750, L500.4100, L3400.4800 #### [facility] [address] [address] [place], [place], [phone] (959) Chloride [Moles/Vol] 104 mmol/L Normal 98-108 [facility] Comment on above: Performed By: #### L 501.9520, L509.3001, L100.0100, L500.4050, L503.0106, L506.1001, L506.0400, L3100.5125, L3300.1750, L500.4100, L3400.4800 #### [facility] [address] [place], [place], [phone] (619) CO2 [Moles/Vol] 23.5 mmol/L Normal 21.0-32.0 [facility] Comment on above: Performed By: #### L 501.9520, L509.3001, L100.0100, L500.4050, L503.0106, L506.1001, L506.0400, L3100.5125, L3300.1750, L500.4100, L3400.4800 #### [facility] [address] [place], [place], [phone] (439) Creatinine [Mass/Vol] 0.82 mg/dL Normal 0.70-1.20 [facility] Comment on above: Performed By: #### L 501.9520, L509.3001, L100.0100, L500.4050, L503.0106, L506.1001, L506.0400, L3100.5125, L3300.1750, L500.4100, L3400.4800 #### [facility] [address] [place], [place], [phone] (916) GAP 11 Normal 5-15 [facility] Comment on above: Performed By: #### L 501.9520, L509.3001, L100.0100, L500.4050, L503.0106, L506.1001, L506.0400, L3100.5125, L3300.1750, L500.4100, L3400.4800 #### [facility] [address] [place], [address] GFR/1.73 sq M.predicted among non-blacks MDRD (S/P/Bld) [Vol rate/Area] 87 mL/min/{1.73_m2} Normal >60 [facility] Comment on above: Result Comment: mL/m in/1.73m2 CKD-EPI Creatinine Equation (2020) Performed By: #### L 501.9520, L509.3001, L100.0100, L500.4050, L503.0106, L506.1001, L506.0400, L3100.5125, L3300.1750, L500.4100, L3400.4800 #### [facility] [address] [place], [place], [phone] (645) Globulin (S) [Mass/Vol] 2.5 g/dL Normal 2.2-4.2 [facility] Comment on above: Performed By: #### L 501.9520, L509.3001, L100.0100, L500.4050, L503.0106, L506.1001, L506.0400, L3100.5125, L3300.1750, L500.4100, L3400.4800 #### [facility] [address] [place], [address] Glucose [Mass/Vol] 105 mg/dL High 70-99 [facility] Comment on above: Performed By: #### L 501.9520, L509.3001, L100.0100, L500.4050, L503.0106, L506.1001, L506.0400, L3100.5125, L3300.1750, L500.4100, L3400.4800 #### [facility] [address] [place], [address] Potassium [Moles/Vol] 4.3 mmol/L Normal 3.3-5.1 [facility] Comment on above: Performed By: #### L 501.9520, L509.3001, L100.0100, L500.4050, L503.0106, L506.1001, L506.0400, L3100.5125, L3300.1750, L500.4100, L3400.4800 #### [facility] [address] [place], [address] Sodium [Moles/Vol] 139 mmol/L Normal 133-145 [facility] Comment on above: Performed By: #### L 501.9520, L509.3001, L100.0100, L500.4050, L503.0106, L506.1001, L506.0400, L3100.5125, L3300.1750, L500.4100, L3400.4800 #### [facility] [address] [place], [address] T PROT 6.6 g/dL Normal 5.9-8.4 [facility] Comment on above: Performed By: #### L 501.9520, L509.3001, L100.0100, L500.4050, L503.0106, L506.1001, L506.0400, L3100.5125, L3300.1750, L500.4100, L3400.4800 #### [facility] [address] [place], [address] Urea nitrogen [Mass/Vol] 17 mg/dL Normal 4-19 [facility] Comment on above: Performed By: #### L 501.9520, L509.3001, L100.0100, L500.4050, L503.0106, L506.1001, L506.0400, L3100.5125, L3300.1750, L500.4100, L3400.4800 #### [facility] [address] [place], [place], [phone] Eosinophil percentageOrdered By: Crissy Garza on 10-21-2024 Eosinophils/100 WBC (Bld) 0.9 % 0-5 [facility] Erythrocyte distribution wid th ratioOrdered By: Crissy Garza on 10-21-2024 Erythrocyte distribution width (RBC) [Ratio] 14.1 % 11.6-14.6 [facility] Erythrocyte distribution wid th standard deviationOrdered By: Crissy Garza on 10-21-2024 Erythrocyte distribution width (RBC) [Ratio] 46.0 fl High 35.1-43.9 [facility] Estradiolon 10-21-2024 ESTRADIOL 30.0 pg/mL Normal [facility] Comment on above: Result Comment: FEMA LES ADULT FEMALE: Premenopausal: 15-350 pg/mL(E2 levels vary widely through the menstrual cycle) Postmenopausal: <10 pg/mL CHILANGO STAGES MEAN AGE REFERENCE RANGES Stage I(>14 days and prepubertal) 7.1 years Undetectable-20 pg/mLL Stage II 10.5 years Undetectable-24 pg/mL Stage III 11.6 years Undetectable-60 pg/mL Stage IV 12.3 years 15-85 pg/mL Stage V 14.5 years 15-350 pg/mL Puberty onset (transition from Chilango stage I to Chilango stage II) occurs for girls at a median age of 10.5 (/- 2) years. There is evidence that it may occur up to 1 year earlier in obese girls and in girls. Progression through Chilango stages is variable. Chilango stage V (adult) should be reached by age 18. Performed By: #### L 501.9520, L509.3001, L100.0100, L500.4050, L503.0106, L506.1001, L506.0400, L3100.5125, L3300.1750, L500.4100, L3400.4800 ####[facility] [address] [place], [place], [phone] Follicle Stimulating Hormone on 10-21-2024 FSH 7.4 mIU/mL Normal [facility] Comment on above: Result Comment: FEMA LE: Follicular: 1.4 - 18.1 mIU/mL Midcycle: 3.4 - 33.4 mIU/mL Luteal: 1.5 - 9.1 mIU/mL Post Menopause: 23.0 - 116.3 mIU/mL MALE: 1.4 - 18.1 mIU/mL Performed By: #### L 501.9520, L509.3001, L100.0100, L500.4050, L503.0106, L506.1001, L506.0400, L3100.5125, L3300.1750, L500.4100, L3400.4800 ####[facility] [address] [place], [place], [phone] Glomerular filtration rate ( GFR) estimation/1.73 sq m using serum, plasma, or whole bOrdered By: Crissy Garza on 10-21-2024 GFR/1.73 sq M.predicted among non-blacks MDRD (S/P/Bld) [Vol rate/Area] 87 mL/min/{1.73_m2} >60 [facility] Comment on above: mL/min/1.73m2 CKD-EP I Creatinine Equation (2020) Hematocrit Auto (Bld) [Volum e fraction]Ordered By: Crissy Garza on 10-21-2024 Hematocrit (Bld) [Volume fraction] 40.6 % 37-47 [facility] Hemoglobin A1c percentageOrd ered By: Crissy Garza on 10-21-2024 HbA1c (Bld) [Mass fraction] 5.8 % High <5.7 [facility] Comment on above: Normal < 5.7 % Predi abetic 5.7 - 6.4 % Diabetic >or= 6.5 % Please note range changes. Hemoglobin measurementOrdere d By: Crissy Garza on 10-21-2024 Hemoglobin (Bld) [Mass/Vol] 13.0 g/dL 12.0-15.0 [facility] Immature granulocytes/100 WB C Auto (Bld)Ordered By: Crissy Garza on 10-21-2024 Immature granulocytes/100 WBC (Bld) 0.300 % 0.0-0.9 [facility] Comment on above: IG% - Immature Granu locytes (promyelocytes, myelocytes and metamyelocytes) > 1% indicates that a LEFT SHIFT is Present. L509.3001on 10-21-2024 Testosterone [Mass/Vol] ng/dL Low 9-55 [facility] Comment on above: Performed By: #### L 501.9520, L509.3001, L100.0100, L500.4050, L503.0106, L506.1001, L506.0400, L3100.5125, L3300.1750, L500.4100, L3400.4800 ####[facility] [address] [place], [address] LDL calc ser/plasOrdered By: Crissy Garza on 10-21-2024 Cholesterol in LDL [Mass/Vol] 135 mg/dL [facility] Comment on above: Jkmgdrxysy=268-134 m g/dL & Higher Utzo=321 mg/dL or greaterFriedwald Equation for LDL-C Laboratory - Chemistry and C hemistry - challengeOrdered By: Crissy Garza on 10-21-2024 AST [Catalytic activity/Vol] 14 U/L <32 [facility] Testosterone [Mass/Vol] ng/dL Low 9-55 [facility] Lipid Profileon 10-21-2024 CHOL:HDL 3.[address] [facility] Comment on above: Performed By: #### L 501.9520, L509.3001, L100.0100, L500.4050, L503.0106, L506.1001, L506.0400, L3100.5125, L3300.1750, L500.4100, L3400.4800 #### [facility] [address] [place], [place], [phone] (332) Cholesterol [Mass/Vol] 210 mg/dL High <=200 [facility] Comment on above: Result Comment: Chol esterol level, Desirable <200 mg/dL Borderline high cholesterol 200-239 mg/dL High cholesterol >=240 mg/dL Recommendations of the NCEP Adult Treatment Panel for the following risk-cutoff thresholds for the [place] population. Performed By: #### L 501.9520, L509.3001, L100.0100, L500.4050, L503.0106, L506.1001, L506.0400, L3100.5125, L3300.1750, L500.4100, L3400.4800 #### [facility] [address] [place], [place], [phone] (023) Cholesterol in HDL [Mass/Vol] 67 mg/dL Normal [facility] Comment on above: Result Comment: Karmen onal Cholesterol Education Program (NCEP) guidelines: <40 mg/dL: Low HDL-cholesterol (major risk factor for CHD) >= 60 mg/dL: High HDL-cholesterol (negative risk factor for CHD) HDL-cholesterol is affected by a number of factors, e.g. smoking, exercise, hormones, sex and age. Performed By: #### L 501.9520, L509.3001, L100.0100, L500.4050, L503.0106, L506.1001, L506.0400, L3100.5125, L3300.1750, L500.4100, L3400.4800 #### [facility] [address] [place], [place], [phone] (943) Cholesterol in LDL [Mass/Vol] 135 mg/dL Normal [facility] Comment on above: Result Comment: Bord ykbbin=626-335 mg/dL Higher Zktb=620 mg/dL or greater Friedwald Equation for LDL-C Performed By: #### L 501.9520, L509.3001, L100.0100, L500.4050, L503.0106, L506.1001, L506.0400, L3100.5125, L3300.1750, L500.4100, L3400.4800 #### [facility] [address] [place], [address] Cholesterol in VLDL [Mass/Vol] 8 mg/dL Normal 5-40 [facility] Comment on above: Performed By: #### L 501.9520, L509.3001, L100.0100, L500.4050, L503.0106, L506.1001, L506.0400, L3100.5125, L3300.1750, L500.4100, L3400.4800 #### [facility] [address] [place], [address] Triglyceride [Mass/Vol] 38 mg/dL Normal [facility] Comment on above: Result Comment: The drugs N-Acetylcysteine and Metamizole may falsely depress this assay. Normal range: <150 mg/dL Borderline High: 150-199 mg/dL High: 200-499 mg/dL Very High: >500 mg/dL Performed By: #### L 501.9520, L509.3001, L100.0100, L500.4050, L503.0106, L506.1001, L506.0400, L3100.5125, L3300.1750, L500.4100, L3400.4800 #### [facility] [address] [place], [address] MCV (mean corpuscular volume ) determinationOrdered By: Crissy Garza on 10-21-2024 MCV (RBC) [Entitic vol] 89.6 fL 81-99 [facility] Mean corpuscular hemoglobin (MCH) determinationOrdered By: Crissy Garza on 10-21-2024 MCH (RBC) [Entitic mass] 28.7 pg 27.0-32.0 [facility] Mean corpuscular hemoglobin concentration (MCHC) determinationOrdered By: Crissy Garza on 10-21-2024 MCHC (RBC) [Mass/Vol] 32.0 g/dL 32-36 [facility] Mean platelet volume determi nationOrdered By: Crissy Garza on 10-21-2024 Platelet mean volume (Bld) [Entitic vol] 11.2 fL 6.2-12.0 [facility] Monocyte percentageOrdered B y: Crissy Garza on 10-21-2024 Monocytes/100 WBC (Bld) 7.2 % 0-10 [facility] Neutrophil percentageOrdered By: Crissy Garza on 10-21-2024 Neutrophils/100 WBC (Bld) 61.8 % 47-70 [facility] Nucleated red blood cell per centageOrdered By: Crissy Garza on 10-21-2024 Nucleated RBC/100 WBC (Bld) [Ratio] 0 % 0-5 [facility] Platelet countOrdered By: Kayley Garza on 10-21-2024 Platelets (Bld) [#/Vol] 289 10*3/uL 150-450 [facility] Potassium measurement (mass/ volume)Ordered By: Crissy Garza on 10-21-2024 Potassium (Unsp spec) [Mass/Vol] 4.3 mmol/L 3.3-5.1 [facility] RBC Auto (Bld) [#/Vol]Ordere d By: Crissy Garza on 10-21-2024 RBC (Bld) [#/Vol] 4.53 10*6/uL 4.2-5.4 [facility] Screening total cholesterol/ high density lipoprotein (HDL) cholesterol ratioOrdered By: Crissy Garza on 10-21-2024 Cholesterol.total/Choles terol in HDL [Mass ratio] 3.13 {ratio} [facility] Serum creatinine measurement (mass/volume)Ordered By: Crissy Garza on 10-21-2024 Creatinine [Mass/Vol] 0.82 mg/dL 0.70-1.20 [facility] Serum globulin measurementOr dered By: Crissy Garza on 10-21-2024 Globulin (S) [Mass/Vol] 2.5 g/dL 2.2-4.2 [facility] Serum glucose measurement (m ass/volume)Ordered By: Crissy Garza on 10-21-2024 Glucose [Mass/Vol] 105 mg/dL High 70-99 [facility] Serum or plasma alanine ramirez otransferase (ALT) measurementOrdered By: Crissy Garza on 10-21-2024 ALT [Catalytic activity/Vol] 16 U/L <35 [facility] Serum or plasma albumin david urement (mass/volume)Ordered By: Crissy Garza on 10-21-2024 Albumin [Mass/Vol] 4.1 g/dL 3.5-5.0 [facility] Serum or plasma albumin/glob ulin mass ratioOrdered By: Crissy Garza on 10-21-2024 Albumin/Globulin [Mass ratio] 1.6 {ratio} 0.9-2.4 [facility] Serum or plasma alkaline abby sphatase measurementOrdered By: Crissy Garza on 10-21-2024 ALP [Catalytic activity/Vol] 73 U/L 35-104 [facility] Serum or plasma calcium david urement (mass/volume)Ordered By: Crissy Garza on 10-21-2024 Calcium [Mass/Vol] 9.2 mg/dL 7.6-11.0 [facility] Serum or plasma cholesterol in HDL measurement (mass/volume)Ordered By: Crissy Garza on 10-21-2024 Cholesterol in HDL [Mass/Vol] 67 mg/dL >40 [facility] Comment on above: National Cholesterol Education Program (NCEP) guidelines:<40 mg/dL: Low HDL-cholesterol (major risk factor for CHD)>= 60 mg/dL: High HDL-cholesterol (negative risk factor for CHD)HDL-cholesterol is affected by a number of factors, e.g. smoking, exercise, hormones, sex and age. Serum or plasma cholesterol measurement (mass/volume)Ordered By: Crissy Garza on 10-21-2024 Cholesterol [Mass/Vol] 210 mg/dL High <201 [facility] Comment on above: Cholesterol level, D esirable <200 mg/dLBorderline high cholesterol 200-239 mg/dLHigh cholesterol >=240 mg/dLRecommendations of the NCEP Adult Treatment Panel for the following risk-cutoff thresholds for the [place] population. Serum or plasma estradiol me asurement after follitropin dose (mass/volume)Ordered By: Crissy Garza on 10-21-2024 E2 post dose follitropin [Mass/Vol] 30.0 pg/mL [facility] Comment on above: FEMALES ADULT FEMALE : Premenopausal: 15-350 pg/mL(E2 levels vary widely through the menstrual cycle) Postmenopausal: <10 pg/mL CHILANGO STAGES MEAN AGE REFERENCE RANGES Stage I(>14 days and prepubertal) 7.1 years Undetectable-20 pg/mLL Stage II 10.5 years Undetectable-24 pg/mL Stage III 11.6 years Undetectable-60 pg/mL Stage IV 12.3 years 15-85 pg/mL Stage V 14.5 years 15-350 pg/mL Puberty onset (transition from Chilango stage I to Chilango stage II) occurs for girls at a median age of 10.5 (/- 2) years. There is evidence that it may occur up to 1 year earlier in obese girls and in girls.Progression through Chilango stages is variable. Chilango stage V (adult) should be reached by age 18. Serum or plasma free testost erone measurement (mass/volume)Ordered By: Crissy Garza on 10-21-2024 Testosterone Free [Mass/Vol] 0.3 pg/mL 0.0-4.2 [facility] Comment on above: Performed at: [address] [id number] Director: Anjel Aguayo MD, Phone: [phone] Serum or plasma urea nitroge n measurement (mass/volume)Ordered By: Crissy Garza on 10-21-2024 Urea nitrogen [Mass/Vol] 17 mg/dL 4-19 [facility] Sodium levelOrdered By: Diane Garza on 10-21-2024 Sodium [Moles/Vol] 139 mmol/L 133-145 [facility] T4 Free Directon 10-21-2024 T4 FREE DIRECT 1.20 ng/dL Normal 0.76-1.46 [facility] Comment on above: Performed By: #### L 501.6316, L509.3001, L100.0100, L500.4050, L503.0106, L506.1001, L506.0400, L3100.5125, L3300.1750, L500.4100, L3400.4800 ####[facility] [address] [place], [address] T4 freeOrdered By: Crissy barrera on 10-21-2024 Free T4 [Mass/Vol] 1.20 ng/dL 0.76-1.46 [facility] TSH DL <= 0.005 mIU/L QnOrde red By: Crissy Garza on 10-21-2024 TSH Qn 2.240 uIU/mL 0.300-4.200 [facility] Thyroid Stim Hormone (TSH)on 10-21-2024 TSH 2.240 uIU/mL Normal 0.300-4.200 [facility] Comment on above: Performed By: #### L 501.9520, L509.3001, L100.0100, L500.4050, L503.0106, L506.1001, L506.0400, L3100.5125, L3300.1750, L500.4100, L3400.4800 #### [facility] [address] [place], [address] Total proteinOrdered By: Lucas Garza on 10-21-2024 Protein [Mass/Vol] 6.6 g/dL 5.9-8.4 [facility] Triglycerides measurementOrd ered By: Crissy Garza on 10-21-2024 Triglyceride [Mass/Vol] 38 mg/dL <199 [facility] Comment on above: The drugs N-Acetylcy steine and Metamizole may falsely depress this assay. Normal range: <150 mg/dLBorderline High: 150-199 mg/dLHigh: 200-499 mg/dLVery High: >500 mg/dL Vitamin B12on 10-21-2024 Cobalamin (Vitamin B12) [Mass/Vol] 572 pg/mL Normal 180-914 [facility] Comment on above: Performed By: #### L 501.9520, L509.3001, L100.0100, L500.4050, L503.0106, L506.1001, L506.0400, L3100.5125, L3300.1750, L500.4100, L3400.4800 ####[facility] [address] [place], [place], [id number] Vitamin B12 ser/plasOrdered By: Crissy Garza on 10-21-2024 Cobalamin (Vitamin B12) [Mass/Vol] 572 pg/mL 180-914 [facility] Vitamin D,25 Hydroxyon 10-21 Vitamin D 25-OH 29.3 ng/mL Low 30-100 [facility] Comment on above: Result Comment: Alice min D Status Deficiency: <20 ng/mL (50nmol/L) Insufficiency: 20-30 ng/mL (50-75 nmol/L) Sufficiency: 30-100 ng/mL (75-250 nmol/L) Toxicity: >100 ng/mL (>250 nmol/L) Performed By: #### L 501.9520, L509.3001, L100.0100, L500.4050, L503.0106, L506.1001, L506.0400, L3100.5125, L3300.1750, L500.4100, L3400.4800 ####[facility] [address] [facility] [address] [place], [place], [id number] White blood cell (WBC) count Ordered By: Crissy Garza on 10-21-2024 WBC (Bld) [#/Vol] 6.5 10*3/uL 4.4-11.0 [facility] Play Back Operator Office Visit Reporton 10-15-2024 Play Back Operator Office Visit Report [facility], [address] [place] [address] OFFICE VISIT Date of Service: 10/15/24 MR#: [id number] Acct: [id number] Name: NORMA GRIFFIN Rep #: [id number] : 1975 Provider: HAKEEM Georges Age/Sex: 49/F 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 Is patient in pain?: No Allergies No Known Allergies Allergy (Verified 10/15/24 15:32) Medications ???Medication ???Instructions ???Recorded ???Confirmed ???Type calcium citrate 250 mg PO QDAY 10/15/24 10/15/24 H istory cholecalciferol (vitamin D3) 25 25 mcg PO QDAY 10/15/24 10/15/24 H istory mcg (1,000 unit) capsule creatine monohydrate 5,000 mg oral mg PO 10/15/24 10/15/24 History powder packet magnesium trisilicate 20 tab PO 10/15/24 10/15/24 History mg-aluminum hydroxide 80 mg chewable tablet turmeric 400 mg capsule mg PO 10/15/24 10/15/24 History vitamin B complex 1 tab PO QDAY 10/15/24 10/15/24 Hi story Is last menstrual period known: Yes Last Menstrual Period: 09/26/24 Post menopausal: No Patient : No : No PFSH Medical History Wears glasses Cancer History of hiatal hernia Former smoker History of Holter monitoring History of echocardiogram History of stress test RUQ abdominal pain Vitamin D deficiency IBS (irritable bowel syndrome) Premature ventricular contraction History of melanoma Surgical History History of D C History of tubal ligation History of tonsillectomy History of Family History Father Myocardial infarction, Onset Age: 51 Hypertension Heart disease Hyperlipidemia Alcoholism in family member Mother Hypertension Hyperlipidemia Thyroid disorder Diabetes Social History adopted: No household members: family housing: house number of children: 2 current occupational status: employed 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 pets and animals: Yes history of recent travel: No sexually active: Yes Smoking Status: Former smoker second hand exposure: No alcohol intake: never substance use type: does not use caffeine: Yes Type: carbonated beverages Number of servings: 1 and coffee Number of servings: 4 what type of physical activity do you participate in: walking and weight training frequency: 1-2 times per week seatbelt use: always do you feel safe at home: Yes additional social history: spouse - Juan History 2 Elective abortions Hx Para Spontaneous abortions Hx # Term Pregnancies Ectopic pregnancies Hx # Pregnancies Multiple births # of living children 2 HPI Encounter for routine gynecological examination Details: NORMA GRIFFIN is a 49 year old who presents for annual exam. She reports urinary incontinence; did not do pelvic floor therapy as recommended in the past. She reports this is hindering her life and lifestyle. She would like to pursue treatment--has both stress incontinence as well as urge incontinence. There are times where she just starts leaking. Denies symptoms of UTI's. Reports this as chronic and not getting better. Reports fatigue, resistant weight loss, hot flashes, night sweats. Still have regular menses thus far. Does have history of ablation but has always had menses after this. Last PAP: 2022; normal. HPV neg. History of abnormal PAP: no Last mammogram: 2023; normal. History of abnormal mammogram: no Colon cancer screenin; normal Other preventative health care screenings: Sasha Jackson; PCP. Female Reproductive History Last Menstrual Period: 09/26/24 Cycle Length: 21-35 Bleeding Duration: 7 Questions: metorrhagia: No, sexually active: Yes, dyspareunia: No and PCB: No Menopausal Symptoms: Yes hot flashes, Yes night sweats, Yes weight change, Yes mood changes, Yes sleep problems and Yes change in libido Menopausal Treatment: No HRT, No Vaginal Estrogen, No Osphena, No OTC treatments and No prescription non-hormonal treatment ROS Const Constitutional: Reports difficulty sleeping and night sweats; Denies chills, fatigue, fever(s), headache(s) or weight loss Eyes Eyes: Denies change in vision ENT ENT: Denies dizziness Cardio Card: Denies chest pain at rest or palpitations Resp Resp: Denies cough or dyspnea GI GI: Denies abdominal pain, constipation or nausea : Reports as per HPI, hot flashes, sexual dysfunction (low libido), urinary incontinence and urinary urgenc (more content not included)... Normal [facility] PT D/C Summary (1)on 025 PT D/C Summary (1) [facility] Physical Therapy [facility] [address] [place] [address] / REHABILITATION SERVICES DISCHARGE SUMMARY MR#: [id number] Acct: [id number] Name: NORMA GRIFFIN Rep #: [id number] : 1975 49 From: Tate Zhang PT, ATC Referring Dr.: Dr. Dannie Storm MD Status: REG RCR Insurance: [facility] SELF PAY INSURANCE Discharge Summary D/C summary: It has been my pleasure to treat NORMA GRIFFIN referred by Dr. Dannie Storm MD, with the diagnosis of R shoulder pain for a total of 8 visit(s). Discharge Date: Please see the following information for a summary of their discharge status. Subjective Subjective: No pain at rest. Pain R shoulder: Pain Intensity (Out of 10): 0 Overall Improvement % Improvement: 80 Objective Objective/Function: R shoulder pain ranges from 0-8/10 R shoulder ROM: flex= 145, abd= 125 degrees R shoulder MMT: flex= 17, abd= 27, IR= 21, ER= 23 Pt is I with HEP Goals Goal 1:: Decrease R shoulder pain x 50% to aid with sleep Goal Progress: Goal Met Goal 2:: Increase R shoulder flex and abd ROM x 30 degrees to aid with overhead lifting Goal Progress: Progressing Goal 3:: Increase R shoulder strength x 5 #F to aid with IADL's Goal Progress: Progressing Goal 4:: I with HEP Goal Progress: Goal Met Plan Plan: Discharge to HEP D/C Information d/c sentence: If there are questions or concerns regarding this patient's physical therapy, please feel free to call me at [phone]. Thank you for the referral of this patient. Sincerely, Tate Zhang, PT, ATC Balance/Gait/Function al tests Balance/Special Test Scores Quick DASH Score: 15.9075 Improvement % Improvement: 80 10/02/24 1032 CC: Dr. Sasha Jackson DO; Dr. Dannie Storm MD [facility] Signed Normal [facility] Inital Evaluation (1) - PTon 09-10-2024 Inital Evaluation (1) - PT [facility] Physical Therapy [facility] [address] [place] [address] / REHABILITATION SERVICES INITIAL EVALUATION MR#: [id number] Acct: [id number] Name: NORMA GRIFFIN Rep #: [id number] : 1975 49 From: Tate Zhang PT, ATC Referring Dr.: Dr. Dannie Storm MD Status: REG RCR Insurance: [facility] SELF PAY INSURANCE Patient's Visit Information Visit Information Visit Information: NORMA GRIFFIN is a 49 year old F referred to Physical Therapy by Dr. Dannie Storm MD with a diagnosis of R shoulder pain. Date of Evaluation: 09/10/24 Physical Therapist: Tate Zhang, PT, ATC Visit Plan Frequency: 2x /Week Duration: 4-6 Weeks Plan: R shoulder rotator strengthening, scap stab ex's, UBE, Overhead pulleys, and HEP Subjective Subjective: Pt reports she has had R shoulder pain for 6-8 months. Pt reports her pain had an insidious onset in nature. Pt reports she has had pain in her shoulder secondary to frozen shoulder in the past, but cant remember which shoulder it was. Pt reports her pain is located on the posterior aspect. Pt denies any tingling or numbness in R shoulder Pt is R hand dominant. Pt reports overhead reaching and reaching behind her back increases her pain. Pt reports she has had x-rays a day ago but has not received any results. 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 Pt reports she is able to perform most of her IADL's and ADL's, but has to adapt secondary to not being able to reach overhead. Pt reports sleep difficulty at this time secondary to pain. 2/10 pain while sitting at rest, 10/10 pain when at worst. Pain R shoulder: Pain Intensity (Out of 10): 2 Pain Intensity Range: 10 Objective Objective: Neuro: B LE sensation is WNL to light touch. Palpation: Pt is very sore along the distribution of the supraspinatus. No obvious deformity. No crepitus with AROM ROM: L shoulder flex= 170, abd= 175, ER= 60, IR= WNL; R shoulder flex= 110, abd= 100, ER= 30, IR= moderately limited to the belt line MMT: L shoulder flex= 22, abd= 30, ER= 21, IR= 25 #F; R shoulder flex= 7, abd= 10, ER= 22, IR= 19 #F Special tests: Pos HK, Balance/Special Test Scores Quick DASH Score: 34.0900 Goals Goal 1:: Decrease R shoulder pain x 50% to aid with sleep Goal Time Frame: 4-6 Weeks Goal 2:: Increase R shoulder flex and abd ROM x 30 degrees to aid with overhead lifting Goal Time Frame: 4-6 Weeks Goal 3:: Increase R shoulder strength x 5 #F to aid with IADL's Goal Time Frame: 4-6 Weeks Goal 4:: I with HEP Goal Time Frame: 4-6 Weeks Rehabilitation Potential Physical Therapy Diagnosis: Pt has R shoulder pain, weakness, and limited ROM secondary to R shoulder impingement Rehabilitation Potential: Good Anticipated Interventions Patient/Client Instruction: Educate patient on: Condition and Plan of Care For the Purpose of:: To improve self management Therapeutic Exercise to Include: Strength training, Endurance training, Flexibilty training, Active ROM and Scapular Strength/Stabilizatio n For the Purpose of:: To decrease pain, To increase ROM and To improve muscle performance and motor function Cryotherapy (ice pack, ice massage): Yes For the Purpose of:: To decrease pain Text: Thank you for the opportunity to evaluate your patient. For Medicare and Medicare HMO plans, please review the plan of care and approve it. It will need to be FAXED BACK to us at [phone] for Medicare purposes. For Medicare only, by signing this I certify the plan of care. Please let me know if there are questions or concerns regarding this plan of care. Physician Signature: Date : 09/10/24 0954 CC: Dr. Sasha Jackson DO; Dr. Dannie Storm MD [facility] Signed Normal [facility] Shoulder min 2 Viewson 09-08 Shoulder min 2 Views [facility] Imaging Services [address] [place], [place] [address] Shoulder min 2 Views MR#: [id number] Acct: [id number] Name: NORMA GRIFFIN Rep #: [id number] : 1975 F 49 From: Poncho Ashley MD PCP: Dr. Sasha Jackson DO Status: REG CLI Study: Shoulder min 2 Views Date of Exam: 09/08/24 Exam# [id number] Ordering Dr: Dannie Storm MD PROCEDURE: SHOULDER MIN 2 VIEWS 09/08/2024 REASON FOR EXAM: RT SHOULDER PAIN TECHNIQUE: SHOULDER MIN 2 VIEWS COMPARISON: None. FINDINGS: Four views of the right shoulder demonstrate no evidence of fracture or dislocation. There is mild arthritis of the acromioclavicular joint. The glenohumeral joint appears unremarkable. The periarticular soft tissues are normal. RAD/Shoulder min 2 Views IMPRESSION: Mild arthritis of the acromioclavicular joint. Reading Location: [id number] CC: Dr. Sasha Jackson DO; Dr. 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 CNOVon 02-23-2024 CNOV Office Visit ([facility] ) GRIFFINNORMA OCHOA ([id number]) 1975 F CHT Date Time Provider Department 02/23/24 1:30 PM LORENA ALVARADO [facility] During your visit today, we recorded the following information about you: Temperature Pulse Respiration Blood pressure 98.4 degrees 94/minute 19/minute 144/92 Weight 105.4 kg Lorena Alvarado PA-C 02/23/2024 2:17 PM Signed This note was created using [email or web address]. Subjective Norma Griffin is a 48 year [...] solution (DUONEB)Disp: Rfl: XR CHEST 2V FRONTAL/LAT [[id number]] Order #: [id number] FUTURE predniSONE (DELTASONE) 10 mg tabletTake 4 [...] daily fo (more content not included)... Normal [facility] CBC W/Diff, Automatedon 01-24 Absolute Lymph 1.62 X10 3/uL Normal 0.83-4.51 [facility] Comment on above: Performed By: #### L 100.0100, L300.8000 #### [facility] [address] [place], [address] Absolute Neut 5.2 X10 3/uL Normal 2.0-7.7 [facility] Comment on above: Performed By: #### L 100.0100, L300.8000 #### [facility] [address] [place], [address] Basophils/100 WBC (Bld) 0.5 % Normal 0-1 [facility] Comment on above: Performed By: #### L 100.0100, L300.8000 #### [facility] [address] [place], [address] Eosinophils/100 WBC (Bld) 1.3 % Normal 0-5 [facility] Comment on above: Performed By: #### L 100.0100, L300.8000 #### [facility] [address] [place], [address] Erythrocyte distribution width (RBC) [Ratio] 13.8 % Normal 11.6-14.6 [facility] Comment on above: Performed By: #### L 100.0100, L300.8000 #### [facility] [address] [place], [address] Hematocrit (Bld) [Volume fraction] 38.6 % Normal 37-47 [facility] Comment on above: Performed By: #### L 100.0100, L300.8000 #### [facility] [address] [place], [address] Hemoglobin (Bld) [Mass/Vol] 11.9 g/dL Low 12.0-15.0 [facility] Comment on above: Performed By: #### L 100.0100, L300.8000 #### [facility] [address] [place], [address] IG% 0.400 Normal 0.0-0.9 [facility] Comment on above: Result Comment: IG% - Immature Granulocytes (promyelocytes, myelocytes and metamyelocytes) > 1% indicates that a LEFT SHIFT is Present. Performed By: #### L 100.0100, L300.8000 #### [facility] [address] [place], [address] Lymphocytes/100 WBC (Bld) 21.1 % Normal 19-41 [facility] Comment on above: Performed By: #### L 100.0100, L300.8000 #### [facility] [address] [place], [address] MCH (RBC) [Entitic mass] 28.4 pg Normal 27.0-32.0 [facility] Comment on above: Performed By: #### L 100.0100, L300.8000 #### [facility] [address] [place], [address] MCHC (RBC) [Mass/Vol] 30.8 g/dL Low 32-36 [facility] Comment on above: Performed By: #### L 100.0100, L300.8000 #### [facility] [address] [place], [address] MCV (RBC) [Entitic vol] 92.1 fL Normal 81-99 [facility] Comment on above: Performed By: #### L 100.0100, L300.8000 #### [facility] [address] [place], [address] Monocytes/100 WBC (Bld) 8.5 % Normal 0-10 [facility] Comment on above: Performed By: #### L 100.0100, L300.8000 #### [facility] [address] [place], [address] Neutrophils/100 WBC (Bld) 68.2 % Normal 47-70 [facility] Comment on above: Performed By: #### L 100.0100, L300.8000 #### [facility] [address] [place], [address] Nucleated RBC (Bld) [#/Vol] 0 10*3/uL Normal 0-5 [facility] Comment on above: Performed By: #### L 100.0100, L300.8000 #### [facility] [address] [place], [address] Platelet mean volume (Bld) [Entitic vol] 10.4 fL Normal 6.2-12.0 [facility] Comment on above: Performed By: #### L 100.0100, L300.8000 #### [facility] [address] [place], [address] Platelets (Bld) [#/Vol] 326 10*3/uL Normal 150-450 [facility] Comment on above: Performed By: #### L 100.0100, L300.8000 #### [facility] [address] [place], [address] RBC (Bld) [#/Vol] 4.19 10*6/uL Low 4.2-5.4 [facility] Comment on above: Performed By: #### L 100.0100, L300.8000 #### [facility] [address] [place], [address] RDW SD 47.1 fl High 35.1-43.9 [facility] Comment on above: Performed By: #### L 100.0100, L300.8000 #### [facility] [address] [place], [address] WBC (Bld) [#/Vol] 7.7 10*3/uL Normal 4.4-11.0 [facility] Comment on above: Performed By: #### L 100.0100, L300.8000 #### [facility] [address] [place], [address] Chest PA and Lateralon 02-07 Chest PA and Lateral [facility] Imaging Services [address] [place] [address] Chest PA and Lateral MR#: [id number] Acct: [id number] Name: NORMA GRIFFIN Rep #: [id number] : 1975 F 48 From: Toney Monique DO PCP: Dr. Sasha Jackson DO Status: REG CLI Study: Chest PA and Lateral Date of Exam: 02/08/24 Exam# [id number] Ordering Dr: Unique Hayes MD [id number] INDICATION: DYSPNEA, WHEEZE ON R EXAMINATION/TECHNIQUE : [...] Unique Hayes MD; Dr. Sasha Jackson DO Pipeline Maintenance Supervisor: Signed Normal [facility] D-Dimer Quantitative (DVT/PE )on 02-08-2024 D-DIMER QUANT 0.34 FEU/ug/m Normal 0.27-0.49 [facility] Comment on above: Result Comment: NORM AL D-Dimer level (<0.50) indicates no DVT or PE. Performed By: #### L 100.0100, L300.8000 #### [facility] [address] [place], [place], [address] No Panel InformationOrdered By: Bouchra Beaver on 07-03-2022 D-Dimer Quantitative (PE/DVT) 0.40 FEU/ug/m 0.27-0.49 [facility] Comment on above: NORMAL D-Dimer level (<0.50) indicates no DVT or PE. Basophil percentageOrdered B y: Dr. Palma on 06-14-2022 Bilirubin [Mass/Vol] 0.20 mg/dL 0.20-1.00 [facility] Comment on above: For patients on eltr ombopag therapy, use of Dimension [place] TBIL is not recommended. Chloride [Moles/Vol] 109 mmol/L 98-107 [facility] Glucose [Mass/Vol] 125 mg/dL 74-106 [facility] Comment on above: Fasting Glucose resu lt from 100 to 125 mg/dL suggests IMPAIRED HOMEOSTASIS per A.D.A. criteria. Potassium [Moles/Vol] 3.6 mmol/L 3.5-5.1 [facility] Protein [Mass/Vol] 7.2 g/dL 6.4-8.2 [facility] Sodium [Moles/Vol] 141 mmol/L 136-145 [facility] WBC (Bld) [#/Vol] 7.7 10*3/uL 4.4-11.0 [facility] Blood erythrocytes count (nu mber/volume)Ordered By: Dr. Palma on 06-14-2022 RBC (Bld) [#/Vol] 4.22 10*6/uL 4.2-5.4 [facility] Blood hemoglobin measurement (mass/volume)Ordered By: Dr. Palma on 06-14-2022 Hemoglobin (Bld) [Mass/Vol] 12.3 g/dL 12.0-15.0 [facility] Blood platelet mean volumeOr dered By: Dr. Palma on 06-14-2022 Platelet mean volume (Bld) [Entitic vol] 10.8 fL 6.2-12.0 [facility] Cervical or vagninal specime n microscopic examination by cytology stain (reported asOrdered By: Dr. Palma on 06-14-2022 Cytology report Cyto stain Doc (Cvx/Vag) Comment . [facility] Comment on above: The Pap smear [...] 33,Ordered By: Dr. Palma on 06-14-2022 HPV 16+18+31+33+35+39+45+51+ 52+56+58+59+66+68 DNA Probe+sig amp Ql (Cvx) Negative Negative [facility] Comment on above: This nucleic acid am plification test detects fourteen high-risk HPV types (16,18,31,33,35,39,45,51,52,56,58,59,66,68)without differentiation. Determination of erythrocyte mean corpuscular volume (MCV)Ordered By: Dr. Palma on 06-14-2022 MCV (RBC) [Entitic vol] 91.5 fL 81-99 [facility] Hematocrit Auto (Bld) [Volum e fraction]Ordered By: Dr. Palma on 06-14-2022 Hematocrit (Bld) [Volume fraction] 38.6 % 37-47 [facility] - Chemistry and C hemistry - challengeOrdered By: Dr. Palma on 06-14-2022 ALP [Catalytic activity/Vol] 64 U/L 45-117 [facility] ALT [Catalytic activity/Vol] 24 U/L 13-56 [facility] CO2 [Moles/Vol] 25.0 mmol/L 21.0-32.0 [facility] Globulin (S) [Mass/Vol] 3.4 g/dL 2.2-4.2 [facility] Urea nitrogen/Creatinine [Mass ratio] 13.8 mg/mg 10-20 [facility] Laboratory - CytologyOrdered By: Dr. Palma on 06-14-2022 Supervisor Dog License Officer Cyto stain Nom (Cvx/Vag) [ID] Comment . [facility] Comment on above: Inocencio Solis totechnologist (ASCP) Laboratory - Hematology and Cell countsOrdered By: Dr. Palma on 06-14-2022 Erythrocyte distribution width (RBC) [Entitic vol] 44.3 fL 35.1-43.9 [facility] Erythrocyte distribution width (RBC) [Ratio] 13.1 % 11.6-14.6 [facility] MCH (RBC) [Entitic mass] 29.1 pg 27.0-32.0 [facility] - Miscellaneous t estsOrdered By: Dr. Palma on 06-14-2022 Service comment (Unsp spec) [Interp] Comment . [facility] Comment on above: This liquid based Th inPrep(R) pap test was screened withthe use of an image guided system. Service comment (Unsp spec) [Interp] . . [facility] Liquid-based cerv Pap + CT/G C by LEAH w reflex to high-risk HPV for ASCUSOrdered By: Dr. Palma on 06-14-2022 Cytology report Cyto stain.thin prep Doc (Cvx/Vag) Comment . [facility] Comment on above: Criteria not met, HP V Genotype not performed.Performed at: - [facility], [place] [id number] Director: Chika Fagan MD, Phone: [phone] at: =G - [facility] [address] [place] [id number] Director: Chika Fagan MD, Phone: [phone] [facility] Auto (RBC) [Mass/Vol]Or dered By: Dr. Palma on 06-14-2022 MCHC (RBC) [Mass/Vol] 31.9 g/dL 32-36 [facility] No Panel InformationOrdered By: Dr. Palma on 06-14-2022 Estimated GFR (MDRD) Amer 99 mL/min >60 [facility] Comment on above: GFR Calc Estimated GFR (MDRD) Non-Af Amer 82 mL/min >60 [facility] Comment on above: Non- GFR Calc Pathology report final diagnosis Narrative Comment . [facility] Comment on above: NEGATIVE FOR INTRAEP ITHELIAL LESION OR MALIGNANCY. Platelets bldOrdered By: Dr. Palma on 06-14-2022 Platelets (Bld) [#/Vol] 327 10*3/uL 150-450 [facility] Serum or plasma albumin david urement (mass/volume)Ordered By: Dr. Palma on 06-14-2022 Albumin [Mass/Vol] 3.8 g/dL 3.2-5.0 [facility] Serum or plasma albumin/glob ulin mass ratioOrdered By: Dr. Palma on 06-14-2022 Albumin/Globulin [Mass ratio] 1.1 {ratio} 0.9-2.4 [facility] Serum or plasma calcium david urement (mass/volume)Ordered By: Dr. Palma on 06-14-2022 Calcium [Mass/Vol] 9.1 mg/dL 8.5-10.1 [facility] Serum or plasma creatinine m easurement (mass/volume)Ordered By: Dr. Palma on 06-14-2022 Creatinine [Mass/Vol] 0.80 mg/dL 0.55-1.02 [facility] Comment on above: The validity of the calculated GFR & GFRAA in patients over 70 years has not been determined. Clinical correlation is essential. Serum or plasma urea nitroge n measurement (mass/volume)Ordered By: Dr. Palma on 06-14-2022 Urea nitrogen [Mass/Vol] 11 mg/dL 7-18 [facility] Thin prep Papanicolaou smear with manual screeningOrdered By: Dr. Palma on 06-14-2022 Thin prep Papanicolaou smear with manual screening 11 U/L 15-37 [facility] Thin prep Papanicolaou smear with manual screening 7 5-15 [facility] Culture, urineOrdered By: Dr Nereida Palma on 05-28-2022 Bacteria identified Cx Nom (U) Culture exhibits no growth. [facility] Absolute lymphocyte countOrd ered By: Dr. Jackson on 05-25-2022 Lymphocytes Auto (Unsp spec) [#/Vol] 2.31 10*3/uL 0.83-4.51 [facility] Basophil percentageOrdered B y: Dr. Jackson on 05-25-2022 Basophil percentage Not Reportable [facility] Basophils/100 WBC (Bld) 0.5 % 0-1 [facility] Bilirubin [Mass/Vol] 0.50 mg/dL 0.20-1.00 [facility] Comment on above: For patients on eltr ombopag therapy, use of Dimension [place] TBIL is not recommended. Chloride [Moles/Vol] 105 mmol/L 98-107 [facility] Cholesterol [Mass/Vol] 239 mg/dL <200 [facility] Comment on above: <200 mg/dL Desirable 200-240 mg/dL Borderline >240 mg/dL High Risk Eosinophils/100 WBC (Bld) 0.7 % 0-5 [facility] Glucose [Mass/Vol] 92 mg/dL 74-106 [facility] Neutrophils (Bld) [#/Vol] 5.1 10*3/uL 2.0-7.7 [facility] Neutrophils/100 WBC (Bld) 63.3 % 47-70 [facility] Potassium [Moles/Vol] 3.8 mmol/L 3.5-5.1 [facility] Protein [Mass/Vol] 7.5 g/dL 6.4-8.2 [facility] Sodium [Moles/Vol] 137 mmol/L 136-145 [facility] Triglyceride [Mass/Vol] 58 mg/dL <199 [facility] Comment on above: The drugs N-Acetylcy steine and Metamizole may falsely depress this assay.Serum Triglycerides Reference Interval Normal <150 mg/dL Borderline high 150 - 199 mg/dL High 200 - 499 mg/dL Very High > or = 500 mg/dL WBC (Bld) [#/Vol] 8.1 10*3/uL 4.4-11.0 [facility] Blood erythrocytes count (nu mber/volume)Ordered By: Dr. Jackson on 05-25-2022 RBC (Bld) [#/Vol] 4.26 10*6/uL 4.2-5.4 [facility] Blood hemoglobin measurement (mass/volume)Ordered By: Dr. Jackson on 05-25-2022 Hemoglobin (Bld) [Mass/Vol] 12.5 g/dL 12.0-15.0 [facility] Blood lymphocytes/100 leukoc ytesOrdered By: Dr. Jackson on 05-25-2022 Lymphocytes/100 WBC (Bld) 28.5 % 19-41 [facility] Blood monocytes/100 leukocyt esOrdered By: Dr. Jackson on 05-25-2022 Monocytes/100 WBC (Bld) 6.8 % 0-10 [facility] Blood platelet mean volumeOr dered By: Dr. Jackson on 05-25-2022 Platelet mean volume (Bld) [Entitic vol] 11.3 fL 6.2-12.0 [facility] Determination of erythrocyte mean corpuscular volume (MCV)Ordered By: Dr. Jackson on 05-25-2022 MCV (RBC) [Entitic vol] 91.8 fL 81-99 [facility] Erythrocyte sedimentation ra teOrdered By: Dr. Jackson on 05-25-2022 ESR (Bld) [Velocity] 25 mm/h 0-30 [facility] Hematocrit Auto (Bld) [Volum e fraction]Ordered By: Dr. Jackson on 05-25-2022 Hematocrit (Bld) [Volume fraction] 39.1 % 37-47 [facility] - Chemistry and C hemistry - challengeOrdered By: Dr. Jackson on 05-25-2022 ALP [Catalytic activity/Vol] 73 U/L 45-117 [facility] ALT [Catalytic activity/Vol] 26 U/L 13-56 [facility] CO2 [Moles/Vol] 24.0 mmol/L 21.0-32.0 [facility] Free T4 [Mass/Vol] 1.12 ng/dL 0.76-1.46 [facility] Globulin (S) [Mass/Vol] 3.3 g/dL 2.2-4.2 [facility] Urea nitrogen/Creatinine [Mass ratio] 19.9 mg/mg 10-20 [facility] - Hematology and Cell countsOrdered By: Dr. Jackson on 05-25-2022 Erythrocyte distribution width (RBC) [Entitic vol] 44.0 fL 35.1-43.9 [facility] Erythrocyte distribution width (RBC) [Ratio] 13.1 % 11.6-14.6 [facility] Immature granulocytes/100 WBC (Bld) 0.200 % 0.0-0.9 [facility] Comment on above: IG% - Immature Granu locytes (promyelocytes, myelocytes and metamyelocytes) > 1% indicates that a LEFT SHIFT is Present. MCH (RBC) [Entitic mass] 29.3 pg 27.0-32.0 [facility] Nucleated RBC/100 WBC (Bld) [Ratio] 0 % 0-5 [facility] MCHC Auto (RBC) [Mass/Vol]Or dered By: Dr. Jackson on 05-25-2022 MCHC (RBC) [Mass/Vol] 32.0 g/dL 32-36 [facility] No Panel InformationOrdered By: Dr. Jackson on 05-25-2022 Anti-Nuclear Antibody Screen Negative Negative [facility] Comment on above: Performed at: [address] [id number] Director: Leonard Goncalves PhD, Phone: [phone] Centromere B Antibody Not Reportable [facility] Estimated GFR (MDRD) Amer 106 mL/min >60 [facility] Comment on above: GFR Calc Estimated GFR (MDRD) Non-Af Amer 87 mL/min >60 [facility] Comment on above: Non- GFR Calc Free Triiodothyronine (T3) pg/dL 2.5 pg/mL 2.18-3.98 [facility] PASTE MIXER Antibody Not Reportable [facility] Thyroid Stimulating Hormone (TSH) 1.29 uIU/mL 0.358-3.74 [facility] Vitamin D 25-Hydroxy 62.4 ng/mL [facility] Comment on above: Vitamin D 25(OH) Sta tus Range Deficiency <20 ng/mL (50nmol/L) Insufficiency 20 - 30 ng/mL (50 - 75 nmol/L) Sufficiency 30 - 100 ng/mL (75 - 250 nmol/L) Toxicity >100 ng/mL (>250 nmol/L) Platelets bldOrdered By: Dr. Jackson on 05-25-2022 Platelets (Bld) [#/Vol] 340 10*3/uL 150-450 [facility] Serum DNA double strand anti body assay (units/volume)Ordered By: Dr. Jackson on 05-25-2022 DNA double strand Ab Qn (S) Not Reportable [facility] Serum Mayela-1 antibody assay (u nits/volume)Ordered By: Dr. Jackson on 05-25-2022 Mayela-1 extractable nuclear Ab Qn (S) Not Reportable [facility] Serum Scl-70 extractable nuc lear antibody assay (units/volume)Ordered By: Dr. Jackson on 05-25-2022 SCL-70 extractable nuclear Ab Qn (S) Not Reportable [facility] Serum Fung extractable nucl ear antibody detectionOrdered By: Dr. Jackson on 05-25-2022 Fung extractable nuclear Ab Ql (S) Not Reportable [facility] Serum cyclic citrullinated p eptide IgG antibody assay (units/volume)Ordered By: Dr. Jackson on 05-25-2022 Cyclic citrullinated peptide IgG Qn 4 units 0-19 [facility] Comment on above: Negative <20 Weak po sitive 20 - 39 Moderate positive 40 - 59 Strong positive >59Performed at: - [facility] [id number] Director: Leonard Goncalves PhD, Phone: [phone] Serum or plasma C reactive p rotein measurement (mass/volume)Ordered By: Dr. Jackson on 05-25-2022 CRP [Mass/Vol] 7.07 mg/L 0.0-3.0 [facility] Comment on above: C-Reactive Protein ( CRP) provides useful information for thediagnosis, therapy and monitoring of inflammatory processesand associated diseases. For the evaluation of Relative Riskfor Cardiovascular Disease, a High Sensitivity CRP (HSCRP)should be ordered. Serum or plasma albumin david urement (mass/volume)Ordered By: Dr. Jackson on 05-25-2022 Albumin [Mass/Vol] 4.2 g/dL 3.2-5.0 [facility] Serum or plasma albumin/glob ulin mass ratioOrdered By: Dr. Jackson on 05-25-2022 Albumin/Globulin [Mass ratio] 1.3 {ratio} 0.9-2.4 [facility] Serum or plasma calcium david urement (mass/volume)Ordered By: Dr. Jackson on 05-25-2022 Calcium [Mass/Vol] 9.6 mg/dL 8.5-10.1 [facility] Serum or plasma cholesterol in HDL measurement (mass/volume)Ordered By: Dr. Jackson on 05-25-2022 Cholesterol in HDL [Mass/Vol] 59 mg/dL >40 [facility] Comment on above: The drugs N-Acetylcy steine and Metamizole may falsely depress this assay. Reference Range HDL <40 mg/dL Low HDL Cholesterol HDL >or= 60 mg/dL High HDL Cholesterol Serum or plasma cholesterol in VLDL measurement (mass/volume)Ordered By: Dr. Jackson on 05-25-2022 Cholesterol in VLDL [Mass/Vol] 12 mg/dL 5-40 [facility] Serum or plasma creatinine m easurement (mass/volume)Ordered By: Dr. Jackson on 05-25-2022 Creatinine [Mass/Vol] 0.75 mg/dL 0.55-1.02 [facility] Comment on above: The validity of the calculated GFR & GFRAA in patients over 70 years has not been determined. Clinical correlation is essential. Serum or plasma low density lipoprotein (LDL) cholesterol measurement (mass/volume)Ordered By: Dr. Jackson on 05-25-2022 Cholesterol in LDL [Mass/Vol] 168 mg/dL 0-130 [facility] Serum or plasma urea nitroge n measurement (mass/volume)Ordered By: Dr. Jackson on 05-25-2022 Urea nitrogen [Mass/Vol] 15 mg/dL 7-18 [facility] Serum rheumatoid factor dete ctionOrdered By: Dr. Jackson on 05-25-2022 Rheumatoid factor Ql (S) < 10.0 IU/mL <15 [facility] Thin prep Papanicolaou smear with manual screeningOrdered By: Dr. Jackson on 05-25-2022 Thin prep Papanicolaou smear with manual screening 16 U/L 15-37 [facility] Thin prep Papanicolaou smear with manual screening 8 5-15 [facility] Absolute lymphocyte counton 10-04-2021 Lymphocytes Auto (Unsp spec) [#/Vol] 1.87 10*3/uL 0.83-4.51 [facility] Work Phone: Basophil percentageon 2021 Basophils/100 WBC (Bld) 0.5 % 0-1 [facility] Work Phone: Bilirubin [Mass/Vol] 0.50 mg/dL 0.20-1.00 [facility] Work Phone: Comment on above: For patients on eltr ombopag therapy, use of Dimension [place] TBIL is not recommended. Chloride [Moles/Vol] 106 mmol/L 98-107 [facility] Work Phone: Cholesterol [Mass/Vol] 225 mg/dL <200 [facility] Work Phone: Comment on above: <200 mg/dL Desirable 200-240 mg/dL Borderline >240 mg/dL High Risk Eosinophils/100 WBC (Bld) 2.6 % 0-5 [facility] Work Phone: Glucose [Mass/Vol] 96 mg/dL 74-106 [facility] Work Phone: Neutrophils (Bld) [#/Vol] 3.6 10*3/uL 2.0-7.7 [facility] Work Phone: Neutrophils/100 WBC (Bld) 59.0 % 47-70 [facility] Work Phone: Potassium [Moles/Vol] 4.1 mmol/L 3.5-5.1 [facility] Work Phone: Protein [Mass/Vol] 6.8 g/dL 6.4-8.2 [facility] Work Phone: Sodium [Moles/Vol] 138 mmol/L 136-145 [facility] Work Phone: [phone] Triglyceride [Mass/Vol] 47 mg/dL <199 [facility] Work Phone: Comment on above: The drugs N-Acetylcy steine and Metamizole may falsely depress this assay.Serum Triglycerides Reference Interval Normal <150 mg/dL Borderline high 150 - 199 mg/dL High 200 - 499 mg/dL Very High > or = 500 mg/dL WBC (Bld) [#/Vol] 6.1 10*3/uL 4.4-11.0 [facility] Work Phone: Blood erythrocytes count (nu mber/volume)on 10-04-2021 RBC (Bld) [#/Vol] 4.17 10*6/uL 4.2-5.4 [facility] Work Phone: Blood hemoglobin measurement (mass/volume)on 10-04-2021 Hemoglobin (Bld) [Mass/Vol] 12.3 g/dL 12.0-15.0 [facility] Work Phone: Blood lymphocytes/100 leukoc yteson 10-04-2021 Lymphocytes/100 WBC (Bld) 30.8 % 19-41 [facility] Work Phone: [phone] Blood monocytes/100 leukocyt eson 10-04-2021 Monocytes/100 WBC (Bld) 6.8 % 0-10 [facility] Work Phone: [phone] Blood platelet mean volumeon 10-04-2021 Platelet mean volume (Bld) [Entitic vol] 11.3 fL 6.2-12.0 [facility] Work Phone: [phone] Determination of erythrocyte mean corpuscular volume (MCV)on 10-04-2021 MCV (RBC) [Entitic vol] 94.2 fL 81-99 [facility] Work Phone: [phone] Hematocrit Auto (Bld) [Volum e fraction]on 10-04-2021 Hematocrit (Bld) [Volume fraction] 39.3 % 37-47 [facility] Work Phone: Laboratory - Chemistry and C hemistry - challengeon 10-04-2021 ALP [Catalytic activity/Vol] 59 U/L 45-117 [facility] Work Phone: [phone] ALT [Catalytic activity/Vol] 21 U/L 13-56 [facility] Work Phone: [phone] CO2 [Moles/Vol] 26.0 mmol/L 21.0-32.0 [facility] Work Phone: [phone] Free T4 [Mass/Vol] 1.00 ng/dL 0.76-1.46 [facility] Work Phone: [phone] Globulin (S) [Mass/Vol] 3.2 g/dL 2.2-4.2 [facility] Work Phone: [phone] Urea nitrogen/Creatinine [Mass ratio] 18.8 mg/mg 10-20 [facility] Work Phone: [phone] Laboratory - Hematology and Cell countson 10-04-2021 Erythrocyte distribution width (RBC) [Entitic vol] 44.5 fL 35.1-43.9 [facility] Work Phone: [phone] Erythrocyte distribution width (RBC) [Ratio] 12.8 % 11.6-14.6 [facility] Work Phone: [phone] Immature granulocytes/100 WBC (Bld) 0.300 % 0.0-0.9 [facility] Work Phone: [phone] Comment on above: IG% - Immature Granu locytes (promyelocytes, myelocytes and metamyelocytes) > 1% indicates that a LEFT SHIFT is Present. MCH (RBC) [Entitic mass] 29.5 pg 27.0-32.0 [facility] Work Phone: Nucleated RBC/100 WBC (Bld) [Ratio] 0 % 0-5 [facility] Work Phone: [phone] MCHC Auto (RBC) [Mass/Vol]on 10-04-2021 MCHC (RBC) [Mass/Vol] 31.3 g/dL 32-36 [facility] Work Phone: No Panel Informationon 10-04 Estimated GFR (MDRD) Amer 108 mL/min >60 [facility] Work Phone: Comment on above: GFR Calc Estimated GFR (MDRD) Non-Af Amer 89 mL/min >60 [facility] Work Phone: Comment on above: Non- GFR Calc Free Triiodothyronine (T3) pg/dL 2.5 pg/mL 2.18-3.98 [facility] Work Phone: Thyroid Stimulating Hormone (TSH) 1.11 uIU/mL 0.358-3.74 [facility] Work Phone: Vitamin D 25-Hydroxy 29.0 ng/mL [facility] Work Phone: Comment on above: Vitamin D 25(OH) Sta tus Range Deficiency <20 ng/mL (50nmol/L) Insufficiency 20 - 30 ng/mL (50 - 75 nmol/L) Sufficiency 30 - 100 ng/mL (75 - 250 nmol/L) Toxicity >100 ng/mL (>250 nmol/L) Platelets bldon 10-04-2021 Platelets (Bld) [#/Vol] 327 10*3/uL 150-450 [facility] Work Phone: [phone] Serum or plasma albumin david urement (mass/volume)on 10-04-2021 Albumin [Mass/Vol] 3.6 g/dL 3.2-5.0 [facility] Work Phone: [phone] Serum or plasma albumin/glob ulin mass ratioon 10-04-2021 Albumin/Globulin [Mass ratio] 1.1 {ratio} 0.9-2.4 [facility] Work Phone: [phone] Serum or plasma calcium david urement (mass/volume)on 10-04-2021 Calcium [Mass/Vol] 8.9 mg/dL 8.5-10.1 [facility] Work Phone: [phone] Serum or plasma cholesterol in HDL measurement (mass/volume)on 10-04-2021 Cholesterol in HDL [Mass/Vol] 60 mg/dL >40 [facility] Work Phone: Comment on above: The drugs N-Acetylcy steine and Metamizole may falsely depress this assay. Reference Range HDL <40 mg/dL Low HDL Cholesterol HDL >or= 60 mg/dL High HDL Cholesterol Serum or plasma cholesterol in VLDL measurement (mass/volume)on 10-04-2021 Cholesterol in VLDL [Mass/Vol] 9 mg/dL 5-40 [facility] Work Phone: Serum or plasma creatinine m easurement (mass/volume)on 10-04-2021 Creatinine [Mass/Vol] 0.74 mg/dL 0.55-1.02 [facility] Work Phone: Comment on above: The validity of the calculated GFR & GFRAA in patients over 70 years has not been determined. Clinical correlation is essential. Serum or plasma low density lipoprotein (LDL) cholesterol measurement (mass/volume)on 10-04-2021 Cholesterol in LDL [Mass/Vol] 156 mg/dL 0-130 [facility] Work Phone: Serum or plasma urea nitroge n measurement (mass/volume)on 10-04-2021 Urea nitrogen [Mass/Vol] 14 mg/dL 7-18 [facility] Work Phone: Thin prep Papanicolaou smear with manual screeningon 10-04-2021 Thin prep Papanicolaou smear with manual screening 11 U/L 15-37 [facility] Work Phone: Thin prep Papanicolaou smear with manual screening 6 5-15 [facility] Work Phone: Vital Signs Date Time Vital Sign Value Performing Clinician Petronai yusef 10-15-2024 15:28-0400 Body height 165.[address] Sasha Jackson DO Work Phone: [facility] 10-15-2024 15:28-0400 Body mass index (BMI) [Ratio] 35.5 kg/m2 Dr. Sasha Jackson DO Work Phone: [facility] 10-15-2024 15:28-0400 Body weight 96.[address] Sasha Jackson DO Work Phone: [facility] 10-15-2024 15:28-0400 Diastolic blood pressure 88 mm[Hg] Dr. Sasha Jackson DO Work Phone: [facility] 10-15-2024 15:28-0400 Systolic blood pressure 163 mm[Hg] Dr. Sasha Jackson DO Work Phone: [facility] 02-23-2024 13:29-0500 Body temperature 98.4 [degF] Lorena Athy PA-C Work Phone: [facility] 02-23-2024 13:29-0500 Body weight 105.4 kg Lorena Athy PA-C Work Phone: [facility] 02-23-2024 13:29-0500 Diastolic blood pressure 92 mm[Hg] Lorena Athy PA-C Work Phone: [facility] 02-23-2024 13:29-0500 Heart rate 94 /min Lorena Athy PA-C Work Phone: [facility] 02-23-2024 13:29-0500 Respiratory rate 19 /min Lorena Athy PA-C Work Phone: [facility] 02-23-2024 13:29-0500 SaO2% (BldA) [Mass fraction] 100 % Lorena Athy PA-C Work Phone: [facility] 02-23-2024 13:29-0500 Systolic blood pressure 144 mm[Hg] Lorena Athy PA-C Work Phone: [facility] 02-19-2023 10:15-0500 Body height 165.[address] Sasha Jackson Work Phone: [facility] 02-19-2023 10:15-0500 Body mass index (BMI) [Ratio] 35.9 kg/m2 Dr. Sasha Jackson Work Phone: [facility] 02-19-2023 10:15-0500 Body weight 98.[address] Sasha Jackson Work Phone: [facility] 02-19-2023 10:15-0500 Diastolic blood pressure 79 mm[Hg] Dr. Sasha Jackson Work Phone: [facility] 02-19-2023 10:15-0500 Systolic blood pressure 125 mm[Hg] Dr. Sasha Jackson Work Phone: [facility] 06-28-2022 07:47-0400 Body temperature 97.6 [degF] Dr. Sasha Jackson Work Phone: [facility] 06-28-2022 07:47-0400 Diastolic blood pressure 65 mm[Hg] Dr. Sasha Jackson Work Phone: [facility] 06-28-2022 07:47-0400 Heart rate 79 /min Dr. Sasha Jackson Work Phone: [facility] 06-28-2022 07:47-0400 Respiratory rate 16 /min Dr. Sasha Jackson Work Phone: [facility] 06-28-2022 07:47-0400 SaO2% (BldA) [Mass fraction] 98 % Dr. Sasha Jackson Work Phone: [facility] 06-28-2022 07:47-0400 Systolic blood pressure 106 mm[Hg] Dr. Sasha Jackson Work Phone: [facility] 06-28-2022 06:21-0400 Body height 165.[address] Sasha Jackson Work Phone: [facility] 06-28-2022 06:21-0400 Body mass index (BMI) [Ratio] 35.2 kg/m2 Dr. Sasha Jackson Work Phone: [facility] 06-28-2022 06:21-0400 Body weight [address] Sasha Jackson Work Phone: [facility] 06-20-2022 08:01-0400 Body height 167.[address] Sasha Jackson Work Phone: [facility] 06-20-2022 08:01-0400 Body mass index (BMI) [Ratio] 35.2 kg/m2 Dr. Sasha Jackosn Work Phone: [facility] 06-20-2022 08:01-0400 Body temperature 98.2 [degF] Dr. Sasha Jackson Work Phone: [facility] 06-20-2022 08:01-0400 Body weight 98.[address] Sasha Jackson Work Phone: [facility] 06-20-2022 08:01-0400 Diastolic blood pressure 70 mm[Hg] Dr. Sasha Jackson Work Phone: [facility] 06-20-2022 08:01-0400 Heart rate 90 /min Dr. Sasha Jackson Work Phone: [facility] 06-20-2022 08:01-0400 Respiratory rate 14 /min Dr. Sasha Jackson Work Phone: [facility] 06-20-2022 08:01-0400 SaO2% (BldA) [Mass fraction] 96 % Dr. Sasha Jackson Work Phone: [facility] 06-20-2022 08:01-0400 Systolic blood pressure 115 mm[Hg] Dr. Sasha Jackson Work Phone: [facility] Encounters Encounter Date Encounter Type Care Provider Facility Start: 12-01-2024 ambulatory Sasha Jackson Facility:[facility] Start: 11-04-2024 End: 11-04-[address] Sasha Jackson DO Work Phone: -Outpatient Breast Imaging Start: 11-04-2024 End: 11-04-2024 Patient encounter procedure Crissy PALACIO -Outpatient Breast Imaging Work Phone: Start: 11-04-2024 End: 11-04-2024 ambulatory Crissy Garza Facility:[facility] Start: 10-21-2024 End: 10-21-[address] Sasha Jackson DO Work Phone: -Laboratory Start: 10-21-2024 End: 10-21-2024 Patient encounter procedure Crissy Garza [facility]PR[employer]ISER-C -Laboratory Work Phone: Start: 10-21-2024 End: 10-21-2024 ambulatory Crissy Garza Facility:[facility] Start: 10-15-2024 End: 10-15-2024 Patient encounter procedure Crissy Garza [facility]-C -[facility] Work Phone: Start: 10-15-2024 End: 10-15-2024 Patient encounter status Crissy Garza [facility] Start: 10-15-2024 End: 10-15-[address] Sasha Jackson DO Work Phone: -[facility] Start: 10-02-2024 End: 10-02-[address] Sasha Jackson DO Work Phone: -Physical Therapy Start: 10-02-2024 End: 10-02-[address] Dannie Storm MD -Physical Therapy Work Phone: Start: 09-10-[address] Eddie Storm MD -Physical Therapy Work Phone: Start: 09-08-2024 End: 09-08-[address] Sasha Jackson DO Work Phone: [facility] Work Phone: Start: 09-08-2024 End: 09-08-[address] Dannie Storm MD -Radiology [facility] Work Phone: Start: 09-08-2024 End: 09-08-2024 ambulatory Sasha Jackson Facility:[facility] Start: 02-23-2024 End: 02-23-2024 ambulatory SASHA JACKSON Facility:[facility] Start: 02-23-2024 End: 02-23-2024 Patient encounter procedure Lorena Alvarado PA-C Work Phone: [facility] Comment on above: Wheezing (Primary Dx ) Start: 02-08-2024 End: 02-08-2024 ambulatory Unique Hayes Facility:[facility] Start: 06-18-2023 Non-patient / Non-visit Dr. Sasha Jackson Work Phone: [facility] Start: 06-18-2023 End: 06-18-[address] Sasha Jackson Work Phone: [facility] Work Phone: Start: 06-18-2023 End: 06-18-[address] Sasha Jackson Work Phone: [facility]-Pulmonary Services/Neurology Work Phone: Start: 04-26-2023 End: 04-26-[address] Sasha Jackson Work Phone: [facility] Work Phone: Start: 04-26-2023 End: 04-26-[address] Sasha Jackson Work Phone: [facility]-MRI - [facility] Work Phone: Start: 04-19-2023 End: 04-19-[address] Sasha Jackson Work Phone: [facility]-Outpatient Breast Imaging Work Phone: Start: 04-04-2023 End: 04-04-[address] Sasha Jackson Work Phone: [facility] Work Phone: Start: 04-04-2023 End: 04-04-[address] Sasha Jackson Work Phone: [facility]-Physical Therapy Work Phone: Start: 02-19-2023 End: 02-19-[address] Sasha Jackson Work Phone: [facility] Work Phone: Start: 07-25-2022 End: 07-25-[address] Sasha Jackson Work Phone: [facility] Work Phone: Start: 07-25-2022 End: 07-25-[address] Sasha Jackson Work Phone: [facility]-Nuclear Medicine, [facility] Start: 07-03-2022 End: 07-03-[address] Sasha Jackson Work Phone: [facility] Work Phone: Start: 07-03-2022 End: 07-03-[address] Sasha Jackson Work Phone: [facility]-Laboratory Start: 06-28-2022 Non-patient / Non-visit Dr. Sasha Jackson Work Phone: [facility] Start: 06-28-2022 End: 06-28-2022 Admission to same day surgery center Dr. Sasha Jackson Work Phone: [facility]-Endoscopy Start: 06-28-2022 End: 06-28-[address] Sasha Jackson Work Phone: [facility] Work Phone: Start: 06-26-2022 End: 06-26-[address] Sasha Jackson Work Phone: [facility]-Ultrasound, [facility] Start: 06-20-2022 End: 06-20-[address] Sasha Jackson Work Phone: [facility]-Cat Scan, [facility] Start: 06-20-2022 End: 06-20-[address] Sasha Jackson Work Phone: [facility] Gastroenterology Start: 06-14-2022 End: 06-14-[address] Sasha Jackson Work Phone: [facility] Work Phone: Start: 06-14-2022 End: 06-14-[address] 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-Outpatient Breast Imaging Start: 10-04-2021 End: 10-04-2021 Patient encounter procedure [facility] Procedures Date Procedure Procedure Detail Performing Clinician Start: 11-04-2024 Screening mammography Gabriela Jackson DO Work Phone: Start: 10-21-2024 Follicle stimulating hormone measurement Dr. Sasha Jackson DO Work Phone: Comment on above: FEMALE:Follicular: 1 .4 - 18.1 mIU/mLMidcycle: 3.4 - 33.4 mIU/mLLuteal: 1.5 - 9.1 mIU/mLPost Menopause: 23.0 - 116.3 mIU/mLMALE: 1.4 - 18.1 mIU/mL Start: 10-21-2024 Vitamin D, 25-hydrox y measurement Dr. Sasha Jackson DO Work Phone: Comment on above: Vitamin D StatusDefi ciency: <20 ng/mL (50nmol/L)Insufficiency: 20-30 ng/mL (50-75 nmol/L)Sufficiency: 30-100 ng/mL (75-250 nmol/L)Toxicity: >100 ng/mL (>250 nmol/L) Start: 09-08-2024 Plain X-ray of shoulder Dr. Sasha Jackson DO Work Phone: Start: 04-26-2023 MRI of cervical spine Gabriela [...] Activity Detail Author Start: 11-25-2023 Covid-19 Vaccine ( season) Covid-19 Vaccine () [facility] Start: 11-25-2023 Influenza vaccination Influenz a Vaccine (#1) [facility] Start: 06-28-2022 Colonoscopy flx dx w /collj spec when pfrmd DIAGNOSTIC COLONOSCOPY [facility] Start: 06-28-2022 Egd transoral biopsy single/multiple EGD BIOPSY SINGLE/MULTIPLE [facility] Start: 06-28-2022 Patient discharge [facility] Start: 06-20-2022 Computed tomography of abdomen and pelvis with contrast Abdomen/Pelvis WITH Contrast [facility] Start: 06-20-2022 CT Abdomen and Pelvi s W contrast IV [facility] Start: 06-20-2022 Diagnostic radiograp hy of abdomen Abdomen Single View [facility] Start: 06-20-2022 XR Abdomen Single view [facility] Start: 10-04-2021 [facility] Work Phone: Start: 07-16-2019 Diabetes Screening Diabetes Screenin g [facility] Start: 07-16-2019 Lipid panel Lipid Screening [facility] Start: 07-16-2019 Screening for malign ant neoplasm of colon [facility] Start: 2014 Screening for malign ant neoplasm of breast Mammogram Screening [facility] Start: 07-16-1995 Screening for malign ant neoplasm of cervix Cervical Cancer Screening [facility] Start: 1993 Hepatitis B Vaccine (1 of 3 - 19+ 3-dose series) Hepatitis B Vaccine (1 of 3 - 19+ 3-dose series) [facility] Start: 1993 Urine microalbumin profile DTa P,Tdap,Td Vaccine (1 - Tdap) [facility] Start: 1992 Anxiety Screening Anxiety Screening [facility] Start: 1992 Depression Screening Depression Scre ing [facility] Start: 1992 Hepatitis C screening Hepatitis C Sc reening [facility] Start: 1992 HIV screening HIV Screening [facility] Colonoscopy [facility] MG Breast - bilatera l Screening [facility] MG Breast - bilatera l Screening [facility] Path report.final Dx Spec [facility] Patient referral [facility] Work Phone: Thyroglobulin antibo dy measurement [facility] Work Phone: Thyroperoxidase Ab [Units/volume] in Serum or Plasma [facility] Work Phone: End: 03-24-2025 XR Chest PA and Lateral XR CHEST 2V FRONTAL/LAT Radiology STAT Wheezing 1 Occurrences starting 02/23/2024 until 03/24/2025 [facility] Work Phone: Comment on above: 1 Occurrences starti ng 02/23/2024 until 03/24/2025 [facility] Payers Date Payer Category Payer Self-pay [id number] 2015 Unknown MMO [employer] PPO [id number] 2015-Present [phone] [address] [place] [address] PPO [id number] 2015 Unknown [id number] Unknown [id number] Unknown [id number] Unknown [id number] Unknown [id number] Unknown [id number] Unknown [id number] Unknown [id number] Unknown [id number] Social History Date Type Detail Facility Start: 02-15-2018 End: 02-19-2023 Tobacco smoking status NHIS Unknown if ever smoked [facility] Start: 1975 Sex Assigned At Female [facility] Start: 02-23-2024 Tobacco smoking status NHIS Never smoked tobacco [facility] Start: 02-23-2024 Tobacco use and exposure Smokeless tobacco non-user [facility] Start: 05-13-2020 End: 02-23-2024 History of Social function [facility] Start: 05-13-2020 End: 02-23-2024 Tobacco use panel [facility] National Score (1-100), lower number is lower risk Not on file [facility] Start: 1975 Sex assigned at Not on file [facility] Start: 02-19-2023 Tobacco smoking status NHIS Ex-smoker (finding) [facility] NEGATED: Highlighted row [facility] Goals Date Patient Goal Desired Activity /State Mental Status Date Assessment Result Facility 06-28-2022 Cognitive function Voice/Name [facility] Work Phone: Clinical Notes 06-14-2022 to 10-15-2024 Note Date & Type Note Facility 10-15-2024 Evaluation note Diagnosis Onset Date Resolution Climacteric acute October 15 3:16pm Elevated BP without diagnosis of hypertension acute October 15, 2024 3:16pm Urinary incontinence in female acute October 15, 2024 3:16pm Encounter for routine gynecological examination noneactive October 15, 2024 3:16pm [facility] Work Phone: 1(246) 451-234007-10-[address] [facility] Physical Therapy [facility] [address] [place] [address] [address] [place] [address] / REHABILITATION SERVICES DISCHARGE SUMMARY MR#: [id number] Acct: [id number] Name: NORMA GRIFFIN Rep #: [id number] : 1975 49 From: Tate Zhang PT, ATC Referring Dr.: Dr. Dannie Storm MD Status : REG RCR Insurance: [facility] SELF PAY INSURANCE Discharge Summary D/C summary: It has been my pleasure to treat NORMA GRIFFIN referred by Dr. Dannie Storm MD, with the diagnosis of R shoulder pain for a total of 8 visit(s). Discharge Date: Please see the following information for a summary of their discharge status. Subjective Subjective: No pain at rest. Pain R shoulder: Pain Intensity (Out of 10): 0 Overall Improvement % Improvement: 80 Objective Objective/Function: R shoulder pain ranges from 0-8/10 R shoulder ROM: flex= 145, abd= 125 degrees R shoulder MMT: flex= 17, abd= 27, IR= 21, ER= 23 Pt is I with HEP Goals Goal 1:: Decrease R shoulder pain x 50% to aid with sleep Goal Progress: Goal Met Goal 2:: Increase R shoulder flex and abd ROM x 30 degrees to aid with overhead lifting Goal Progress: Progressing Goal 3:: Increase R shoulder strength x 5 #F to aid with IADL's Goal Progress: Progressing Goal 4:: I with HEP Goal Progress: Goal Met Plan Plan: Discharge to [facility] D/C Information d/c sentence: If there are questions or concerns regarding this patient's physical therapy, please feel free to call me at [phone]. Thank you for the referral of thispatient. Sincerely, Tate Zhang, PT, ATC Balance/Gait/Functional tests Balance/Special Test Scores Quick DASH Score: 15.9075 Improvement % Improvement: 80 10/02/24 1032 CC: Dr. Sasha Jackson DO; Dr. Dannie Storm MD ~ [facility] Signed [facility]07-10-2025 Discharge summary Author Tate Zhang [facility] Note Date/Time October 02, 2024 10:[address] [facility] Physical Therapy [facility] [address] [place] [address] [address] [place] [address] / REHABILITATION SERVICES DISCHARGE SUMMARY MR#: [id number] Acct: [id number] Name: NORMA GRIFFIN Rep #: [id number] : 1975 49 From: Tate Zhang PT, ATC Referring Dr.: Dr. Dannie Storm MD Status : REG RCR Insurance: [facility] SELF PAY INSURANCE Discharge Summary D/C summary: It has been my pleasure to treat NORMA GRIFFIN referred by Dr. Dannie Storm MD, with the diagnosis of R shoulder pain for a total of 8 visit(s). Discharge Date: Please see the following information for a summary of their discharge status. Subjective Subjective: No pain at rest. Pain R shoulder: Pain Intensity (Out of 10): 0 Overall Improvement % Improvement: 80 Objective Objective/Function: R shoulder pain ranges from 0-8/10 R shoulder ROM: flex= 145, abd= 125 degrees R shoulder MMT: flex= 17, abd= 27, IR= 21, ER= 23 Pt is I with HEP Goals Goal 1:: Decrease R shoulder pain x 50% to aid with sleep Goal Progress: Goal Met Goal 2:: Increase R shoulder flex and abd ROM x 30 degrees to aid with overhead lifting Goal Progress: Progressing Goal 3:: Increase R shoulder strength x 5 #F to aid with IADL's Goal Progress: Progressing Goal 4:: I with HEP Goal Progress: Goal Met Plan Plan: Discharge to [facility] D/C Information d/c sentence: If there are questions or concerns regarding this patient's physical therapy, please feel free to call me at [phone]. Thank you for the referral of thispatient. Sincerely, Tate Zhang, PT, ATC Balance/Gait/Functional tests Balance/Special Test Scores Quick DASH Score: 15.9075 Improvement % Improvement: 80 <Electronically signed by Tate Zhang PT, ATC> 10/02/24 1032 CC: Dr. Sasha Jackson DO; Dr. Dannie Storm MD ~ [facility] Signed [facility] Work Phone: 1(274) 597-560706-16-2025 Radiology Diagnostic study note [facility] Imaging Services [address] [place] [address] [id number] Shoulder min 2 Views MR#: [id number] Acct: [id number] Name: NORMA GRIFFIN Rep #: [id number] : 1975 F 49 From: Dima Ashley MD PCP: Dr. Sasha Jackson DO Status: REG CLI Study:Shoulder min 2 Views Date of Exam: 09/08/24 Exam# [id number] Ordering Dr: Dannie Storm MD PROCEDURE: SHOULDER MIN 2 VIEWS 09/08/2024 REASON FOR EXAM: RT SHOULDER PAIN TECHNIQUE: SHOULDER MIN 2 VIEWS COMPARISON: None. FINDINGS: Four views of the right shoulder demonstrate no evidence of fracture or dislocation. There is mild arthritis of the acromioclavicular joint. The glenohumeral joint appears unremarkable. The periarticular soft tissues are normal. RAD/Shoulder min 2 Views IMPRESSION: Mild arthritis of the acromioclavicular joint. Reading Location: [id number] CC: Dr. Sasha Jackson DO; Dr. Dannie Storm MD ~ Pipeline Maintenance Supervisor: Signed [facility] Work Phone: 1(192) 307-814211-30-2024 NoteHNO ID: [id number] Author: LORENA ALVARADO PA-C Service: ? Author Type: Physician Enrollment Management Vice President Type: Progress Notes Filed: 02/23/2024 14:17 Note Text: This note was created using [email or web address]. Subjective Norma Griffin is a 48 year [...] , she will return Sunday for x-ray. Tanmayb tx here, patient improved.I will treat with prednisone taper and prescription for albuterol Nebules for her nebulizer she has at home. Red flags for ER care discussed. Patient agreeable. - IPRATROPIUM 0.5 MG-ALBUTEROL 3 MG (2.5 MG BASE)/3 ML NEBULIZATION SOLN - XR CHEST 2V FRONTAL/LAT ANU [facility]11-30-2024 History of Present illness Narrative* Lorena Alvarado PA-C - 02/23/2024 2:15 PM EST This note was created using [employer]. Subjective Norma Griffin is a 48 year [...] denies history of asthma or COPD. Not asmoker. She states she has never really had [...] needed for wheezing/shortness of breath. Use over 5- 15minutes. 75 mL 0 Current Facility-Administered Medications Medication [...] Bebeto tx here, patient improved.I will treat withprednisone taper and prescription for albuterol Nebules for her nebulizer she has at home. Red flags for ER care discussed. Patient agreeable. - IPRATROPIUM 0.5 MG-ALBUTEROL 3 MG (2.5 MG BASE)/3 ML NEBULIZATION SOLN - XR CHEST 2V FRONTAL/LAT Lorena Alvarado PA-C documented in this encounterV[facility]03-25-2024 Procedure [facility]01-10-2024 Discharge summary Author Daniel Choi [facility] April 04, 2023 3:55pm Note Date/Time April 04, 2023 3 :55pm [facility] Physical [facility] [address] [place] [address]. [address] [place] [address] / REHABILITATION SERVICES DISCHARGE SUMMARY MR#: [id number] Acct: [id number] Name: NORMA GRIFFIN Rep #: [id number] : 1975 47 From: Daniel Choi DPT, OCS, CSCS Referring DrNereida: Dr. Sasha Jackson, DO Status: REG RCR Insurance: [facility] SELF PAY INSURANCE Discharge Summary D/C summary: [...] please feel free to call me at [phone]. Thank you for the referral of thispatient. Sincerely, Daniel Choi DPT, STACY, CSCS Balance/Gait/Functional tests Balance/Special Test Scores Oswestry Neck Score: 18 Improvement % Improvement: 0 <Electronically signed by Daniel Choi DPT, STACY, CSCS> 04/04/23 1665 CC: Dr. Sasha Jackson DO ~ [facility] Signed [facility] Work Phone: 1(604) 189-182804-05-2023 [facility]WHol[facility] Procedure [facility]04-05-[address] [facility]04-05-2023 Procedure [facility] 06-14-2022 NotePap Smear Specimen AdequacyMarch 2022 4:06pmComment. Satisfactory for evaluation. Endocervical and/or squamous metaplasticcells (endocervical component)are present.[facility] INTERFACED A#[id number]. John Of God HospitalComment on above:Satisfactory for evaluation. Endocervical and/or squamous metaplasticcells (endocervical component)are present.06-14-2022 NotePap Smear Specimen AdequacyMarch 2022 4:06pmComment.Satisfactory for evaluation. Endocervical and/or squamous metaplasticcells (endocervical component)are present.[facility] INTERFACED A#[id number]. [facility] Of God Hospital Comment on above:Satisfactory for evaluation. Endocervical and/or squamous metaplasticcells (endocervical component)are present.06-14-2022 NotePap Smear Specimen AdequacyMarch 2022 4:06pmComment.Satisfactory for evaluation. Endocervical and/or squamous metaplasticcells (endocervical component)are present.[facility] INTERFACED A#[id number]. John Of God HospitalComment on above: Satisfactory for evaluation. Endocervical and/or squamous metaplasticcells (endocervical component)are present.Evaluation noteNo assessment information availableSt. John Of God Hospital Work Phone: Evaluation note* Diagnosis Onset Date Resolution Status LLQ abdominal pain acute RUQ abdominal pain [facility] Work Phone: Evaluation note* Diagnosis Onset Date Resolution Status Encounter to establish care acute Urinary incontinence in female [facility] Work Phone: Evaluation note* Diagnosis Wheezing- Primary documented in this encounter [facility] Diagnosis Onset Date Resolution Status Admit Date Encounter for routine gynecological examination noneactive September 242024 3:16pm [facility] Work Phone: History and physical note Author Waldemar Villela [facility] June 28, 2022 6:50am Note Date/Time June 28, 2022 6:50 am [facility] Medical Records Department [address] [place] [address] History & Physical Exam 06/28/22 0649 MR#: [id number] Acct: [id number] Name: NORMA GRIFFIN Rep #:[id number] : 1975 46 From: Waldemar Villela DO PCP: Dr. Sasha Jackson, DO Status:REG [facility] Location: [place] [address] History and Physical Date of Admission: 06/28/22 46 F who presents to the office today to establish with GI for LLQ abdominal pain as well as newer RUQ abd pain. She is scheduled for CT today as ordered by her pipe finisher Dr Palma. She had presented to [facility] with pelvic pain and fullness, as well as urinary frequency/urgency and vaginal discharge. Had pelvicUS at [facility] office on 06/14/22 which was unremarkable (2 [...] normal to inspection Quality Reporting Tobacco Screening ([facility] 138) Smoking Status: Former smoker Assessment and Plan Assessment and Plan (1) LLQ abdominal pain: ?Status:?Acute ?Plan: 46 yr old female with 6 weeks of LLQ pain and 1 week of RUQ pain. Will get KUB to eval for ureteral stone. She is scheduled for CT today as ordered by her pipe finisher. Nest step based on imaging results. Will schedule her for EGD to eval for Araujo's as well as colonoscopy. May need RUQ US. (2) RUQ abdominal pain: ?Status:?Acute\ I have examined the patient and the H&P has been reviewed. There are no clinicalchanges since date of exam. 06/28/22 0650 <Electronically signed by Waldemar Villela DO> Cosigner Signature (if applicable): CC: Dr. Sasha Jackson, DO; Waldemar Villela, ~ Signed [facility] Work Phone: Reason for referral (narrative)No reason for referral information availableWHolmes County [facility] Work Phone: Chief Complaint and Reason [...] Complaint Establish care, disc uss BV concerns, [place] pt CERVICAL RADICULOPATHY/RX HERE Reason for Visit Encounter to [facility] Urinary incontinence in female Chief Complaint Establish care, disc uss BV concerns, [place] pt CERVICAL RADICULOPATHY/RX HERE SCREENING CERVICALGIA, RADICULOPATHY LT ARM Reason for Visit Encounter to [facility] Urinary incontinence in female Chief Complaint CERVICAL RADICULOPAT HY/RX HERE SCREENING CERVICALGIA, RADICULOPATHY LT ARM LEFT ARM PAIN LEFT ARM PAIN Chief Complaint Admit Date RT SHOULDER PAIN September 08, 2024 9:34 am SHOULDER PAIN. RX HERE September 10, 2024 7 :20am Chief Complaint Admit Date RT SHOULDER PAIN September 08, 2024 9:34 am SHOULDER PAIN. RX HERE October 02, 2024 1 0:00am Chief Complaint Admit Date RT SHOULDER PAIN September 08, 2024 9:34 am SHOULDER PAIN. RX HERE October 02, 2024 1 0:00am Annual ([facility]) October 15, 2024 3:16 pm Reason for Visit Admit Date Encounter for routine gynecological exam ination October 15, 2024 3:16pm Chief Complaint Admit Date RT SHOULDER PAIN September 08, 2024 9:34 am SHOULDER PAIN. RX HERE October 02, 2024 1 0:00am Annual ([facility]) October 15, 2024 3:16 pm E ORDER October 21, 2024 9:03 am screen for breast cancer November 04 3:30pm Reason for Visit Admit Date Climacteric October 15, 2024 3:16 pm Elevated BP without diagnosis of hyperte nsion October 15, 2024 3:16pm Urinary incontinence in female September 3:16pm Encounter for routine gynecological exam ination October 15, 2024 3:16pm Family History No Family History Records Found [...] Will No April 20 4:14pm Power of Traffic Line Painter No April 20, 2016 4:14pm Advance Directive Response Recorded Date/ Time Advance Directives No April 20, 2016 3:14pm Living Will No April 20 3:14pm Power of Traffic Line Painter No April 20, 2016 3:14pm Advance Directive Response Recorded Date/ Time Advance Directives No April 20, 2016 4:14pm Living Will No June 23, 2022 11:34am Power of Traffic Line Painter No June 23 11:34am Advance Directive Response Recorded Date/ Time Advance Directives No April 20, 2016 3:14pm Living Will No June 23, 2022 10:34am Power of Traffic Line Painter No June 23 10:34am Advance Directive Response Recorded Date/ Time Advance Directives No April 20, 2016 4:14pm Summary Purpose Additional Source Comments Goals (unrecognized [...] Sasha Jackson DO Primary Care Provider, Attending P rovider Active Team Status: Inactive Member Role Status Dates Dr. Sasha Jackson DO Primary Care Provide r, Attending Provider, Referring Provider Active Team Status: Active Member Role Status Dates Dr. Sasha Jackson DO Primary Care Provider Active Dr. Mayra Palma DO Attending Provider Active Team Status: Inactive Member Role Status Dates Dr. Sasha Jackson DO Primary Care Provider Active Dr. Mayra Palma DO Attending Provider Active Team Status: Inactive Member Role Status Dates Dr. Sasha Jackson DO Primary Care Provider, Referring P rovider Active Bouchra Beaver LAND APPRAISER, LAND APPRAISER-C Attending Provider Active Team Status: Active Member Role Status Dates Dr. Sasha Jackson DO Primary Care Provider, Referring P rovider Active Dr. Waldemar Villeal , DO Attending Provider, Other Prov ider Active Team Status: Inactive Member Role Status Dates Dr. Sasha Jackson DO Primary Care Provider, Referring P rovider Active Dr. Waldemar Villela , DO Attending Provider Active Team Status: Active Member Role Status Dates Dr. Sasha Jackson DO Primary Care Provider Active Bouchra Beaver LAND APPRAISER, LAND APPRAISER-C Attending Provider, Referrin g Provider Active Team Status: Inactive Member Role Status Dates Dr. Sasha Jackson DO Primary Care Provider Active Bouchra Beaver LAND APPRAISER, LAND APPRAISER-C Attending Provider, Referrin g Provider Active Team [...] Dr. 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 Sasha Jackson DO Primary Care Provider Active Team Status: Inactive Member Role Status Dates Dr. Sasha Jackson DO Primary Care Provider Active Start: September 08, 2024 End: September 08, 2024 Dr. Dannie Storm MD Attending Provider Active Start: September 08, 2024 End: September 08, 2024 Dr. Dannie Storm MD Referring Provider Active Start: September 08, 2024 End: September 08, 2024 Team Status: Active Member Role Status Dates Dr. Sasha Jackson DO Primary Care Provider Active Start: September 10, 2024 Dr. Dannie Storm MD Attending Provider Active Start: September 10, 2024 Dr. Dannie Storm MD Referring Provider Active Start: September 10, 2024 Team Status: Active Member Role/Relationship Status Dates Dr. Sasha Jackson DO Primary Care Provider Active Team Status: Inactive Member Role/Relationship Status Dates Dr. Sasha Jackson DO Primary Care Provider Active Start: September 08, 2024 End: September 08, 2024 Dr. Dannie Storm MD Attending Provider Active Start: September 08, 2024 End: September 08, 2024 Dr. Dannie Storm MD Referring Provider Active Start: September 08, 2024 End: September 08, 2024 Team Status: Inactive Member Role/Relationship Status Dates Dr. Sasha Jackson DO Primary Care Provider Active Start: October 02, 2024 End: October 02, 2024 Dr. Dannie Storm MD Attending Provider Active Start: October 02, 2024 End: October 02, 2024 Dr. Dannie Storm MD Referring Provider Active Start: October 02, 2024 End: October 02, 2024 Team Status: Inactive Member Role/Relationship Status Dates Dr. Sasha Jackson DO Primary Care Provider Active Start: October 15, 2024 End: October 15, 2024 Dr. Sasha Jackson DO Referring Provider Active St art: October 15, 2024 End: October 15, 2024 Crissy Garza LAND APPRAISER-C Attending Provider Active Start: October 15, 2024 End: October 15, 2024 Team Status: Inactive Member Role/Relationship Status Dates Dr. Sasha Jackson DO Primary Care Provider Active Start: October 21, 2024 End: October 21, 2024 Crissy Garza LAND APPRAISER-C Attending Provider Active Start: October 21, 2024 End: October 21, 2024 Crissy Garza LAND APPRAISER-C Referring Provider Active Start: October 21, 2024 End: October 21, 2024 Team Status: Active Member Role/Relationship Status Dates Dr. Sasha Jackson DO Primary Care Provider Active Start: November 04, 2024 Crissy Garza LAND APPRAISER-C Attending Provider Active Start: November 04, 2024 Crissy Garza LAND APPRAISER-C Referring Provider Active Start: November 04, 2024 Team Status: Inactive Member Role/Relationship Status Dates Dr. Sasha Jackson DO Primary Care Provider Active Start: November 04, 2024 End: November 04, 2024 Crissy Garza LAND APPRAISER-C Attending Provider Active Start: November 04, 2024 End: November 04, 2024 Crissy Garza LAND APPRAISER-C Referring Provider Active Start: November 04, 2024 End: November 04, 2024 Source Comments (unrecognize d section and content) In the event this informatio n is protected by the Federal Confidentiality of Alcohol and Drug Abuse Patient Records regulations: The Federal rules restrict any use of the information to criminally investigate or prosecute any alcohol or drug abuse patient.[facility] Reason for Visit (unrecogniz ed section and content) Reason Comments Cough Wheezing, sob x 3 we eks INFORMATION SOURCE (unrecogn ized section and content) DATE CREATED AUTHOR 02/24/2024 [facility] DATE CREATED AUTHOR 'S EARLEIZ ATION 11/29/2024 [facility] FOR RECORDS PERTAINING TO PATIENTS WHO ARE [...] BE BASED ON THE PRIMARY CLINICAL RECORDS. [facility] Team [employer] [facility]. provides no warranty or guarantee of the accuracy or completeness of information in this document.
== END | disposition home or self-care (01) ==
PROVIDERS: PCP Family Medicine; Referring Provider Anesthesiology; Visit Provider Anesthesiology
DX: M25.511 Pain in right shoulder (principal)
CPT/HCPCS: 73221

== ENCOUNTER → 2024-12-10 | Outpatient (CLI) | payer OTHER, SELFPAY ==
--- OUTSIDE RECORDS SUMMARY | 2024-12-10 06:45 | XMS RPT_ITS | CCD ---
Author Organization [facility] Care Team Providers Care Metal Drilling Machine Operator Name Role Phone Dr. Sasha Jackson Primary Care Provider [phone] Dr. Sasha Jackson Referring Provider [phone] Sd MARTINEZ, METAL SMELTER-C Bouchra Castro Attending Provider [phone] Friend, Dr. Medeiros Attending Provider [phone] Friend, Dr. Medeiros Other Provider [phone] Dr. Sasha Jackson Primary Care Provider Dr. Sasha Jackson Referring Provider [phone] VIKA Fine Attending Provider [phone] Sasha Jackson Primary Care Provider Dr. Sasha Jackson Referring Provider Dr. Sasha Jackson Other Provider Dr. Jeferson Ramos Attending Provider [phone] Sasha Jackson DO Primary Care Provider SASHA JACKSON Primary Care Unavailable Dr. Sasha Jackson DO Primary Care Provider Dr. Dannie Storm MD Attending Provider Dr. Dannie Storm MD Referring Provider Dr. Sasha Jackson DO Referring Provider [phone] Kayla MARTINEZ-Crissy Adams Attending Provider Kayla MARTINEZ-CCrissy Referring Provider Sasha Jackson Primary Care Unavailable Unique Hayes Attending Unavailable Unique Hayes Referring Unavailable Malys, Sasha Primary Care Unavailable PraysonJfDannie Attending Unavailable Prayson, Dannie Referring Unavailable BarkmanCrissy Attending Unavailable Malys, Sasha Referring Unavailable Malys, Sasha Primary Care Unavailable Barkman, Crissy Referring Unavailable Malys, Sasha Primary Care Unavailable BarkmanCrissy Attending Unavailable Barkman, Crissy Attending Unavailable Malys, Sasha Primary Care Unavailable BarkmanLucasCrissy Referring Unavailable Malys, Sasha Primary Care Unavailable Malys, Sasha Attending Unavailable Malys, Sasha Referring Unavailable Prayson, Dannie Attending Unavailable Prayson, Dannie Referring Unavailable Malys, Sasha Primary Care Unavailable Prayson, Dannie Attending Unavailable Prayson, Dannie Referring Unavailable Malys, Sasha Primary Care Unavailable Medications Current Medications Medication Drug Class(es) Dates Sig (Normalized) Sig (Original) albuterol 0.83 mg/ml inhalation solution (19 sources) beta2-Adrenergic Agonist Start: 02-23-2024 take 2.5 [...] 2022 8:06am amoxicillin 500 mg oral capsule (18 sources) Penicillin-class Antibacterial Start: 02-19-2024 take 1 [...] 10:29am calcium citrate 1040 mg oral tablet (4 sources) Start: 10-15-2024 take 1 tablet by mouth once daily Calcium Citrate 250 mg calcium tablet Active 250 mg PO daily October 15, 2024 12:00am cholecalciferol 0.025 mg oral capsule (4 sources) Vitamin D Start: 10-15-2024 take 1 capsule by mouth once daily Cholecalciferol (Vitamin D3) 25 mcg (1,000 unit) capsule Active 25 ug PO daily October 15, 2024 12:00am Creatine Monohydrate 5,000 mg powder in packet (4 sources) Start: 10-15-2024 Creatine Monohydrate 5,000 mg powder in packet Active mg PO October 15, 2024 12:00am Mag Trisilicate-Alum Hydroxide 20-80 mg tablet,chewable (4 sources) Start: 10-15-2024 Mag Trisilicate-Alum Hydroxide 20-80 mg tablet,chewable Active {tbl} PO October 15, 2024 12:00am [place] (Nk) (1 source) Start: 06-23-2022 [place] (Nk) Active June 23, 2022 12:00am pantoprazole 20 mg delayed release oral tablet (12 sources) Proton Pump Inhibitor Start: 02-20-2024 take [...] 21 tablet 02/23/2024 03/03/2024 Active Turmeric extract (4 sources) Start: 10-15-2024 Turmeric 400 m g capsule Active mg PO October 15, 2024 12:00am Vitamin B Complex tablet (4 sources) Start: 10-15-2024 Vitamin B Comp irineo tablet Active 1 {tbl} PO daily October 15, 2024 12:00am Completed/Discontinued Medications Medication Drug Class(es) Dates Sig (Normalized) Sig (Original) acetaminophen 325 mg / oxyCODONE hydrochloride 5 mg oral tablet (17 sources) Opioid Agonist Start: 05-03-2016 End: 02-15-2018 [...] mg / clavulanate 125 mg oral tablet (17 sources) Penicillin-class Antibacterial Start: 02-15-2018 End: 02-25-2018 Amoxicillin-Pot Clavulanate (Augmentin) 875-125 mg tablet Discontinued 1 {tbl} PO Q12H 10 0 February 15, 2018 1:00am February 24, 2018 1:00am February 25, 2018 1:11am Acute sinusitis, unspecified benzonatate 100 mg oral capsule (17 sources) Non-narcotic Antitussive Start: 02-15-2018 End: 06-20-2022 [...] mg/ml / guaiFENesin 20 mg/ml oral solution (17 sources) Opioid Agonist Start: 02-15-2018 End: 06-20-2022 [...] 2022 8:06am ibuprofen 600 mg oral tablet (17 sources) Nonsteroidal Anti-inflammatory Drug Start: 04-20-2016 End: 06-20-2022 Ibuprofen 600 MG tablet Discontinued 600 mg PO NEEDED as needed for Pain April 20, 2016 1:00am June 20, 2022 8:06am methylPREDNISolone 4 mg oral tablet (17 sources) Corticosteroid Start: 02-15-2018 End: 02-20-2018 take [...] Multivitamin With Folic Acid 1 TABLET tablet (6 sources) Start: 04-20-2016 End: 02-15-2018 take 1 tablet by mouth once daily Multivitamin With Folic Acid 1 TABLET tablet Discontinued 1 {tbl} PO DAILY April 20, 2016 1:00am February 15, 2018 10:29am Problems Active Problems Problem Classification Problem Date Documented Da te Episodic/Chronic Abdominal pain (20 sources) Right upper quadrant pain; Translations: [Right upper quadrant pain] 06-20-2022 Episodic Acute bronchitis (17 sources) Acute bronchitis; Translations: [Acute bronchitis, unspecified] 02-15-2018 Episodic Administrative/social admission (20 sources) Patient encounter status; Translations: [Persons encountering health services in other specified circumstances] 02-19-2023 Episodic Cardiac dysrhythmias (13 sources) Multiple premature ventricular complexes; Translations: [Ventricular premature depolarization] 06-20-2022 Chronic Cardiac dysrhythmias (1 source) Palpitations; Translations: [Palpitations] Onset: 12-05-2024 Episodic Genitourinary symptoms and ill-defined conditions (17 sources) Urinary incontinence; Translations: [Unspecified urinary incontinence] 02-19-2023 Chronic Menopausal disorders (6 sources) Menopausal syndrome; Translations: [Menopausal and female climacteric states] 10-15-2024 Chronic Nutritional deficiencies (13 sources) Vitamin D deficiency; Translations: [Vitamin D deficiency, unspecified] 06-20-2022 Chronic Other circulatory disease (6 sources) Elevated blood-pressure reading without diagnosis of hypertension; Translations: [Elevated blood-pressure reading, without diagnosis of hypertension] 10-15-2024 Episodic Other lower respiratory disease (1 source) Wheezing; Translations: [Wheezing] 02-23-2024 Episodic Other non-traumatic joint disorders (1 source) Pain in right shoulder; Translations: [Pain in right shoulder] Onset: 12-04-2024 Episodic Other screening for suspected conditions (not mental disorders or infectious disease) (2 sources) Encounter for screening mammogram for malignant neoplasm of breast; Translations: [Encounter for screening for other suspected endocrine disorder] Onset: 11-07-2024 Episodic Residual codes; unclassified (11 sources) Early satiety; Translations: [Early satiety] 07-03-2022 Episodic Unclassified (6 sources) R32 - Unspecified urinary incontinence Past or Other Problems Problem Classification Problem Date Documented Da te Episodic/Chronic Other lower respiratory disease (1 source) Dyspnea, unspecified; Translations: [Dyspnea, unspecified] Onset: 03-04-2024 Episodic Results Test Name Value Interpretation Reference Range Facility Magnetic resonance imaging r eportOrdered By: Jas Davis on 12-01-[address] [facility] Imaging Services [address] [place], [place] [address] Upper Ext Joint Only(Routine) MR#: [id number] Acct: [id number] Name: NORMA GRIFFIN Rep #: [id number] : 1975 F 49 From: Manuelito Davis MD PCP: Dr. Sasha Jackson DO Status: REG CLI Study:Upper Ext Joint Only(Routine) Date of Exam: 12/01/24 Exam# [id number] Ordering Dr: Dannie Storm MD PROCEDURE: UPPER EXT JOINT ONLY(ROUTINE) 12/01/2024 REASON FOR EXAM: RT SHOULDER PAIN TECHNIQUE: Procedure Code: MRIUEJ Modality: MR Procedure: UPPER EXT JOINT ONLY(ROUTINE) Multiplanar and multisequence images were obtained without IV contrast administration. COMPARISON: COMPARISON: None FINDINGS: The bone marrow signal is unremarkable. There is no contusion or bone marrow replacing process. No acute fracture seen. The supraspinatus is within normal limits. Minimal tendinosis seen at the insertion of the infraspinatus tendons. Normal subscapularis. Biceps tendon is within the bicipital groove. The biceps labralcomplex has a normal appearance. There is no labral tear. Minimal loss of cartilage seen in the glenohumeral joint. No loose body. No effusion. Mild AC joint arthropathy. No significant mass effect on the myotendinous junction. Minimal amount of fluid in the subacromial subdeltoid bursa noted. The adjacent musculature and soft tissues of the shoulder are otherwise normal. MRI/Upper Ext Joint Only(Routine) IMPRESSION: Mild tendinosis of the infraspinatus tendon. No rotator cuff tear. No labral tear. Mild degenerative changes of the acromioclavicular and glenohumeral joint. Reading Location: [facility] CC: Dr. Sasha Jackson DO; Dr. Dannie Storm MD ~ Mental Health Aides Teacher: Signed [facility] Upper Ext Joint Only(Routine )on 12-01-2024 Upper Ext Joint Only(Routine) [facility] Imaging Services [address] [place], [place] [address] Upper Ext Joint Only(Routine) MR#: [id number] Acct: [id number] Name: NORMA GRIFFIN Rep #: [id number] : 1975 F 49 From: Jas brady MD PCP: Dr. Sasha Jackson DO Status: REG CLI Study: Upper Ext Joint Only(Routine) Date of Exam: 0 12/01/24 Exam# [id number] Ordering Dr: Dannie Storm MD PROCEDURE: UPPER EXT JOINT ONLY(ROUTINE) 12/01/2024 REASON FOR EXAM: RT SHOULDER PAIN TECHNIQUE: Procedure Code: MRIUEJ Modality: MR Procedure: UPPER EXT JOINT ONLY(ROUTINE) Multiplanar and multisequence images were obtained without IV contrast administration. COMPARISON: COMPARISON: None FINDINGS: The bone marrow signal is unremarkable. There is no contusion or bone marrow replacing process. No acute fracture seen. The supraspinatus is within normal limits. Minimal tendinosis seen at the insertion of the infraspinatus tendons. Normal subscapularis. Biceps tendon is within the bicipital groove. The biceps labral complex has a normal appearance. There is no labral tear. Minimal loss of cartilage seen in the glenohumeral joint. No loose body. No effusion. Mild AC joint arthropathy. No significant mass effect on the myotendinous junction. Minimal amount of fluid in the subacromial subdeltoid bursa noted. The adjacent musculature and soft tissues of the shoulder are otherwise normal. MRI/Upper Ext Joint Only(Routine) IMPRESSION: Mild tendinosis of the infraspinatus tendon. No rotator cuff tear. No labral tear. Mild degenerative changes of the acromioclavicular and glenohumeral joint. Reading Location: [id number] CC: Dr. Sasha Jackson DO; Dr. Dannie Storm MD Mental Health Aides Teacher: Signed Normal [facility] Breast imaging reportOrdered By: Cassidy Monreal on 11-04-[address] [facility] Imaging Services [address] [place], [place] [address] SCRN MAMM (CAD)W/SHARI BILAT MR#: [id number] Acct: [id number] Name: NORMA GRIFFIN Rep #: [id number] : 1975 F 49 From: Dain Correa MD PCP: Dr. Sasha Jackson DO Status: REG CLI Study:SCRN MAMM (CAD)W/SHARI BILAT Date of Exa m: 11/04/24 Exam# [id number] Ordering Dr: Crissy Garza METAL SMELTER-C EXAM: SCRN MAMM (CAD)W/SHARI BILAT DATE: 11/04/2024 [...] be mailed to the patient. Reading Location: [facility] CC: HAKEEM Garza; Dr. Sasha Jackson DO ~ Mental Health Aides Teacher: Signed [facility] SCRN MAMM (CAD)W/SHARI BILATo n 11-04-2024 SCRN MAMM (CAD)W/SHARI BILAT [facility] Imaging Services [address] [place], [place] [id number] SCRN MAMM (CAD)W/SHARI BILAT MR#: [id number] Acct: [id number] Name: NORMA GRIFFIN Rep #: [id number] : 1975 F 49 From: Cassidy Mckeon i, MD PCP: Dr. Sasha Jackson DO Status: [facility] CLI Study: SCRN MAMM (CAD)W/SHARI BILAT Date of Exam: 10/24 05/20 Exam# [id number] Ordering Dr: Crissy Garza METAL SMELTER-Bryan EXAM: SCRN MAMM (CAD)W/SHARI BILAT DATE: 11/04/2024 [...] be mailed to the patient. Reading Location: [id number] CC: HAKEEM Garza; Dr. Sasha Jackson DO Mental Health Aides Teacher: Signed Normal [facility] Testosterone Freeon 10-25-19 25 TESTOSTER FREE 0.3 pg/mL Normal 0.0-4.2 [facility] Comment on above: Result Comment: Perf ormed at: BN - [facility] [address] [id number] Cycle Repairer: Anjel Aguayo MD, Phone: [phone] Performed By: #### L 501.6640, L509.3001, L100.0100, L500.4050, L503.0106, L506.1001, L506.0400, L3100.5125, L3300.1750, L500.4100, L3400.4800 ####[facility] [id number] [place], [address] Hemoglobin A1con 10-23-2024 HbA1c (Bld) [Mass fraction] 5.8 % High <=5.6 [facility] Comment on above: Order Comment: Comme nts: Please add to labs recently drawn Result Comment: Norm al < 5.7 % Prediabetic 5.7 - 6.4 % Diabetic >or= 6.5 % Please note range changes. Performed By: #### L 501.9985 ####[facility] [id number] [place], [address] Absolute lymphocyte countOrd ered By: Crissy Garza on 10-21-2024 Lymphocytes Auto (Unsp spec) [#/Vol] 1.93 10*3/uL 0.83-4.51 [facility] Absolute neutrophil countOrd ered By: Crissy Garza on 10-21-2024 Neutrophils (Bld) [#/Vol] 4.0 10*3/uL 2.0-7.7 [facility] Anion gap in Serum or Plasma Ordered By: Crissy Garza on 10-21-2024 Anion gap [Moles/Vol] 11 mmol/L 5-15 [facility] Automated lymphocyte count a s percentage of total leukocytesOrdered By: Crissy Garza on 10-21-2024 Lymphocytes/100 WBC Auto (Unsp spec) 29.5 % 19-41 [facility] BUN/creatinine ratioOrdered By: Crissy Garza on 10-21-2024 Urea nitrogen/Creatinine [Mass ratio] 21.1 mg/mg High 10-20 [facility] Basophil percentageOrdered B y: Crissy Garza on 10-21-2024 Basophils/100 WBC (Bld) 0.3 % 0-1 [facility] Bilirubin, totalOrdered By: Crissy Garza on 10-21-2024 Bilirubin [Mass/Vol] 0.42 mg/dL 0.00-1.30 [facility] CBC W/Diff, Automatedon 09-24 Absolute Lymph 1.93 X10 3/uL Normal 0.83-4.51 [facility] Comment on above: Performed By: #### L 501.9520, L509.3001, L100.0100, L500.4050, L503.0106, L506.1001, L506.0400, L3100.5125, L3300.1750, L500.4100, L3400.4800 #### [facility] [address] [place], [place], [phone] (043) Absolute Neut 4.0 X10 3/uL Normal 2.0-7.7 [facility] Comment on above: Performed By: #### L 501.9520, L509.3001, L100.0100, L500.4050, L503.0106, L506.1001, L506.0400, L3100.5125, L3300.1750, L500.4100, L3400.4800 #### [facility] [address] [place], [place], [id number] (137) Basophils/100 WBC (Bld) 0.3 % Normal 0-1 [facility] Comment on above: Performed By: #### L 501.9520, L509.3001, L100.0100, L500.4050, L503.0106, L506.1001, L506.0400, L3100.5125, L3300.1750, L500.4100, L3400.4800 #### [facility] [address] [place], [place], [phone] (094) Eosinophils/100 WBC (Bld) 0.9 % Normal 0-5 [facility] Comment on above: Performed By: #### L 501.9520, L509.3001, L100.0100, L500.4050, L503.0106, L506.1001, L506.0400, L3100.5125, L3300.1750, L500.4100, L3400.4800 #### [facility] [address] [place], [place], [phone] (276) Erythrocyte distribution width (RBC) [Ratio] 14.1 % Normal 11.6-14.6 [facility] Comment on above: Performed By: #### L 501.9520, L509.3001, L100.0100, L500.4050, L503.0106, L506.1001, L506.0400, L3100.5125, L3300.1750, L500.4100, L3400.4800 #### [facility] [address] [place], [address] Hematocrit (Bld) [Volume fraction] 40.6 % Normal 37-47 [facility] Comment on above: Performed By: #### L 501.9520, L509.3001, L100.0100, L500.4050, L503.0106, L506.1001, L506.0400, L3100.5125, L3300.1750, L500.4100, L3400.4800 #### [facility] [address] [place], [address] Hemoglobin (Bld) [Mass/Vol] 13.0 g/dL Normal 12.0-15.0 [facility] Comment on above: Performed By: #### L 501.9520, L509.3001, L100.0100, L500.4050, L503.0106, L506.1001, L506.0400, L3100.5125, L3300.1750, L500.4100, L3400.4800 #### [facility] [address] [place], [address] IG% 0.300 Normal 0.0-0.9 [facility] Comment on above: Result Comment: IG% - Immature Granulocytes (promyelocytes, myelocytes and metamyelocytes) > 1% indicates that a LEFT SHIFT is Present. Performed By: #### L 501.9520, L509.3001, L100.0100, L500.4050, L503.0106, L506.1001, L506.0400, L3100.5125, L3300.1750, L500.4100, L3400.4800 #### [facility] [address] [place], [address] Lymphocytes/100 WBC (Bld) 29.5 % Normal 19-41 [facility] Comment on above: Performed By: #### L 501.9520, L509.3001, L100.0100, L500.4050, L503.0106, L506.1001, L506.0400, L3100.5125, L3300.1750, L500.4100, L3400.4800 #### [facility] [address] [place], [address] MCH (RBC) [Entitic mass] 28.7 pg Normal 27.0-32.0 [facility] Comment on above: Performed By: #### L 501.9520, L509.3001, L100.0100, L500.4050, L503.0106, L506.1001, L506.0400, L3100.5125, L3300.1750, L500.4100, L3400.4800 #### [facility] [address] [place], [address] MCHC (RBC) [Mass/Vol] 32.0 g/dL Normal 32-36 [facility] Comment on above: Performed By: #### L 501.9520, L509.3001, L100.0100, L500.4050, L503.0106, L506.1001, L506.0400, L3100.5125, L3300.1750, L500.4100, L3400.4800 #### [facility] [address] [place], [address] MCV (RBC) [Entitic vol] 89.6 fL Normal 81-99 [facility] Comment on above: Performed By: #### L 501.9520, L509.3001, L100.0100, L500.4050, L503.0106, L506.1001, L506.0400, L3100.5125, L3300.1750, L500.4100, L3400.4800 #### [facility] [address] [place], [address] Monocytes/100 WBC (Bld) 7.2 % Normal 0-10 [facility] Comment on above: Performed By: #### L 501.9520, L509.3001, L100.0100, L500.4050, L503.0106, L506.1001, L506.0400, L3100.5125, L3300.1750, L500.4100, L3400.4800 #### [facility] [address] [place], [address] ( Neutrophils/100 WBC (Bld) 61.8 % Normal 47-70 [facility] Comment on above: Performed By: #### L 501.9520, L509.3001, L100.0100, L500.4050, L503.0106, L506.1001, L506.0400, L3100.5125, L3300.1750, L500.4100, L3400.4800 #### [facility] [address] [place], [address] (211) Nucleated RBC (Bld) [#/Vol] 0 10*3/uL Normal 0-5 [facility] Comment on above: Performed By: #### L 501.9520, L509.3001, L100.0100, L500.4050, L503.0106, L506.1001, L506.0400, L3100.5125, L3300.1750, L500.4100, L3400.4800 #### [facility] [address] [place], [address] ( Platelet mean volume (Bld) [Entitic vol] 11.2 fL Normal 6.2-12.0 [facility] Comment on above: Performed By: #### L 501.9520, L509.3001, L100.0100, L500.4050, L503.0106, L506.1001, L506.0400, L3100.5125, L3300.1750, L500.4100, L3400.4800 #### [facility] [address] [place], [address] Platelets (Bld) [#/Vol] 289 10*3/uL Normal 150-450 [facility] Comment on above: Performed By: #### L 501.9520, L509.3001, L100.0100, L500.4050, L503.0106, L506.1001, L506.0400, L3100.5125, L3300.1750, L500.4100, L3400.4800 #### [facility] [address], [address] RBC (Bld) [#/Vol] 4.53 10*6/uL Normal 4.2-5.4 [facility] Comment on above: Performed By: #### L 501.9520, L509.3001, L100.0100, L500.4050, L503.0106, L506.1001, L506.0400, L3100.5125, L3300.1750, L500.4100, L3400.4800 #### [facility] [address] [place], [address] RDW SD 46.0 fl High 35.1-43.9 [facility] Comment on above: Performed By: #### L 501.9520, L509.3001, L100.0100, L500.4050, L503.0106, L506.1001, L506.0400, L3100.5125, L3300.1750, L500.4100, L3400.4800 #### [facility] [address] [place], [address] WBC (Bld) [#/Vol] 6.5 10*3/uL Normal 4.4-11.0 [facility] Comment on above: Performed By: #### L 501.9520, L509.3001, L100.0100, L500.4050, L503.0106, L506.1001, L506.0400, L3100.5125, L3300.1750, L500.4100, L3400.4800 #### [facility] [address] [place], [address] Calculated very low density lipoprotein (VLDL) cholesterol measurementOrdered By: Crissy Garza on 10-21-2024 Calculated very low density lipoprotein (VLDL) cholesterol measurement 8 mg/dL 5-40 [facility] Carbon dioxide, total [Moles /volume] in Central venous bloodOrdered By: Crissy Garza on 10-21-2024 CO2 [Moles/Vol] 23.5 mmol/L 21.0-32.0 [facility] Chloride assayOrdered By: Kayley Garza on 10-21-2024 Chloride [Moles/Vol] 104 mmol/L 98-108 [facility] Comprehensive Metabolic Prof ilon 10-21-2024 Albumin [Mass/Vol] 4.1 g/dL Normal 3.5-5.0 [facility] Comment on above: Performed By: #### L 501.9520, L509.3001, L100.0100, L500.4050, L503.0106, L506.1001, L506.0400, L3100.5125, L3300.1750, L500.4100, L3400.4800 #### [facility] [address] [place], [place], [id number] Albumin/Globulin [Mass ratio] 1.6 {ratio} Normal 0.9-2.4 [facility] Comment on above: Performed By: #### L 501.9520, L509.3001, L100.0100, L500.4050, L503.0106, L506.1001, L506.0400, L3100.5125, L3300.1750, L500.4100, L3400.4800 #### [facility] [address] [place], [place], [id number] ALK PHOS 73 U/L Normal 35-104 [facility] Comment on above: Performed By: #### L 501.9520, L509.3001, L100.0100, L500.4050, L503.0106, L506.1001, L506.0400, L3100.5125, L3300.1750, L500.4100, L3400.4800 #### [facility] [address] [place], [place], [id number] ALT [Catalytic activity/Vol] 16 U/L Normal <=34 [facility] Comment on above: Performed By: #### L 501.9520, L509.3001, L100.0100, L500.4050, L503.0106, L506.1001, L506.0400, L3100.5125, L3300.1750, L500.4100, L3400.4800 #### [facility] [address] [place], [place], [id number] AST [Catalytic activity/Vol] 14 U/L Normal <=31 [facility] Comment on above: Performed By: #### L 501.9520, L509.3001, L100.0100, L500.4050, L503.0106, L506.1001, L506.0400, L3100.5125, L3300.1750, L500.4100, L3400.4800 #### [facility] [address] [place], [place], [id number] Bilirubin [Mass/Vol] 0.42 mg/dL Normal 0.00-1.30 [facility] Comment on above: Performed By: #### L 501.9520, L509.3001, L100.0100, L500.4050, L503.0106, L506.1001, L506.0400, L3100.5125, L3300.1750, L500.4100, L3400.4800 #### [facility] [address] [place], [address] BUN/CRE 21.1 RATIO High 10-20 [facility] Comment on above: Performed By: #### L 501.9520, L509.3001, L100.0100, L500.4050, L503.0106, L506.1001, L506.0400, L3100.5125, L3300.1750, L500.4100, L3400.4800 #### [facility] [address] [place], [address] Calcium [Mass/Vol] 9.2 mg/dL Normal 7.6-11.0 [facility] Comment on above: Performed By: #### L 501.9520, L509.3001, L100.0100, L500.4050, L503.0106, L506.1001, L506.0400, L3100.5125, L3300.1750, L500.4100, L3400.4800 #### [facility] [address] [place], [address] Chloride [Moles/Vol] 104 mmol/L Normal 98-108 [facility] Comment on above: Performed By: #### L 501.9520, L509.3001, L100.0100, L500.4050, L503.0106, L506.1001, L506.0400, L3100.5125, L3300.1750, L500.4100, L3400.4800 #### [facility] [address] [place], [address] CO2 [Moles/Vol] 23.5 mmol/L Normal 21.0-32.0 [facility] Comment on above: Performed By: #### L 501.9520, L509.3001, L100.0100, L500.4050, L503.0106, L506.1001, L506.0400, L3100.5125, L3300.1750, L500.4100, L3400.4800 #### [facility] [address] [place], [address] Creatinine [Mass/Vol] 0.82 mg/dL Normal 0.70-1.20 [facility] Comment on above: Performed By: #### L 501.9520, L509.3001, L100.0100, L500.4050, L503.0106, L506.1001, L506.0400, L3100.5125, L3300.1750, L500.4100, L3400.4800 #### [facility] [address] [place], [address] GAP 11 Normal 5-15 [facility] Comment on above: Performed By: #### L 501.9520, L509.3001, L100.0100, L500.4050, L503.0106, L506.1001, L506.0400, L3100.5125, L3300.1750, L500.4100, L3400.4800 #### [facility] [address] [place], [place], [phone] GFR/1.73 sq M.predicted among non-blacks MDRD (S/P/Bld) [Vol rate/Area] 87 mL/min/{1.73_m2} Normal >60 [facility] Comment on above: Result Comment: mL/m in/1.73m2 CKD-EPI Creatinine Equation (2020) Performed By: #### L 501.9520, L509.3001, L100.0100, L500.4050, L503.0106, L506.1001, L506.0400, L3100.5125, L3300.1750, L500.4100, L3400.4800 #### [facility] [address] [place], [address] Globulin (S) [Mass/Vol] 2.5 g/dL Normal 2.2-4.2 [facility] Comment on above: Performed By: #### L 501.9520, L509.3001, L100.0100, L500.4050, L503.0106, L506.1001, L506.0400, L3100.5125, L3300.1750, L500.4100, L3400.4800 #### [facility] [address] [place], [address] Glucose [Mass/Vol] 105 mg/dL High 70-99 [facility] Comment on above: Performed By: #### L 501.9520, L509.3001, L100.0100, L500.4050, L503.0106, L506.1001, L506.0400, L3100.5125, L3300.1750, L500.4100, L3400.4800 #### [facility] [address] [place], [place], [phone] (336) Potassium [Moles/Vol] 4.3 mmol/L Normal 3.3-5.1 [facility] Comment on above: Performed By: #### L 501.9520, L509.3001, L100.0100, L500.4050, L503.0106, L506.1001, L506.0400, L3100.5125, L3300.1750, L500.4100, L3400.4800 #### [facility] [address] [place], [place], [phone] (637) Sodium [Moles/Vol] 139 mmol/L Normal 133-145 [facility] Comment on above: Performed By: #### L 501.9520, L509.3001, L100.0100, L500.4050, L503.0106, L506.1001, L506.0400, L3100.5125, L3300.1750, L500.4100, L3400.4800 #### [facility] [address] [place], [address] T PROT 6.6 g/dL Normal 5.9-8.4 [facility] Comment on above: Performed By: #### L 501.9520, L509.3001, L100.0100, L500.4050, L503.0106, L506.1001, L506.0400, L3100.5125, L3300.1750, L500.4100, L3400.4800 #### [facility] [address] [place], [place], [id number] Urea nitrogen [Mass/Vol] 17 mg/dL Normal 4-19 [facility] Comment on above: Performed By: #### L 501.9520, L509.3001, L100.0100, L500.4050, L503.0106, L506.1001, L506.0400, L3100.5125, L3300.1750, L500.4100, L3400.4800 #### [facility] [address] [place], [place], [id number] Eosinophil percentageOrdered By: Crissy Garza on 10-21-2024 Eosinophils/100 WBC (Bld) 0.9 % 0-5 [facility] Erythrocyte distribution wid th ratioOrdered By: Crissy Garza on 10-21-2024 Erythrocyte distribution width (RBC) [Ratio] 14.1 % 11.6-14.6 [facility] Erythrocyte distribution wid th standard deviationOrdered By: Crissy Garza on 10-21-2024 Erythrocyte distribution width (RBC) [Ratio] 46.0 fl High 35.1-43.9 [facility] Estradiolon 10-21-2024 ESTRADIOL 30.0 pg/mL Normal [facility] Comment on above: Result Comment: FEMA LES [...] L503.0106, L506.1001, L506.0400, L3100.5125, L3300.1750, L500.4100, L3400.4800 ####[facility] [address] [place], [address] Follicle Stimulating Hormone on 10-21-2024 FSH 7.4 mIU/mL Normal [facility] Comment on above: Result Comment: FEMA LE: Follicular: 1.4 - 18.1 mIU/mL Midcycle: 3.4 - 33.4 mIU/mL Luteal: 1.5 - 9.1 mIU/mL Post Menopause: 23.0 - 116.3 mIU/mL MALE: 1.4 - 18.1 mIU/mL Performed By: #### L 501.9520, L509.3001, L100.0100, L500.4050, L503.0106, L506.1001, L506.0400, L3100.5125, L3300.1750, L500.4100, L3400.4800 ####[facility] [address] [place], [place], [id number] Glomerular filtration rate ( GFR) estimation/1.73 sq m using serum, plasma, or whole bOrdered By: Crissy Garza on 10-21-2024 GFR/1.73 sq M.predicted among non-blacks MDRD (S/P/Bld) [Vol rate/Area] 87 mL/min/{1.73_m2} >60 [facility] Comment on above: mL/min/1.73m2 CKD-EP I Creatinine Equation (2020) Hematocrit Auto (Bld) [Volum e fraction]Ordered By: Crissy Garza on 10-21-2024 Hematocrit (Bld) [Volume fraction] 40.6 % 37-47 [facility] Hemoglobin A1c percentageOrd ered By: Crissy Garza on 10-21-2024 HbA1c (Bld) [Mass fraction] 5.8 % High <5.7 [facility] Comment on above: Normal < 5.7 % Predi abetic 5.7 - 6.4 % Diabetic >or= 6.5 % Please note range changes. Hemoglobin measurementOrdere d By: Crissy Garza on 10-21-2024 Hemoglobin (Bld) [Mass/Vol] 13.0 g/dL 12.0-15.0 [facility] Immature granulocytes/100 WB C Auto (Bld)Ordered By: Crissy Garza on 10-21-2024 Immature granulocytes/100 WBC (Bld) 0.300 % 0.0-0.9 [facility] Comment on above: IG% - Immature Granu locytes (promyelocytes, myelocytes and metamyelocytes) > 1% indicates that a LEFT SHIFT is Present. L509.3001on 10-21-2024 Testosterone [Mass/Vol] ng/dL Low 9-55 [facility] Comment on above: Performed By: #### L 501.9520, L509.3001, L100.0100, L500.4050, L503.0106, L506.1001, L506.0400, L3100.5125, L3300.1750, L500.4100, L3400.4800 ####[facility] [address] [place], [place], [id number] LDL calc ser/plasOrdered By: Crissy Garza on 10-21-2024 Cholesterol in LDL [Mass/Vol] 135 mg/dL [facility] Comment on above: Nvpvumkcgm=117-677 m g/dL & Higher Crfp=895 mg/dL or greaterFriedwald Equation for LDL-C Laboratory - Chemistry and C hemistry - challengeOrdered By: Crissy Garza on 10-21-2024 AST [Catalytic activity/Vol] 14 U/L <32 [facility] Testosterone [Mass/Vol] ng/dL Low 9-55 [facility] Lipid Profileon 10-21-2024 CHOL:HDL 3.13 Normal [facility] Comment on above: Performed By: #### L 501.9520, L509.3001, L100.0100, L500.4050, L503.0106, L506.1001, L506.0400, L3100.5125, L3300.1750, L500.4100, L3400.4800 #### [facility] [address] [place], [address] (647) Cholesterol [Mass/Vol] 210 mg/dL High <=200 [facility] Comment on above: Result Comment: Chol esterol level, Desirable <200 mg/dL Borderline high cholesterol 200-239 mg/dL High cholesterol >=240 mg/dL Recommendations of the NCEP Adult Treatment Panel for the following risk-cutoff thresholds for the [place] population. Performed By: #### L 501.9520, L509.3001, L100.0100, L500.4050, L503.0106, L506.1001, L506.0400, L3100.5125, L3300.1750, L500.4100, L3400.4800 #### [facility] [address] [place], [address] (778) Cholesterol in HDL [Mass/Vol] 67 mg/dL Normal [facility] Comment on above: Result Comment: Karmen onal Cholesterol Education Program (NCEP) guidelines: <40 mg/dL: Low HDL-cholesterol (major risk factor for CHD) >= 60 mg/dL: High HDL-cholesterol (negative risk factor for CHD) HDL-cholesterol is affected by a number of factors, e.g. smoking, exercise, hormones, sex and age. Performed By: #### L 501.9520, L509.3001, L100.0100, L500.4050, L503.0106, L506.1001, L506.0400, L3100.5125, L3300.1750, L500.4100, L3400.4800 #### [facility] [address] [place], [address] Cholesterol in LDL [Mass/Vol] 135 mg/dL Normal [facility] Comment on above: Result Comment: Bord tgbdul=428-811 mg/dL Higher Omvc=093 mg/dL or greater Friedwald Equation for LDL-C Performed By: #### L 501.9520, L509.3001, L100.0100, L500.4050, L503.0106, L506.1001, L506.0400, L3100.5125, L3300.1750, L500.4100, L3400.4800 #### [facility] [address] [place], [address] Cholesterol in VLDL [Mass/Vol] 8 mg/dL Normal 5-40 [facility] Comment on above: Performed By: #### L 501.9520, L509.3001, L100.0100, L500.4050, L503.0106, L506.1001, L506.0400, L3100.5125, L3300.1750, L500.4100, L3400.4800 #### [facility] [address] [place], [address] Triglyceride [Mass/Vol] 38 mg/dL Normal [facility] Comment on above: Result Comment: The drugs N-Acetylcysteine and Metamizole may falsely depress this assay. Normal range: <150 mg/dL Borderline High: 150-199 mg/dL High: 200-499 mg/dL Very High: >500 mg/dL Performed By: #### L 501.9520, L509.3001, L100.0100, L500.4050, L503.0106, L506.1001, L506.0400, L3100.5125, L3300.1750, L500.4100, L3400.4800 #### [facility] [address] [place], [address] MCV (mean corpuscular volume ) determinationOrdered By: Crissy Garza on 10-21-2024 MCV (RBC) [Entitic vol] 89.6 fL 81-99 [facility] Mean corpuscular hemoglobin (MCH) determinationOrdered By: Crissy Garza on 10-21-2024 MCH (RBC) [Entitic mass] 28.7 pg 27.0-32.0 [facility] Mean corpuscular hemoglobin concentration (MCHC) determinationOrdered By: Crissy Garaz on 10-21-2024 MCHC (RBC) [Mass/Vol] 32.0 g/dL 32-36 [facility] Mean platelet volume determi nationOrdered By: Crissy Garza on 10-21-2024 Platelet mean volume (Bld) [Entitic vol] 11.2 fL 6.2-12.0 [facility] Monocyte percentageOrdered B y: Crissy Garza on 10-21-2024 Monocytes/100 WBC (Bld) 7.2 % 0-10 [facility] Neutrophil percentageOrdered By: Crissy Garza on 10-21-2024 Neutrophils/100 WBC (Bld) 61.8 % 47-70 [facility] Nucleated red blood cell per centageOrdered By: Crissy Garza on 10-21-2024 Nucleated RBC/100 WBC (Bld) [Ratio] 0 % 0-5 [facility] Platelet countOrdered By: Kayley Garza on 10-21-2024 Platelets (Bld) [#/Vol] 289 10*3/uL 150-450 [facility] Potassium measurement (mass/ volume)Ordered By: Crissy Garza on 10-21-2024 Potassium (Unsp spec) [Mass/Vol] 4.3 mmol/L 3.3-5.1 [facility] RBC Auto (Bld) [#/Vol]Ordere d By: Crissy Garza on 10-21-2024 RBC (Bld) [#/Vol] 4.53 10*6/uL 4.2-5.4 [facility] Screening total cholesterol/ high density lipoprotein (HDL) cholesterol ratioOrdered By: Crissy Garza on 10-21-2024 Cholesterol.total/Choles terol in HDL [Mass ratio] 3.13 {ratio} [facility] Serum creatinine measurement (mass/volume)Ordered By: Crissy Garza on 10-21-2024 Creatinine [Mass/Vol] 0.82 mg/dL 0.70-1.20 [facility] Serum globulin measurementOr dered By: Crissy Garza on 10-21-2024 Globulin (S) [Mass/Vol] 2.5 g/dL 2.2-4.2 [facility] Serum glucose measurement (m ass/volume)Ordered By: Crissy Garza on 10-21-2024 Glucose [Mass/Vol] 105 mg/dL High 70-99 [facility] Serum or plasma alanine ramirez otransferase (ALT) measurementOrdered By: Crissy Garza on 10-21-2024 ALT [Catalytic activity/Vol] 16 U/L <35 [facility] Serum or plasma albumin david urement (mass/volume)Ordered By: Crissy Garza on 10-21-2024 Albumin [Mass/Vol] 4.1 g/dL 3.5-5.0 [facility] Serum or plasma albumin/glob ulin mass ratioOrdered By: Crissy Garza on 10-21-2024 Albumin/Globulin [Mass ratio] 1.6 {ratio} 0.9-2.4 [facility] Serum or plasma alkaline abby sphatase measurementOrdered By: Crissy Garza on 10-21-2024 ALP [Catalytic activity/Vol] 73 U/L 35-104 [facility] Serum or plasma calcium david urement (mass/volume)Ordered By: Crissy Garza on 10-21-2024 Calcium [Mass/Vol] 9.2 mg/dL 7.6-11.0 [facility] Serum or plasma cholesterol in HDL measurement (mass/volume)Ordered By: Crissy Garza on 10-21-2024 Cholesterol in HDL [Mass/Vol] 67 mg/dL >40 [facility] Comment on above: National Cholesterol Education Program (NCEP) guidelines:<40 mg/dL: Low HDL-cholesterol (major risk factor for CHD)>= 60 mg/dL: High HDL-cholesterol (negative risk factor for CHD)HDL-cholesterol is affected by a number of factors, e.g. smoking, exercise, hormones, sex and age. Serum or plasma cholesterol measurement (mass/volume)Ordered By: Crissy Garza on 10-21-2024 Cholesterol [Mass/Vol] 210 mg/dL High <201 [facility] Comment on above: Cholesterol level, D esirable <200 mg/dLBorderline high cholesterol 200-239 mg/dLHigh cholesterol >=240 mg/dLRecommendations of the NCEP Adult Treatment Panel for the following risk-cutoff thresholds for the [place] population. Serum or plasma estradiol me asurement after follitropin dose (mass/volume)Ordered By: Crissy Garza on 10-21-2024 E2 post dose follitropin [Mass/Vol] 30.0 pg/mL [facility] Comment on above: FEMALES ADULT FEMALE : [...] 10-21-2024 Testosterone Free [Mass/Vol] 0.3 pg/mL 0.0-4.2 [facility] Comment on above: Performed at: [address] [id number] Director: Anjel Aguayo MD, Phone: [phone] Serum or plasma urea nitroge n measurement (mass/volume)Ordered By: Crissy Garza on 10-21-2024 Urea nitrogen [Mass/Vol] 17 mg/dL 4-19 [facility] Sodium levelOrdered By: Diane Garza on 10-21-2024 Sodium [Moles/Vol] 139 mmol/L 133-145 [facility] T4 Free Directon 10-21-2024 T4 FREE DIRECT 1.20 ng/dL Normal 0.76-1.46 [facility] Comment on above: Performed By: #### L 501.9520, L509.3001, L100.0100, L500.4050, L503.0106, L506.1001, L506.0400, L3100.5125, L3300.1750, L500.4100, L3400.4800 ####[facility] [address] [place], [place], [id number] T4 freeOrdered By: Crissy barrera on 10-21-2024 Free T4 [Mass/Vol] 1.20 ng/dL 0.76-1.46 [facility] TSH DL <= 0.005 mIU/L QnOrde red By: Crissy Garza on 10-21-2024 TSH Qn 2.240 uIU/mL 0.300-4.200 [facility] Thyroid Stim Hormone (TSH)on 10-21-2024 TSH 2.240 uIU/mL Normal 0.300-4.200 [facility] Comment on above: Performed By: #### L 501.9520, L509.3001, L100.0100, L500.4050, L503.0106, L506.1001, L506.0400, L3100.5125, L3300.1750, L500.4100, L3400.4800 ####[facility] [address] [place], [place], [id number] Total proteinOrdered By: Lucas Garza on 10-21-2024 Protein [Mass/Vol] 6.6 g/dL 5.9-8.4 [facility] Triglycerides measurementOrd ered By: Crissy Garza on 10-21-2024 Triglyceride [Mass/Vol] 38 mg/dL <199 [facility] Comment on above: The drugs N-Acetylcy steine and Metamizole may falsely depress this assay. Normal range: <150 mg/dLBorderline High: 150-199 mg/dLHigh: 200-499 mg/dLVery High: >500 mg/dL Vitamin B12on 10-21-2024 Cobalamin (Vitamin B12) [Mass/Vol] 572 pg/mL Normal 180-914 [facility] Comment on above: Performed By: #### L 501.9520, L509.3001, L100.0100, L500.4050, L503.0106, L506.1001, L506.0400, L3100.5125, L3300.1750, L500.4100, L3400.4800 ####[facility] [address] [place], [place], [address] Vitamin B12 ser/plasOrdered By: Crissy Garza on 10-21-2024 Cobalamin (Vitamin B12) [Mass/Vol] 572 pg/mL 180-914 [facility] Vitamin D,25 Hydroxyon 10-21 Vitamin D 25-OH 29.3 ng/mL Low 30-100 [facility] Comment on above: Result Comment: Alice min D Status Deficiency: <20 ng/mL (50nmol/L) Insufficiency: 20-30 ng/mL (50-75 nmol/L) Sufficiency: 30-100 ng/mL (75-250 nmol/L) Toxicity: >100 ng/mL (>250 nmol/L) Performed By: #### L 501.9520, L509.3001, L100.0100, L500.4050, L503.0106, L506.1001, L506.0400, L3100.5125, L3300.1750, L500.4100, L3400.4800 ####[facility] [address] [place], [place], [address] White blood cell (WBC) count Ordered By: Crissy Garza on 10-21-2024 WBC (Bld) [#/Vol] 6.5 10*3/uL 4.4-11.0 [facility] Manual Writer Office Visit Reporton 10-15-2024 Manual Writer Office Visit Report [facility]'[address], [address] [place] [address] OFFICE VISIT Date of Service: 10/15/24 MR#: [id number] Acct: [id number] Name: NORMA GRIFFIN Rep #: [id number] : 1975 Provider: HAKEEM Georges Age/Sex: 49/F Location: [facility] Status: Signed Intake Vital Signs 02/19/23 10:15 10/15/24 15:28 Height 5 ft 5 in 5 ft 5 in Weight: 213 lb 6 oz BMI 35.5 BP 163/88 H Intake Visit Reasons: Annual ([employer]) Physician Intensivist Required: No Is patient in pain?: No [...] 2 current occupational status: employed 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 Normal [facility] PT D/C Summary (1)on 025 PT D/C Summary (1) [facility] [address] [place] [address] / REHABILITATION SERVICES DISCHARGE SUMMARY MR#: [id number] Acct: [id number] Name: NORMA GRIFFIN Rep #: [id number] : 1975 49 From: Tate Zhang PT, ATC Referring Dr.: Dr. Dannie Storm MD Status: REG RCR Insurance: [facility] SELF PAY INSURANCE Discharge Summary D/C [...] please feel free to call me at [phone]. Thank you for the referral of this patient. Sincerely, Tate Zhang, PT, ATC Balance/Gait/Function al tests Balance/Special Test Scores Quick DASH Score: 15.9075 Improvement % Improvement: 80 10/02/24 1032 CC: Dr. Sasha Jackson DO; Dr. Dannie Storm MD [facility] Signed Normal [facility] Inital Evaluation (1) - PTon 09-10-2024 Inital Evaluation (1) - PT [facility] [address] [place] [address] / REHABILITATION SERVICES INITIAL EVALUATION MR#: [id number] Acct: [id number] Name: NORMA GRIFFIN Rep #: [id number] : 1975 49 From: Tate Zhang PT, ATC Referring Dr.: Dr. Dannie Storm MD Status: REG RCR Insurance: [facility] SELF PAY INSURANCE Patient's Visit Information Visit Information Visit Information: NORMA GRIFFIN is a 49 year old F referred to Physical Therapy by Dr. Dannie Storm MD with a diagnosis of R shoulder pain. 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 Pt reports she is able to perform [...] to be FAXED BACK to us at [phone] for Medicare purposes. For Medicare only, by signing this I certify the plan of care. Please let me know if there are questions or concerns regarding this plan of care. Physician Signature: Date : 09/10/24 0954 CC: Dr. Sasha Jackson DO; Dr. Dannie Storm MD [facility] Signed Normal [facility] Shoulder min 2 Viewson 09-[address] [facility] Services [address] [place], [place] [address] Shoulder min 2 Views MR#: [id number] Acct: [id number] Name: NORMA GRIFFIN Rep #: [id number] : 1975 F 49 From: Poncho Ashley MD PCP: Dr. Sasha Jackson DO Status: REG CLI Study: Shoulder min 2 Views Date of Exam: 09/08/24 Exam# [id number] Ordering Dr: Dannie Storm MD PROCEDURE: SHOULDER [...] arthritis of the acromioclavicular joint. Reading Location: [facility] CC: Dr. Sasha Jackson DO; Dr. Dannie Storm MD [facility] Aides Teacher: Signed Normal [facility] CNOVon 02-23-2024 [facility] Office Visit (UCWSTR ) NORMA GRIFFIN ([id number]) 1975 F T Date Time Provider Department 02/23/24 1:30 PM LORENA ALVARADO [facility] During your visit today, we recorded the following information about you: Temperature Pulse Respiration Blood pressure 98.4 degrees 94/minute 19/minute 144/92 Weight 105.4 kg Lorena Alvarado, PAYuriC 02/23/2024 2:17 PM Signed This note was created using Em[employer] Solutions[employer]. Subjective Norma Griffin is a 48 year [...] weekend, she will return Sunday for x-ray. Tanmayb tx here, patient improved.I will treat with prednisone taper and prescription for albuterol Nebules for her nebulizer she has at home. Red flags for ER care discussed. Patient agreeable. - IPRATROPIUM 0.5 MG-ALBUTEROL 3 MG (2.5 MG BASE)/3 ML NEBULIZATION SOLN - XR CHEST 2V FRONTAL/LAT Lorena Alvarado PA-C Allergies As of Date: 02/23/2024 (No Known Allergies) Date Reviewed: 02/23/2024 Reviewed by: Betsy Montiel MA - Fully Assessed Reason for Visit: Cough [28] Cmt: Wheezing, sob x 3 weeks Primary Visit Diagnosis:Wheezing [R06.2] Order(s):[] ipratropium-albuterol 3 mL nebulizer solution (DUONEB)Disp: Rfl: XR CHEST 2V FRONTAL/LAT [8905060] Order #: [id number] FUTURE predniSONE (DELTASONE) 10 mg tabletTake 4 [...] daily fo (more content not included)... Normal [facility] CBC W/Diff, Automatedon 01-24 Absolute Lymph 1.62 X10 3/uL Normal 0.83-4.51 [facility] Comment on above: Performed By: #### L 100.0100, L300.8000 ####[facility] [address] [place], [address] Absolute Neut 5.2 X10 3/uL Normal 2.0-7.7 [facility] Comment on above: Performed By: #### L 100.0100, L300.8000 ####[facility] [address] [place], [address] Basophils/100 WBC (Bld) 0.5 % Normal 0-1 [facility] Comment on above: Performed By: #### L 100.0100, L300.8000 ####[facility] [address] [place], [address] Eosinophils/100 WBC (Bld) 1.3 % Normal 0-5 [facility] Comment on above: Performed By: #### L 100.0100, L300.8000 ####[facility] [address] [place], [address] Erythrocyte distribution width (RBC) [Ratio] 13.8 % Normal 11.6-14.6 [facility] Comment on above: Performed By: #### L 100.0100, L300.8000 ####[facility] [address] [place], [address] Hematocrit (Bld) [Volume fraction] 38.6 % Normal 37-47 [facility] Comment on above: Performed By: #### L 100.0100, L300.8000 ####[facility] [address] [place], [address] Hemoglobin (Bld) [Mass/Vol] 11.9 g/dL Low 12.0-15.0 [facility] Comment on above: Performed By: #### L 100.0100, L300.8000 ####[facility] [address] [place], [address] IG% 0.400 Normal 0.0-0.9 [facility] Comment on above: Result Comment: IG% - Immature Granulocytes (promyelocytes, myelocytes and metamyelocytes) > 1% indicates that a LEFT SHIFT is Present. Performed By: #### L 100.0100, L300.8000 ####[facility] [address] [place], [address] Lymphocytes/100 WBC (Bld) 21.1 % Normal 19-41 [facility] Comment on above: Performed By: #### L 100.0100, L300.8000 ####[facility] [address] [place], [address] MCH (RBC) [Entitic mass] 28.4 pg Normal 27.0-32.0 [facility] Comment on above: Performed By: #### L 100.0100, L300.8000 ####[facility] [address] [place], [address] MCHC (RBC) [Mass/Vol] 30.8 g/dL Low 32-36 [facility] Comment on above: Performed By: #### L 100.0100, L300.8000 ####[facility] [address] [place], [address] MCV (RBC) [Entitic vol] 92.1 fL Normal 81-99 [facility] Comment on above: Performed By: #### L 100.0100, L300.8000 ####[facility] [address] [place], [address] Monocytes/100 WBC (Bld) 8.5 % Normal 0-10 [facility] Comment on above: Performed By: #### L 100.0100, L300.8000 ####[facility] [id number] [place], [address] Neutrophils/100 WBC (Bld) 68.2 % Normal 47-70 [facility] Comment on above: Performed By: #### L 100.0100, L300.8000 ####[facility] [id number] [place], [address] Nucleated RBC (Bld) [#/Vol] 0 10*3/uL Normal 0-5 [facility] Comment on above: Performed By: #### L 100.0100, L300.8000 ####[facility] [id number] [place], [address] Platelet mean volume (Bld) [Entitic vol] 10.4 fL Normal 6.2-12.0 [facility] Comment on above: Performed By: #### L 100.0100, L300.8000 ####[facility] [id number] [place], [address] Platelets (Bld) [#/Vol] 326 10*3/uL Normal 150-450 [facility] Comment on above: Performed By: #### L 100.0100, L300.8000 ####[facility] [id number] [place], [address] RBC (Bld) [#/Vol] 4.19 10*6/uL Low 4.2-5.4 [facility] Comment on above: Performed By: #### L 100.0100, L300.8000 ####[facility] [id number] [place], [address] RDW SD 47.1 fl High 35.1-43.9 [facility] Comment on above: Performed By: #### L 100.0100, L300.8000 ####[facility] [id number] [place], [address] WBC (Bld) [#/Vol] 7.7 10*3/uL Normal 4.4-11.0 [facility] Comment on above: Performed By: #### L 100.0100, L300.8000 ####[facility] [id number] [place], [address] Chest PA and Lateralon 02-07 Chest PA [address] L[address] [facility] Imaging Services [address] [place] [address] Chest PA and Lateral MR#: [id number] Acct: [id number] Name: NORMA GRIFFIN Rep #: [id number] : 1975 F 48 From: Toney Monique DO PCP: Dr. Sasha Jackson, DO Status: REG CLI Study: Chest PA and Lateral Date of Exam: 02/08/24 Exam# [id number] Ordering Dr: Unique Hayes MD [id number] INDICATION: DYSPNEA, WHEEZE ON R EXAMINATION/TECHNIQUE : [...] Unique Hayes MD; Dr. Sasha Jackson DO [facility] [employer] Teacher: Signed Normal [facility] D-Dimer Quantitative (DVT/PE )on 02-08-2024 D-DIMER QUANT 0.34 FEU/ug/m Normal 0.27-0.49 [facility] Comment on above: Result Comment: NORM AL D-Dimer level (<0.50) indicates no DVT or PE. Performed By: #### L 100.0100, L300.8000 ####[facility] [id number] [place], [place], [id number] No Panel InformationOrdered By: Bouchra Beaver on 07-03-2022 D-Dimer Quantitative (PE/DVT) 0.40 FEU/ug/m 0.27-0.49 [facility] Comment on above: NORMAL D-Dimer level (<0.50) indicates no DVT or PE. Basophil percentageOrdered B y: Dr. Palma on 06-14-2022 Bilirubin [Mass/Vol] 0.20 mg/dL 0.20-1.00 [facility] Comment on above: For patients on eltr ombopag therapy, use of Dimension Fritch TBIL is not recommended. Chloride [Moles/Vol] 109 mmol/L 98-107 [facility] Glucose [Mass/Vol] 125 mg/dL 74-106 [facility] Comment on above: Fasting Glucose resu lt from 100 to 125 mg/dL suggests IMPAIRED HOMEOSTASIS per A.D.A. criteria. Potassium [Moles/Vol] 3.6 mmol/L 3.5-5.1 [facility] Protein [Mass/Vol] 7.2 g/dL 6.4-8.2 [facility] Sodium [Moles/Vol] 141 mmol/L 136-145 [facility] WBC (Bld) [#/Vol] 7.7 10*3/uL 4.4-11.0 [facility] Blood erythrocytes count (nu mber/volume)Ordered By: Dr. Palma on 06-14-2022 RBC (Bld) [#/Vol] 4.22 10*6/uL 4.2-5.4 [facility] Blood hemoglobin measurement (mass/volume)Ordered By: Dr. Palma on 06-14-2022 Hemoglobin (Bld) [Mass/Vol] 12.3 g/dL 12.0-15.0 [facility] Blood platelet mean volumeOr dered By: Dr. Palma on 06-14-2022 Platelet mean volume (Bld) [Entitic vol] 10.8 fL 6.2-12.0 [facility] Cervical or vagninal specime n microscopic examination by cytology stain (reported asOrdered By: Dr. Palma on 06-14-2022 Cytology report Cyto stain Doc (Cvx/Vag) Comment . [facility] Comment on above: The Pap smear is [...] DNA Probe+sig amp Ql (Cvx) Negative Negative [facility] Comment on above: This nucleic acid am plification test detects fourteen high-risk HPV types (16,18,31,33,35,39,45,51,52,56,58,59,66,68)without differentiation. Determination of erythrocyte mean corpuscular volume (MCV)Ordered By: Dr. Palma on 06-14-2022 MCV (RBC) [Entitic vol] 91.5 fL 81-99 [facility] Hematocrit Auto (Bld) [Volum e fraction]Ordered By: Dr. Palma on 06-14-2022 Hematocrit (Bld) [Volume fraction] 38.6 % 37-47 [facility] Laboratory - Chemistry and C hemistry - challengeOrdered By: Dr. Palma on 06-14-2022 ALP [Catalytic activity/Vol] 64 U/L 45-117 [facility] ALT [Catalytic activity/Vol] 24 U/L 13-56 [facility] CO2 [Moles/Vol] 25.0 mmol/L 21.0-32.0 [facility] Globulin (S) [Mass/Vol] 3.4 g/dL 2.2-4.2 [facility] Urea nitrogen/Creatinine [Mass ratio] 13.8 mg/mg 10-20 [facility] Laboratory - CytologyOrdered By: Dr. Palma on 06-14-2022 Theatrical Dresser Cyto stain Nom (Cvx/Vag) [ID] Comment . [facility] Comment on above: Inocencio Solis totechnologist (ASCP) Laboratory - Hematology and Cell countsOrdered By: Dr. Palma on 06-14-2022 Erythrocyte distribution width (RBC) [Entitic vol] 44.3 fL 35.1-43.9 [facility] Erythrocyte distribution width (RBC) [Ratio] 13.1 % 11.6-14.6 [facility] MCH (RBC) [Entitic mass] 29.1 pg 27.0-32.0 [facility] Laboratory - Miscellaneous t estsOrdered By: Dr. Palma on 06-14-2022 Service comment (Unsp spec) [Interp] Comment . [facility] Comment on above: This liquid based Th inPrep(R) pap test was screened withthe use of an image guided system. Service comment (Unsp spec) [Interp] . . [facility] Liquid-based cerv Pap + CT/G C by LEAH w reflex to high-risk HPV for ASCUSOrdered By: Dr. Palma on 06-14-2022 Cytology report Cyto stain.thin prep Doc (Cvx/Vag) Comment . [facility] Comment on above: Criteria not met, HP V Genotype not performed.Performed at: - [facility] [address] [place], [place] [id number] Director: Chika Fagan MD, Phone: [phone] at: =G - [facility] [address] [place], [place] [id number] Director: Chika Fagan MD, Phone: [phone] MCHC Auto (RBC) [Mass/Vol]Or dered By: Dr. Palma on 06-14-2022 MCHC (RBC) [Mass/Vol] 31.9 g/dL 32-36 [facility] No Panel InformationOrdered By: Dr. Palma on 06-14-2022 Estimated GFR (MDRD) Amer 99 mL/min >60 [facility] Comment on above: GFR Calc Estimated GFR (MDRD) Non-Af Amer 82 mL/min >60 [facility] Comment on above: Non- GFR Calc Pathology report final diagnosis Narrative Comment . [facility] Comment on above: NEGATIVE FOR INTRAEP ITHELIAL LESION OR MALIGNANCY. Platelets bldOrdered By: Dr. Palma on 06-14-2022 Platelets (Bld) [#/Vol] 327 10*3/uL 150-450 [facility] Serum or plasma albumin david urement (mass/volume)Ordered By: Dr. Palma on 06-14-2022 Albumin [Mass/Vol] 3.8 g/dL 3.2-5.0 [facility] Serum or plasma albumin/glob ulin mass ratioOrdered By: Dr. Palma on 06-14-2022 Albumin/Globulin [Mass ratio] 1.1 {ratio} 0.9-2.4 [facility] Serum or plasma calcium david urement (mass/volume)Ordered By: Dr. Palma on 06-14-2022 Calcium [Mass/Vol] 9.1 mg/dL 8.5-10.1 [facility] Serum or plasma creatinine m easurement (mass/volume)Ordered By: Dr. Palma on 06-14-2022 Creatinine [Mass/Vol] 0.80 mg/dL 0.55-1.02 [facility] Comment on above: The validity of the calculated GFR & GFRAA in patients over 70 years has not been determined. Clinical correlation is essential. Serum or plasma urea nitroge n measurement (mass/volume)Ordered By: Dr. Palma on 06-14-2022 Urea nitrogen [Mass/Vol] 11 mg/dL 7-18 [facility] Thin prep Papanicolaou smear with manual screeningOrdered By: Dr. Palma on 06-14-2022 Thin prep Papanicolaou smear with manual screening 11 U/L 15-37 [facility] Thin prep Papanicolaou smear with manual screening 7 5-15 [facility] Culture, urineOrdered By: Dr Nereida Palma on 05-28-2022 Bacteria identified Cx Nom (U) Culture exhibits no growth. [facility] Absolute lymphocyte countOrd ered By: Dr. Jackson on 05-25-2022 Lymphocytes Auto (Unsp spec) [#/Vol] 2.31 10*3/uL 0.83-4.51 [facility] Basophil percentageOrdered B y: Dr. Jackson on 05-25-2022 Basophil percentage Not Reportable [facility] Basophils/100 WBC (Bld) 0.5 % 0-1 [facility] Bilirubin [Mass/Vol] 0.50 mg/dL 0.20-1.00 [facility] Comment on above: For patients on eltr ombopag therapy, use of Dimension Fritch TBIL is not recommended. Chloride [Moles/Vol] 105 mmol/L 98-107 [facility] Cholesterol [Mass/Vol] 239 mg/dL <200 [facility] Comment on above: <200 mg/dL Desirable 200-240 mg/dL Borderline >240 mg/dL High Risk Eosinophils/100 WBC (Bld) 0.7 % 0-5 [facility] Glucose [Mass/Vol] 92 mg/dL 74-106 [facility] Neutrophils (Bld) [#/Vol] 5.1 10*3/uL 2.0-7.7 [facility] Neutrophils/100 WBC (Bld) 63.3 % 47-70 [facility] Potassium [Moles/Vol] 3.8 mmol/L 3.5-5.1 [facility] Protein [Mass/Vol] 7.5 g/dL 6.4-8.2 [facility] Sodium [Moles/Vol] 137 mmol/L 136-145 [facility] Triglyceride [Mass/Vol] 58 mg/dL <199 [facility] Comment on above: The drugs N-Acetylcy steine and Metamizole may falsely depress this assay.Serum Triglycerides Reference Interval Normal <150 mg/dL Borderline high 150 - 199 mg/dL High 200 - 499 mg/dL Very High > or = 500 mg/dL WBC (Bld) [#/Vol] 8.1 10*3/uL 4.4-11.0 [facility] Blood erythrocytes count (nu mber/volume)Ordered By: Dr. Jackson on 05-25-2022 RBC (Bld) [#/Vol] 4.26 10*6/uL 4.2-5.4 [facility] Blood hemoglobin measurement (mass/volume)Ordered By: Dr. Jackson on 05-25-2022 Hemoglobin (Bld) [Mass/Vol] 12.5 g/dL 12.0-15.0 [facility] Blood lymphocytes/100 leukoc ytesOrdered By: Dr. Jackson on 05-25-2022 Lymphocytes/100 WBC (Bld) 28.5 % 19-41 [facility] Blood monocytes/100 leukocyt esOrdered By: Dr. Jackson on 05-25-2022 Monocytes/100 WBC (Bld) 6.8 % 0-10 [facility] Blood platelet mean volumeOr dered By: Dr. Jackson on 05-25-2022 Platelet mean volume (Bld) [Entitic vol] 11.3 fL 6.2-12.0 [facility] Determination of erythrocyte mean corpuscular volume (MCV)Ordered By: Dr. Jackson on 05-25-2022 MCV (RBC) [Entitic vol] 91.8 fL 81-99 [facility] Erythrocyte sedimentation ra teOrdered By: Dr. Jackson on 05-25-2022 ESR (Bld) [Velocity] 25 mm/h 0-30 [facility] Hematocrit Auto (Bld) [Volum e fraction]Ordered By: Dr. Jackson on 05-25-2022 Hematocrit (Bld) [Volume fraction] 39.1 % 37-47 [facility] Laboratory - Chemistry and C hemistry - challengeOrdered By: Dr. Jackson on 05-25-2022 ALP [Catalytic activity/Vol] 73 U/L 45-117 [facility] ALT [Catalytic activity/Vol] 26 U/L 13-56 [facility] CO2 [Moles/Vol] 24.0 mmol/L 21.0-32.0 [facility] Free T4 [Mass/Vol] 1.12 ng/dL 0.76-1.46 [facility] Globulin (S) [Mass/Vol] 3.3 g/dL 2.2-4.2 [facility] Urea nitrogen/Creatinine [Mass ratio] 19.9 mg/mg 10-20 [facility] Laboratory - Hematology and Cell countsOrdered By: Dr. Jackson on 05-25-2022 Erythrocyte distribution width (RBC) [Entitic vol] 44.0 fL 35.1-43.9 [facility] Erythrocyte distribution width (RBC) [Ratio] 13.1 % 11.6-14.6 [facility] Immature granulocytes/100 WBC (Bld) 0.200 % 0.0-0.9 [facility] Comment on above: IG% - Immature Granu locytes (promyelocytes, myelocytes and metamyelocytes) > 1% indicates that a LEFT SHIFT is Present. MCH (RBC) [Entitic mass] 29.3 pg 27.0-32.0 [facility] Nucleated RBC/100 WBC (Bld) [Ratio] 0 % 0-5 [facility] MCHC Auto (RBC) [Mass/Vol]Or dered By: Dr. Jackson on 05-25-2022 MCHC (RBC) [Mass/Vol] 32.0 g/dL 32-36 [facility] No Panel InformationOrdered By: Dr. Jackson on 05-25-2022 Anti-Nuclear Antibody Screen Negative Negative [facility] Comment on above: Performed at: [employer] - [employer] [id number] Director: Leonard Goncalves PhD, Phone: [phone] [employer] B Antibody Not Reportable [facility] Estimated GFR (MDRD) Amer 106 mL/min >60 [facility] Comment on above: GFR Calc Estimated GFR (MDRD) Non-Af Amer 87 mL/min >60 [facility] Comment on above: Non- GFR Calc Free Triiodothyronine (T3) pg/dL 2.5 pg/mL 2.18-3.98 [facility] KNIFE CUTTER Antibody Not Reportable [facility] Thyroid Stimulating Hormone (TSH) 1.29 uIU/mL 0.358-3.74 [facility] Vitamin D 25-Hydroxy 62.4 ng/mL [facility] Comment on above: Vitamin D 25(OH) Sta tus Range Deficiency <20 ng/mL (50nmol/L) Insufficiency 20 - 30 ng/mL (50 - 75 nmol/L) Sufficiency 30 - 100 ng/mL (75 - 250 nmol/L) Toxicity >100 ng/mL (>250 nmol/L) Platelets bldOrdered By: Dr. Jackson on 05-25-2022 Platelets (Bld) [#/Vol] 340 10*3/uL 150-450 [facility] Serum DNA double strand anti body assay (units/volume)Ordered By: Dr. Jackson on 05-25-2022 DNA double strand Ab Qn (S) Not Reportable [facility] Serum Mayela-1 antibody assay (u nits/volume)Ordered By: Dr. Jackson on 05-25-2022 Mayela-1 extractable nuclear Ab Qn (S) Not Reportable [facility] Serum Scl-70 extractable nuc lear antibody assay (units/volume)Ordered By: Dr. Jackson on 05-25-2022 SCL-70 extractable nuclear Ab Qn (S) Not Reportable [facility] Serum Fung extractable nucl ear antibody detectionOrdered By: Dr. Jackson on 05-25-2022 Fung extractable nuclear Ab Ql (S) Not Reportable [facility] Serum cyclic citrullinated p eptide IgG antibody assay (units/volume)Ordered By: Dr. Jackson on 05-25-2022 Cyclic citrullinated peptide IgG Qn 4 units 0-19 [facility] Comment on above: Negative <20 Weak po sitive 20 - 39 Moderate positive 40 - 59 Strong positive >59Performed at: [facility] [id number] Director: Leonard Goncalves PhD, Phone: [phone] Serum or plasma C reactive p rotein measurement (mass/volume)Ordered By: Dr. Jackson on 05-25-2022 CRP [Mass/Vol] 7.07 mg/L 0.0-3.0 [facility] Comment on above: C-Reactive Protein ( CRP) provides useful information for thediagnosis, therapy and monitoring of inflammatory processesand associated diseases. For the evaluation of Relative Riskfor Cardiovascular Disease, a High Sensitivity CRP (HSCRP)should be ordered. Serum or plasma albumin david urement (mass/volume)Ordered By: Dr. Jackson on 05-25-2022 Albumin [Mass/Vol] 4.2 g/dL 3.2-5.0 [facility] Serum or plasma albumin/glob ulin mass ratioOrdered By: Dr. Jackson on 05-25-2022 Albumin/Globulin [Mass ratio] 1.3 {ratio} 0.9-2.4 [facility] Serum or plasma calcium david urement (mass/volume)Ordered By: Dr. Jackson on 05-25-2022 Calcium [Mass/Vol] 9.6 mg/dL 8.5-10.1 [facility] Serum or plasma cholesterol in HDL measurement (mass/volume)Ordered By: Dr. Jackson on 05-25-2022 Cholesterol in HDL [Mass/Vol] 59 mg/dL >40 [facility] Comment on above: The drugs N-Acetylcy steine and Metamizole may falsely depress this assay. Reference Range HDL <40 mg/dL Low HDL Cholesterol HDL >or= 60 mg/dL High HDL Cholesterol Serum or plasma cholesterol in VLDL measurement (mass/volume)Ordered By: Dr. Jackson on 05-25-2022 Cholesterol in VLDL [Mass/Vol] 12 mg/dL 5-40 [facility] Serum or plasma creatinine m easurement (mass/volume)Ordered By: Dr. Jackson on 05-25-2022 Creatinine [Mass/Vol] 0.75 mg/dL 0.55-1.02 [facility] Comment on above: The validity of the calculated GFR & GFRAA in patients over 70 years has not been determined. Clinical correlation is essential. Serum or plasma low density lipoprotein (LDL) cholesterol measurement (mass/volume)Ordered By: Dr. Jackson on 05-25-2022 Cholesterol in LDL [Mass/Vol] 168 mg/dL 0-130 [facility] Serum or plasma urea nitroge n measurement (mass/volume)Ordered By: Dr. Jackson on 05-25-2022 Urea nitrogen [Mass/Vol] 15 mg/dL 7-18 [facility] Serum rheumatoid factor dete ctionOrdered By: Dr. Jackson on 05-25-2022 Rheumatoid factor Ql (S) < 10.0 IU/mL <15 [facility] Thin prep Papanicolaou smear with manual screeningOrdered By: Dr. Jackson on 05-25-2022 Thin prep Papanicolaou smear with manual screening 16 U/L 15-37 [facility] Thin prep Papanicolaou smear with manual screening 8 5-15 [facility] Absolute lymphocyte counton 10-04-2021 Lymphocytes Auto (Unsp spec) [#/Vol] 1.87 10*3/uL 0.83-4.51 [facility] Work Phone: Basophil percentageon 2021 Basophils/100 WBC (Bld) 0.5 % 0-1 [facility] Work Phone: Bilirubin [Mass/Vol] 0.50 mg/dL 0.20-1.00 [facility] Work Phone: Comment on above: For patients on eltr ombopag therapy, use of Dimension Fritch TBIL is not recommended. Chloride [Moles/Vol] 106 mmol/L 98-107 [facility] Work Phone: Cholesterol [Mass/Vol] 225 mg/dL <200 [facility] Work Phone: Comment on above: <200 mg/dL Desirable 200-240 mg/dL Borderline >240 mg/dL High Risk Eosinophils/100 WBC (Bld) 2.6 % 0-5 [facility] Work Phone: Glucose [Mass/Vol] 96 mg/dL 74-106 [facility] Work Phone: Neutrophils (Bld) [#/Vol] 3.6 10*3/uL 2.0-7.7 [facility] Work Phone: Neutrophils/100 WBC (Bld) 59.0 % 47-70 [facility] Work Phone: Potassium [Moles/Vol] 4.1 mmol/L 3.5-5.1 [facility] Work Phone: Protein [Mass/Vol] 6.8 g/dL 6.4-8.2 [facility] Work Phone: [phone] Sodium [Moles/Vol] 138 mmol/L 136-145 [facility] Work Phone: [phone] Triglyceride [Mass/Vol] 47 mg/dL <199 [facility] Work Phone: [phone] Comment on above: The drugs N-Acetylcy steine and Metamizole may falsely depress this assay.Serum Triglycerides Reference Interval Normal <150 mg/dL Borderline high 150 - 199 mg/dL High 200 - 499 mg/dL Very High > or = 500 mg/dL WBC (Bld) [#/Vol] 6.1 10*3/uL 4.4-11.0 [facility] Work Phone: Blood erythrocytes count (nu mber/volume)on 10-04-2021 RBC (Bld) [#/Vol] 4.17 10*6/uL 4.2-5.4 [facility] Work Phone: Blood hemoglobin measurement (mass/volume)on 10-04-2021 Hemoglobin (Bld) [Mass/Vol] 12.3 g/dL 12.0-15.0 [facility] Work Phone: Blood lymphocytes/100 leukoc yteson 10-04-2021 Lymphocytes/100 WBC (Bld) 30.8 % 19-41 [facility] Work Phone: [phone] Blood monocytes/100 leukocyt eson 10-04-2021 Monocytes/100 WBC (Bld) 6.8 % 0-10 [facility] Work Phone: Blood platelet mean volumeon 10-04-2021 Platelet mean volume (Bld) [Entitic vol] 11.3 fL 6.2-12.0 [facility] Work Phone: Determination of erythrocyte mean corpuscular volume (MCV)on 10-04-2021 MCV (RBC) [Entitic vol] 94.2 fL 81-99 [facility] Work Phone: [phone] Hematocrit Auto (Bld) [Volum e fraction]on 10-04-2021 Hematocrit (Bld) [Volume fraction] 39.3 % 37-47 [facility] Work Phone: [phone] Laboratory - Chemistry and C hemistry - challengeon 10-04-2021 ALP [Catalytic activity/Vol] 59 U/L 45-117 [facility] Work Phone: [phone] ALT [Catalytic activity/Vol] 21 U/L 13-56 [facility] Work Phone: [phone] CO2 [Moles/Vol] 26.0 mmol/L 21.0-32.0 [facility] Work Phone: [phone] Free T4 [Mass/Vol] 1.00 ng/dL 0.76-1.46 [facility] Work Phone: [phone] Globulin (S) [Mass/Vol] 3.2 g/dL 2.2-4.2 [facility] Work Phone: [phone] Urea nitrogen/Creatinine [Mass ratio] 18.8 mg/mg 10-20 [facility] Work Phone: [phone] Laboratory - Hematology and Cell countson 10-04-2021 Erythrocyte distribution width (RBC) [Entitic vol] 44.5 fL 35.1-43.9 [facility] Work Phone: [phone] Erythrocyte distribution width (RBC) [Ratio] 12.8 % 11.6-14.6 [facility] Work Phone: [phone] Immature granulocytes/100 WBC (Bld) 0.300 % 0.0-0.9 [facility] Work Phone: [phone] Comment on above: IG% - Immature Granu locytes (promyelocytes, myelocytes and metamyelocytes) > 1% indicates that a LEFT SHIFT is Present. MCH (RBC) [Entitic mass] 29.5 pg 27.0-32.0 [facility] Work Phone: Nucleated RBC/100 WBC (Bld) [Ratio] 0 % 0-5 [facility] Work Phone: MCHC Auto (RBC) [Mass/Vol]on 10-04-2021 MCHC (RBC) [Mass/Vol] 31.3 g/dL 32-36 [facility] Work Phone: No Panel Informationon 10-04 Estimated GFR (MDRD) Amer 108 mL/min >60 [facility] Work Phone: Comment on above: GFR Calc Estimated GFR (MDRD) Non-Af Amer 89 mL/min >60 [facility] Work Phone: Comment on above: Non- GFR Calc Free Triiodothyronine (T3) pg/dL 2.5 pg/mL 2.18-3.98 [facility] Work Phone: Thyroid Stimulating Hormone (TSH) 1.11 uIU/mL 0.358-3.74 [facility] Work Phone: Vitamin D 25-Hydroxy 29.0 ng/mL [facility] Work Phone: Comment on above: Vitamin D 25(OH) Sta tus Range Deficiency <20 ng/mL (50nmol/L) Insufficiency 20 - 30 ng/mL (50 - 75 nmol/L) Sufficiency 30 - 100 ng/mL (75 - 250 nmol/L) Toxicity >100 ng/mL (>250 nmol/L) Platelets bldon 10-04-2021 Platelets (Bld) [#/Vol] 327 10*3/uL 150-450 [facility] Work Phone: [phone] Serum or plasma albumin david urement (mass/volume)on 10-04-2021 Albumin [Mass/Vol] 3.6 g/dL 3.2-5.0 [facility] Work Phone: [phone] Serum or plasma albumin/glob ulin mass ratioon 10-04-2021 Albumin/Globulin [Mass ratio] 1.1 {ratio} 0.9-2.4 [facility] Work Phone: [phone] Serum or plasma calcium david urement (mass/volume)on 10-04-2021 Calcium [Mass/Vol] 8.9 mg/dL 8.5-10.1 [facility] Work Phone: Serum or plasma cholesterol in HDL measurement (mass/volume)on 10-04-2021 Cholesterol in HDL [Mass/Vol] 60 mg/dL >40 [facility] Work Phone: Comment on above: The drugs N-Acetylcy steine and Metamizole may falsely depress this assay. Reference Range HDL <40 mg/dL Low HDL Cholesterol HDL >or= 60 mg/dL High HDL Cholesterol Serum or plasma cholesterol in VLDL measurement (mass/volume)on 10-04-2021 Cholesterol in VLDL [Mass/Vol] 9 mg/dL 5-40 [facility] Work Phone: Serum or plasma creatinine m easurement (mass/volume)on 10-04-2021 Creatinine [Mass/Vol] 0.74 mg/dL 0.55-1.02 [facility] Work Phone: Comment on above: The validity of the calculated GFR & GFRAA in patients over 70 years has not been determined. Clinical correlation is essential. Serum or plasma low density lipoprotein (LDL) cholesterol measurement (mass/volume)on 10-04-2021 Cholesterol in LDL [Mass/Vol] 156 mg/dL 0-130 [facility] Work Phone: Serum or plasma urea nitroge n measurement (mass/volume)on 10-04-2021 Urea nitrogen [Mass/Vol] 14 mg/dL 7-18 [facility] Work Phone: Thin prep Papanicolaou smear with manual screeningon 10-04-2021 Thin prep Papanicolaou smear with manual screening 11 U/L 15-37 [facility] Work Phone: [phone] Thin prep Papanicolaou smear with manual screening 6 5-15 [facility] Work Phone: [phone] Vital Signs Date Time Vital Sign Value Performing Clinician Divya holbrook 10-15-2024 15:28-0400 Body height 165.[address] Sasha Jackson DO Work Phone: [facility] 10-15-2024 15:28-0400 Body mass index (BMI) [Ratio] 35.5 kg/m2 Dr. Sasha Jackson DO Work Phone: [facility] 10-15-2024 15:28-0400 Body weight 96.[address] Sasha Jackson DO Work Phone: [facility] 10-15-2024 15:28-0400 Diastolic blood pressure 88 mm[Hg] Dr. Sasha Jackson DO Work Phone: [facility] 10-15-2024 15:28-0400 Systolic blood pressure 163 mm[Hg] Dr. Sasha Jackson DO Work Phone: [facility] 02-23-2024 13:29-0500 Body temperature 98.4 [degF] Lorena Athy PA-C Work Phone: [facility] 02-23-2024 13:29-0500 Body weight 105.4 kg Lorena Athy PA-C Work Phone: [facility] 02-23-2024 13:29-0500 Diastolic blood pressure 92 mm[Hg] Lorena Athy PA-C Work Phone: [facility] 02-23-2024 13:29-0500 Heart rate 94 /min Lorena Athy PA-C Work Phone: [facility] 02-23-2024 13:29-0500 Respiratory rate 19 /min Lorena Athy PA-C Work Phone: [facility] 02-23-2024 13:29-0500 SaO2% (BldA) [Mass fraction] 100 % Lorena Athy PA-C Work Phone: [facility] 02-23-2024 13:29-0500 Systolic blood pressure 144 mm[Hg] Lorena Athy PA-C Work Phone: [facility] 02-19-2023 10:15-0500 Body height 165.[address] Sasha Jackson Work Phone: [facility] 02-19-2023 10:15-0500 Body mass index (BMI) [Ratio] 35.9 kg/m2 Dr. Sasha Jcakson Work Phone: [facility] 02-19-2023 10:15-0500 Body weight 98.[address] Sasha Jackson Work Phone: [facility] 02-19-2023 10:15-0500 Diastolic blood pressure 79 mm[Hg] Dr. Sasha Jackson Work Phone: [facility] 02-19-2023 10:15-0500 Systolic blood pressure 125 mm[Hg] Dr. Sasha Jackson Work Phone: [facility] 06-28-2022 07:47-0400 Body temperature 97.6 [degF] Dr. Sasha Jackson Work Phone: [facility] 06-28-2022 07:47-0400 Diastolic blood pressure 65 mm[Hg] Dr. Sasha Jackson Work Phone: [facility] 06-28-2022 07:47-0400 Heart rate 79 /min Dr. Sasha Jackson Work Phone: [facility] 06-28-2022 07:47-0400 Respiratory rate 16 /min Dr. Sasha Jackson Work Phone: [facility] 06-28-2022 07:47-0400 SaO2% (BldA) [Mass fraction] 98 % Dr. Sasha Jackson Work Phone: [facility] 06-28-2022 07:47-0400 Systolic blood pressure 106 mm[Hg] Dr. Sasha Jackson Work Phone: [facility] 06-28-2022 06:21-0400 Body height 165.[address] Sasha Jackson Work Phone: [facility] 06-28-2022 06:21-0400 Body mass index (BMI) [Ratio] 35.2 kg/m2 Dr. Sasha Jackson Work Phone: [facility] 06-28-2022 06:21-0400 Body weight [address] Sasha Jackson Work Phone: [facility] 06-20-2022 08:01-0400 Body height 167.[address] Sasha Jackson Work Phone: [facility] 06-20-2022 08:01-0400 Body mass index (BMI) [Ratio] 35.2 kg/m2 Dr. Sasha Jackson Work Phone: [facility] 06-20-2022 08:01-0400 Body temperature 98.2 [degF] Dr. Sasha Jackson Work Phone: [facility] 06-20-2022 08:01-0400 Body weight 98.[address] Sasha Jackson Work Phone: [facility] 06-20-2022 08:01-0400 Diastolic blood pressure 70 mm[Hg] Dr. Sasha Jackson Work Phone: [facility] 06-20-2022 08:01-0400 Heart rate 90 /min Dr. Sasha Jackson Work Phone: [facility] 06-20-2022 08:01-0400 Respiratory rate 14 /min Dr. Sasha Jackson Work Phone: [facility] 06-20-2022 08:01-0400 SaO2% (BldA) [Mass fraction] 96 % Dr. Sasha Jackson Work Phone: [facility] 06-20-2022 08:01-0400 Systolic blood pressure 115 mm[Hg] Dr. Sasha Jackson Work Phone: [facility] Encounters Encounter Date Encounter Type Care Provider Facility Start: 12-10-2024 ambulatory Sasha Jackson Facility:[facility] Start: 12-01-2024 End: 12-01-[address] Sasha Jackson DO Work Phone: [facility] Start: 12-01-2024 End: 12-01-[address] Dannie Storm MD -[facility] Work Phone: Start: 12-01-2024 End: 12-01-2024 ambulatory Sasha Jackson Facility:[facility] Start: 11-04-2024 End: 11-04-[address] Sasha Jackson DO Work Phone: -Outpatient Breast Imaging Start: 11-04-2024 End: 11-04-2024 Patient encounter procedure Crissy PALACIO -Outpatient Breast Imaging Work Phone: Start: 11-04-2024 End: 11-04-2024 ambulatory Crissy Garza Facility:[facility] Start: 10-21-2024 End: 10-21-[address] Sasha Jackson DO Work Phone: -Laboratory Start: 10-21-2024 End: 10-21-2024 Patient encounter procedure Crissy PALACIO -Laboratory Work Phone: Start: 10-21-2024 End: 10-21-2024 ambulatory Crissy Garza Facility:[facility] Start: 10-15-2024 End: 10-15-2024 Patient encounter procedure Crissy PALACIO -[facility] Work Phone: Start: 10-15-2024 End: 10-15-2024 Patient encounter status Crissy PALACIO [facility] Start: 10-15-2024 End: 10-15-[address] Sasha Jackson DO Work Phone: -[facility] Start: 10-02-2024 End: 10-02-[address] Sasha Jackson DO Work Phone: -Physical Therapy Start: 10-02-2024 End: 10-02-[address] Dannie Storm MD -Physical Therapy Work Phone: Start: 09-10-[address] Eddie Storm MD -Physical Therapy Work Phone: Start: 09-08-2024 End: 09-08-[address] Sasha Jackson DO Work Phone: [facility] Work Phone: Start: 09-08-2024 End: 09-08-[address] Dannie Storm MD -Radiology [facility] Work Phone: Start: 09-08-2024 End: 09-08-2024 ambulatory Dannie Storm Facility:[facility] Start: 02-23-2024 End: 02-23-2024 ambulatory SASHA JACKSON Facility:[facility] Start: 02-23-2024 End: 02-23-2024 Patient encounter procedure Lorena Alvarado PA-C Work Phone: [facility] Comment on above: Wheezing (Primary Dx ) Start: 02-08-2024 End: 02-08-2024 ambulatory Sasha Jackson Facility:[facility] Start: 06-18-2023 Non-patient / Non-visit Dr. Sasha Jackson Work Phone: [facility] Start: 06-18-2023 End: 06-18-[address] Sasha Jackson Work Phone: [facility] Work Phone: Start: 06-18-2023 End: 06-18-[address] Sasha Jackson Work Phone: [facility]-Pulmonary Services/Neurology Work Phone: Start: 04-26-2023 End: 04-26-[address] Sasha Jackson Work Phone: [facility] Work Phone: Start: 04-26-2023 End: 04-26-[address] Sasha Jackson Work Phone: [facility]-MRI - [facility] Work Phone: Start: 04-19-2023 End: 04-19-[address] Sasha Jackson Work Phone: [facility]-Outpatient Breast Imaging Work Phone: Start: 04-04-2023 End: 04-04-[address] Sasha Jackson Work Phone: [facility] Work Phone: Start: 04-04-2023 End: 04-04-[address] Sasha Jackson Work Phone: [facility]-Physical Therapy Work Phone: Start: 02-19-2023 End: 02-19-[address] Sasha Jackson Work Phone: [facility] Work Phone: Start: 07-25-2022 End: 07-25-[address] Sasha Jackson Work Phone: [facility] Work Phone: Start: 07-25-2022 End: 07-25-[address] Sasha Jackson Work Phone: [facility]-Nuclear Medicine, [facility] Start: 07-03-2022 End: 07-03-[address] Sasha Jackson Work Phone: [facility] Work Phone: Start: 07-03-2022 End: 07-03-[address] Sasha Jackson Work Phone: [facility]-Laboratory Start: 06-28-2022 Non-patient / Non-visit Dr. Sasha Jackson Work Phone: [facility] Start: 06-28-2022 End: 06-28-2022 Admission to same day surgery center Dr. Sasha Jackson Work Phone: [facility]-Endoscopy Start: 06-28-2022 End: 06-28-[address] Sasha Jackson Work Phone: [facility] Work Phone: Start: 06-26-2022 End: 06-26-[address] Sasha Jackson Work Phone: [facility]-Ultrasound, [facility] Start: 06-20-2022 End: 06-20-[address] Sasha Jackson Work Phone: [facility]-Cat Scan, [facility] Start: 06-20-2022 End: 06-20-[address] Sasha Jackson Work Phone: [facility] Gastroenterology Start: 06-14-2022 End: 06-14-[address] Sasha Jackson Work Phone: [facility] Work Phone: Start: 06-14-2022 End: 06-14-[address] Sasha Jackson Work Phone: [facility]-Laboratory, [employer] Start: 05-26-2022 End: 05-26-2022 ambulatory [facility] Work Phone: Start: 05-26-2022 End: 05-26-2022 Patient encounter procedure [facility]-Laboratory, Specimen Start: 05-25-2022 End: 05-25-2022 ambulatory [facility] Work Phone: Start: 05-25-2022 End: 05-25-2022 [facility] Start: 02-27-2022 End: 02-27-2022 ambulatory [facility] Work Phone: Start: 02-27-2022 End: 02-27-2022 Patient encounter procedure [facility]-Outpatient Breast Imaging Start: 10-04-2021 End: 10-04-2021 Patient encounter procedure [facility] Procedures Date Procedure Procedure Detail Performing Clinician Start: 12-01-2024 MRI of joint of lowe r extremity Dr. Sasha Jackson DO Work Phone: Start: 11-04-2024 Screening mammography Gabriela Jackson DO [...] Phone: Start: 04-26-2023 MRI of cervical spine D rae Jackson Work Phone: Start: 04-19-2023 Screening mammography [...] 11-25-2023 Covid-19 Vaccine () Covid-19 Vaccine () [facility] Start: 11-25-2023 Influenza vaccination Influenz a Vaccine (#1) [facility] Start: 06-28-2022 Colonoscopy flx dx w /collj spec when pfrmd DIAGNOSTIC COLONOSCOPY [facility] Start: 06-28-2022 Egd transoral biopsy single/multiple EGD BIOPSY SINGLE/MULTIPLE [facility] Start: 06-28-2022 Patient discharge [facility] Start: 06-20-2022 Computed tomography of abdomen and pelvis with contrast Abdomen/Pelvis WITH Contrast [facility] Start: 06-20-2022 CT Abdomen and Pelvi s W contrast IV [facility] Start: 06-20-2022 Diagnostic radiograp hy of abdomen Abdomen Single View [facility] Start: 06-20-2022 XR Abdomen Single view [facility] Start: 10-04-2021 [facility] Work Phone: Start: 07-16-2019 Diabetes Screening Diabetes Screenin g [facility] Start: 07-16-2019 Lipid panel Lipid Screening [facility] Start: 07-16-2019 Screening for malign ant neoplasm of colon [facility] Start: 2014 Screening for malign ant neoplasm of breast Mammogram Screening [facility] Start: 07-16-1995 Screening for malign ant neoplasm of cervix Cervical Cancer Screening [facility] Start: 1993 Hepatitis B Vaccine (1 of 3 - 19+ 3-dose series) Hepatitis B Vaccine (1 of 3 - 19+ 3-dose series) [facility] Start: 1993 Urine microalbumin profile DTa P,Tdap,Td Vaccine (1 - Tdap) [facility] Start: 1992 Anxiety Screening Anxiety Screening [facility] Start: 1992 Depression Screening Depression Scre ening [facility] Start: 1992 Hepatitis C screening Hepatitis C [facility] Start: 1992 HIV screening HIV Screening [facility] Colonoscopy [facility] MG Breast - bilatera l Screening [facility] MG Breast - bilatera l Screening [facility] Path report.final Dx Spec [facility] Patient referral [facility] Work Phone: Thyroglobulin antibo dy measurement [facility] Work Phone: Thyroperoxidase Ab [Units/volume] in Serum or Plasma [facility] Work Phone: End: 03-24-2025 XR Chest PA and Lateral XR CHEST 2V FRONTAL/LAT Radiology STAT Wheezing 1 Occurrences starting 02/23/2024 until 03/24/2025 [facility] Work Phone: Comment on above: 1 Occurrences starti ng 02/23/2024 until 03/24/2025 [facility] Payers Date Payer Category Payer Self-pay [id number] 2015 Unknown MMO [employer] PPO [id number] 2015-Present [phone] [address] [place] [address] PPO [id number] 2015 Unknown [id number] Unknown [id number] Unknown [id number] Unknown [id number] Unknown [id number] Unknown [id number] Unknown [id number] Unknown [id number] Unknown [id number] Unknown [id number] Social History Date Type Detail Facility Start: 02-15-2018 End: 02-19-2023 Tobacco smoking status MDIS Unknown if ever smoked [facility] Start: 1975 Sex Assigned At Female [facility] Start: 02-23-2024 Tobacco smoking status NHIS Never smoked tobacco [facility] Start: 02-23-2024 Tobacco use and exposure Smokeless tobacco non-user [facility] Start: 05-13-2020 End: 02-23-2024 History of Social function [facility] Start: 05-13-2020 End: 02-23-2024 Tobacco use panel [facility] National Score (1-100), lower number is lower risk Not on file [facility] Start: 1975 Sex assigned at Not on file [facility] Start: 02-19-2023 Tobacco smoking status MDIS Ex-smoker (finding) [facility] NEGATED: Highlighted row [facility] Goals Date Patient Goal Desired Activity /State Mental Status Date Assessment Result Facility 06-28-2022 Cognitive function Voice/Name [facility] Work Phone: Clinical Notes 06-14-2022 to 10-15-2024 Note Date & Type Note Facility 10-15-2024 Evaluation note Diagnosis Onset Date Resolution Climacteric acute October 15 3:16pm Elevated BP without diagnosis of hypertension acute October 15, 2024 3:16pm Urinary incontinence in female acute October 15, 2024 3:16pm Encounter for routine gynecological examination noneactive October 15, 2024 3:16pm [facility] Work Phone: 1(377) 177-534607-10-2025 Discharge summary [facility] Physical Therapy [address] [place] [address] / REHABILITATION SERVICES DISCHARGE SUMMARY MR#: [id number] Acct: [id number] Name: NORMA GRIFFIN Rep #: [id number] : 1975 49 From: Tate Zhang PT, ATC Referring Dr.: Dr. Dannie Storm MD Status : REG RCR Insurance: [facility] SELF PAY INSURANCE Discharge Summary D/C [...] please feel free to call me at [phone]. Thank you for the referral of thispatient. Sincerely, Tate Zhang, PT, ATC Balance/Gait/Functional tests Balance/Special Test Scores Quick DASH Score: 15.9075 Improvement % Improvement: 80 10/02/24 1032 CC: Dr. Sasha Jackson DO; Dr. Dannie Storm MD ~ [facility] Signed [facility]07-10-2025 Discharge summary Author Tate Zhang [facility] Note Date/Time October 02, 2024 10:5 5am [facility] Physical Therapy [facility] [address] [place] [address] / REHABILITATION SERVICES DISCHARGE SUMMARY MR#: [id number] Acct: [id number] Name: NORMA GRIFFIN Rep #: [id number] : 1975 49 From: Tate Zhang PT, ATC Referring Dr.: Dr. Dannie Storm MD Status : REG RCR Insurance: [facility] SELF PAY INSURANCE Discharge Summary D/C [...] please feel free to call me at [phone]. Thank you for the referral of thispatient. Sincerely, Tate Zhang PT, ATC Balance/Gait/Functional tests Balance/Special Test Scores Quick DASH Score: 15.9075 Improvement % Improvement: 80 <Electronically signed by Tate Zhang PT, ATC> 10/02/24 1032 CC: Dr. Sasha Jackson DO; Dr. Dannie Storm MD ~ [facility] Signed [facility] Work Phone: 1(171) 285-868006-16-2025 Radiology Diagnostic study note [facility] Imaging Services [address] [place] [address] Shoulder min 2 Views MR#: [id number] Acct: [id number] Name: NORMA GRIFFIN Rep #: [id number] : 1975 F 49 From: Dima Ashley MD PCP: Dr. Sasha Jackson DO Status: REG CLI Study:Shoulder min 2 Views Date of Exam: 09/08/24 Exam# [id number] Ordering Dr: Dannie Storm MD PROCEDURE: SHOULDER [...] arthritis of the acromioclavicular joint. Reading Location: [facility] CC: Dr. Sasha Jackson DO; Dr. Dannie Storm MD ~ [facility] Teacher: Signed [facility] Work Phone: 1(715) 376-368011-30-2024 NoteHNO ID: [id number] Author: LORENA ALVARADO PA-C Service: ? Author Type: Physician Stem Setter Type: Progress Notes Filed: 02/23/2024 14:17 Note Text: This note was created using Ematic Solutionsriter. Subjective Norma Griffin is a 48 year [...] XR CHEST 2V FRONTAL/LAT ANU [facility]11-30-2024 History of Present illness Narrative* Lorena Alvarado PA-C - 02/23/2024 2:15 PM EST This note was created using [employer]. Subjective Norma Griffin is a 48 year [...] Duoneb tx here, patient improved.I will treat withprednisone taper and prescription for albuterol Nebules for her nebulizer she has at home. Red flags for ER care discussed. Patient agreeable. - IPRATROPIUM 0.5 MG-ALBUTEROL 3 MG (2.5 MG BASE)/3 ML NEBULIZATION SOLN - XR CHEST 2V FRONTAL/LAT Lorena Alvarado PA-C [facility]01-10-2024 Discharge summary Author Daniel Choi [facility] April 04, 2023 3:55pm Note Date/Time April 04, 2023 3 :55pm [facility] Physical Therapy [facility] [address] [place] [address] / REHABILITATION SERVICES DISCHARGE SUMMARY MR#: [id number] Acct: [id number] Name: NORMA GRIFFIN Rep #: [id number] : 1975 47 From: Daniel Choi DPT, OCS, CSCS Referring Dr.: Dr. Sasha Jackson DO Status: REG RCR Insurance: [facility] SELF PAY INSURANCE Discharge Summary D/C [...] please feel free to call me at [phone]. Thank you for the referral of thispatient. Sincerely, Daniel Choi, DPT, OCS, CSCS Balance/Gait/Functional tests Balance/Special Test Scores Oswestry Neck Score: 18 Improvement % Improvement: 0 <Electronically signed by Daniel HARRISONT, OCS, CSCS> 04/04/23 1555 CC: Dr. Sasha Jackson, DO ~ [facility] Signed [facility] Work Phone: 1(200) 736-789004-05-2023 Procedure [facility] 06-28-2022 Procedure [facility]04-05-2023 Procedure note [facility]04-05-2023 Procedure [facility] 06-14-2022 NotePap Smear Specimen AdequacyMarch 2022 4:06pmComment. Satisfactory for evaluation. Endocervical and/or squamous metaplasticcells (endocervical component)are present.[facility] INTER[facility]ED A#[id number] Health PrebleComment on above:Satisfactory for evaluation. Endocervical and/or squamous metaplasticcells (endocervical component)are present.06-14-2022 NotePap Smear Specimen AdequacyMarch 2022 4:06pmComment.Satisfactory for evaluation. Endocervical and/or squamous metaplasticcells (endocervical component)are present.[facility] A#[id number] Health [facility] Comment on above:Satisfactory for evaluation. Endocervical and/or squamous metaplasticcells (endocervical component)are present.06-14-2022 NotePap Smear Specimen AdequacyMarch 2022 4:06pmComment.Satisfactory for evaluation. Endocervical and/or squamous metaplasticcells (endocervical component)are present.[facility] INTER[facility]ACED A#[id number] Hospital LimaComment on above: Satisfactory for evaluation. Endocervical and/or squamous metaplasticcells (endocervical component)are present.Evaluation noteNo assessment information availableWSCCI Hospital Lima Work Phone: Evaluation note* Diagnosis Onset Date Resolution Status LLQ abdominal pain acute RUQ abdominal pain acute [facility] Work Phone: Evaluation note* Diagnosis Onset Date Resolution Status Encounter to establish care acute Urinary incontinence in female acute [facility] Work Phone: Evaluation note* Diagnosis Wheezing- Primary documented [facility] this [facility] Diagnosis Onset Date Resolution Status Admit Date Encounter for routine gynecological examination noneactive September 242024 3:16pm [facility] Work Phone: History and physical note Author Waldemar Villela [facility] June 28, 2022 6:50am Note Date/Time June 28, 2022 6:[address] [facility] Medical Records Department [address] [place] [address] History & Physical Exam 06/28/22 0649 MR#: [id number] Acct: [id number] Name: NORMA GRIFFNI Rep #:[id number] : 1975 46 From: Waldemar [place] DO PCP: Dr. Sasha Jackson DO Status:[facility] Location: [place] [address] History and Physical Date of Admission: 06/28/22 46 F who presents to the office today to establish with GI for LLQ abdominal pain as well as newer RUQ abd pain. She is scheduled for CT today as ordered by her ladle puller Dr Palma. She had presented to [facility] with pelvic pain and fullness, as well as urinary frequency/urgency and vaginal discharge. Had pelvicUS at [facility] office on 06/14/22 which was unremarkable (2 [...] normal to inspection Quality Reporting Tobacco Screening (CMS 138) Smoking Status: Former smoker Assessment and Plan Assessment and Plan (1) LLQ abdominal pain: ?Status:?Acute ?Plan: 46 yr old female with 6 weeks of LLQ pain and 1 week of RUQ pain. Will get KUB to eval for ureteral stone. She is scheduled for CT today as ordered by her ladle puller. Nest step based on imaging results. Will [...] Sasha Jackson DO; Waldemar [place]la DO~ Signed [facility] Work Phone: Reason for referral (narrative)No reason for referral information availableWSCCI Hospital Lima Work Phone: Chief Complaint and Reason for [...] Complaint Establish care, disc uss BV concerns, Castine pt CERVICAL RADICULOPATHY/RX HERE Reason for Visit Encounter to [facility] Urinary incontinence in female Chief Complaint Establish care, disc uss BV concerns, [place] pt CERVICAL RADICULOPATHY/RX HERE SCREENING CERVICALGIA, RADICULOPATHY LT ARM Reason for Visit Encounter to [facility] Urinary incontinence in female Chief Complaint [...] HERE October 02, 2024 1 0:00am Annual ([facility] [employer]) October 15, 2024 3:16 pm Reason for Visit Admit Date Encounter for routine gynecological exam ination October 15, 2024 3:16pm Chief Complaint Admit Date RT SHOULDER PAIN September 08, 2024 9:34 am SHOULDER PAIN. RX HERE October 02, 2024 1 0:00am Annual ([employer]) October 15, 2024 3:16 pm E ORDER [...] HERE October 02, 2024 1 0:00am Annual ([employer]) October 15, 2024 3:16 pm E ORDER October 21, 2024 9:03 am screen for breast cancer November 04 3:30pm right shoulder pain December 01, 2024 7:05am Family History No Family History Records Found [...] Will No April 20 4:14pm Power of Eap Specialist No April 20, 2016 4:14pm Advance Directive Response Recorded Date/ Time Advance Directives No April 20, 2016 3:14pm Living Will No April 20 3:14pm Power of Eap Specialist No April 20, 2016 3:14pm Advance Directive Response Recorded Date/ Time Advance Directives No April 20, 2016 4:14pm Living Will No June 23, 2022 11:34am Power of Eap Specialist No June 23 11:34am Advance Directive Response Recorded Date/ Time Advance Directives No April 20, 2016 3:14pm Living Will No June 23, 2022 10:34am Power of Eap Specialist No June 23 10:34am Advance Directive Response [...] Member Role Status Dates Dr. Sasha Jackson , DO Family Provider Active Dr. Sasha Jackson , DO Primary Care Provider Active Team Status: Inactive Member Role Status Dates Dr. Sasha Jackson , DO Primary Care Provider, Attending Zoe morrison Active Team Status: Inactive Member Role Status Dates Dr. Sasha Jackson , DO Primary Care Provide r, Attending Provider, Referring Provider Active Team Status: Active Member Role Status Dates Dr. Sasha Jackson , DO Primary Care Provider Active Dr. Mayra Palma , DO Attending Provider Active Team Status: Inactive Member Role Status Dates Dr. Sasha Jackson , DO Primary Care Provider Active Dr. Mayra Palma , DO Attending Provider Active Team Status: Inactive Member Role Status Dates Dr. Sasha Jackson DO Primary Care Provider, Referring P rovider Active Bouchra Beaver METAL SMELTER, METAL SMELTER-C Attending Provider Active Team Status: Active Member Role Status Dates Dr. Sasha Jackson DO Primary Care Provider, Referring P rovider Active Dr. Waldemar Villela DO Attending Provider, Other Prov ider Active Team Status: Inactive Member Role Status Dates Dr. Sasha Jackson DO Primary Care Provider, Referring P rovider Active Dr. Waldemar Villela , DO Attending Provider Active Team Status: Active Member Role Status Dates Dr. Sasha Jackson DO Primary Care Provider Active Bouchra Beaver METAL SMELTER, METAL SMELTER-C Attending Provider, Referrin g Provider Active Team Status: Inactive Member Role Status Dates Dr. Sasha Jackson DO Primary Care Provider Active Bouchra Beaver METAL SMELTER, METAL SMELTER-C Attending Provider, Referrin g Provider Active Team [...] Dr. 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 Sasha Jackson DO Primary Care Provider Active Start: October 21, 2024 End: October 21, 2024 HAKEEM Tilley Attending Provider Active Start: October 21, 2024 End: October 21, 2024 HAKEEM Tilley Referring Provider Active Start: October 21, 2024 End: October 21, 2024 Team Status: Active Member Role/Relationship Status Dates Dr. Sasha Jackson DO Primary Care Provider Active Start: November 04, 2024 HAKEEM Tilley Attending Provider Active Start: November 04, 2024 HAKEEM Tilley Referring Provider Active Start: November 04, 2024 Team Status: Inactive Member Role/Relationship Status Dates Dr. Sasha Jackson DO Primary Care Provider Active Start: November 04, 2024 End: November 04, 2024 HAKEEM Tilley Attending Provider Active Start: November 04, 2024 End: November 04, 2024 HAKEEM Tilley Referring Provider Active Start: November 04, 2024 End: November 04, 2024 Team Status: Inactive Member Role/Relationship Status Dates Dr. Sasha Jackson DO Primary Care Provider Active Start: December 01, 2024 End: December 01, 2024 Dr. Dannie Storm MD Attending Provider Active Start: December 01, 2024 End: December 01, 2024 Dr. Dannie Storm MD Referring Provider Active Start: December 01, 2024 End: December 01, 2024 Source Comments (unrecognize d section and content) In the event this informatio n is protected by the Federal Confidentiality of Alcohol and Drug Abuse Patient Records regulations: The Federal rules restrict any use of the information to criminally investigate or prosecute any alcohol or drug abuse patient.[facility] Reason for Visit (unrecogniz ed section and content) Reason Comments Cough Wheezing, sob x 3 we eks INFORMATION SOURCE (unrecogn ized section and content) DATE CREATED AUTHOR 02/24/2024 [facility] DATE CREATED AUTHOR AUTHOR'S ORGANIZ ATION 12/07/2024 [facility] FOR RECORDS PERTAINING TO PATIENTS [...] BE BASED ON THE PRIMARY CLINICAL RECORDS. [facility]. provides no warranty or guarantee of the accuracy or completeness of information in this document.
== END | disposition home or self-care (01) ==
LOC: PSN 06:44
PROVIDERS: PCP Family Medicine; Referring Provider Family Medicine; Visit Provider Family Medicine
DX: R00.2 Palpitations (principal)
CPT/HCPCS: 93225; 93226

== ENCOUNTER 2025-02-23 15:52 | Outpatient (RCR) | payer OTHER, SELFPAY | END 2025-02-23 19:00 | disposition home or self-care (01) | LOC: PT 15:52 | PROVIDERS: PCP Family Medicine; Referring Provider Urology; Visit Provider Urology | DX: N39.46 Mixed incontinence (principal) ==

== ENCOUNTER 2025-03-25 08:16 | Day surgery (SDC) | payer OTHER, SELFPAY ==
--- NOTE | 2025-03-18 07:14 | EKG12_ITS ---
Test Reason : PRE OP Blood Pressure : */* mmHG Vent. Rate : 78 BPM Atrial Rate : 78 BPM P-R Int : 138 ms QRS Dur : 72 ms QT Int : 362 ms P-R-T Axes : 38 -1 18 degrees QTcB Int : 412 ms Normal sinus rhythm Low voltage QRS Borderline ECG Confirmed by Bernabe Gu ([id number]), editorial assistant JOSELINE LÓPEZ ([id number]) on 03/20/2025 8:08:36 AM Referred By: Jose Martin Barrett Confirmed By: Bernabe Gu
[2025-03-18 07:41] LABS: Hematocrit 37.2 % (37-47); Hemoglobin 12.1 g/dL (12.0-15.0); Mean Corp Hgb Conc 32.5 g/dL (32-36); Mean Corpuscular Volume 88.2 fL (81-99); Mean Platelet Vol. 10.6 fl (6.2-12.0); Platelet Count 321 K/mm3 (150-450); RBC Distribution Width CV 13.4 % (11.6-14.6); RBC Distribution Width SD 43.4 fl (35.1-43.9); Red Blood Count 4.22 M/mm3 (4.2-5.4); White Blood Count 6.6 K/mm3 (4.4-11.0)
[2025-03-18 08:02] LABS: Anion Gap 13 (7-18); BUN 13 mg/dL (4-19); BUN/Creat Ratio 19.0 RATIO (10-20); Calcium,Total 9.0 mg/dL (7.6-11.0); Carbon Dioxide 22.3 mmol/L (20.0-29.0); Chloride 107 mmol/L (96-106); Glucose 121 mg/dL (70-99); Potassium 4.0 mmol/L (3.5-5.1)
--- NOTE | 2025-03-20 15:32 | PAT.ANESEVAL ---
Pre-Assessment Diagnosis/Proposed Procedure Planned Operative Procedure(s): rotator cuff repair subacromial decompression Anesthesia History Anesthesia History - segment block layer: Anesthesia History - segment block layer Hx Hospitalization No 03/16/25 13:53 Any Problems With Anesthesia No 03/16/25 13:53 Cholinesterase deficiency No 03/16/25 13:53 You/Your Family Experience No 03/16/25 13:53 fever (hyperthermia) with Relationship Recent Exposure to Contagious No 06/28/22 06:21 Disease Does patient have nerve No 03/16/25 13:53 stimulator Patient instructed to have device shut off --Does patient have Pacemaker or ICD? When Was Last Pacemaker Check QUESTION #4 FULL TEXT: You/Your Family Experience fever (hyperthermia) with Anesthesia Last Oral Intake Last Oral intake: Last Oral Intake NPO since Meds taken in AM with sips of water? Meds patient instructed to take am of surgery PONV PONV - segment block layer: PONV - segment block layer Female Yes 03/16/25 13:53 HX of Motion Sickness No 03/16/25 13:53 HX of N/V After Surgery No 03/16/25 13:53 Non-Smoker Yes 03/16/25 13:53 Duration of Surgery greater Yes 03/16/25 13:53 than 60 minutes Number of Risk Factors 3 03/16/25 13:53 PONV Score Moderate Risk 03/16/25 13:53 Height & Weight Height & Weight: Anesthesia: Height & Weight Height 5 ft 5 in 02/27/25 13:40 Respiratory Assessment Respiratory Assessment - segment block layer: Respiratory Tract Infection Hx - segment block layer Hx Respiratory Tract Infection No 03/16/25 13:53 STOP Sleep Apnea STOP Sleep Apnea - segment block layer: STOP Sleep Apnea - segment block layer Hx Hypertension No 03/16/25 13:53 Hx Sleep Apnea No 03/16/25 13:53 CPAP BIPAP Do you snore loudly (louder No 03/16/25 13:53 than talking or can be heard Do you often feel tired/ No 03/16/25 13:53 fatigued/ sleepy during daytime? Has anyone observed you stop No 03/16/25 13:53 breathing during sleep? STOP Results Negative 03/16/25 13:53 QUESTION #5 FULL TEXT : Do you snore loudly (louder than talking or can be heard through closed doors)? 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 Specify any problems Hx of Preganancy in last 3 N/A 03/16/25 13:53 Months Nurse Filling Out Transfusion MEGHAN 03/16/25 13:53 & Questions: Date: 03/16/25 03/16/25 13:53 Time: 14:02 03/16/25 13:53 Patient unable to answer at this time (ie. confused, unrespo /Reproduction History /Reproductive History - segment block layer: /Reproductive Hx- segment block layer Hx Now Gestational Age (in weeks): EDC: Hx Hx Para Hx Section SAB No 03/16/25 13:53 Does the father of the baby or his family experience fever w Father of the baby Malignant Hypertension history comment [facility] Medical History (Updated 03/16/25 @ 14:00 by Claudia Cabezas) Alcohol use History of IBS Gastric reflux Cardiology follow-up encounter Right rotator cuff tear Arthrosis of right acromioclavicular joint Tendinosis of right rotator cuff Right shoulder pain Constipation Urinary incontinence GERD (gastroesophageal reflux disease) Benign heart murmur Kidney stones Chronic headaches Melanoma Back problem Wears glasses Cancer History of hiatal hernia Former smoker History of Holter monitoring History of echocardiogram History of stress test RUQ abdominal pain Vitamin D deficiency IBS (irritable bowel syndrome) Premature ventricular contraction History of melanoma Home Medications ?Medication ?Instructions ?Recorded ?Last Taken ?Type calcium citrate 250 mg PO QDAY 10/15/24 Unknown History cholecalciferol (vitamin D3) 25 25 mcg PO QDAY 10/15/24 Unknown History mcg (1,000 unit) capsule creatine monohydrate 5,000 mg oral 500 mg PO DAILY 10/15/24 Unknown History powder packet magnesium trisilicate 20 1 tab PO DAILY PRN memory 10/15/24 Unknown History mg-aluminum hydroxide 80 mg chewable tablet turmeric 400 mg capsule mg PO 10/15/24 Unknown History vitamin B complex 1 tab PO QDAY 10/15/24 Unknown History estradiol 0.01% (0.1 mg/gram) 1 g vaginal 3XW 3 months #42.5 01/21/25 Unknown Rx vaginal cream grams pantoprazole 20 mg tablet,delayed 20 mg PO QDAY 01/21/25 Unknown History release testosterone 50 mg/5 gram (1 %) 1 tube transdermal QAM 01/21/25 Unknown History transdermal gel vibegron 75 mg tablet (Gemtesa) 75 mg PO DAILY 03/16/25 Unknown History Allergy/AdvReac Type Severity Reaction Status Date / Time No Known Allergies Allergy Verified 03/16/25 13:50 Family History Father Myocardial infarction, Onset Age: 51 Hypertension Heart disease Hyperlipidemia Alcoholism in family member Mother Hypertension Hyperlipidemia Thyroid disorder Diabetes Sister Arthritis Cancer Surgical History (Updated 03/16/25 @ 14:00 by Claudia Cabezas) History of colonoscopy History of esophagogastroduodenoscopy (EGD) History of skin surgery H/O foot surgery History of D&C History of tubal ligation History of tonsillectomy History of Social History adopted: No household members: family housing: house number of children: 2 current occupational status: employed 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 Normal sinus rhythm. Recommendation Anesthesia Recommendation Anesthesia recommendation: OPTIMIZED for anesthesia
[2025-03-25] VITALS (11 sets, daily range): BP systolic 107–150; BP diastolic 56–88; PULSE 69–93; RESP 12–18; TEMP 36.7–36.9; O2SAT 91–98; BMI 39.6
--- OUTSIDE RECORDS SUMMARY | 2025-03-25 08:33 | XMS RPT_ITS | CCD ---
Author Organization [facility] CliniSytn Care Team Providers Care Public Health Engineer Name Role Phone Dr. Sasha Jackson Primary Care Provider Dr. Sasha Jackson Referring Provider Sd MARTINEZ, GENER[employer] FOREMAN-C Bouchra Castro Attending Provider Friend, Dr. Medeiros Attending Provider Friend, Dr. Medeiros Other Provider [phone] Dr. Sasha Jackson Primary Care Provider [phone] Dr. Sasha Jackson Referring Provider VIKA Fine Attending Provider [phone] Sasha Jackson Primary Care Provider Dr. Sasha Jackson Referring Provider Dr. Sasha Jackson Other Provider Dr. Jeferson Ramos Attending Provider [phone] Sasha Jackson DO Primary Care Provider [phone] SASHA JACKSON Primary Care Unavailable Dr. Sasha Jackson DO Primary Care Provider Dr. Dannie Storm MD Attending Provider Dr. Dannie Storm MD Referring Provider Dr. Sasha Jackson DO Referring Provider Crissy Schrader Attending Provider Kayla MARTINEZ-Crissy Adams Referring Provider Dr. Sasha Jackson DO Primary Care Physician Emeterio MELGAR, Dr. Pandey Attending Physician Kayla MARTINEZ-C, Crissy Attending Physician Dr. Sasha Jackson DO Attending Physician [phone] Hector MELGAR, Dr. Alonso Attending Physician Cee Crystal Attending Unavailable Cee Crystal Referring Unavailable Malys, Sasha Primary Care Unavailable Malys, Sasha Primary Care Unavailable MiedPedro channah Attending Unavailable Sammieddustin Unique Referring Unavailable Prayson, Dannie Attending Unavailable Prayson, Dannie Referring Unavailable Malys, Sasha Primary Care Unavailable Prayson, Dannie Referring Unavailable Malys, Sasha Primary Care Unavailable Prayson, Dannie Attending Unavailable Malys, Sasha Primary Care Unavailable Crissy Garza Attending Unavailable Crissy Garza Referring Unavailable Malys, Sasha Primary Care Unavailable Crissy Garza Attending Unavailable Crissy Garza Referring Unavailable Prayson, Dannie Referring Unavailable Malys, Sasha Primary Care Unavailable PraysonDannie Attending Unavailable Malys, Sasha Attending Unavailable Malys, Sasha Referring Unavailable Malys, Sasha Primary Care Unavailable Cee Crystal Attending Unavailable Malys, Sasha Referring Unavailable Malys, Sasha Primary Care Unavailable Malys, Sasha Primary Care Unavailable Malys, Sasha Referring Unavailable Crissy Garza Attending Unavailable Medications Current Medications Medication Drug Class(es) Dates Sig (Normalized) Sig (Original) albuterol 0.83 mg/ml inhalation solution (20 sources) beta2-Adrenergic Agonist Start: 02-23-2024 take 2.5 [...] 2022 8:06am amoxicillin 500 mg oral capsule (19 sources) Penicillin-class Antibacterial Start: 02-19-2024 take 1 [...] 10:29am calcium citrate 1040 mg oral tablet (5 sources) Start: 10-15-2024 take 1 tablet by laci th once daily cholecalciferol 0.025 mg ora l capsule (5 sources) Vitamin D Start: 10-15-2024 take 1 capsule by [facility] once daily Creatine Monohydrate 5,000 m g powder in packet (5 sources) Start: 10-15-2024 Start: 10-15-2024 Creatine Monoh ydrate 5,000 mg powder in packet Active mg PO October 15, 2024 12:00am Mag Trisilicate-Alum Hydroxi de 20-80 mg tablet,chewable (5 sources) Start: 10-15-2024 Start: 10-15-2024 Mag Trisilicat e-Alum Hydroxide 20-80 mg tablet,chewable Active {tbl} PO October 15, 2024 12:00am Sonora (Nk) (1 source) Start: 06-23-2022 Sonora (Nk) A ctive June 23, 2022 12:00am pantoprazole 20 mg delayed release oral tablet (13 sources) Proton Pump Inhibitor Start: 02-20-2024 take [...] 21 tablet 02/23/2024 03/03/2024 Active Turmeric extract (5 sources) Start: 10-15-2024 Start: 10-15-2024 Turmeric 400 m g capsule Active mg PO October 15, 2024 12:00am Vitamin B Complex tablet (5 sources) Start: 10-15-2024 Start: 10-15-2024 Vitamin B Comp irineo tablet Active 1 {tbl} PO daily October 15, 2024 12:00am Completed/Discontinued Medications Medication Drug Class(es) Dates Sig (Normalized) Sig (Original) acetaminophen 325 mg / oxyCODONE hydrochloride 5 mg oral tablet (18 sources) Opioid Agonist Start: 05-03-2016 End: 02-15-2018 [...] mg / clavulanate 125 mg oral tablet (18 sources) Penicillin-class Antibacterial Start: 02-15-2018 End: 02-25-2018 Amoxicillin-Pot Clavulanate (Augmentin) 875-125 mg tablet Discontinued 1 {tbl} PO Q12H 20 10 0 February 15, 2018 1:00am February 24, 2018 1:00am February 25, 2018 1:11am Acute sinusitis, unspecified benzonatate 100 mg oral capsule (18 sources) Non-narcotic Antitussive Start: 02-15-2018 End: 06-20-2022 [...] mg/ml / guaiFENesin 20 mg/ml oral solution (18 sources) Opioid Agonist Start: 02-15-2018 End: 06-20-2022 [...] 2022 8:06am ibuprofen 600 mg oral tablet (18 sources) Nonsteroidal Anti-inflammatory Drug Start: 04-20-2016 End: 06-20-2022 Ibuprofen 600 MG tablet Discontinued 600 mg PO NEEDED as needed for Pain April 20, 2016 1:00am June 20, 2022 8:06am methylPREDNISolone 4 mg oral tablet (18 sources) Corticosteroid Start: 02-15-2018 End: 02-20-2018 take [...] Multivitamin With Folic Acid 1 TABLET tablet (7 sources) Start: 04-20-2016 End: 02-15-2018 take 1 tablet by mouth once daily Multivitamin With Folic Acid 1 TABLET tablet Discontinued 1 {tbl} PO DAILY April 20, 2016 1:00am February 15, 2018 10:29am Problems Active Problems Problem Classification Problem Date Documented Da te Episodic/Chronic Abdominal pain (20 sources) Right upper quadrant pain; Translations: [Right upper quadrant pain] 06-20-2022 Episodic Acute bronchitis (18 sources) Acute bronchitis; Translations: [Acute bronchitis, unspecified] 02-15-2018 Episodic Administrative/social admission (20 sources) Patient encounter status; Translations: [Persons encountering health services in other specified circumstances] 02-19-2023 Episodic Cardiac dysrhythmias (14 sources) Multiple premature ventricular complexes; Translations: [Ventricular premature depolarization] 06-20-2022 Chronic Cardiac dysrhythmias (1 source) Palpitations; Translations: [Palpitations] Onset: 12-16-2024 Episodic Genitourinary symptoms and ill-defined conditions (20 sources) Urinary incontinence; Translations: [Unspecified urinary incontinence] Onset: 01-21-2025 02-19-2023 Chronic Genitourinary symptoms and ill-defined conditions (1 source) Nocturia; Translations: [Nocturia] Onset: 01-21-2025 Episodic Menopausal disorders (8 sources) Menopausal syndrome; Translations: [Menopausal and female climacteric states] 10-15-2024 Chronic Nutritional deficiencies (14 sources) Vitamin D deficiency; Translations: [Vitamin D deficiency, unspecified] 06-20-2022 Chronic Other circulatory disease (8 sources) Elevated blood-pressure reading without diagnosis of [...] disorder] Onset: 11-07-2024 Episodic Residual codes; unclassified (12 sources) Early satiety; Translations: [Early satiety] 07-03-2022 Episodic Unclassified (7 sources) R32 - Unspecified urinary incontinence Past or Other Problems Problem Classification Problem Date Documented Da te Episodic/Chronic Other lower respiratory disease (1 source) Dyspnea, unspecified; Translations: [Dyspnea, unspecified] Onset: 03-04-2024 Episodic Results Test Name Value Interpretation Reference Range Facility Magnetic resonance imaging r eportOrdered By: Jas Davis on 12-01-2024 Study report [facility] Imaging Services [address] [place] [address] Upper Ext Joint Only(Routine) MR#: [id number] Acct: [id number] Name: NORMA GRIFFIN Rep #: [id number] : 1975 F 49 From: Manuelito Davis MD PCP: Dr. Sasha Jackson, DO Status: REG CLI Study:Upper Ext Joint Only(Routine) Date of Exam: 12/01/24 Exam# [id number] Ordering Dr: Dannie Storm MD PROCEDURE: UPPER [...] the acromioclavicular and glenohumeral joint. Reading Location: [facility] CC: Dr. Sasha Jackson DO; Dr. Dannie Storm MD ~ Product Management Manager: Signed [facility] Upper Ext Joint Only(Routine )on 12-01-2024 Upper Ext Joint Only(Routine) [facility] Imaging Services [address] [place] [address] [id number] Upper Ext Joint Only(Routine) MR#: [id number] Acct: [id number] Name: NORMA GRIFFIN Rep #: [id number] : 1975 F 49 From: Jas brady MD PCP: Dr. Sasha Jackson DO Status: REG CLI Study: Upper Ext Joint Only(Routine) Date of Exam: 0 12/01/24 Exam# [id number] Ordering Dr: Dannie Storm MD PROCEDURE: UPPER [...] the acromioclavicular and glenohumeral joint. Reading Location: [facility] CC: Dr. Sasha Jackson DO; Dr. Dannie Storm MD Product Management Manager: Signed Normal [facility] Breast imaging reportOrdered By: Cassidy Monreal on 11-04-2024 Study report [facility] Imaging Services [address] [place], [place] [address] SCRN MAMM (CAD)W/SHARI BILAT MR#: [id number] Acct: [id number] Name: NORMA GRIFFIN Rep #: [id number] : 1975 F 49 From: Dain Correa MD PCP: Dr. Sasha Jackson DO Status: REG CLI Study:SCRN MAMM (CAD)W/SHARI BILAT Date of Exa m: 11/04/24 Exam# [id number] Ordering Dr: Crissy Garza [address] FOREMAN-C EXAM: SCRN MAMM (CAD)W/SHARI BILAT DATE: 11/04/2024 [...] be mailed to the patient. Reading Location: [id number] CC: HAKEEM Garza; Dr. Sasha Jackson DO ~ Product Management Manager: Signed [facility] SCRN MAMM (CAD)W/SHARI BILATo n 11-04-2024 SCRN MAMM (CAD)W/SHARI BILAT [facility] Imaging Services [address] [place], [place] [address] SCRN MAMM (CAD)W/SHARI BILAT MR#: [id number] Acct: [id number] Name: NORMA GRIFFIN Rep #: [id number] : 1975 F 49 From: Cassidy Mckeon i, MD PCP: Dr. Sasha Jackson DO Status: [facility] CLI Study: SCRN MAMM (CAD)W/SHARI BILAT Date of Exam: 10/24 05/20 Exam# [id number] Ordering Dr: Crissy Garza EXAM: SCRN MAMM (CAD)W/SHARI BILAT DATE: 11/04/2024 [...] be mailed to the patient. Reading Location: [id number] CC: HAKEEM Garza; Dr. Ssaha Jackson DO Product Management Manager: Signed Normal [facility] Testosterone Freeon 10-25-19 25 TESTOSTER FREE 0.3 pg/mL Normal 0.0-4.2 [facility] Comment on above: Result Comment: Perf ormed at: - [facility] [address] [id number] Plate Preparer: Anjel Aguayo MD, Phone: [phone] Performed By: #### L 501.9520, L509.3001, L100.0100, L500.4050, L503.0106, L506.1001, L506.0400, L3100.5125, L3300.1750, L500.4100, L3400.4800 ####[facility] [address] [place], [place], [address] Hemoglobin A1con 10-23-2024 HbA1c (Bld) [Mass fraction] 5.8 % High <=5.6 [facility] Comment on above: Order Comment: Comme nts: Please add to labs recently drawn Result Comment: Norm al < 5.7 % Prediabetic 5.7 - 6.4 % Diabetic >or= 6.5 % Please note range changes. Performed By: #### L 501.9985 ####[facility] [address] [place], [place], [address] Absolute lymphocyte countOrd ered By: Crissy Garza on 10-21-2024 Lymphocytes Auto (Unsp spec) [#/Vol] 1.93 10*3/uL 0.83-4.51 [facility] Absolute neutrophil countOrd ered By: Crissy Garza on 10-21-2024 Neutrophils (Bld) [#/Vol] 4.0 10*3/uL 2.0-7.7 [facility] Anion gap in Serum or Plasma Ordered By: Crissy Garza on 10-21-2024 Anion gap [Moles/Vol] 11 mmol/L 5-15 [facility] Automated lymphocyte count a s percentage of total leukocytesOrdered By: Crissy Garza on 10-21-2024 Lymphocytes/100 WBC Auto (Unsp spec) 29.5 % 19- [facility] BUN/creatinine ratioOrdered By: Crissy Garza on 10-21-2024 Urea nitrogen/Creatinine [Mass ratio] 21.1 mg/mg High 10-20 [facility] Basophil percentageOrdered B y: Crissy Garza on 10-21-2024 Basophils/100 WBC (Bld) 0.3 % 0-1 [facility] Bilirubin, totalOrdered By: Crissy Garza on 10-21-2024 Bilirubin [Mass/Vol] 0.42 mg/dL 0.00-1.30 [facility] CBC W/Diff, Automatedon 09-24 Absolute Lymph 1.93 X10 3/uL Normal 0.83-4.51 [facility] Comment on above: Performed By: #### L 501.9520, L509.3001, L100.0100, L500.4050, L503.0106, L506.1001, L506.0400, L3100.5125, L3300.1750, L500.4100, L3400.4800 #### [facility] [address] [place], [place], [id number] Absolute Neut 4.0 X10 3/uL Normal 2.0-7.7 [facility] Comment on above: Performed By: #### L 501.9520, L509.3001, L100.0100, L500.4050, L503.0106, L506.1001, L506.0400, L3100.5125, L3300.1750, L500.4100, L3400.4800 #### [facility] [address] [place], [place], [id number] Basophils/100 WBC (Bld) 0.3 % Normal 0-1 [facility] Comment on above: Performed By: #### L 501.9520, L509.3001, L100.0100, L500.4050, L503.0106, L506.1001, L506.0400, L3100.5125, L3300.1750, L500.4100, L3400.4800 #### [facility] [address] [place], [address] Eosinophils/100 WBC (Bld) 0.9 % Normal 0-5 [facility] Comment on above: Performed By: #### L 501.9520, L509.3001, L100.0100, L500.4050, L503.0106, L506.1001, L506.0400, L3100.5125, L3300.1750, L500.4100, L3400.4800 #### [facility] [address] [place], [place], [phone] (919) Erythrocyte distribution width (RBC) [Ratio] 14.1 % Normal 11.6-14.6 [facility] Comment on above: Performed By: #### L 501.9520, L509.3001, L100.0100, L500.4050, L503.0106, L506.1001, L506.0400, L3100.5125, L3300.1750, L500.4100, L3400.4800 #### [facility] [address] [place], [place], [phone] (207) Hematocrit (Bld) [Volume fraction] 40.6 % Normal 37-47 [facility] Comment on above: Performed By: #### L 501.9520, L509.3001, L100.0100, L500.4050, L503.0106, L506.1001, L506.0400, L3100.5125, L3300.1750, L500.4100, L3400.4800 #### [facility] [address] [place], [place], [phone] (699) Hemoglobin (Bld) [Mass/Vol] 13.0 g/dL Normal 12.0-15.0 [facility] Comment on above: Performed By: #### L 501.9520, L509.3001, L100.0100, L500.4050, L503.0106, L506.1001, L506.0400, L3100.5125, L3300.1750, L500.4100, L3400.4800 #### [facility] [address] [facility] [place], [address] IG% 0.300 Normal 0.0-0.9 [facility] Comment on above: Result Comment: IG% - Immature Granulocytes (promyelocytes, myelocytes and metamyelocytes) > 1% indicates that a LEFT SHIFT is Present. Performed By: #### L 501.9520, L509.3001, L100.0100, L500.4050, L503.0106, L506.1001, L506.0400, L3100.5125, L3300.1750, L500.4100, L3400.4800 #### [facility] [address] [place], [address] Lymphocytes/100 WBC (Bld) 29.5 % Normal 19-41 [facility] Comment on above: Performed By: #### L 501.9520, L509.3001, L100.0100, L500.4050, L503.0106, L506.1001, L506.0400, L3100.5125, L3300.1750, L500.4100, L3400.4800 #### [facility] [address] [place], [address] MCH (RBC) [Entitic mass] 28.7 pg Normal 27.0-32.0 [facility] Comment on above: Performed By: #### L 501.9520, L509.3001, L100.0100, L500.4050, L503.0106, L506.1001, L506.0400, L3100.5125, L3300.1750, L500.4100, L3400.4800 #### [facility] [address] [place], [address] MCHC (RBC) [Mass/Vol] 32.0 g/dL Normal 32-36 [facility] Comment on above: Performed By: #### L 501.9520, L509.3001, L100.0100, L500.4050, L503.0106, L506.1001, L506.0400, L3100.5125, L3300.1750, L500.4100, L3400.4800 #### [facility] [address] [place], [address] MCV (RBC) [Entitic vol] 89.6 fL Normal 81-99 [facility] Comment on above: Performed By: #### L 501.9520, L509.3001, L100.0100, L500.4050, L503.0106, L506.1001, L506.0400, L3100.5125, L3300.1750, L500.4100, L3400.4800 #### [facility] [address] [place], [address] Monocytes/100 WBC (Bld) 7.2 % Normal 0-10 [facility] Comment on above: Performed By: #### L 501.9520, L509.3001, L100.0100, L500.4050, L503.0106, L506.1001, L506.0400, L3100.5125, L3300.1750, L500.4100, L3400.4800 #### [facility] [address] [place], [address] Neutrophils/100 WBC (Bld) 61.8 % Normal 47-70 [facility] Comment on above: Performed By: #### L 501.9520, L509.3001, L100.0100, L500.4050, L503.0106, L506.1001, L506.0400, L3100.5125, L3300.1750, L500.4100, L3400.4800 #### [facility] [address] [place], [address] Nucleated RBC (Bld) [#/Vol] 0 10*3/uL Normal 0-5 [facility] Comment on above: Performed By: #### L 501.9520, L509.3001, L100.0100, L500.4050, L503.0106, L506.1001, L506.0400, L3100.5125, L3300.1750, L500.4100, L3400.4800 #### [facility] [address] [place], [address] Platelet mean volume (Bld) [Entitic vol] 11.2 fL Normal 6.2-12.0 [facility] Comment on above: Performed By: #### L 501.9520, L509.3001, L100.0100, L500.4050, L503.0106, L506.1001, L506.0400, L3100.5125, L3300.1750, L500.4100, L3400.4800 #### [facility] [address] [facility] [place], [address] Platelets (Bld) [#/Vol] 289 10*3/uL Normal 150-450 [facility] Comment on above: Performed By: #### L 501.9520, L509.3001, L100.0100, L500.4050, L503.0106, L506.1001, L506.0400, L3100.5125, L3300.1750, L500.4100, L3400.4800 #### [facility] [address] [place], [address] RBC (Bld) [#/Vol] 4.53 10*6/uL Normal 4.2-5.4 [facility] Comment on above: Performed By: #### L 501.9520, L509.3001, L100.0100, L500.4050, L503.0106, L506.1001, L506.0400, L3100.5125, L3300.1750, L500.4100, L3400.4800 #### [facility] [address] [place], [place], [phone] RDW SD 46.0 fl High 35.1-43.9 [facility] Comment on above: Performed By: #### L 501.9520, L509.3001, L100.0100, L500.4050, L503.0106, L506.1001, L506.0400, L3100.5125, L3300.1750, L500.4100, L3400.4800 #### [facility] [address] [place], [place], [phone] WBC (Bld) [#/Vol] 6.5 10*3/uL Normal 4.4-11.0 [facility] Comment on above: Performed By: #### L 501.9520, L509.3001, L100.0100, L500.4050, L503.0106, L506.1001, L506.0400, L3100.5125, L3300.1750, L500.4100, L3400.4800 #### [facility] [address] [place], [place], [phone] Calculated very low density lipoprotein (VLDL) cholesterol measurementOrdered By: Crissy Garza on 10-21-2024 Calculated very low density lipoprotein (VLDL) cholesterol measurement 8 mg/dL 5-40 [facility] Carbon dioxide, total [Moles /volume] in Central venous bloodOrdered By: Crissy Garza on 10-21-2024 CO2 [Moles/Vol] 23.5 mmol/L 21.0-32.0 [facility] Chloride assayOrdered By: Kayley Garza on 10-21-2024 Chloride [Moles/Vol] 104 mmol/L 98-108 [facility] Comprehensive Metabolic Prof ilon 10-21-2024 Albumin [Mass/Vol] 4.1 g/dL Normal 3.5-5.0 [facility] Comment on above: Performed By: #### L 501.9520, L509.3001, L100.0100, L500.4050, L503.0106, L506.1001, L506.0400, L3100.5125, L3300.1750, L500.4100, L3400.4800 #### [facility] [address] [facility] [place], [place], [phone] (161) Albumin/Globulin [Mass ratio] 1.6 {ratio} Normal 0.9-2.4 [facility] Comment on above: Performed By: #### L 501.9520, L509.3001, L100.0100, L500.4050, L503.0106, L506.1001, L506.0400, L3100.5125, L3300.1750, L500.4100, L3400.4800 #### [facility] [address] [place], [address] ALK PHOS 73 U/L Normal 35-104 [facility] Comment on above: Performed By: #### L 501.9520, L509.3001, L100.0100, L500.4050, L503.0106, L506.1001, L506.0400, L3100.5125, L3300.1750, L500.4100, L3400.4800 #### [facility] [address] [place], [address] (018) ALT [Catalytic activity/Vol] 16 U/L Normal <=34 [facility] Comment on above: Performed By: #### L 501.9520, L509.3001, L100.0100, L500.4050, L503.0106, L506.1001, L506.0400, L3100.5125, L3300.1750, L500.4100, L3400.4800 #### [facility] [address] [place], [address] AST [Catalytic activity/Vol] 14 U/L Normal <=31 [facility] Comment on above: Performed By: #### L 501.9520, L509.3001, L100.0100, L500.4050, L503.0106, L506.1001, L506.0400, L3100.5125, L3300.1750, L500.4100, L3400.4800 #### [facility] [address] [place], [address] Bilirubin [Mass/Vol] 0.42 mg/dL Normal 0.00-1.30 [facility] Comment on above: Performed By: #### L 501.9520, L509.3001, L100.0100, L500.4050, L503.0106, L506.1001, L506.0400, L3100.5125, L3300.1750, L500.4100, L3400.4800 #### [facility] [address] [facility] [address] [place], [place], [phone] (982) BUN/CRE 21.1 RATIO High 10-20 [facility] Comment on above: Performed By: #### L 501.9520, L509.3001, L100.0100, L500.4050, L503.0106, L506.1001, L506.0400, L3100.5125, L3300.1750, L500.4100, L3400.4800 #### [facility] [address], [address] Calcium [Mass/Vol] 9.2 mg/dL Normal 7.6-11.0 [facility] Comment on above: Performed By: #### L 501.9520, L509.3001, L100.0100, L500.4050, L503.0106, L506.1001, L506.0400, L3100.5125, L3300.1750, L500.4100, L3400.4800 #### [facility] [address] [place], [address] Chloride [Moles/Vol] 104 mmol/L Normal 98-108 [facility] Comment on above: Performed By: #### L 501.9520, L509.3001, L100.0100, L500.4050, L503.0106, L506.1001, L506.0400, L3100.5125, L3300.1750, L500.4100, L3400.4800 #### [facility] [address] [place], [place], [phone] (227) CO2 [Moles/Vol] 23.5 mmol/L Normal 21.0-32.0 [facility] Comment on above: Performed By: #### L 501.9520, L509.3001, L100.0100, L500.4050, L503.0106, L506.1001, L506.0400, L3100.5125, L3300.1750, L500.4100, L3400.4800 #### [facility] [address] [place], [place], [phone] (506) Creatinine [Mass/Vol] 0.82 mg/dL Normal 0.70-1.20 [facility] Comment on above: Performed By: #### L 501.9520, L509.3001, L100.0100, L500.4050, L503.0106, L506.1001, L506.0400, L3100.5125, L3300.1750, L500.4100, L3400.4800 #### [facility] [address] [place], [place], [phone] (922) GAP 11 Normal 5-15 [facility] Comment on above: Performed By: #### L 501.9520, L509.3001, L100.0100, L500.4050, L503.0106, L506.1001, L506.0400, L3100.5125, L3300.1750, L500.4100, L3400.4800 #### [facility] [address] [place], [place], [phone] (695) GFR/1.73 sq M.predicted among non-blacks MDRD (S/P/Bld) [Vol rate/Area] 87 mL/min/{1.73_m2} Normal >60 [facility] Comment on above: Result Comment: mL/m in/1.73m2 CKD-EPI Creatinine Equation (2020) Performed By: #### L 501.9520, L509.3001, L100.0100, L500.4050, L503.0106, L506.1001, L506.0400, L3100.5125, L3300.1750, L500.4100, L3400.4800 #### [facility] [address] [place], [address] Globulin (S) [Mass/Vol] 2.5 g/dL Normal 2.2-4.2 [facility] Comment on above: Performed By: #### L 501.9520, L509.3001, L100.0100, L500.4050, L503.0106, L506.1001, L506.0400, L3100.5125, L3300.1750, L500.4100, L3400.4800 #### [facility] [address] [place], [address] Glucose [Mass/Vol] 105 mg/dL High 70-99 [facility] Comment on above: Performed By: #### L 501.9520, L509.3001, L100.0100, L500.4050, L503.0106, L506.1001, L506.0400, L3100.5125, L3300.1750, L500.4100, L3400.4800 #### [facility] [address] [place], [address] Potassium [Moles/Vol] 4.3 mmol/L Normal 3.3-5.1 [facility] Comment on above: Performed By: #### L 501.9520, L509.3001, L100.0100, L500.4050, L503.0106, L506.1001, L506.0400, L3100.5125, L3300.1750, L500.4100, L3400.4800 #### [facility] [address] [place], [address] Sodium [Moles/Vol] 139 mmol/L Normal 133-145 [facility] Comment on above: Performed By: #### L 501.9520, L509.3001, L100.0100, L500.4050, L503.0106, L506.1001, L506.0400, L3100.5125, L3300.1750, L500.4100, L3400.4800 #### [facility] [address] [place], [place], [phone] (402) T PROT 6.6 g/dL Normal 5.9-8.4 [facility] Comment on above: Performed By: #### L 501.9520, L509.3001, L100.0100, L500.4050, L503.0106, L506.1001, L506.0400, L3100.5125, L3300.1750, L500.4100, L3400.4800 #### [facility] [address] [place], [place], [phone] Urea nitrogen [Mass/Vol] 17 mg/dL Normal 4-19 [facility] Comment on above: Performed By: #### L 501.9520, L509.3001, L100.0100, L500.4050, L503.0106, L506.1001, L506.0400, L3100.5125, L3300.1750, L500.4100, L3400.4800 #### [facility] [address] [place], [place], [phone] Eosinophil percentageOrdered By: Crissy Garza on 10-21-2024 Eosinophils/100 WBC (Bld) 0.9 % 0-5 [facility] Erythrocyte distribution wid th ratioOrdered By: Crissy Garza on 10-21-2024 Erythrocyte distribution width (RBC) [Ratio] 14.1 % 11.6-14.6 [facility] Erythrocyte distribution wid th standard deviationOrdered By: Crissy Garza on 10-21-2024 Erythrocyte distribution width (RBC) [Ratio] 46.0 fl High 35.1-43.9 [facility] Estradiolon 10-21-2024 ESTRADIOL 30.0 pg/mL Normal [facility] Comment on above: Result Comment: FEMA [...] L503.0106, L506.1001, L506.0400, L3100.5125, L3300.1750, L500.4100, L3400.4800 ####[facility] [address] [place], [place], [address] Follicle Stimulating Hormone on 10-21-2024 FSH 7.4 mIU/mL Normal [facility] Comment on above: Result Comment: FEMA LE: Follicular: 1.4 - 18.1 mIU/mL Midcycle: 3.4 - 33.4 mIU/mL Luteal: 1.5 - 9.1 mIU/mL Post Menopause: 23.0 - 116.3 mIU/mL MALE: 1.4 - 18.1 mIU/mL Performed By: #### L 501.9520, L509.3001, L100.0100, L500.4050, L503.0106, L506.1001, L506.0400, L3100.5125, L3300.1750, L500.4100, L3400.4800 ####[facility] [address] [place], [place], [id number] Glomerular filtration rate ( GFR) estimation/1.73 sq m using serum, plasma, or whole bOrdered By: Crissy Garza on 10-21-2024 GFR/1.73 sq M.predicted among non-blacks MDRD (S/P/Bld) [Vol rate/Area] 87 mL/min/{1.73_m2} >60 [facility] Comment on above: mL/min/1.73m2 CKD-EP I Creatinine Equation (2020) Hematocrit Auto (Bld) [Volum e fraction]Ordered By: Crissy Garza on 10-21-2024 Hematocrit (Bld) [Volume fraction] 40.6 % 37-47 [facility] Hemoglobin A1c percentageOrd ered By: Crissy Garza on 10-21-2024 HbA1c (Bld) [Mass fraction] 5.8 % High <5.7 [facility] Comment on above: Normal < 5.7 % Predi abetic 5.7 - 6.4 % Diabetic >or= 6.5 % Please note range changes. Hemoglobin measurementOrdere d By: Crissy Garza on 10-21-2024 Hemoglobin (Bld) [Mass/Vol] 13.0 g/dL 12.0-15.0 [facility] Immature granulocytes/100 WB C Auto (Bld)Ordered By: Crissy Garza on 10-21-2024 Immature granulocytes/100 WBC (Bld) 0.300 % 0.0-0.9 [facility] Comment on above: IG% - Immature Granu locytes (promyelocytes, myelocytes and metamyelocytes) > 1% indicates that a LEFT SHIFT is Present. L509.3001on 10-21-2024 Testosterone [Mass/Vol] ng/dL Low 9-55 [facility] Comment on above: Performed By: #### L 501.9520, L509.3001, L100.0100, L500.4050, L503.0106, L506.1001, L506.0400, L3100.5125, L3300.1750, L500.4100, L3400.4800 ####[facility] [address] [place], [place], [phone](841) LDL calc ser/plasOrdered By: Crissy Garza on 10-21-2024 Cholesterol in LDL [Mass/Vol] 135 mg/dL [facility] Comment on above: Gvypgmwfzo=070-512 m g/dL & Higher Xqxz=543 mg/dL or greaterFriedwald Equation for LDL-C Laboratory - Chemistry and C hemistry - challengeOrdered By: Crissy Garza on 10-21-2024 AST [Catalytic activity/Vol] 14 U/L <32 [facility] Testosterone [Mass/Vol] ng/dL Low 9-55 [facility] Lipid Profileon 10-21-2024 CHOL:HDL 3.13 Normal [facility] Comment on above: Performed By: #### L 501.9520, L509.3001, L100.0100, L500.4050, L503.0106, L506.1001, L506.0400, L3100.5125, L3300.1750, L500.4100, L3400.4800 #### [facility] [address] [place], [address] Cholesterol [Mass/Vol] 210 mg/dL High <=200 [facility] Comment on above: Result Comment: Chol esterol level, Desirable <200 mg/dL Borderline high cholesterol 200-239 mg/dL High cholesterol >=240 mg/dL Recommendations of the NCEP Adult Treatment Panel for the following risk-cutoff thresholds for the [place] population. Performed By: #### L 501.9520, L509.3001, L100.0100, L500.4050, L503.0106, L506.1001, L506.0400, L3100.5125, L3300.1750, L500.4100, L3400.4800 #### [facility] [address] [place], [place], [phone] (570) Cholesterol in HDL [Mass/Vol] 67 mg/dL Normal [facility] Comment on above: Result Comment: Karmen onal Cholesterol Education Program (NCEP) guidelines: <40 mg/dL: Low HDL-cholesterol (major risk factor for CHD) >= 60 mg/dL: High HDL-cholesterol (negative risk factor for CHD) HDL-cholesterol is affected by a number of factors, e.g. smoking, exercise, hormones, sex and age. Performed By: #### L 501.9520, L509.3001, L100.0100, L500.4050, L503.0106, L506.1001, L506.0400, L3100.5125, L3300.1750, L500.4100, L3400.4800 #### [facility] [address] [place], [place], [phone] ([address] Cholesterol in LDL [Mass/Vol] 135 mg/dL Normal [facility] Comment on above: Result Comment: Bord nwasyf=239-077 mg/dL Higher Ieee=632 mg/dL or greater Friedwald Equation for LDL-C Performed By: #### L 501.9520, L509.3001, L100.0100, L500.4050, L503.0106, L506.1001, L506.0400, L3100.5125, L3300.1750, L500.4100, L3400.4800 #### [facility] [address] [place], [place], [phone] ([address] Cholesterol in VLDL [Mass/Vol] 8 mg/dL Normal 5-40 [facility] Comment on above: Performed By: #### L 501.9520, L509.3001, L100.0100, L500.4050, L503.0106, L506.1001, L506.0400, L3100.5125, L3300.1750, L500.4100, L3400.4800 #### [facility] [address] [place], [place], [phone] ([address] Triglyceride [Mass/Vol] 38 mg/dL Normal [facility] Comment on above: Result Comment: The drugs N-Acetylcysteine and Metamizole may falsely depress this assay. Normal range: <150 mg/dL Borderline High: 150-199 mg/dL High: 200-499 mg/dL Very High: >500 mg/dL Performed By: #### L 501.9520, L509.3001, L100.0100, L500.4050, L503.0106, L506.1001, L506.0400, L3100.5125, L3300.1750, L500.4100, L3400.4800 #### [facility] [address] [place], [address] MCV (mean corpuscular volume ) determinationOrdered By: Crissy Garza on 10-21-2024 MCV (RBC) [Entitic vol] 89.6 fL 81-99 [facility] Mean corpuscular hemoglobin (MCH) determinationOrdered By: Crissy Garza on 10-21-2024 MCH (RBC) [Entitic mass] 28.7 pg 27.0-32.0 [facility] Mean corpuscular hemoglobin concentration (MCHC) determinationOrdered By: Crissy Garza on 10-21-2024 MCHC (RBC) [Mass/Vol] 32.0 g/dL 32-36 [facility] Mean platelet volume determi nationOrdered By: Crissy Garza on 10-21-2024 Platelet mean volume (Bld) [Entitic vol] 11.2 fL 6.2-12.0 [facility] Monocyte percentageOrdered B y: Crissy Garza on 10-21-2024 Monocytes/100 WBC (Bld) 7.2 % 0-10 [facility] Neutrophil percentageOrdered By: Crissy Garza on 10-21-2024 Neutrophils/100 WBC (Bld) 61.8 % 47-70 [facility] Nucleated red blood cell per centageOrdered By: Crissy Garza on 10-21-2024 Nucleated RBC/100 WBC (Bld) [Ratio] 0 % 0-5 [facility] Platelet countOrdered By: Kayley Garza on 10-21-2024 Platelets (Bld) [#/Vol] 289 10*3/uL 150-450 [facility] Potassium measurement (mass/ volume)Ordered By: Crissy Garza on 10-21-2024 Potassium (Unsp spec) [Mass/Vol] 4.3 mmol/L 3.3-5.1 [facility] RBC Auto (Bld) [#/Vol]Ordere d By: Crissy Garza on 10-21-2024 RBC (Bld) [#/Vol] 4.53 10*6/uL 4.2-5.4 [facility] Screening total cholesterol/ high density lipoprotein (HDL) cholesterol ratioOrdered By: Crissy Garza on 10-21-2024 Cholesterol.total/Choles terol in HDL [Mass ratio] 3.13 {ratio} [facility] Serum creatinine measurement (mass/volume)Ordered By: Crissy Garza on 10-21-2024 Creatinine [Mass/Vol] 0.82 mg/dL 0.70-1.20 [facility] Serum globulin measurementOr dered By: Crissy Garza on 10-21-2024 Globulin (S) [Mass/Vol] 2.5 g/dL 2.2-4.2 [facility] Serum glucose measurement (m ass/volume)Ordered By: Crissy Garza on 10-21-2024 Glucose [Mass/Vol] 105 mg/dL High 70-99 [facility] Serum or plasma alanine ramirez otransferase (ALT) measurementOrdered By: Crissy Garza on 10-21-2024 ALT [Catalytic activity/Vol] 16 U/L <35 [facility] Serum or plasma albumin david urement (mass/volume)Ordered By: Crissy Garza on 10-21-2024 Albumin [Mass/Vol] 4.1 g/dL 3.5-5.0 [facility] Serum or plasma albumin/glob ulin mass ratioOrdered By: Crissy Garza 10-21-2024 Albumin/Globulin [Mass ratio] 1.6 {ratio} 0.9-2.4 [facility] Serum or plasma alkaline abby sphatase measurementOrdered By: Crissy Garza on 10-21-2024 ALP [Catalytic activity/Vol] 73 U/L 35-104 [facility] Serum or plasma calcium david urement (mass/volume)Ordered By: Crissy Garza on 10-21-2024 Calcium [Mass/Vol] 9.2 mg/dL 7.6-11.0 [facility] Serum or plasma cholesterol in HDL measurement (mass/volume)Ordered By: Crissy Garza on 10-21-2024 Cholesterol in HDL [Mass/Vol] 67 mg/dL >40 [facility] Comment on above: National Cholesterol Education Program (NCEP) guidelines:<40 mg/dL: Low HDL-cholesterol (major risk factor for CHD)>= 60 mg/dL: High HDL-cholesterol (negative risk factor for CHD)HDL-cholesterol is affected by a number of factors, e.g. smoking, exercise, hormones, sex and age. Serum or plasma cholesterol measurement (mass/volume)Ordered By: Crissy Garza on 10-21-2024 Cholesterol [Mass/Vol] 210 mg/dL High <201 [facility] Comment on above: Cholesterol level, D esirable <200 mg/dLBorderline high cholesterol 200-239 mg/dLHigh cholesterol >=240 mg/dLRecommendations of the NCEP Adult Treatment Panel for the following risk-cutoff thresholds for the [place] population. Serum or plasma estradiol me asurement after follitropin dose (mass/volume)Ordered By: Crissy Garza on 10-21-2024 E2 post dose follitropin [Mass/Vol] 30.0 pg/mL [facility] Comment on above: FEMALES ADULT FEMALE [...] 10-21-2024 Testosterone Free [Mass/Vol] 0.3 pg/mL 0.0-4.2 [facility] Comment on above: Performed at: [address] [id number] Director: Anjel Aguayo MD, Phone: [phone] Serum or plasma urea nitroge n measurement (mass/volume)Ordered By: Crissy Garza on 10-21-2024 Urea nitrogen [Mass/Vol] 17 mg/dL 4-19 [facility] Sodium levelOrdered By: Diane Garza on 10-21-2024 Sodium [Moles/Vol] 139 mmol/L 133-145 [facility] T4 Free Directon 10-21-2024 T4 FREE DIRECT 1.20 ng/dL Normal 0.76-1.46 [facility] Comment on above: Performed By: #### L 501.9520, L509.3001, L100.0100, L500.4050, L503.0106, L506.1001, L506.0400, L3100.5125, L3300.1750, L500.4100, L3400.4800 ####[facility] [address] [place], [place], [phone] T4 freeOrdered By: Crissy barrera on 10-21-2024 Free T4 [Mass/Vol] 1.20 ng/dL 0.76-1.46 [facility] TSH DL <= 0.005 mIU/L QnOrde red By: Crissy Garza on 10-21-2024 TSH Qn 2.240 uIU/mL 0.300-4.200 [facility] Thyroid Stim Hormone (TSH)on 10-21-2024 TSH 2.240 uIU/mL Normal 0.300-4.200 [facility] Comment on above: Performed By: #### L 501.9520, L509.3001, L100.0100, L500.4050, L503.0106, L506.1001, L506.0400, L3100.5125, L3300.1750, L500.4100, L3400.4800 ####[facility] [address] [place], [place], [phone] Total proteinOrdered By: Lucas Garza on 10-21-2024 Protein [Mass/Vol] 6.6 g/dL 5.9-8.4 [facility] Triglycerides measurementOrd ered By: Crissy Garza on 10-21-2024 Triglyceride [Mass/Vol] 38 mg/dL <199 [facility] Comment on above: The drugs N-Acetylcy steine and Metamizole may falsely depress this assay. Normal range: <150 mg/dLBorderline High: 150-199 mg/dLHigh: 200-499 mg/dLVery High: >500 mg/dL Vitamin B12on 10-21-2024 Cobalamin (Vitamin B12) [Mass/Vol] 572 pg/mL Normal 180-914 [facility] Comment on above: Performed By: #### L 501.9520, L509.3001, L100.0100, L500.4050, L503.0106, L506.1001, L506.0400, L3100.5125, L3300.1750, L500.4100, L3400.4800 ####[facility] [address] [place], [place], [phone] Vitamin B12 ser/plasOrdered By: Crissy Garza on 10-21-2024 Cobalamin (Vitamin B12) [Mass/Vol] 572 pg/mL 180-914 [facility] Vitamin D,25 Hydroxyon 10-21 Vitamin D 25-OH 29.3 ng/mL Low 30-100 [facility] Comment on above: Result Comment: Alice min D Status Deficiency: <20 ng/mL (50nmol/L) Insufficiency: 20-30 ng/mL (50-75 nmol/L) Sufficiency: 30-100 ng/mL (75-250 nmol/L) Toxicity: >100 ng/mL (>250 nmol/L) Performed By: #### L 501.9520, L509.3001, L100.0100, L500.4050, L503.0106, L506.1001, L506.0400, L3100.5125, L3300.1750, L500.4100, L3400.4800 ####[facility] [address] [place], [address] White blood cell (WBC) count Ordered By: Crissy Garza on 10-21-2024 WBC (Bld) [#/Vol] 6.5 10*3/uL 4.4-11.0 [facility] Client Support Representative Office Visit Reporton 10-15-2024 Client Support Representative Office Visit Report [facility] [address], [address] [place] [address] OFFICE VISIT Date of Service: 10/15/24 MR#: [id number] Acct: [id number] Name: NORMA GRIFFIN Rep #: [id number] : 1975 Provider: HAKEEM Georges Age/Sex: 49/F Location[place] [facility] [place] Status: Signed Intake Vital Signs 02/19/23 10:15 10/15/24 15:28 Height 5 ft 5 in 5 ft 5 in Weight: 213 lb 6 oz BMI 35.5 BP 163/88 H Intake Visit 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 Normal [facility] PT D/C Summary (1)on 025 PT D/C Summary (1) [facility] Physical Therapy [facility] [address] [place] [address] [address] [place] [address] / REHABILITATION SERVICES DISCHARGE SUMMARY MR#: [id number] Acct: [id number] Name: NORMA GRIFFIN Rep #: [id number] : 1975 49 From: Tate Zhang PT, ATC Referring Dr.: Dr. Dannie Storm MD Status: REG RCR Insurance: [facility] SELF PAY INSURANCE Discharge Summary D/C summary: [...] please feel free to call me at [phone]. Thank you for the referral of this patient. Sincerely, Tate Zhang PT, ATC Balance/Gait/Function al tests Balance/Special Test Scores Quick DASH Score: 15.9075 Improvement % Improvement: 80 10/02/24 1032 CC: Dr. Sasha Jackson DO; Dr. Dannie Storm MD [facility] Signed Normal [facility] Inital Evaluation (1) - PTon 09-10-2024 Inital Evaluation (1) - PT [facility] [address] [place] [address] [address] [place] [address] / REHABILITATION SERVICES INITIAL EVALUATION MR#: [id number] Acct: [id number] Name: NORMA GRIFFIN Rep #: [id number] : 1975 49 From: Tate Zhang PT, ATC Referring DrNereida: Dr. 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 Pt reports she is able to [...] to be FAXED BACK to us at [phone] for Medicare purposes. For Medicare only, by signing this I certify the plan of care. Please let me know if there are questions or concerns regarding this plan of care. Physician Signature: Date : 09/10/24 0954 CC: Dr. Sasha Jackson DO; Dr. Dannie Storm MD [facility] Signed Normal [facility] Shoulder min 2 Viewson 09-08 Shoulder min 2 Views [facility] Imaging Services [address] [place] [address] Shoulder min 2 Views MR#: [id number] Acct: [id number] Name: NORMA GRIFFIN Rep #: [id number] : 1975 F 49 From: Poncho Ashley MD PCP: Dr. Sasha Jackson DO Status: REG CLI Study: Shoulder min 2 Views Date of Exam: 09/08/24 Exam# [id number] Ordering Dr: Dannie Storm MD PROCEDURE: SHOULDER [...] arthritis of the acromioclavicular joint. Reading Location: [id number] CC: Dr. Sasha Jackson DO; Dr. Dannie Storm MD Product Management Manager: Signed [facility] 02-23-2024 [facility] Office Visit (UCWSTR ) NORMA GRIFFIN ([id number]) 1975 F T Date Time Provider Department 02/23/24 1:30 PM LORENA ALVARADO [facility] During your visit today, we recorded the following information about you: Temperature Pulse Respiration Blood pressure 98.4 degrees 94/minute 19/minute 144/92 Weight 105.4 kg Lorena Alvarado PA-C 02/23/2024 2:17 PM Signed This note was created using [email or web address]. Subjective Norma Griffin is a 48 year [...] solution (DUONEB)Disp: Rfl: XR CHEST 2V FRONTAL/LAT [[id number]] Order #: [id number] FUTURE predniSONE (DELTASONE) 10 mg tabletTake 4 [...] daily fo (more content not included)... Normal [facility] CBC W/Diff, Automatedon 01-24 Absolute Lymph 1.62 X10 3/uL Normal 0.83-4.51 [facility] Comment on above: Performed By: #### L 100.0100, L300.8000 ####[facility] [address] [place], [place], [phone] Absolute Neut 5.2 X10 3/uL Normal 2.0-7.7 [facility] Comment on above: Performed By: #### L 100.0100, L300.8000 ####[facility] [address] [place], [address] Basophils/100 WBC (Bld) 0.5 % Normal 0-1 [facility] Comment on above: Performed By: #### L 100.0100, L300.8000 ####[facility] [address] [place], [address] Eosinophils/100 WBC (Bld) 1.3 % Normal 0-5 [facility] Comment on above: Performed By: #### L 100.0100, L300.8000 ####[facility] [address] [place], [address] Erythrocyte distribution width (RBC) [Ratio] 13.8 % Normal 11.6-14.6 [facility] Comment on above: Performed By: #### L 100.0100, L300.8000 ####[facility] [address] [place], [address] Hematocrit (Bld) [Volume fraction] 38.6 % Normal 37-47 [facility] Comment on above: Performed By: #### L 100.0100, L300.8000 ####[facility] [address] [place], [address] Hemoglobin (Bld) [Mass/Vol] 11.9 g/dL Low 12.0-15.0 [facility] Comment on above: Performed By: #### L 100.0100, L300.8000 ####[facility] [address] [place], [address] IG% 0.400 Normal 0.0-0.9 [facility] Comment on above: Result Comment: IG% - Immature Granulocytes (promyelocytes, myelocytes and metamyelocytes) > 1% indicates that a LEFT SHIFT is Present. Performed By: #### L 100.0100, L300.8000 ####[facility] [address] [place], [address] Lymphocytes/100 WBC (Bld) 21.1 % Normal 19-41 [facility] Comment on above: Performed By: #### L 100.0100, L300.8000 ####[facility] [address] [place], [address] MCH (RBC) [Entitic mass] 28.4 pg Normal 27.0-32.0 [facility] Comment on above: Performed By: #### L 100.0100, L300.8000 ####[facility] [address] [place], [address] MCHC (RBC) [Mass/Vol] 30.8 g/dL Low 32-36 [facility] Comment on above: Performed By: #### L 100.0100, L300.8000 ####[facility] [address] [place], [address] MCV (RBC) [Entitic vol] 92.1 fL Normal 81-99 [facility] Comment on above: Performed By: #### L 100.0100, L300.8000 ####[facility] [address] [place], [address] Monocytes/100 WBC (Bld) 8.5 % Normal 0-10 [facility] Comment on above: Performed By: #### L 100.0100, L300.8000 ####[facility] [address] [place], [address] Neutrophils/100 WBC (Bld) 68.2 % Normal 47-70 [facility] Comment on above: Performed By: #### L 100.0100, L300.8000 ####[facility] [address] [place], [address] Nucleated RBC (Bld) [#/Vol] 0 10*3/uL Normal 0-5 [facility] Comment on above: Performed By: #### L 100.0100, L300.8000 ####[facility] [address] [place], [address] Platelet mean volume (Bld) [Entitic vol] 10.4 fL Normal 6.2-12.0 [facility] Comment on above: Performed By: #### L 100.0100, L300.8000 ####[facility] [address] [place], [address] Platelets (Bld) [#/Vol] 326 10*3/uL Normal 150-450 [facility] Comment on above: Performed By: #### L 100.0100, L300.8000 ####[facility] [address] [place], [address] RBC (Bld) [#/Vol] 4.19 10*6/uL Low 4.2-5.4 [facility] Comment on above: Performed By: #### L 100.0100, L300.8000 ####[facility] [address] [place], [address] RDW SD 47.1 fl High 35.1-43.9 [facility] Comment on above: Performed By: #### L 100.0100, L300.8000 ####[facility] [address] [place], [address] WBC (Bld) [#/Vol] 7.7 10*3/uL Normal 4.4-11.0 [facility] Comment on above: Performed By: #### L 100.0100, L300.8000 ####[facility] [address] [place], [address] Chest PA and Lateralon 02-07 Chest PA and Lateral [facility] Imaging Services [address] [place] [address] Chest PA and Lateral MR#: [id number] Acct: [id number] Name: NORMA GRIFFIN Rep #: [id number] : 1975 F 48 From: Toney Monique DO PCP: Dr. Sasha Jackson DO Status: REG CLI Study: Chest PA and Lateral Date of Exam: 02/08/24 Exam# [id number] Ordering Dr: Unique Haeys MD [id number] INDICATION: DYSPNEA, WHEEZE ON R EXAMINATION/TECHNIQUE : [...] Signed: Toney Monique DO at 9:28 EST Reading Location ID and State: [facility] / [place] Tel [phone], Service support , CC: Dr. Unique Hayes MD; Dr. Sasha Jackson DO Product Management Manager: Signed Normal [facility] D-Dimer Quantitative (DVT/PE )on 02-08-2024 D-DIMER QUANT 0.34 FEU/ug/m Normal 0.27-0.49 [facility] Comment on above: Result Comment: NORM AL D-Dimer level (<0.50) indicates no DVT or PE. Performed By: #### L 100.0100, L300.8000 ####[facility] [id number] [place], [place], [id number] No Panel InformationOrdered By: Bouchra Beaver on 07-03-2022 D-Dimer Quantitative (PE/DVT) 0.40 FEU/ug/m 0.27-0.49 [facility] Comment on above: NORMAL D-Dimer level (<0.50) indicates no DVT or PE. Basophil percentageOrdered B y: Dr. Palma on 06-14-2022 Bilirubin [Mass/Vol] 0.20 mg/dL 0.20-1.00 [facility] Comment on above: For patients on eltr ombopag therapy, use of Dimension Gibbon TBIL is not recommended. Chloride [Moles/Vol] 109 mmol/L 98-107 [facility] Glucose [Mass/Vol] 125 mg/dL 74-106 [facility] Comment on above: Fasting Glucose resu lt from 100 to 125 mg/dL suggests IMPAIRED HOMEOSTASIS per A.D.A. criteria. Potassium [Moles/Vol] 3.6 mmol/L 3.5-5.1 [facility] Protein [Mass/Vol] 7.2 g/dL 6.4-8.2 [facility] Sodium [Moles/Vol] 141 mmol/L 136-145 [facility] WBC (Bld) [#/Vol] 7.7 10*3/uL 4.4-11.0 [facility] Blood erythrocytes count (nu mber/volume)Ordered By: Dr. Palma on 06-14-2022 RBC (Bld) [#/Vol] 4.22 10*6/uL 4.2-5.4 [facility] Blood hemoglobin measurement (mass/volume)Ordered By: Dr. Palma on 06-14-2022 Hemoglobin (Bld) [Mass/Vol] 12.3 g/dL 12.0-15.0 [facility] Blood platelet mean volumeOr dered By: Dr. Palma on 06-14-2022 Platelet mean volume (Bld) [Entitic vol] 10.8 fL 6.2-12.0 [facility] Cervical or vagninal specime n microscopic examination by cytology stain (reported asOrdered By: Dr. Palma on 06-14-2022 Cytology report Cyto stain Doc (Cvx/Vag) Comment . [facility] Comment on above: The Pap smear [...] DNA Probe+sig amp Ql (Cvx) Negative Negative [facility] Comment on above: This nucleic acid am plification test detects fourteen high-risk HPV types (16,18,31,33,35,39,45,51,52,56,58,59,66,68)without differentiation. Determination of erythrocyte mean corpuscular volume (MCV)Ordered By: Dr. Palma on 06-14-2022 MCV (RBC) [Entitic vol] 91.5 fL 81-99 [facility] Hematocrit Auto (Bld) [Volum e fraction]Ordered By: Dr. Palma on 06-14-2022 Hematocrit (Bld) [Volume fraction] 38.6 % 37-47 [facility] Laboratory - Chemistry and C hemistry - challengeOrdered By: Dr. Palma on 06-14-2022 ALP [Catalytic activity/Vol] 64 U/L 45-117 [facility] ALT [Catalytic activity/Vol] 24 U/L 13-56 [facility] CO2 [Moles/Vol] 25.0 mmol/L 21.0-32.0 [facility] Globulin (S) [Mass/Vol] 3.4 g/dL 2.2-4.2 [facility] Urea nitrogen/Creatinine [Mass ratio] 13.8 mg/mg 10-20 [facility] Laboratory - CytologyOrdered By: Dr. Palma on 06-14-2022 [employer] Knitting [employer] Operator Cyto stain Nom (Cvx/Vag) [ID] Comment . [facility] Comment on above: Inocencio Solis totechnologist (ASCP) Laboratory - Hematology and Cell countsOrdered By: Dr. Palma on 06-14-2022 Erythrocyte distribution width (RBC) [Entitic vol] 44.3 fL 35.1-43.9 [facility] Erythrocyte distribution width (RBC) [Ratio] 13.1 % 11.6-14.6 [facility] MCH (RBC) [Entitic mass] 29.1 pg 27.0-32.0 [facility] Laboratory - Miscellaneous t estsOrdered By: Dr. Palma on 06-14-2022 Service comment (Unsp spec) [Interp] Comment . [facility] Comment on above: This liquid based Th inPrep(R) pap test was screened withthe use of an image guided system. Service comment (Unsp spec) [Interp] . . [facility] Liquid-based cerv Pap + CT/G C by LEAH w reflex to high-risk HPV for ASCUSOrdered By: Dr. Palma on 06-14-2022 Cytology report Cyto stain.thin prep Doc (Cvx/Vag) Comment . [facility] Comment on above: Criteria not met, HP V Genotype not performed.Performed at: [facility] [id number] Director: Chika Fagan MD, Phone: [phone] at: =[facility] - [facility] [id number] Director: Chika Fagan MD, Phone: [phone] MCHC Auto (RBC) [Mass/Vol]Or dered By: Dr. Palma on 06-14-2022 MCHC (RBC) [Mass/Vol] 31.9 g/dL 32-36 [facility] No Panel InformationOrdered By: Dr. Palma on 06-14-2022 Estimated GFR (MDRD) Amer 99 mL/min >60 [facility] Comment on above: GFR Calc Estimated GFR (MDRD) Non-Af Amer 82 mL/min >60 [facility] Comment on above: Non- GFR Calc Pathology report final diagnosis Narrative Comment . [facility] Comment on above: NEGATIVE FOR INTRAEP ITHELIAL LESION OR MALIGNANCY. Platelets bldOrdered By: Dr. Palma on 06-14-2022 Platelets (Bld) [#/Vol] 327 10*3/uL 150-450 [facility] Serum or plasma albumin david urement (mass/volume)Ordered By: Dr. Palma on 06-14-2022 Albumin [Mass/Vol] 3.8 g/dL 3.2-5.0 [facility] Serum or plasma albumin/glob ulin mass ratioOrdered By: Dr. Palma on 06-14-2022 Albumin/Globulin [Mass ratio] 1.1 {ratio} 0.9-2.4 [facility] Serum or plasma calcium david urement (mass/volume)Ordered By: Dr. Palma on 06-14-2022 Calcium [Mass/Vol] 9.1 mg/dL 8.5-10.1 [facility] Serum or plasma creatinine m easurement (mass/volume)Ordered By: Dr. Palma on 06-14-2022 Creatinine [Mass/Vol] 0.80 mg/dL 0.55-1.02 [facility] Comment on above: The validity of the calculated GFR & GFRAA in patients over 70 years has not been determined. Clinical correlation is essential. Serum or plasma urea nitroge n measurement (mass/volume)Ordered By: Dr. Palma on 06-14-2022 Urea nitrogen [Mass/Vol] 11 mg/dL 7-18 [facility] Thin prep Papanicolaou smear with manual screeningOrdered By: Dr. Palma on 06-14-2022 Thin prep Papanicolaou smear with manual screening 11 U/L 15-37 [facility] Thin prep Papanicolaou smear with manual screening 7 5-15 [facility] Culture, urineOrdered By: Dr Nereida Palma on 05-28-2022 Bacteria identified Cx Nom (U) Culture exhibits no growth. [facility] Absolute lymphocyte countOrd ered By: Dr. Jackson on 05-25-2022 Lymphocytes Auto (Unsp spec) [#/Vol] 2.31 10*3/uL 0.83-4.51 [facility] Basophil percentageOrdered B y: Dr. Jackson on 05-25-2022 Basophil percentage Not Reportable [facility] Basophils/100 WBC (Bld) 0.5 % 0-1 [facility] Bilirubin [Mass/Vol] 0.50 mg/dL 0.20-1.00 [facility] Comment on above: For patients on eltr ombopag therapy, use of Dimension Gibbon TBIL is not recommended. Chloride [Moles/Vol] 105 mmol/L 98-107 [facility] Cholesterol [Mass/Vol] 239 mg/dL <200 [facility] Comment on above: <200 mg/dL Desirable 200-240 mg/dL Borderline >240 mg/dL High Risk Eosinophils/100 WBC (Bld) 0.7 % 0-5 [facility] Glucose [Mass/Vol] 92 mg/dL 74-106 [facility] Neutrophils (Bld) [#/Vol] 5.1 10*3/uL 2.0-7.7 [facility] Neutrophils/100 WBC (Bld) 63.3 % 47-70 [facility] Potassium [Moles/Vol] 3.8 mmol/L 3.5-5.1 [facility] Protein [Mass/Vol] 7.5 g/dL 6.4-8.2 [facility] Sodium [Moles/Vol] 137 mmol/L 136-145 [facility] Triglyceride [Mass/Vol] 58 mg/dL <199 [facility] Comment on above: The drugs N-Acetylcy steine and Metamizole may falsely depress this assay.Serum Triglycerides Reference Interval Normal <150 mg/dL Borderline high 150 - 199 mg/dL High 200 - 499 mg/dL Very High > or = 500 mg/dL WBC (Bld) [#/Vol] 8.1 10*3/uL 4.4-11.0 [facility] Blood erythrocytes count (nu mber/volume)Ordered By: Dr. Jackson on 05-25-2022 RBC (Bld) [#/Vol] 4.26 10*6/uL 4.2-5.4 [facility] Blood hemoglobin measurement (mass/volume)Ordered By: Dr. Jackson on 05-25-2022 Hemoglobin (Bld) [Mass/Vol] 12.5 g/dL 12.0-15.0 [facility] Blood lymphocytes/100 leukoc ytesOrdered By: Dr. Jackson on 05-25-2022 Lymphocytes/100 WBC (Bld) 28.5 % 19-41 [facility] Blood monocytes/100 leukocyt esOrdered By: Dr. Jackson on 05-25-2022 Monocytes/100 WBC (Bld) 6.8 % 0-10 [facility] Blood platelet mean volumeOr dered By: Dr. Jackson on 05-25-2022 Platelet mean volume (Bld) [Entitic vol] 11.3 fL 6.2-12.0 [facility] Determination of erythrocyte mean corpuscular volume (MCV)Ordered By: Dr. Jackson on 05-25-2022 MCV (RBC) [Entitic vol] 91.8 fL 81-99 [facility] Erythrocyte sedimentation ra teOrdered By: Dr. aJckson on 05-25-2022 ESR (Bld) [Velocity] 25 mm/h 0-30 [facility] Hematocrit Auto (Bld) [Volum e fraction]Ordered By: Dr. Jackson on 05-25-2022 Hematocrit (Bld) [Volume fraction] 39.1 % 37-47 [facility] Laboratory - Chemistry and C hemistry - challengeOrdered By: Dr. Jackson on 05-25-2022 ALP [Catalytic activity/Vol] 73 U/L 45-117 [facility] ALT [Catalytic activity/Vol] 26 U/L 13-56 [facility] CO2 [Moles/Vol] 24.0 mmol/L 21.0-32.0 [facility] Free T4 [Mass/Vol] 1.12 ng/dL 0.76-1.46 [facility] Globulin (S) [Mass/Vol] 3.3 g/dL 2.2-4.2 [facility] Urea nitrogen/Creatinine [Mass ratio] 19.9 mg/mg 10-20 [facility] Laboratory - Hematology and Cell countsOrdered By: Dr. Jackson on 05-25-2022 Erythrocyte distribution width (RBC) [Entitic vol] 44.0 fL 35.1-43.9 [facility] Erythrocyte distribution width (RBC) [Ratio] 13.1 % 11.6-14.6 [facility] Immature granulocytes/100 WBC (Bld) 0.200 % 0.0-0.9 [facility] Comment on above: IG% - Immature Granu locytes (promyelocytes, myelocytes and metamyelocytes) > 1% indicates that a LEFT SHIFT is Present. MCH (RBC) [Entitic mass] 29.3 pg 27.0-32.0 [facility] Nucleated RBC/100 WBC (Bld) [Ratio] 0 % 0-5 [facility] MCHC Auto (RBC) [Mass/Vol]Or dered By: Dr. Jackson on 05-25-2022 MCHC (RBC) [Mass/Vol] 32.0 g/dL 32-36 [facility] No Panel InformationOrdered By: Dr. Jackson on 05-25-2022 Anti-Nuclear Antibody Screen Negative Negative [facility] Comment on above: Performed at: [facility] [employer] [address] [id number] Director: Leonard Goncalves PhD, Phone: [phone] [employer] Antibody Not Reportable [facility] Estimated GFR (MDRD) Amer 106 mL/min >60 [facility] Comment on above: GFR Calc Estimated GFR (MDRD) Non-Af Amer 87 mL/min >60 [facility] Comment on above: Non- GFR Calc Free Triiodothyronine (T3) pg/dL 2.5 pg/mL 2.18-3.98 [facility] SERVICE DESK MANAGER Antibody Not Reportable [facility] Thyroid Stimulating Hormone (TSH) 1.29 uIU/mL 0.358-3.74 [facility] Vitamin D 25-Hydroxy 62.4 ng/mL [facility] Comment on above: Vitamin D 25(OH) Sta tus Range Deficiency <20 ng/mL (50nmol/L) Insufficiency 20 - 30 ng/mL (50 - 75 nmol/L) Sufficiency 30 - 100 ng/mL (75 - 250 nmol/L) Toxicity >100 ng/mL (>250 nmol/L) Platelets bldOrdered By: Dr. Jackson on 05-25-2022 Platelets (Bld) [#/Vol] 340 10*3/uL 150-450 [facility] Serum DNA double strand anti body assay (units/volume)Ordered By: Dr. Jackson on 05-25-2022 DNA double strand Ab Qn (S) Not Reportable [facility] Serum Mayela-1 antibody assay (u nits/volume)Ordered By: Dr. Jackson on 05-25-2022 Mayela-1 extractable nuclear Ab Qn (S) Not Reportable [facility] Serum Scl-70 extractable nuc lear antibody assay (units/volume)Ordered By: Dr. Jackson on 05-25-2022 SCL-70 extractable nuclear Ab Qn (S) Not Reportable [facility] Serum Fung extractable nucl ear antibody detectionOrdered By: Dr. Jackson on 05-25-2022 Fung extractable nuclear Ab Ql (S) Not Reportable [facility] Serum cyclic citrullinated p eptide IgG antibody assay (units/volume)Ordered By: Dr. Jackson on 05-25-2022 Cyclic citrullinated peptide IgG Qn 4 units 0-19 [facility] Comment on above: Negative <20 Weak po sitive 20 - 39 Moderate positive 40 - 59 Strong positive >59Performed at: [address] [id number] Director: Leonard Goncalves PhD, Phone: [phone] Serum or plasma C reactive p rotein measurement (mass/volume)Ordered By: Dr. Jackson on 05-25-2022 CRP [Mass/Vol] 7.07 mg/L 0.0-3.0 [facility] Comment on above: C-Reactive Protein ( CRP) provides useful information for thediagnosis, therapy and monitoring of inflammatory processesand associated diseases. For the evaluation of Relative Riskfor Cardiovascular Disease, a High Sensitivity CRP (HSCRP)should be ordered. Serum or plasma albumin david urement (mass/volume)Ordered By: Dr. Jackson on 05-25-2022 Albumin [Mass/Vol] 4.2 g/dL 3.2-5.0 [facility] Serum or plasma albumin/glob ulin mass ratioOrdered By: Dr. Jackson on 05-25-2022 Albumin/Globulin [Mass ratio] 1.3 {ratio} 0.9-2.4 [facility] Serum or plasma calcium david urement (mass/volume)Ordered By: Dr. Jackson on 05-25-2022 Calcium [Mass/Vol] 9.6 mg/dL 8.5-10.1 [facility] Serum or plasma cholesterol in HDL measurement (mass/volume)Ordered By: Dr. Jackson on 05-25-2022 Cholesterol in HDL [Mass/Vol] 59 mg/dL >40 [facility] Comment on above: The drugs N-Acetylcy steine and Metamizole may falsely depress this assay. Reference Range HDL <40 mg/dL Low HDL Cholesterol HDL >or= 60 mg/dL High HDL Cholesterol Serum or plasma cholesterol in VLDL measurement (mass/volume)Ordered By: Dr. Jackson on 05-25-2022 Cholesterol in VLDL [Mass/Vol] 12 mg/dL 5-40 [facility] Serum or plasma creatinine m easurement (mass/volume)Ordered By: Dr. Jackson on 05-25-2022 Creatinine [Mass/Vol] 0.75 mg/dL 0.55-1.02 [facility] Comment on above: The validity of the calculated GFR & GFRAA in patients over 70 years has not been determined. Clinical correlation is essential. Serum or plasma low density lipoprotein (LDL) cholesterol measurement (mass/volume)Ordered By: Dr. Jackson on 05-25-2022 Cholesterol in LDL [Mass/Vol] 168 mg/dL 0-130 [facility] Serum or plasma urea nitroge n measurement (mass/volume)Ordered By: Dr. Jackson on 05-25-2022 Urea nitrogen [Mass/Vol] 15 mg/dL 7-18 [facility] Serum rheumatoid factor dete ctionOrdered By: Dr. Jackson on 05-25-2022 Rheumatoid factor Ql (S) < 10.0 IU/mL <15 [facility] Thin prep Papanicolaou smear with manual screeningOrdered By: Dr. Jackson on 05-25-2022 Thin prep Papanicolaou smear with manual screening 16 U/L 15-37 [facility] Thin prep Papanicolaou smear with manual screening 8 5-15 [facility] Absolute lymphocyte counton 10-04-2021 Lymphocytes Auto (Unsp spec) [#/Vol] 1.87 10*3/uL 0.83-4.51 [facility] Work Phone: Basophil percentageon 2021 Basophils/100 WBC (Bld) 0.5 % 0-1 [facility] Work Phone: Bilirubin [Mass/Vol] 0.50 mg/dL 0.20-1.00 [facility] Work Phone: Comment on above: For patients on eltr ombopag therapy, use of Dimension Gibbon TBIL is not recommended. Chloride [Moles/Vol] 106 mmol/L 98-107 [facility] Work Phone: Cholesterol [Mass/Vol] 225 mg/dL <200 [facility] Work Phone: [phone] Comment on above: <200 mg/dL Desirable 200-240 mg/dL Borderline >240 mg/dL High Risk Eosinophils/100 WBC (Bld) 2.6 % 0-5 [facility] Work Phone: Glucose [Mass/Vol] 96 mg/dL 74-106 [facility] Work Phone: [phone] Neutrophils (Bld) [#/Vol] 3.6 10*3/uL 2.0-7.7 [facility] Work Phone: [phone] Neutrophils/100 WBC (Bld) 59.0 % 47-70 [facility] Work Phone: Potassium [Moles/Vol] 4.1 mmol/L 3.5-5.1 [facility] Work Phone: [phone] Protein [Mass/Vol] 6.8 g/dL 6.4-8.2 [facility] Work Phone: [phone] Sodium [Moles/Vol] 138 mmol/L 136-145 [facility] Work Phone: [phone] Triglyceride [Mass/Vol] 47 mg/dL <199 [facility] Work Phone: Comment on above: The drugs N-Acetylcy steine and Metamizole may falsely depress this assay.Serum Triglycerides Reference Interval Normal <150 mg/dL Borderline high 150 - 199 mg/dL High 200 - 499 mg/dL Very High > or = 500 mg/dL WBC (Bld) [#/Vol] 6.1 10*3/uL 4.4-11.0 [facility] Work Phone: Blood erythrocytes count (nu mber/volume)on 10-04-2021 RBC (Bld) [#/Vol] 4.17 10*6/uL 4.2-5.4 [facility] Work Phone: Blood hemoglobin measurement (mass/volume)on 10-04-2021 Hemoglobin (Bld) [Mass/Vol] 12.3 g/dL 12.0-15.0 [facility] Work Phone: Blood lymphocytes/100 leukoc yteson 10-04-2021 Lymphocytes/100 WBC (Bld) 30.8 % 19-41 [facility] Work Phone: Blood monocytes/100 leukocyt eson 10-04-2021 Monocytes/100 WBC (Bld) 6.8 % 0-10 [facility] Work Phone: Blood platelet mean volumeon 10-04-2021 Platelet mean volume (Bld) [Entitic vol] 11.3 fL 6.2-12.0 [facility] Work Phone: Determination of erythrocyte mean corpuscular volume (MCV)on 10-04-2021 MCV (RBC) [Entitic vol] 94.2 fL 81-99 [facility] Work Phone: Hematocrit Auto (Bld) [Volum e fraction]on 10-04-2021 Hematocrit (Bld) [Volume fraction] 39.3 % 37-47 [facility] Work Phone: Laboratory - Chemistry and C hemistry - challengeon 10-04-2021 ALP [Catalytic activity/Vol] 59 U/L 45-117 [facility] Work Phone: ALT [Catalytic activity/Vol] 21 U/L 13-56 [facility] Work Phone: CO2 [Moles/Vol] 26.0 mmol/L 21.0-32.0 [facility] Work Phone: Free T4 [Mass/Vol] 1.00 ng/dL 0.76-1.46 [facility] Work Phone: Globulin (S) [Mass/Vol] 3.2 g/dL 2.2-4.2 [facility] Work Phone: Urea nitrogen/Creatinine [Mass ratio] 18.8 mg/mg 10-20 [facility] Work Phone: Laboratory - Hematology and Cell countson 10-04-2021 Erythrocyte distribution width (RBC) [Entitic vol] 44.5 fL 35.1-43.9 [facility] Work Phone: Erythrocyte distribution width (RBC) [Ratio] 12.8 % 11.6-14.6 [facility] Work Phone: [phone] Immature granulocytes/100 WBC (Bld) 0.300 % 0.0-0.9 [facility] Work Phone: Comment on above: IG% - Immature Granu locytes (promyelocytes, myelocytes and metamyelocytes) > 1% indicates that a LEFT SHIFT is Present. MCH (RBC) [Entitic mass] 29.5 pg 27.0-32.0 [facility] Work Phone: Nucleated RBC/100 WBC (Bld) [Ratio] 0 % 0-5 [facility] Work Phone: [phone] MCHC Auto (RBC) [Mass/Vol]on 10-04-2021 MCHC (RBC) [Mass/Vol] 31.3 g/dL 32-36 [facility] Work Phone: No Panel Informationon 10-04 Estimated GFR (MDRD) Amer 108 mL/min >60 [facility] Work Phone: Comment on above: GFR Calc Estimated GFR (MDRD) Non-Af Amer 89 mL/min >60 [facility] Work Phone: Comment on above: Non- GFR Calc Free Triiodothyronine (T3) pg/dL 2.5 pg/mL 2.18-3.98 [facility] Work Phone: [phone] Thyroid Stimulating Hormone (TSH) 1.11 uIU/mL 0.358-3.74 [facility] Work Phone: [phone] Vitamin D 25-Hydroxy 29.0 ng/mL [facility] Work Phone: [phone] Comment on above: Vitamin D 25(OH) Sta tus Range Deficiency <20 ng/mL (50nmol/L) Insufficiency 20 - 30 ng/mL (50 - 75 nmol/L) Sufficiency 30 - 100 ng/mL (75 - 250 nmol/L) Toxicity >100 ng/mL (>250 nmol/L) Platelets bldon 10-04-2021 Platelets (Bld) [#/Vol] 327 10*3/uL 150-450 [facility] Work Phone: Serum or plasma albumin david urement (mass/volume)on 10-04-2021 Albumin [Mass/Vol] 3.6 g/dL 3.2-5.0 [facility] Work Phone: Serum or plasma albumin/glob ulin mass ratioon 10-04-2021 Albumin/Globulin [Mass ratio] 1.1 {ratio} 0.9-2.4 [facility] Work Phone: Serum or plasma calcium david urement (mass/volume)on 10-04-2021 Calcium [Mass/Vol] 8.9 mg/dL 8.5-10.1 [facility] Work Phone: Serum or plasma cholesterol in HDL measurement (mass/volume)on 10-04-2021 Cholesterol in HDL [Mass/Vol] 60 mg/dL >40 [facility] Work Phone: Comment on above: The drugs N-Acetylcy steine and Metamizole may falsely depress this assay. Reference Range HDL <40 mg/dL Low HDL Cholesterol HDL >or= 60 mg/dL High HDL Cholesterol Serum or plasma cholesterol in VLDL measurement (mass/volume)on 10-04-2021 Cholesterol in VLDL [Mass/Vol] 9 mg/dL 5-40 [facility] Work Phone: Serum or plasma creatinine m easurement (mass/volume)on 10-04-2021 Creatinine [Mass/Vol] 0.74 mg/dL 0.55-1.02 [facility] Work Phone: Comment on above: The validity of the calculated GFR & GFRAA in patients over 70 years has not been determined. Clinical correlation is essential. Serum or plasma low density lipoprotein (LDL) cholesterol measurement (mass/volume)on 10-04-2021 Cholesterol in LDL [Mass/Vol] 156 mg/dL 0-130 [facility] Work Phone: Serum or plasma urea nitroge n measurement (mass/volume)on 10-04-2021 Urea nitrogen [Mass/Vol] 14 mg/dL 7-18 [facility] Work Phone: Thin prep Papanicolaou smear with manual screeningon 10-04-2021 Thin prep Papanicolaou smear with manual screening 11 U/L 15-37 [facility] Work Phone: Thin prep Papanicolaou smear with manual screening 6 5-15 [facility] Work Phone: Vital Signs Date Time Vital Sign Value Performing Clinician Divya holbrook 10-15-2024 15:28-0400 Body height 165.[address] Sasha Jackson DO Work Phone: [facility] 10-15-2024 15:28-0400 Body mass index (BMI) [Ratio] 35.5 kg/m2 Dr. Sasha Jackson DO Work Phone: [facility] 10-15-2024 15:28-0400 Body weight 96.[address] Sasha Jackson DO Work Phone: [facility] 10-15-2024 15:28-0400 Diastolic blood pressure 88 mm[Hg] Dr. Sasha Jackson DO Work Phone: [facility] 10-15-2024 15:28-0400 Systolic blood pressure 163 mm[Hg] Dr. Sasha Jackson DO Work Phone: [facility] 02-23-2024 13:29-0500 Body temperature 98.4 [degF] Lorena Alvarado PA-C Work Phone: [facility] 02-23-2024 13:29-0500 Body weight 105.4 kg Lorena Athy PA-C Work Phone: [facility] 02-23-2024 13:29-0500 Diastolic blood pressure 92 mm[Hg] Lorena Athy PA-C Work Phone: [facility] 02-23-2024 13:29-0500 Heart rate 94 /min Lorena Athy PA-C Work Phone: [facility] 02-23-2024 13:29-0500 Respiratory rate 19 /min Lorena Alvarado PA-C Work Phone: [facility] 02-23-2024 13:29-0500 SaO2% (BldA) [Mass fraction] 100 % Lorena Donaldsony PA-C Work Phone: [facility] 02-23-2024 13:29-0500 Systolic blood pressure 144 mm[Hg] Lorena Alvarado PA-C Work Phone: [facility] 02-19-2023 10:15-0500 Body height 165.[address] Sasha Jackson Work Phone: [facility] 02-19-2023 10:15-0500 Body mass index (BMI) [Ratio] 35.9 kg/m2 Dr. Sasha Jackson Work Phone: [facility] 02-19-2023 10:15-0500 Body weight 98.[address] Sasha Jackson Work Phone: [facility] 02-19-2023 10:15-0500 Diastolic blood pressure 79 mm[Hg] Dr. Sasha Jackson Work Phone: [facility] 02-19-2023 10:15-0500 Systolic blood pressure 125 mm[Hg] Dr. Sasha Jackson Work Phone: [facility] 06-28-2022 07:47-0400 Body temperature 97.6 [degF] Dr. Sasha Jackson Work Phone: [facility] 06-28-2022 07:47-0400 Diastolic blood pressure 65 mm[Hg] Dr. Sasha Jackson Work Phone: [facility] 06-28-2022 07:47-0400 Heart rate 79 /min Dr. Sasha Jackson Work Phone: [facility] 06-28-2022 07:47-0400 Respiratory rate 16 /min Dr. Sasha Jackson Work Phone: [facility] 06-28-2022 07:47-0400 SaO2% (BldA) [Mass fraction] 98 % Dr. Sasha Jackson Work Phone: [facility] 06-28-2022 07:47-0400 Systolic blood pressure 106 mm[Hg] Dr. Sasha Jackson Work Phone: [facility] 06-28-2022 06:21-0400 Body height 165.[address] Sasha Jackson Work Phone: [facility] 06-28-2022 06:21-0400 Body mass index (BMI) [Ratio] 35.2 kg/m2 Dr. Sasha Jackson Work Phone: [facility] 06-28-2022 06:21-0400 Body weight [address] Sasha Jackson Work Phone: [facility] 06-20-2022 08:01-0400 Body height 167.[address] Sasha Jackson Work Phone: [facility] 06-20-2022 08:01-0400 Body mass index (BMI) [Ratio] 35.2 kg/m2 Dr. Sasha Jackson Work Phone: [facility] 06-20-2022 08:01-0400 Body temperature 98.2 [degF] Dr. Sasha Jackson Work Phone: [facility] 06-20-2022 08:01-0400 Body weight 98.[address] Sasha Jackson Work Phone: [facility] 06-20-2022 08:01-0400 Diastolic blood pressure 70 mm[Hg] Dr. Sasha Jackson Work Phone: [facility] 06-20-2022 08:01-0400 Heart rate 90 /min Dr. Sasha Jackson Work Phone: [facility] 06-20-2022 08:01-0400 Respiratory rate 14 /min Dr. Sasha Jackson Work Phone: [facility] 06-20-2022 08:01-0400 SaO2% (BldA) [Mass fraction] 96 % Dr. Sasha Jackson Work Phone: [facility] 06-20-2022 08:01-0400 Systolic blood pressure 115 mm[Hg] Dr. Sasha Jackson Work Phone: [facility] Encounters Encounter Date Encounter Type Care Provider Facility Start: 02-23-2025 ambulatory [facility] Facility: [facility] Start: 01-21-2025 End: 01-21-2025 ambulatory [facility] Facility:[facility] Start: 12-10-2024 Non-patient / Non-visit Dr. Gavin Young MD -[facility] Work Phone: Start: 12-10-2024 End: 12-10-[address] Sasha Jackson DO Work Phone: -Pulmonary Services/Neurology Start: 12-10-2024 End: 12-10-[address] Sasha Jackson DO -Pulmonary Services/Neurology Work Phone: Start: 12-10-2024 End: 12-10-2024 ambulatory Sasha Jackson Facility:[facility] Start: 12-01-2024 End: 12-01-[address] Sasha Jackson DO Work Phone: -[facility] Start: 12-01-2024 End: 12-01-[address] Dannie Storm MD -[facility] Work Phone: Start: 12-01-2024 End: 12-01-2024 ambulatory Dannie Storm Facility:[facility] Start: 11-04-2024 End: 11-04-[address] Sasha Jackson DO Work Phone: -Outpatient Breast Imaging Start: 11-04-2024 End: 11-04-2024 Patient encounter procedure Crissy PALACIO -[facility] Work Phone: Start: 11-04-2024 End: 11-04-2024 ambulatory Sasha Jackson Facility:[facility] Start: 10-21-2024 End: 10-21-[address] Sasha Jackson DO Work Phone: -Laboratory Start: 10-21-2024 End: 10-21-2024 Patient encounter procedure Crissy PALACIO -Laboratory Work Phone: Start: 10-21-2024 End: 10-21-2024 ambulatory Sasha Jackson Facility:[facility] Start: 10-15-2024 End: 10-15-2024 Patient encounter procedure Crissy PALACIO -[facility] Work Phone: Start: 10-15-2024 End: 10-15-2024 Patient encounter status Crissy PALACIO [facility] Start: 10-15-2024 End: 10-15-[address] Sasha Jackson DO Work Phone: -[facility] Start: 10-02-2024 End: 10-02-[address] Sasha Jackson DO Work Phone: -Physical Therapy Start: 10-02-2024 End: 10-02-[address] Dannie Storm MD -Physical Therapy Work Phone: Start: 09-10-[address] Eddie Storm MD -Physical Therapy Work Phone: Start: 09-08-2024 End: 09-08-[address] Sasha Jackson DO Work Phone: [facility] Work Phone: Start: 09-08-2024 End: 09-08-[address] Dannie Storm MD -Radiology [facility] Work Phone: Start: 09-08-2024 End: 09-08-2024 ambulatory Dannie Storm Facility:[facility] Start: 02-23-2024 End: 02-23-2024 ambulatory SASHA JACKSON Facility:[facility] Start: 02-23-2024 End: 02-23-2024 Patient encounter procedure Lorena Alvarado PA-C Work Phone: [facility] Comment on above: Wheezing (Primary Dx ) Start: 02-08-2024 End: 02-08-2024 ambulatory Sasha Jackson Facility:[facility] Start: 06-18-2023 Non-patient / Non-visit Dr. Sasha Jackson Work Phone: [facility] Start: 06-18-2023 End: 06-18-[address] Sasha Jackson Work Phone: [facility] Work Phone: Start: 06-18-2023 End: 06-18-[address] Sasha Jackson Work Phone: [facility]-Pulmonary Services/Neurology Work Phone: Start: 04-26-2023 End: 04-26-[address] Sasha Jackson Work Phone: [facility] Work Phone: Start: 04-26-2023 End: 04-26-[address] Sasha Jackson Work Phone: [facility]-MRI - [facility] Work Phone: Start: 04-19-2023 End: 04-19-[address] Sasha Jackson Work Phone: [facility]-Outpatient Breast Imaging Work Phone: Start: 04-04-2023 End: 04-04-[address] Sasha Jackson Work Phone: [facility] Work Phone: Start: 04-04-2023 End: 04-04-[address] Sasha Jackson Work Phone: [facility]-Physical Therapy Work Phone: Start: 02-19-2023 End: 02-19-[address] Sasha Jackson Work Phone: [facility] Work Phone: Start: 07-25-2022 End: 07-25-[address] Sasha Jackson Work Phone: [facility] Work Phone: Start: 07-25-2022 End: 07-25-[address] Sasha Jackson Work Phone: [facility]-Nuclear Medicine, [facility] Start: 07-03-2022 End: 07-03-[address] Sasha Jackson Work Phone: [facility] Work Phone: Start: 07-03-2022 End: 07-03-[address] Sasha Jackson Work Phone: [facility]-Laboratory Start: 06-28-2022 Non-patient / Non-visit Dr. Sasha Jackson Work Phone: [facility] Start: 06-28-2022 End: 06-28-2022 Admission to same day surgery center Dr. Sasha Jackson Work Phone: [facility]-Endoscopy Start: 06-28-2022 End: 06-28-[address] Sasha Jackson Work Phone: [facility] Work Phone: Start: 06-26-2022 End: 06-26-[address] Sasha Jackson Work Phone: [facility]-Ultrasound, [facility] Start: 06-20-2022 End: 06-20-[address] Sasha Jackson Work Phone: [facility]-Cat Scan, [facility] Start: 06-20-2022 End: 06-20-[address] Sasha Jackson Work Phone: [facility] Gastroenterology Start: 06-14-2022 End: 06-14-[address] Sasha Jackson Work Phone: [facility] Work Phone: Start: 06-14-2022 End: 06-14-[address] [facility] [place] [facility] Start: 05-26-2022 End: 05-26-2022 ambulatory [facility] Work Phone: Start: 05-26-2022 End: 05-26-2022 Patient encounter procedure [facility], Specimen Start: 05-25-2022 End: 05-25-2022 ambulatory [facility] Work Phone: Start: 05-25-2022 End: 05-25-2022 Patient encounter procedure [facility] Start: 02-27-2022 End: 02-27-2022 ambulatory [facility] Work Phone: Start: 02-27-2022 End: 02-27-2022 Patient encounter procedure [facility]-Outpatient Breast Imaging Start: 10-04-2021 End: 10-04-2021 Patient encounter procedure [facility] Procedures Date Procedure Procedure Detail Performing [...] 11-25-2023 Covid-19 Vaccine ( season) Covid-19 Vaccine ( season) [facility] Start: 11-25-2023 Influenza vaccination Influenz a Vaccine (#1) [facility] Start: 06-28-2022 Colonoscopy flx dx w /collj spec when pfrmd DIAGNOSTIC COLONOSCOPY [facility] Start: 06-28-2022 Egd transoral biopsy single/multiple EGD BIOPSY SINGLE/MULTIPLE [facility] Start: 06-28-2022 Patient discharge [facility] Start: 06-20-2022 Computed tomography of abdomen and pelvis with contrast Abdomen/Pelvis WITH Contrast [facility] Start: 06-20-2022 CT Abdomen and Pelvi s W contrast IV [facility] Start: 06-20-2022 Diagnostic radiograp hy of abdomen Abdomen Single View [facility] Start: 06-20-2022 XR Abdomen Single view [facility] Start: 10-04-2021 [facility] Work Phone: Start: 07-16-2019 Diabetes Screening Diabetes Screenin g [facility] Start: 07-16-2019 Lipid panel Lipid Screening [facility] Start: 07-16-2019 Screening for malign ant neoplasm [...] Administration Start: 1992 Depression Screening Depression Scre ening [facility] Start: 1992 Hepatitis C screening Hepatitis C Sc reening [facility] Start: 1992 HIV screening HIV Screening [facility] Colonoscopy [facility] MG Breast - bilatera l Screening [facility] MG Breast - bilatera l Screening [facility] Path report.final Dx Spec [facility] Patient referral [facility] Work Phone: Thyroglobulin antibo dy measurement [facility] Work Phone: Thyroperoxidase Ab [Units/volume] in Serum or Plasma [facility] Work Phone: End: 03-24-2025 XR Chest PA and Lateral XR CHEST 2V FRONTAL/LAT Radiology STAT Wheezing 1 Occurrences starting 02/23/2024 until 03/24/2025 [facility] Work Phone: Comment on above: 1 Occurrences starti ng 02/23/2024 until 03/24/2025 [facility] Payers Date Payer Category Payer Self-pay [id number] 2015 Unknown MMO M[employer] PPO [id number] 2015-Present [phone] [address] [place] [address] PPO [id number] 2015 Unknown [id number] Unknown [id number] Unknown [id number] Unknown [id number] Unknown [id number] Unknown [id number] Unknown [id number] Unknown [id number] Unknown [id number] Unknown [id number] Unknown [id number] Unknown [id number] Social History Date Type Detail Facility Start: 02-15-2018 End: 02-19-2023 Tobacco smoking status NHIS Unknown if ever smoked [facility] Start: 1975 Sex Assigned At Female [facility] Start: 02-23-2024 Tobacco smoking status NHIS Never smoked tobacco [facility] Start: 02-23-2024 Tobacco use and exposure Smokeless tobacco non-user [facility] Start: 05-13-2020 End: 02-23-2024 History of Social function [facility] Start: 05-13-2020 End: 02-23-2024 Tobacco use panel [facility] National Score (1-100), lower number is lower risk Not on file [facility] Start: 1975 Sex assigned at Not on file [facility] Start: 02-19-2023 Tobacco smoking status NHIS Ex-smoker (finding) [facility] NEGATED: Highlighted row [facility] Goals Date Patient Goal Desired Activity /State Mental Status Date Assessment Result Facility 06-28-2022 Cognitive function Voice/Name [facility] Work Phone: Clinical Notes 06-14-2022 to 10-15-2024 Note Date & Type Note Facility 10-15-2024 Evaluation note Diagnosis Onset Date Resolution Climacteric acute October 15 3:16pm Elevated BP without diagnosis of hypertension acute October 15, 2024 3:16pm Urinary incontinence in female acute October 15, 2024 3:16pm Encounter for routine gynecological examination noneactive October 15, 2024 3:16pm [facility] Work Phone: 1(341) 790-899807-10-2025 Discharge summary [facility] Physical Therapy [address] [place] [address] / REHABILITATION SERVICES DISCHARGE SUMMARY MR#: [id number] Acct: [id number] Name: NORMA GRIFFIN Rep #: [id number] : 1975 49 From: Tate Zhang PT, ATC Referring Dr.: Dr. Dannie Storm MD Status : REG RCR Insurance: [facility] SELF PAY INSURANCE Discharge Summary D/C summary: [...] please feel free to call me at [phone]. Thank you for the referral of thispatient. Sincerely, Tate Zhang, PT, ATC Balance/Gait/Functional tests Balance/Special Test Scores Quick DASH Score: 15.9075 Improvement % Improvement: 80 10/02/24 1032 CC: Dr. Sasha Jackson DO; Dr. Dannie Storm MD ~ [facility] Signed [facility]07-10-2025 Discharge summary Author Tate Zhang [facility] Note Date/Time October 02, 2024 10:5 5am [facility] Physical Therapy [facility] [address] [place] [address] [address] [place] [address] / REHABILITATION SERVICES DISCHARGE SUMMARY MR#: [id number] Acct: [id number] Name: NORMA GRIFFIN Rep #: [id number] : 1975 49 From: Tate Zhang PT, ATC Referring Dr.: Dr. Dannie Storm MD Status : REG RCR Insurance: [facility] SELF PAY INSURANCE Discharge Summary D/C summary: [...] please feel free to call me at [phone]. Thank you for the referral of thispatient. Sincerely, Tate Zhang PT, ATC Balance/Gait/Functional tests Balance/Special Test Scores Quick DASH Score: 15.9075 Improvement % Improvement: 80 <Electronically signed by Tate Zhang PT, ATC> 10/02/24 1032 CC: Dr. Sasha Jackson DO; Dr. Dannie Storm MD ~ [facility] Signed [facility] Work Phone: 1(855) 238-276306-16-2025 Radiology Diagnostic study note [facility] Imaging Services [address] [place], [place] [id number] Shoulder min 2 Views MR#: [id number] Acct: [id number] Name: NORMA GRIFFIN Rep #: [id number] : 1975 F 49 From: Dima Ashley MD PCP: Dr. Sasha Jackson DO Status: REG CLI Study:Shoulder min 2 Views Date of Exam: 09/08/24 Exam# [id number] Ordering Dr: Dannie Storm MD PROCEDURE: SHOULDER [...] arthritis of the acromioclavicular joint. Reading Location: [id number] CC: Dr. Sasha Jackson DO; Dr. Dannie Storm MD ~ Product Management Manager: Signed [facility] Work Phone: 1(687) 541-334611-30-2024 NoteHNO ID: [id number] Author: LORENA ALVARADO PA-C Service: ? Author Type: Physician Photograph Finisher Type: Progress Notes Filed: 02/23/2024 14:17 Note Text: This note was created using [email or web address]. Subjective Norma [facility] is a 48 year [...] XR CHEST 2V FRONTAL/LAT ANU [facility]11-30-2024 History of Present illness Narrative* Lorena Alvarado PA-C - 02/23/2024 2:15 PM EST This note was created using [employer]. Subjective Norma [facility] is a 48 year [...] , she will return Sunday for x-ray. Duoneb tx here, patient improved.I will treat withprednisone taper and prescription for albuterol Nebules for her nebulizer she has at home. Red flags for ER care discussed. Patient agreeable. - IPRATROPIUM 0.5 MG-ALBUTEROL 3 MG (2.5 MG BASE)/3 ML NEBULIZATION SOLN - XR CHEST 2V FRONTAL/LAT Lorena Alvarado PA-C [facility] Procedure [facility]01-10-2024 Discharge summary Author Daniel Choi [facility] April 04, 2023 3:55pm Note Date/Time April 04, 2023 3 :55pm [facility] Physical Therapy [facility] [address] [place] [address]. [address] [place] [address] / REHABILITATION SERVICES DISCHARGE SUMMARY MR#: [id number] Acct: [id number] Name: NORMA GRIFFIN Rep #: [id number] : 1975 47 From: Daniel Choi DPT, OCS, CSCS Referring Dr.: Dr. Sasha Jackson DO Status: REG RCR Insurance: [facility] SELF PAY INSURANCE Discharge Summary D/C summary: [...] please feel free to call me at [phone]. Thank you for the referral of thispatient. Sincerely, Daniel Choi, DPT, OCS, CSCS Balance/Gait/Functional tests Balance/Special Test Scores Oswestry Neck Score: 18 Improvement % Improvement: 0 <Electronically signed by Daniel Choi DPT, OCS, CSCS> 04/04/23 1555 CC: Dr. Sasha Jackson, DO ~ [facility] Signed [facility] Work Phone: [phone]) 196-930104-05-2023 Procedure [facility] 06-28-2022 Procedure [facility]04-05-2023 Procedure note [facility]04-05-2023 Procedure [facility] 06-14-2022 NotePap Smear Specimen AdequacyMarch 2022 4:06pmComment. Satisfactory for evaluation. Endocervical and/or squamous metaplasticcells (endocervical component)are present.[facility] INTER[facility]ED A#[id number] Health Clermont HospitalComment on above:Satisfactory for evaluation. Endocervical and/or squamous metaplasticcells (endocervical component)are present.06-14-2022 NotePap Smear Specimen AdequacyMarch 2022 4:06pmComment.Satisfactory for evaluation. Endocervical and/or squamous metaplasticcells (endocervical component)are present.[facility] A#[id number] Health [facility] Comment on above:Satisfactory for evaluation. Endocervical and/or squamous metaplasticcells (endocervical component)are present.06-14-2022 NotePap Smear Specimen AdequacyMarch 2022 4:06pmComment.Satisfactory for evaluation. Endocervical and/or squamous metaplasticcells (endocervical component)are present.[facility] INTER[facility] A#[id number] Health Clermont HospitalComment on above: Satisfactory for evaluation. Endocervical and/or squamous metaplasticcells (endocervical component)are present.Evaluation noteNo assessment information availableWSelect Medical [facility]Health Rehabilitation Hospital Work Phone: Evaluation note* Diagnosis Onset Date Resolution Status LLQ abdominal pain acute RUQ abdominal pain acute [facility] Work Phone: Evaluation note* Diagnosis Onset Date Resolution Status Encounter to establish care acute Urinary incontinence in female acute [facility] Work Phone: Evaluation note* Diagnosis Wheezing- Primary [facility] this [facility] Diagnosis Onset Date Resolution Status Admit Date Encounter for routine gynecological examination noneactive September 242024 3:16pm [facility] Work Phone: History and physical note Author Waldemar Villela [facility] June 28, 2022 6:50am Note Date/Time June 28, 2022 6:50 am [facility] Medical Records Department [address] [place] [address] History & Physical Exam 06/28/22 0649 MR#: [id number] Acct: [id number] Name: NORMA GRIFFIN Rep #:[id number] : 1975 46 From: Waldemar Villela DO PCP: Dr. Sasha Jackson, DO Status:[facility] Location: [place] [address] History and Physical Date of Admission: 06/28/22 46 F who presents to the office today to establish with GI for LLQ abdominal pain as well as newer RUQ abd pain. She is scheduled for CT today as ordered by her aviation project engineer Dr Palma. She had presented to [facility] with pelvic pain and fullness, as well as urinary frequency/urgency and vaginal discharge. Had pelvicUS at [employer] [facility] office on 06/14/22 which was unremarkable (2 [...] normal to inspection Quality Reporting Tobacco Screening ([facility] 138) Smoking Status: Former smoker Assessment and Plan Assessment and Plan (1) LLQ abdominal pain: ?Status:?Acute ?Plan: 46 yr old female with 6 weeks of LLQ pain and 1 week of RUQ pain. Will get KUB to eval for ureteral stone. She is scheduled for CT today as ordered by her aviation project engineer. Nest step based on imaging results. Will schedule her for EGD to eval for Araujo's as well as colonoscopy. May need RUQ US. (2) RUQ abdominal pain: ?Status:?Acute\ I have examined the patient and the H&P has been reviewed. There are no clinicalchanges since date of exam. 06/28/22 0650 <Electronically signed by Waldemar Villlea DO> Cosigner Signature (if applicable): CC: Dr. Sasha Jackson, DO; Waldemar Villela, DO~ Signed [facility] Work Phone: Reason for referral (narrative)No reason for referral information availableWSelect Medical [facility] Rehabilitation Hospital Work Phone: Chief Complaint and Reason [...] Complaint Establish care, disc uss BV concerns, [place] pt CERVICAL RADICULOPATHY/RX HERE Reason for Visit Encounter to [facility] Urinary incontinence in female Chief Complaint Establish care, disc uss BV concerns, [place] pt CERVICAL RADICULOPATHY/RX HERE SCREENING CERVICALGIA, RADICULOPATHY LT ARM Reason for Visit Encounter to [facility] Urinary incontinence in female Chief Complaint CERVICAL [...] HERE October 02, 2024 1 0:00am Annual ([employer]) October 15, 2024 3:16 pm Reason for Visit Admit Date Encounter for routine gynecological exam ination October 15, 2024 3:16pm Chief Complaint Admit Date RT SHOULDER PAIN September 08, 2024 9:34 am SHOULDER PAIN. RX HERE October 02, 2024 1 0:00am Annual ([employer]) October 15, 2024 3:16 pm E ORDER [...] HERE October 02, 2024 1 0:00am Annual ([employer]) October 15, 2024 3:16 pm E ORDER October 21, 2024 9:03 am screen for breast cancer November 04 3:30pm right shoulder pain December 01, 2024 7:05am Chief Complaint Admit Date RT SHOULDER PAIN September 08, 2024 9:34 am SHOULDER PAIN. RX HERE October 02, 2024 1 0:00am Annual ([employer]) October 15, 2024 3:16 pm E ORDER October 21, 2024 9:03 am screen for breast cancer November 04 3:30pm right shoulder pain December 01, 2024 7:05am palpitations December 10, 2024 6:42am palpitations December 10, 2024 7:05am Family History No Family History [...] Will No April 20 4:14pm Power of Tool Builder No April 20, 2016 4:14pm Advance Directive Response Recorded Date/ Time Advance Directives No April 20, 2016 3:14pm Living Will No April 20 3:14pm Power of Tool Builder No April 20, 2016 3:14pm Advance Directive Response Recorded Date/ Time Advance Directives No April 20, 2016 4:14pm Living Will No June 23, 2022 11:34am Power of Tool Builder No June 23 11:34am Advance Directive Response Recorded Date/ Time Advance Directives No April 20, 2016 3:14pm Living Will No June 23, 2022 10:34am Power of Tool Builder No June 23 10:34am Advance Directive Response [...] Sasha Jackson , DO Primary Care Provider, Aaron morrison Active Team Status: Inactive Member Role [...] Provider, Referring P rovider Active Bouchra Beaver [employer] FOREMAN, [employer]EMAN-C Attending Provider Active Team Status: Active Member [...] DO Primary Care Provider Active Bouchra Beaver [employer] [address] FOREMAN, [employer] FOREMAN-C Attending Provider, Referrin g Provider Active Team Status: Inactive Member Role Status Dates Dr. Sasha Jackson DO Primary Care Provider Active Buochra Beaver [employer] [address] FOREMAN, [employer] [address] FOREMAN-C Attending Provider, Referrin g Provider Active Team [...] Dr. Jeferson Ramos MD Attending Provider Active Public Health Engineer Relationship Specialty Start Date End Date Sasha Jackson DO [address] [place] [address] PCP - General Family Medicine 02/23/24 Team [...] December 01, 2024 End: December 01, 2024 Team Status: Active Member Role/Relationship Status Dates Dr. Sasha Jackson DO Primary care physician Active Team Status: Inactive Member Role/Relationship Status Dates Dr. Sasha Jackson DO Primary care physician Active Start: September 08, 2024 End: September 08, 2024 Dr. Dannie Storm MD Attending physician Active Start: September 08, 2024 End: September 08, 2024 Dr. Dannie Storm MD Referring Provider Active Start: September 08, 2024 End: September 08, 2024 Team Status: Inactive Member Role/Relationship Status Dates Dr. Sasha Jackson DO Primary care physician Active Start: October 02, 2024 End: October 02, 2024 Dr. Dannie Storm MD Attending physician Active Start: October 02, 2024 End: October 02, 2024 Dr. Dannie Storm MD Referring Provider Active Start: October 02, 2024 End: October 02, 2024 Team Status: Inactive Member Role/Relationship Status Dates Dr. Sasha Jackson DO Primary care physician Active Start: October 15, 2024 End: October 15, 2024 Dr. Sasha Jackson DO Referring Provider Active St art: October 15, 2024 End: October 15, 2024 Crissy Barkman , [employer] [address] [employer]-C Attending physician Active Start: October 15, 2024 End: October 15, 2024 Team Status: Inactive Member Role/Relationship Status Dates Dr. Sasha Jackson DO Primary care physician Active Start: October 21, 2024 End: October 21, 2024 HAKEEM Tilley Attending physician Active Start: October 21, 2024 End: October 21, 2024 HAKEEM Tilley Referring Provider Active Start: October 21, 2024 End: October 21, 2024 Team Status: Inactive Member Role/Relationship Status Dates Dr. Sasha Jackson DO Primary care physician Active Start: November 04, 2024 End: November 04, 2024 HAKEEM Tilley Attending physician Active Start: November 04, 2024 End: November 04, 2024 HAKEEM Tilley Referring Provider Active Start: November 04, 2024 End: November 04, 2024 Team Status: Inactive Member Role/Relationship Status Dates Dr. Sasha Jackson DO Primary care physician Active Start: December 01, 2024 End: December 01, 2024 Dr. Dannie Storm MD Attending physician Active Start: December 01, 2024 End: December 01, 2024 Dr. Dannie Storm MD Referring Provider Active Start: December 01, 2024 End: December 01, 2024 Team Status: Inactive Member Role/Relationship Status Dates Dr. Sasha Jackson DO Primary care physician Active Start: December 10, 2024 End: December 10, 2024 Dr. Sasha Jackson DO Attending physician Active S tart: December 10, 2024 End: December 10, 2024 Dr. Sasha Jackson DO Referring Provider Active St art: December 10, 2024 End: December 10, 2024 Team Status: Active Member Role/Relationship Status Dates Dr. Sasha Jackson DO Primary care physician Active Start: December 10, 2024 Dr. Sasha Jackson DO Referring Provider Active St art: December 10, 2024 Dr. Gavin Young MD Attending physician Active Start: December 10, 2024 Source Comments (unrecognize d section and [...] section and content) DATE CREATED AUTHOR 02/24/2024 [facility] DATE CREATED AUTHOR AUTHOR'S ORGANIZ ATION 01/31/2025 [facility] FOR RECORDS PERTAINING TO PATIENTS WHO [...] BE BASED ON THE PRIMARY CLINICAL RECORDS. [employer] [facility]. provides no warranty or guarantee of the accuracy or completeness of information in this document.
--- NOTE | 2025-03-25 08:36 | PCM.PRE.AN2 ---
ASA Classification* ASA Classification ASA Classification: 2 Assessment & Plan Anesthesia* Anesthesia Assessment Anesthesia Assessment: Discussed sedation and/or anesthesia options, risks, benefits, and alternatives with patient/parents/legal guardian/POA. Questions invited. The patient/parents/legal guardian/POA seems to understand and agrees to proceed with anesthesia plan. Reviewed the physical assessment, medical history, allergy history and patient home medications list prior to surgery/procedure/anesthetic and documented any changes. Performed airway and anesthesia risk assessments. Anesthesia Type Anesthesia Type: General and Block Anesthesia Focused Assessment* Airway Assessment Mouth opens: >3 cm Mallampati Score: II Labs Anesthesia Preop lab: CBC WBC, (4.4-11.0) 6.6 K/mm3 03/18/25, : RBC, (4.2-5.4) 4.22 M/mm3 03/18/25, : Hgb, (12.0-15.0) 12.1 g/dL 03/18/25, : Hct, (37-47) 37.2 % 03/18/25, : Plt Count, (150-450) 321 K/mm3 03/18/25, :27 CHEMISTRY Potassium, (3.5-5.1) 4.0 mmol/L 03/18/25, 07: Sodium, (135-145) 142 mmol/L 03/18/25, : Magnesium, (1.6-2.6) 2.2 mg/dL 08/21/23, 16:00 BUN, (4-19) 13 mg/dL 03/18/25, : Creatinine, (0.70-1.20) 0.69 mg/dL L 03/18/25, 07: Glucose, (70-99) 121 mg/dL H 03/18/25, 07: TSH, (0.300-4.200) 2.240 uIU/mL 10/21/24, 09:06 COAG Pre-Assessment Diagnosis/Proposed Procedure Planned Operative Procedure(s): rotator cuff repair subacromial decompression Anesthesia History 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 When Was Last Pacemaker Check QUESTION #4 FULL TEXT: You/Your Family Experience fever (hyperthermia) with Anesthesia Last Oral Intake Last Oral intake: Last Oral Intake NPO since Meds taken in AM with sips of water? Meds patient instructed to take am of surgery PONV PONV - coin purse assembler: PONV - coin purse assembler Female Yes 03/16/25 13:53 HX of Motion Sickness No 03/16/25 13:53 HX of N/V After Surgery No 03/16/25 13:53 Non-Smoker Yes 03/16/25 13:53 Duration of Surgery greater Yes 03/16/25 13:53 than 60 minutes Number of Risk Factors 3 03/16/25 13:53 PONV Score Moderate Risk 03/16/25 13:53 Height & Weight Height & Weight: Anesthesia: Height & Weight Height 5 ft 5 in 02/27/25 13:40 Respiratory Assessment Respiratory Assessment - coin purse assembler: Respiratory Tract Infection Hx - coin purse assembler Hx Respiratory Tract Infection No 03/16/25 13:53 STOP Sleep Apnea STOP Sleep Apnea - coin purse assembler: STOP Sleep Apnea - coin purse assembler Hx Hypertension No 03/16/25 13:53 Hx Sleep Apnea No 03/16/25 13:53 CPAP BIPAP Do you snore loudly (louder No 03/16/25 13:53 than talking or can be heard Do you often feel tired/ No 03/16/25 13:53 fatigued/ sleepy during daytime? Has anyone observed you stop No 03/16/25 13:53 breathing during sleep? STOP Results Negative 03/16/25 13:53 QUESTION #5 FULL TEXT : Do you snore loudly (louder than talking or can be heard through closed doors)? 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 Specify any problems Hx of Preganancy in last 3 N/A 03/16/25 13:53 Months Nurse Filling Out Transfusion MEGHAN 03/16/25 13:53 & Questions: Date: 03/16/25 03/16/25 13:53 Time: 14:02 03/16/25 13:53 Patient unable to answer at this time (ie. confused, unrespo /Reproduction History /Reproductive History - coin purse assembler: /Reproductive Hx- coin purse assembler Hx Now Gestational Age (in weeks): EDC: Hx Hx Para Hx Section SAB No 03/16/25 13:53 Does the father of the baby or his family experience fever w Father of the baby Malignant Hypertension history comment Active Medications Active Medications: Current Medications Generic Name Dose Route Start Last Admin Trade Name Freq PRN Reason Stop Dose Admin Lactated Ringer's 1,000 mls @ 15 mls/hr 03/25/25 08:30 IV .Q48H PROSPER PFSH Medical History Alcohol use History of IBS Gastric reflux Cardiology follow-up encounter Right rotator cuff tear Arthrosis of right acromioclavicular joint Tendinosis of right rotator cuff Right shoulder pain Constipation Urinary incontinence GERD (gastroesophageal reflux disease) Benign heart murmur Kidney stones Chronic headaches Melanoma Back problem Wears glasses Cancer History of hiatal hernia Former smoker History of Holter monitoring History of echocardiogram History of stress test RUQ abdominal pain Vitamin D deficiency IBS (irritable bowel syndrome) Premature ventricular contraction History of melanoma Home Medications ?Medication ?Instructions ?Recorded ?Last Taken ?Type calcium citrate 250 mg PO QDAY 10/15/24 Unknown History cholecalciferol (vitamin D3) 25 25 mcg PO QDAY 10/15/24 Unknown History mcg (1,000 unit) capsule creatine monohydrate 5,000 mg oral 500 mg PO DAILY 10/15/24 Unknown History powder packet magnesium trisilicate 20 1 tab PO DAILY PRN memory 10/15/24 Unknown History mg-aluminum hydroxide 80 mg chewable tablet turmeric 400 mg capsule mg PO 10/15/24 Unknown History vitamin B complex 1 tab PO QDAY 10/15/24 Unknown History estradiol 0.01% (0.1 mg/gram) 1 g vaginal 3XW 3 months #42.5 01/21/25 Unknown Rx vaginal cream grams pantoprazole 20 mg tablet,delayed 20 mg PO QDAY 01/21/25 03/25/25 History release testosterone 50 mg/5 gram (1 %) 1 tube transdermal QAM 01/21/25 Unknown History transdermal gel vibegron 75 mg tablet (Gemtesa) 75 mg PO DAILY 03/16/25 03/25/25 History Allergy/AdvReac Type Severity Reaction Status Date / Time No Known Allergies Allergy Verified 03/25/25 08:34 Family History Father Myocardial infarction, Onset Age: 51 Hypertension Heart disease Hyperlipidemia Alcoholism in family member Mother Hypertension Hyperlipidemia Thyroid disorder Diabetes Sister Arthritis Cancer Surgical History History of colonoscopy History of esophagogastroduodenoscopy (EGD) History of skin surgery H/O foot surgery History of D&C History of tubal ligation History of tonsillectomy History of Social History adopted: No household members: family housing: house number of children: 2 current occupational status: employed 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
[2025-03-25] MEDS: Lactated Ringers 1,000 ML 15 ML IV (08:41)
--- NOTE | 2025-03-25 09:31 | PCM.HP.STD ---
HPI - General HPI Narrative SLIME GRIFFIN, is a 49 F who presents for right shoulder arthroscopy, subacromial decompression, rotator cuff repair. Risks alternatives benefits discussed no changes to history and physical exam. Right shoulder marked. Narcotic counseling as well as postoperative instructions given the patient understands no further questions or concerns. MR#: [id number] Acct: [id number] Name: SLIME GRIFFIN Rep #: [id number] : 1975 Provider: Dr. Jose Martin Barrett MD Age/Sex: 49/F [place] [facility] Status: Signed Intake Vital Signs 01/21/2514:11 02/12/2515:21 Height 5 ft 5 in 5 ft 5 in Weight: 213 lb 215 lb BMI 35.4 35.7 BP 119/84 H Pulse 88 Intake Visit Reasons: RIGHT SHOULDER Chief Complaint: right shoulder pain Accompanied by: Self Is patient in pain?: Yes Pain scale (1-10): 2 Allergies No Known Allergies Allergy (Verified 02/12/25 15:23) Medications ?Medication ?Instructions ?Recorded ?Confirmed ?Type calcium citrate 250 mg PO QDAY 10/15/24 02/12/25 History cholecalciferol (vitamin D3) 25 25 mcg PO QDAY 10/15/24 02/12/25 History mcg (1,000 unit) capsule creatine monohydrate 5,000 mg oral mg PO 10/15/24 02/12/25 History powder packet magnesium trisilicate 20 tab PO 10/15/24 02/12/25 History mg-aluminum hydroxide 80 mg chewable tablet turmeric 400 mg capsule mg PO 10/15/24 02/12/25 History vitamin B complex 1 tab PO QDAY 10/15/24 02/12/25 History estradiol 0.01% (0.1 mg/gram) 1 g vaginal 3XW 3 months #42.5 01/21/25 02/12/25 Rx vaginal cream grams pantoprazole 20 mg tablet,delayed 20 mg PO QDAY 01/21/25 02/12/25 History release testosterone 50 mg/5 gram (1 %) 1 tube transdermal QAM 01/21/25 02/12/25 History transdermal gel Have you fallen in the past year?: No PFSH Medical History (Updated 02/12/25 @ 15:46 by Jose Martin Barrett MD) Right rotator cuff tear Arthrosis of right acromioclavicular joint Tendinosis of right rotator cuff Right shoulder pain Constipation Urinary incontinence GERD (gastroesophageal reflux disease) Benign heart murmur Kidney stones Chronic headaches Melanoma Back problem Wears glasses Cancer History of hiatal hernia Former smoker History of Holter monitoring History of echocardiogram History of stress test RUQ abdominal pain Vitamin D deficiency IBS (irritable bowel syndrome) Premature ventricular contraction History of melanoma Surgical History History of skin surgery H/O foot surgery History of D&C History of tubal ligation History of tonsillectomy History of Family History Father Myocardial infarction, Onset Age: 51 Hypertension Heart disease Hyperlipidemia Alcoholism in family member Mother Hypertension Hyperlipidemia Thyroid disorder Diabetes Sister Arthritis Cancer Social History adopted: No household members: family housing: house number of children: 2 current occupational status: employed 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 pets and animals: Yes history of recent travel: No sexually active: Yes Smoking Status: Former smoker second hand exposure: No alcohol intake: never substance use type: does not use caffeine: Yes Type: carbonated beverages Number of servings: 1 and coffee Number of servings: 4 what type of physical activity do you participate in: walking and weight training frequency: 1-2 times per week seatbelt use: always do you feel safe at home: Yes additional social history: spouse - Juan BYRD RIGHT SHOULDER Details: This documentation accurately reflects the service provided and the decisions made by me, Dr. Jose Martin Barrett MD 02/12/25 1055. Part of today?s visit was documented by [ ], acting as scribe. SLIME GRIFFIN is a 49 year old F here today for R shoulder pain. 5 months. no trauma. woke up with it one morning. had 2 injections, they did not help. Dr. Storm, lateral and posterior pain going down the arm. feels weak. OK at rest, worse with reaching or lifting, or over shoulder ht lifting. tried PT already over 6 weeks and multiple injections. worse at night. 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 Does have to do some more involved nursing with tube feeds. RHD. Supplemental Info [facility] Imaging Services [address], [place] [address] Shoulder min 2 Views MR#: [id number] Acct: [id number] Name: SLIME GRIFFIN Rep #: [id number] : 1975 F 49 From: Poncho Ashley MD PCP: Dr. Sasha Jackson, DO Status: REG CLI Study: Shoulder min 2 Views Date of Exam: 09/08/24 Exam# [id number] Ordering Dr: Dannie Storm MD PROCEDURE: SHOULDER MIN 2 VIEWS 09/08/2024 REASON FOR EXAM: RT SHOULDER PAIN TECHNIQUE: SHOULDER MIN 2 VIEWS COMPARISON: None. FINDINGS: Four views of the right shoulder demonstrate no evidence of fracture or dislocation. There is mild arthritis of the acromioclavicular joint. The glenohumeral joint appears unremarkable. The periarticular soft tissues are normal. RAD/Shoulder min 2 Views IMPRESSION: Mild arthritis of the acromioclavicular joint. Reading Location: [id number] Imaging Services [address] [place] [address] [id number] Upper Ext Joint Only(Routine) MR#: [id number] Acct: [id number] Name: SLIME GRIFFIN Rep #: [id number] : 1975 F 49 From: Jas Davis MD PCP: Dr. Sasha Jackson, DO Status: REG CLI Study: Upper Ext Joint Only(Routine) Date of Exam: 12/01/24 Exam# [id number] Ordering Dr: Dannie Storm MD PROCEDURE: UPPER EXT JOINT ONLY(ROUTINE) 12/01/2024 REASON FOR EXAM: RT SHOULDER PAIN TECHNIQUE: Procedure Code: MRIUEJ Modality: MR Procedure: UPPER EXT JOINT ONLY(ROUTINE) Multiplanar and multisequence images were obtained without IV contrast administration. COMPARISON: COMPARISON: None FINDINGS: The bone marrow signal is unremarkable. There is no contusion or bone marrow replacing process. No acute fracture seen. The supraspinatus is within normal limits. Minimal tendinosis seen at the insertion of the infraspinatus tendons. Normal subscapularis. Biceps tendon is within the bicipital groove. The biceps labral complex has a normal appearance. There is no labral tear. Minimal loss of cartilage seen in the glenohumeral joint. No loose body. No effusion. Mild AC joint arthropathy. No significant mass effect on the myotendinous junction. Minimal amount of fluid in the subacromial subdeltoid bursa noted. The adjacent musculature and soft tissues of the shoulder are otherwise normal. MRI/Upper Ext Joint Only(Routine) IMPRESSION: Mild tendinosis of the infraspinatus tendon. No rotator cuff tear. No labral tear. Mild degenerative changes of the acromioclavicular and glenohumeral joint. Reading Location: [facility] My own interpretation there does appear to be a partial undersurface 55% tear at the anterior leading edge of the supraspinatus tendon. Coding Level of Care Code Off vis,new,level 4 Diagnoses Right shoulder pain M25.511 Tendinosis of right rotator cuff M67.813 Arthrosis of right acromioclavicular joint M19.011 Right rotator cuff tear M75.101 Additional Codes Intake - Is patient in pain?: Yes (1125F) Assessment and Plan Assessment and Plan (1) Right shoulder pain: Status: Acute Plan: 49-year-old female with right shoulder pain despite extensive conservative management with an MRI evidence of a partial undersurface tear over 50% of the leading edge of the supraspinatus tendon. I explained the diagnosis prognosis different treatment options available to the patient including surgery. They have failed extensive conservative managements so they were more interested in surgery. Surgery would be in the form of right shoulder arthroscopy, some decompression, rotator cuff repair. I would likely do this with a trans tendon technique given the PASTA tear. The recovery associate with this 2 weeks in a sling 6 weeks of range of motion exercises and 3 to 6 months of full recovery before heavy overhead lifting. The patient understands wished to proceed no further questions or concerns. Pros and cons risks and benefits were discussed with the patient including but not limited to infection, pain, stiffness, bleeding, damage to surrounding structures, neurovascular injury, recurrence or retear, failure or wear of hardware or fixation, instability, fracture, deep vein thrombosis and pulmonary embolism, anesthetic risks, , patient dissatisfaction, need for further surgery and other risks. Patient understood and wished to proceed with surgery, and signed the informed consent documentation. (2) Tendinosis of right rotator cuff: Status: Acute (3) Arthrosis of right acromioclavicular joint: Status: Acute (4) Right rotator cuff tear: Status: Acute Clinical Quality Measures Falls Risk Screening/Assistive Devices Have you fallen in the past year?: No Ortho Exam General General: Yes no acute distress Neurologic: Yes alert and Yes oriented x3 Psychologic: Yes reasonable and appropriate Right Shoulder Skin/Wound: Yes CDI, No ecchymosis, No erythema and No swelling Testing: Positive Hawkin's, Neer's, AROM-Forward Elevation 0-180, AROM-External Rotation at side 0-60, empty can and belly press normal; Negative Speed's, TTP Biceps, TTP AC Joint, Drop Arm, cross arm or scapular winging SHOULDER: normal motor and sens to ax nerve, and MRU and AIN/PIN. strength 5/5 in FE and ER. pain at the GT. painful arc sign. [facility] Medical History Alcohol use History of IBS Gastric reflux Cardiology follow-up encounter Right rotator cuff tear Arthrosis of right acromioclavicular joint Tendinosis of right rotator cuff Right shoulder pain Constipation Urinary incontinence GERD (gastroesophageal reflux disease) Benign heart murmur Kidney stones Chronic headaches Melanoma Back problem Wears glasses Cancer History of hiatal hernia Former smoker History of Holter monitoring History of echocardiogram History of stress test RUQ abdominal pain Vitamin D deficiency IBS (irritable bowel syndrome) Premature ventricular contraction History of melanoma Home Medications ?Medication ?Instructions ?Recorded ?Last Taken ?Type calcium citrate 250 mg PO QDAY 10/15/24 Unknown History cholecalciferol (vitamin D3) 25 25 mcg PO QDAY 10/15/24 Unknown History mcg (1,000 unit) capsule creatine monohydrate 5,000 mg oral 500 mg PO DAILY 10/15/24 Unknown History powder packet magnesium trisilicate 20 1 tab PO DAILY PRN memory 10/15/24 Unknown History mg-aluminum hydroxide 80 mg chewable tablet turmeric 400 mg capsule mg PO 10/15/24 Unknown History vitamin B complex 1 tab PO QDAY 10/15/24 Unknown History estradiol 0.01% (0.1 mg/gram) 1 g vaginal 3XW 3 months #42.5 01/21/25 Unknown Rx vaginal cream grams pantoprazole 20 mg tablet,delayed 20 mg PO QDAY 01/21/25 03/25/25 History release testosterone 50 mg/5 gram (1 %) 1 tube transdermal QAM 01/21/25 Unknown History transdermal gel vibegron 75 mg tablet (Gemtesa) 75 mg PO DAILY 03/16/25 03/25/25 History Allergy/AdvReac Type Severity Reaction Status Date / Time No Known Allergies Allergy Verified 03/25/25 08:34 Family History Father Myocardial infarction, Onset Age: 51 Hypertension Heart disease Hyperlipidemia Alcoholism in family member Mother Hypertension Hyperlipidemia Thyroid disorder Diabetes Sister Arthritis Cancer Surgical History History of colonoscopy History of esophagogastroduodenoscopy (EGD) History of skin surgery H/O foot surgery History of D&C History of tubal ligation History of tonsillectomy History of Social History adopted: No household members: family housing: house number of children: 2 current occupational status: employed 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 What would you like to achieve or improve as a result of your hospital stay?: na Vital Signs Vital Signs Vital Signs: 03/25/25 08:35 03/25/25 08:35 03/25/25 08:35 Temperature 98.3 F Temperature Source Temporal Pulse Rate 86 Respiratory Rate 16 Respiratory Pattern Normal Blood Pressure 127/82 H Blood Pressure Mean 97 Blood Pressure Source Monitor Blood Pressure Position Semi-Fowlers Blood Pressure Location Left Arm Baseline BP 127/82 Pulse Ox 98 Oxygen Delivery Method Room Air Weight Weight: 238 lb Body Mass Index (BMI) 39.6 Results Lab / Micro Data 03/18/25 07:27 03/18/25 07:27
[2025-03-25] MEDS: Midazolam 2 MG/2 ML Syringe IV (09:35)
[2025-03-25] MEDS: Epinephrine (1 mg/ml) 1 MG/ML VIAL (09:40)
[2025-03-25] MEDS: Cefazolin 1 GM/5 ML Vial 2 GM IV (10:20)
--- NOTE | 2025-03-25 11:13 | PCM.OPRPT ---
Procedures Musculoskeletal 20xxx-29xxx: Other Procedure See Report Operative Report (Standard) Operative Information Date of Procedure: 03/25/25 Pre-Operative Diagnosis: R shoulder RC tear, impingement syndrom Post-Operative Diagnosis: R shoulder RC tear, impingement syndrome, inflammatory synovitis Surgery/Procedure Performed: Right shoulder arthroscopy, rotator cuff repair, subacromial decompression, limited debridement, synovectomy product finisher: Yes [employer] General Supervisor: vianney Tasks completed by equity sales assistant: Retracting Type of Anesthesia: Block,Regional and General RN Documented Start/Stop Times: Operation Date: 03/25/25 10:25 Case Time Into Pre-Op 03/25/25 08:23 Anesthesia Start 03/25/25 10:04 Into Room 03/25/25 10:04 Out of Pre-Op 03/25/25 10:04 Procedure Start 03/25/25 10:30 Procedure Start Time: 10:30 Procedure Stop Time: 11:18 Select all DRAINS/GRAFTS/IMPLANTS that apply: Implanted device Implanted device details: arthrex 4.75mm swivelock anchor Estimated Blood Loss: 50 Specimen collected: No Description of surgery: Patient brought to the operating room theater. Placed supine on the table. General anesthesia induced. 2 g IV Ancef administered prior to the start of the procedure. SCDs on the legs. Patient transferred right side up lateral decubitus beanbag positioner axillary roll used. SCDs on the legs prior. All bony prominences padded. Upper extremity prepped and draped in the usual sterile fashion with chlorhexidine-based prep solution allowing over 3 minutes drying time prior to draping. Preoperative timeout performed to confirm the site patient and surgery. Began by inserting the arthroscope into the intra-articular portion of the shoulder through a standard posterior arthroscopy portal. Made an accessory anterior portal through the rotator interval inside out spinal needle localization. Cartilage on the glenoid and humeral head had grade 1 changes, gentle debrided frayed flaps. There is some fraying of the anterior aspect labrum as well as superiorly near the biceps. Extensive debrided these 2 structures, as well as chondroplasty and debridement of the humeral head cartilage. Placed a cannula into the anterior rotator interval portal. The biceps root was stable. The biceps long head tendon appeared to have some mild inflammatory synovitis. No loose bodies. There was inflammatory synovitis in the rotator interval I removed and debrided that and used ablating instrument and shaver to remove that completely from the intra-articular portion of the shoulder. I examined the undersurface of the supraspinatus tendon there is indeed more than 50% partial-thickness tear anterior leading edge, marked that with spinal needle. Debrided the undersurface as well. I then placed the arthroscope into the subacromial space. I used an accessory lateral portal. I completed the bursectomy as well as a complete synovectomy in the subacromial space for inflammatory synovitis. I examined the anterolateral leading into the acromion which was indeed downsloping. I slightly released the CA ligament. I performed a subacromial decompression for 5 mm. I removed synovitis from the subacromial joint as well. Identified where the spinal needle was marking the SS tear. This was well over 50%, more toward 80%, so did a takedown to complete to full thickness [id number] tear. Used the power pack to create multiple areas of trephination at the rotator cuff footprint. Then passed an inverted horizontal mattress fiber tape suture and then inserted this into a 4.75 mm Arthrex swivel lock anchor just off the greater tuberosity. This achieved good purchase and no elevation areas good solid repair. Arthroscopy pictures taken and saved onto the system. I completed the bursectomy looking posteriorly. I probed the rest the rotator cuff tendon and again no other tears were found. Therefore the case was terminated thorough irrigation. Portal sites closed with 3-0 Monocryl suture. Skin cleaned with wet dry dressing followed application of Steri-Strips Adaptic 4 x 4 gauze ABD dressing cloth tape and a sling for the upper extremity. Patient woken up from the general anesthetic transferred off the operating table taken postanesthetic care unit in stable condition. All sponge needle and instrument grafts were correct. Plan for the patient discharge home according to the surgery criteria. Follow-up in the office within 2 weeks time. cpt 12806 cpt 15431 - mod 59 inflammatory synovitis in multiple compartments glenohumeral joint and subacromial space cpt 65881 - mod 59 debridement of labrum, biceps, humeral head cartilage, and rotator interval, distinct from work required for rotator cuff repair Surgical Findings: as above Complications Complications: No Admit VTE Documentation VTE Present on Admission: No VTE Mechan Device Prophylaxis: SCD's VTE Pharm Prophylaxis ordered?: No Reason prophylaxis not ordered: Treatment Not Indicated
[2025-03-25] MEDS: fentaNYL 100 MCG/2 ML Ampul IV (11:15)
--- NOTE | 2025-03-25 11:24 | DCINST_ITS ---
Discharge Instructions Diet Discharge Diet: No restrictions Activity Ice area for (Minutes): 10 Lifting Restrictions: no lifting over 1 pound, sling Additional Activity Instructions:: ok to remove sling 4x/day and do pendulums Dressing / Incision Call your doctor if your incision/area has: Continuous Slow Oozing, Sudden Increased Bleeding, Increased Pain/ Swelling, Increased Redness, Foul Smelling Discharge and Swelling at the incision site Call your doctor if you observe: Fever of 101 or Higher, Coldness, Increased Pain and Numbness or Tingling Remove Dressing in: leave in place till F/U Cleanse incision/area with: Do not get Incision Wet Follow Up Care Please Follow Up With: Jose Martin Barrett MD When: within 2 weeks Test Results: Test results from this visit will be discussed in further detail at your follow- up appointment, if applicable. Discharge Plan Admission Attending Provider: Jose Martin Barrett Primary Care Provider: Sasha Jackson Instructions Patient Instructions: Pendulum (Flexibility) Print Language: [place] Discharge Orders/Prescriptions Prescriptions: New oxycodone-acetaminophen [Endocet] 5-325 mg tablet 1 tab PO Q4H MDD 6 PRN (Reason: pain) 5 Days Qty: 30 0RF No Action vitamin B complex Tablet 1 tab PO QDAY cholecalciferol (vitamin D3) 25 mcg (1,000 unit) capsule 25 mcg PO QDAY turmeric 400 mg capsule PO mag trisilicate-alum hydroxide 20-80 mg tablet,chewable 1 tab PO DAILY PRN (Reason: memory) calcium citrate 250 mg calcium tablet 250 mg PO QDAY creatine monohydrate 5,000 mg powder in packet 500 mg PO DAILY pantoprazole 20 mg tablet,delayed release (DR/EC) 20 mg PO QDAY testosterone 50 mg/5 gram (1 %) gel 1 tube transdermal QAM estradiol 0.01 % (0.1 mg/gram) cream 1 g vaginal 3XW 90 Days Qty: 42.5 3RF Gemtesa 75 mg tablet 75 mg PO DAILY Other Ambulatory Orders: 12 Lead EKG (Routine) Timeframe: 20250318 Location: None Selected Ordered By: Dr. Shayan Morris Referrals / Follow Up: Sasha Jackson DO [Primary Care Provider, Family Practice] Jose Martin Barrett MD [Med Staff - Active Staff, Orthopedics] Disposition Disposition (needs filled in before D/C Order can be placed): Home, Self Care
--- NOTE | 2025-03-25 11:41 | PCM.POST.ANE ---
Anesthesia: Postop Eval I Current Vital Signs Temperature: 98.5 F Pulse Rate: 87 Blood Pressure: 150/85 Respiratory Rate: 16 Pulse Ox: 95 Oxygen Delivery Method: Nasal Cannula Oxygen Flow Rate (L/min): 4 Assessment Airway patent: Yes Spontaneous unlabored respirations: Yes Mental status: Awake and Calm nausea: No Vomiting: No Anesthesia Complication: No Fluid Hydration Crystalloid volume administer (ml): 700 Total IV fluid infused: 700 Progress Note Anesthesia document: Postop Eval 1 completed: Yes
--- NOTE | 2025-03-25 12:28 | POSTOPAN2_ITS ---
Anesthesia Postop Eval I Sum Postop Eval Completion status Anesthesia document: Postop Eval 1 completed: Yes Anesthesia Postop Eval I Summary Anesthesia Postop Eval I Summary: Anesthesia Postop Eval I: Assessment Summary Airway patent Yes 03/25/25 11:42 PENSION CONSULTANT.SHOF Spontaneous unlabored Yes 03/25/25 11:42 PENSION CONSULTANT.SHOF respirations Mental status Awake,Calm 03/25/25 11:42 PENSION CONSULTANT.SHOF nausea No 03/25/25 11:42 PENSION CONSULTANT.SHOF Vomiting No 03/25/25 11:42 PENSION CONSULTANT.SHOF Anesthesia Postop Eval I: Fluid Summary Crystalloid volume administer 700 03/25/25 11:42 PENSION CONSULTANT.SHOF (ml) Colloids volume administered ( ml) Blood Product volume administered (ml) Total IV fluid infused 700 03/25/25 11:42 PENSION CONSULTANT.SHOF Anesthesia Postop Eval I: Summary Notes Anesthesia Complication No 03/25/25 11:42 PENSION CONSULTANT.SHOF Anesthesia Complication Comment: Post-operative progress note Anesthesia: Postop Eval II Evaluation Mental status: Awake Pain Level: 0 nausea: No Vomiting: No
--- NOTE | 2025-03-25 12:28 | PCM.POSTANE2 ---
Anesthesia Postop Eval I Sum Postop Eval Completion status Anesthesia document: Postop Eval 1 completed: Yes Anesthesia Postop Eval I Summary Anesthesia Postop Eval I Summary: Anesthesia Postop Eval I: Assessment Summary Airway patent Yes 03/25/25 11:42 RAND MAKER.SHOF Spontaneous unlabored Yes 03/25/25 11:42 RAND MAKER.SHOF respirations Mental status Awake,Calm 03/25/25 11:42 RAND MAKER.SHOF nausea No 03/25/25 11:42 RAND MAKER.SHOF Vomiting No 03/25/25 11:42 RAND MAKER.SHOF Anesthesia Postop Eval I: Fluid Summary Crystalloid volume administer 700 03/25/25 11:42 RAND MAKER.SHOF (ml) Colloids volume administered ( ml) Blood Product volume administered (ml) Total IV fluid infused 700 03/25/25 11:42 RAND MAKER.SHOF Anesthesia Postop Eval I: Summary Notes Anesthesia Complication No 03/25/25 11:42 RAND MAKER.SHOF Anesthesia Complication Comment: Post-operative progress note Anesthesia: Postop Eval II Evaluation Mental status: Awake Pain Level: 0 nausea: No Vomiting: No
[2025-03-25] MEDS: HYDROcodone Bitartrate/Apap 5/325 Tablet PO (13:10)
--- NOTE | 2025-03-25 14:00 | DCINST_ITS ---
Discharge Instructions Diet Discharge Diet: No restrictions Activity Ice area for (Minutes): 10 Additional Activity Instructions:: ok to remove sling 4x/day and do pendulums Dressing / Incision Call your doctor if your incision/area has: Continuous Slow Oozing, Sudden Increased Bleeding, Increased Pain/ Swelling, Increased Redness, Foul Smelling Discharge and Swelling at the incision site Call your doctor if you observe: Fever of 101 or Higher, Coldness, Increased Pain and Numbness or Tingling Cleanse incision/area with: Do not get Incision Wet Follow Up Care Please Follow Up With: Jose Martin Barrett MD Test Results: Test results from this visit will be discussed in further detail at your follow- up appointment, if applicable. Discharge Plan Admission Attending Provider: Jose Martin Barrett Primary Care Provider: Sasha Jackson Instructions Patient Instructions: Pendulum (Flexibility) Print Language: Turkmen Discharge Orders/Prescriptions Prescriptions: New oxycodone-acetaminophen [Endocet] 5-325 mg tablet 1 tab PO Q4H MDD 6 PRN (Reason: pain) 5 Days Qty: 30 0RF ondansetron 4 mg tablet,disintegrating 4 mg PO Q8H MDD 3 PRN (Reason: nausea and vomiting) 5 Days Qty: 20 0RF No Action vitamin B complex Tablet 1 tab PO QDAY cholecalciferol (vitamin D3) 25 mcg (1,000 unit) capsule 25 mcg PO QDAY turmeric 400 mg capsule PO mag trisilicate-alum hydroxide 20-80 mg tablet,chewable 1 tab PO DAILY PRN (Reason: memory) calcium citrate 250 mg calcium tablet 250 mg PO QDAY creatine monohydrate 5,000 mg powder in packet 500 mg PO DAILY pantoprazole 20 mg tablet,delayed release (DR/EC) 20 mg PO QDAY testosterone 50 mg/5 gram (1 %) gel 1 tube transdermal QAM estradiol 0.01 % (0.1 mg/gram) cream 1 g vaginal 3XW 90 Days Qty: 42.5 3RF Gemtesa 75 mg tablet 75 mg PO DAILY Other Ambulatory Orders: 12 Lead EKG (Routine) Timeframe: 20250318 Location: None Selected Ordered By: Dr. Shayan Morris Referrals / Follow Up: Sasha Jackson DO [Primary Care Provider, Family Practice] Jose Martin Barrett MD [Med Staff - Active Staff, Orthopedics] Disposition Disposition (needs filled in before D/C Order can be placed): Home, Self Care
--- NOTE | 2025-03-25 14:02 | SUR.PHASEII ---
pt was ready for d/c. after getting dressed pt started feeling nauseated. this nurse called for po zofran from dr adames. pt stated that she felt this way after her and she took po pain meds. called dr reynolds for a rx called into [facility]. dr reynolds stated he will call in rx.
== END 2025-03-25 14:05 | disposition home or self-care (01) ==
LOC: SDC 08:17 → AC 08:18
PROVIDERS: Anesthesiology; PCP Family Medicine; Referring Provider Orthopaedic Surgery Sports Medicine; Visit Provider Orthopaedic Surgery Sports Medicine
PROC: (CPT 29805; principal; 2025-03-25 10:05)
DX: M75.111 Incomplete rotator cuff tear or rupture of right shoulder, not specified as traumatic (principal); M75.41 Impingement syndrome of right shoulder; M65.911 Unspecified synovitis and tenosynovitis, right shoulder; K21.9 Gastro-esophageal reflux disease without esophagitis; Z79.899 Other long term (current) drug therapy; Z87.891 Personal history of nicotine dependence
CPT/HCPCS: 29827; 29823; 29822; 64450; 01630; 36415; 80048; 85027; 93005; C1713; J2405